=== PATIENT | female | born 1935 | race Caucasian/White ===

== ENCOUNTER → 2017-08-16 13:18 | Outpatient (CLI) | payer OTHER, SELFPAY ==
--- NOTE | 2017-08-16 | DI.MRI.S_ITS ---
PROCEDURE: MR HIP LT WO CON INDICATIONS: OSTEOARTHRITIS OF LEFT HIP TECHNIQUE: Noncontrast coronal T1 spin echo and STIR through the bony pelvis. Coronal and axial T2 fast spin echo with fat saturation, sagittal T1 spin echo, and oblique axial T2 fast spin echo with fat saturation through the hip. COMPARISON: None. FINDINGS: Image quality: Excellent. Bones and joints: Bone marrow of the pelvic ring and proximal femurs show asymmetric signal with degenerative osteoarthritic reactive marrow edema present at the proximal left femoral head and neck and also the overlying acetabulum. No intraosseous lesions or fractures. No avascular necrosis of the femoral heads. The visualized lower lumbar spine appears normally aligned. Tendons and ligaments: The gluteus medius and minimus tendons appear intact, without associated muscle atrophy. The nearby proximal iliotibial band also appears intact. The iliopsoas tendon appears intact, without adjacent bursal fluid collections or evidence for impingement syndrome. The origin of the hamstring tendon is intact at the ischial tuberosity, as well as the associated sacrotuberous ligament. The straight and reflected heads of the rectus femoris muscle origin appear intact, as well as the conjoint tendon. The ligamentum teres appears intact where visualized. Labrum and cartilage: The acetabular labrum appears intact in the absence of intra-articular contrast. Cartilage surface of the femoral head on the left appears of prominently reduced thickness indicating moderately severe degenerative osteoarthritis at this level, with several subchondral cysts having formed as a result.. The alpha angle of the femur is within normal limits at less than 55 degrees. Soft tissues: Visualized muscles demonstrate normal bulk and internal signal. Quadratus femoris muscle demonstrates no internal edema to suggest ischiofemoral impingement. The proximal sciatic neurovascular bundle appears normal adjacent to the hamstring tendons. No free pelvic fluid. Bladder wall thickness is normal. Genitourinary structures and bowel loops appear normal where visualized. IMPRESSION: Mild to moderate degenerative hip joint osteoarthritis on the right, but there is moderately severe degenerative osteoarthritis of the left with near [id number] articulation seen at the left hip, with reactive marrow space edema involving the femoral head and neck and to a slightly lesser degree the overlying left acetabulum. No significant joint effusion or intra-articular loose body. Orthopedic surgical consultation has been obtained. Dictated by: Jonah Hurd M.D. on 08/16/2017 at 16:44 Approved by: Jonah Hurd M.D. on 08/16/2017 at 16:47
== END ==
PROVIDERS: PCP Family Medicine; Visit Provider Orthopaedic Surgery
DX: M16.0 Bilateral primary osteoarthritis of hip (principal)
CPT/HCPCS: 73721

== ENCOUNTER → 2017-08-27 07:08 | Outpatient (CLI) | payer OTHER, SELFPAY ==
[2017-08-27 08:53] LABS: Add Manual Diff / Slide Review NO; Basophils Percent Auto 0.7 % (0-2); Eosinophils Percent Auto 6.8 % (2-4); Hematocrit 39.1 % (36-46); Hemoglobin 13.1 g/dL (12.0-16.0); Lymphocytes Percent Auto 27.5 % (25-40); Mean Corpuscular HGB Conc 33.5 % (30-36); Mean Corpuscular Hemoglobin 31.2 PG (26-34); Mean Corpuscular Volume 92.9 fL (80-100); Monocytes Percent Auto 7.6 % (3-14); Neutrophils Absolute Auto 3100 /uL (3000-5900); Neutrophils Percent Auto 57.4 % (50-75); Platelet Count 272 X10^3/uL (150-400); Red Blood Cell Count 4.21 X10^6/uL (4.0-5.2); Red Cell Distribution Width 14.3 % (11.6-14.8); White Blood Cell Count 5.5 X10^3/uL (4.5-11.0)
[2017-08-27 09:16] LABS: Alanine Aminotransferase 25 IU/L (9-52); Albumin 4.2 g/dL (3.5-5.0); Albumin Globulin Ratio 1.4 (1.0-2.8); Alkaline Phosphatase 63 U/L (38-126); Aspartate Aminotransferase 19 IU/L (14-36); BUN Creatinine Ratio 22.5 (6-22); Bilirubin Total 0.3 mg/dL (0.2-1.3); Blood Urea Nitrogen 18 mg/dL (7-17); Calcium 9.2 mg/dL (8.4-10.2); Carbon Dioxide 29 mmol/L (22-32); Chloride 105 mmol/L (98-107); Cholesterol 195 mg/dL (140-199); Estimated Glomerular Filt Rate > 60.0 mL/min (>60); Globulin 2.9 g/dL (1.7-4.1); Glucose 97 mg/dL (80-110); HDL Cholesterol 38 mg/dL (40-60); HEMOLYSIS 19 (0-50); LDL Cholesterol Calculated 129 mg/dL (<100); Sodium 143 mmol/L (137-145); Total Protein 7.1 g/dL (6.3-8.2); Triglycerides 140 mg/dL (35-150)
[2017-08-27 09:34] LABS: Thyroid Stimulating Hormone 0.65 uIU/mL (0.47-4.68)
== END ==
PROVIDERS: PCP Family Medicine; Visit Provider Family Medicine
DX: E78.5 Hyperlipidemia, unspecified (principal); I10 Essential (primary) hypertension
CPT/HCPCS: 36415; 80053; 80061; 84443; 85025

== ENCOUNTER → 2017-09-10 09:07 | Outpatient (CLI) | payer OTHER, SELFPAY ==
[2017-09-10 10:48] LABS: Add Manual Diff / Slide Review NO; Basophils Percent Auto 0.8 % (0-2); Eosinophils Percent Auto 9.5 % (2-4); Hematocrit 38.5 % (36-46); Hemoglobin 12.9 g/dL (12.0-16.0); Lymphocytes Percent Auto 23.9 % (25-40); Mean Corpuscular HGB Conc 33.6 % (30-36); Mean Corpuscular Volume 92.2 fL (80-100); Monocytes Percent Auto 8.6 % (3-14); Neutrophils Absolute Auto 2800 /uL (3000-5900); Neutrophils Percent Auto 57.2 % (50-75); Platelet Count 265 X10^3/uL (150-400); Red Blood Cell Count 4.17 X10^6/uL (4.0-5.2); Red Cell Distribution Width 13.5 % (11.6-14.8); White Blood Cell Count 4.9 X10^3/uL (4.5-11.0)
[2017-09-10 11:03] LABS: Carbon Dioxide 29 mmol/L (22-32); Chloride 104 mmol/L (98-107); HEMOLYSIS < 15 (0-50); Potassium 4.1 mmol/L (3.4-5.1); Sodium 142 mmol/L (137-145)
== END ==
PROVIDERS: PCP Family Medicine; Visit Provider Orthopaedic Surgery
DX: M16.12 Unilateral primary osteoarthritis, left hip (principal); Z01.818 Encounter for other preprocedural examination; Z01.812 Encounter for preprocedural laboratory examination
CPT/HCPCS: 36415; 80051; 85025; 93005; 93010

== ENCOUNTER 2017-10-01 07:20 | Inpatient (IN) | payer OTHER, SELFPAY ==
[2017-09-17 08:35] VITALS: BMI 27.8
[2017-10-01] VITALS (14 sets, daily range): BP systolic 134–165; BP diastolic 64–98; PULSE 64–87; RESP 10–18; TEMP 35.9–36.9; O2SAT 90–97; BMI 28.0
--- NOTE | 2017-10-01 06:00 | DI.RAD.S_ITS ---
PROCEDURE: XR PELVIS 1-2V INDICATIONS: LEFT TOTAL HIP TECHNIQUE: 1 view of the lower pelvis acquired. COMPARISON: None. FINDINGS: Bones: Patient is status post left hip arthroplasty, with hardware components in expected positions. The hip joint appears congruent. The visualized bony structures appear intact. Soft tissues: Overlying postoperative changes are noted. No suspicious soft tissue densities. IMPRESSION: Post left total hip arthroplasty with anatomic alignment. Dictated by: Clif Ambrose M.D. on 10/01/2017 at 12:57 Approved by: Clif Ambrose M.D. on 10/01/2017 at 13:10
[2017-10-01] MEDS: CELECOXIB 200 MG CAPSULE PO (09:10)
[2017-10-01] MEDS: PREGABALIN 75 MG CAPSULE PO (09:10)
[2017-10-01] MEDS: LACTATED RINGERS 1,000 ML 42 ML IV (09:10)
[2017-10-01] MEDS: ACETAMINOPHEN 325 MG TABLET 975 MG PO (09:10)
--- NOTE | 2017-10-01 10:03 | PM.PREOP ---
Pre-operative Note Interval Note Pre-op Check: Yes History & Physical Reviewed by Physician Changes: No
[2017-10-01] MEDS: CEFAZOLIN 1 GM VIAL IV (10:26)
[2017-10-01] MEDS: TRANEXAMIC ACID 1,000 MG VIAL 1000 MG INJ (10:50)
--- NOTE | 2017-10-01 11:38 | SUR.OPER ---
Lateral on padded OR bed. Gel axillary roll. Arms secured on padded armboard with pillow supporting top arm. Padded hip positioner braces x4 - anterior and posterior chest and pelvis. Additional gel pad used anterior pelvis. Gel pad under bottom leg from knee to foot and secured with tape over sheet.
--- NOTE | 2017-10-01 11:38 | SUR.OPER ---
Patient incontinent of large amount of clear urine after positioning but before prep. Slime area cleaned and absorbent layer added under patient buttock. Dr Gaona aware of reason for delay in prepping.
[2017-10-01] MEDS: BUPIVACAINE 0.25% W/ EPI VIAL 50 ML INJ (11:52)
--- NOTE | 2017-10-01 12:22 | PM.OP.1 ---
Operative Date/Time/Diagnoses Date of procedure: 10/01/17 Time of procedure: 12:22 Pre-op diagnosis: Left hip degenerative joint disease Post-op diagnosis: same Procedure & Clinicians Procedure: Left total hip arthroplasty (CPT code 21971 with mechanic assistant) Same procedure as scheduled: Yes Indications: Patient is an 81-year-old female with severe left hip DJD. The patient has pain with activities and at rest, limited ambulation and activity tolerance, difficulties with ADLs, and failure of conservative treatment. We have discussed the nature of condition, treatment options, risks and benefits, and patient elects to proceed with total hip arthroplasty and gives informed consent. Surgeon: Ori Gaona Video Intern: Elsa Smith Anesthesia Type: General and Spinal Operative Notes Closure Type: primary Specimen(s): none sent Implants & Drains: Acetabulum: Puentes [employer] Nephew R3 acetabular component size 50 mm Femoral component: Puentes [employer] Nephew Synergy stem size 12 with high offset Femoral head: 36 mm + 0 cobalt chrome Estimated Blood Loss (mL): 100 Procedure in detail: After satisfaction induction of anesthetic, and administration of IV antibiotics, the patient was positioned in the lateral decubitus position with all bony prominences well padded and pelvic position secured using a hip supervisor receiving and processing positioning device. Left hip and lower extremity prepped and draped in the usual sterile fashion, 1st dose of intravenous tranexamic acid was administered, then a longitudinal incision was created centered over the greater trochanter and carried sharply through the skin and subcutaneous tissues down to the fascia zoila which was divided longitudinally and retracted with a Charnley retractor. External rotators visualize, cut, tagged, and retracted posteriorly, then the capsule was cut in a T-type fashion with the corners tagged and retracted. Hip was dislocated and femoral neck cut made according to preoperative templating. Acetabular retractors then placed, and the acetabular labrum and osteophytes were excised. The acetabulum was then sequentially reamed to 49 mm with an excellent circumferential ream and fit with the trial. The trial component was removed and a permanent size 50 mm Puentes and Nephew R3 acetabular component was selected, positioned, and impacted with satisfactory position and fixation achieved. Permanent liner was then inserted with the elevated lip directed posteriorly. Soft tissue then removed off the lateral femoral neck in the lateral neck was entered using a box osteotome. T-handled reamers placed down the canal followed by sequential broaching to 12 with the final broach left in place for trial reduction which demonstrated good leg length, range of motion, and stability characteristics with a 32 mm +0 trial ball, because the acetabulum had been medialized more than originally templated another trial reduction was performed with a high offset neck which yielded excellent leg length range of motion and stability characteristics. The trial and broach were removed, and a permanent size 12 high offset Puentes [employer] Nephew Synergy stem was selected and inserted with excellent position and fixation achieved. Another trial reduction yielded the above characteristics so the trial ball was exchanged for a permanent 32 mm +0 cobalt chrome ball. The hip was irrigated and reduced and excellent leg length range of motion and stability characteristics were achieved and maintained. Periarticular tissues were infiltrated with Marcaine. The hip was copiously irrigated, and the capsule repaired with #2 Ethibond, and the piriformis was repaired back to the greater trochanter with the same. Fascia zoila closed with interrupted #1 Ethibond sutures, and the subcutaneous tissues were closed in 2 layers of 0 Vicryl and 2 0 Vicryl. Skin was closed with radha and sterile dressings applied. Second dose of tranexamic acid was administered intravenously, and the anesthetic was terminated. Complications: none Condition: stable Disposition: PACU Plan for aftercare: Patient will be admitted to the acute care [facility], and anticipate discharge on postop day 1 or 2 with follow-up in office in 10-14 days. Outpatient physical therapy will be arranged and patient will continue to observe posterior hip precautions. Patient will continue use of postoperative Lovenox for 10 days postop.
--- NOTE | 2017-10-01 12:26 | P.OP_ITS ---
Operative Date/Time/Diagnoses Date of procedure: 10/01/17 Time of procedure: 12:22 Pre-op diagnosis: Left hip degenerative joint disease Post-op diagnosis: same Procedure & Clinicians Procedure: Left total hip arthroplasty (CPT code 30390 with optical assistant) Same procedure as scheduled: Yes Indications: Patient is an 81-year-old female with severe left hip DJD. The patient has pain with activities and at rest, limited ambulation and activity tolerance, difficulties with ADLs, and failure of conservative treatment. We have discussed the nature of condition, treatment options, risks and benefits, and patient elects to proceed with total hip arthroplasty and gives informed consent. Surgeon: Ori Gaona Truck And Transport Mechanic: Elsa Smith Anesthesia Type: General and Spinal Operative Notes Closure Type: primary Specimen(s): none sent Implants & Drains: Acetabulum: Puentes and Nephew R3 acetabular component size 50 mm Femoral component: Puentes [employer] Nephew Synergy stem size 12 with high offset Femoral head: 36 mm + 0 cobalt chrome Estimated Blood Loss (mL): 100 Procedure in detail: After satisfaction induction of anesthetic, and administration of IV antibiotics, the patient was positioned in the lateral decubitus position with all bony prominences well padded and pelvic position secured using a hip jailer/training officer positioning device. Left hip and lower extremity prepped and draped in the usual sterile fashion, 1st dose of intravenous tranexamic acid was administered, then a longitudinal incision was created centered over the greater trochanter and carried sharply through the skin and subcutaneous tissues down to the fascia zoila which was divided longitudinally and retracted with a Charnley retractor. External rotators visualize, cut, tagged, and retracted posteriorly, then the capsule was cut in a T-type fashion with the corners tagged and retracted. Hip was dislocated and femoral neck cut made according to preoperative templating. Acetabular retractors then placed, and the acetabular labrum and osteophytes were excised. The acetabulum was then sequentially reamed to 49 mm with an excellent circumferential ream and fit with the trial. The trial component was removed and a permanent size 50 mm Puentes and Nephew R3 acetabular component was selected, positioned, and impacted with satisfactory position and fixation achieved. Permanent liner was then inserted with the elevated lip directed posteriorly. Soft tissue then removed off the lateral femoral neck in the lateral neck was entered using a box osteotome. T-handled reamers placed down the canal followed by sequential broaching to 12 with the final broach left in place for trial reduction which demonstrated good leg length, range of motion, and stability characteristics with a 32 mm +0 trial ball, because the acetabulum had been medialized more than originally templated another trial reduction was performed with a high offset neck which yielded excellent leg length range of motion and stability characteristics. The trial and broach were removed, and a permanent size 12 high offset Puentes and Nephew Synergy stem was selected and inserted with excellent position and fixation achieved. Another trial reduction yielded the above characteristics so the trial ball was exchanged for a permanent 32 mm +0 cobalt chrome ball. The hip was irrigated and reduced and excellent leg length range of motion and stability characteristics were achieved and maintained. Periarticular tissues were infiltrated with Marcaine. The hip was copiously irrigated, and the capsule repaired with #2 Ethibond, and the piriformis was repaired back to the greater trochanter with the same. Fascia zoila closed with interrupted #1 Ethibond sutures, and the subcutaneous tissues were closed in 2 layers of 0 Vicryl and 2 0 Vicryl. Skin was closed with radha and sterile dressings applied. Second dose of tranexamic acid was administered intravenously , and the anesthetic was terminated. Complications: none Condition: stable Disposition: PACU Plan for aftercare: Patient will be admitted to the acute care [facility], and anticipate discharge on postop day 1 or 2 with follow-up in office in 10-14 days. Outpatient physical therapy will be arranged and patient will continue to observe posterior hip precautions. Patient will continue use of postoperative Lovenox for 10 days postop.
[2017-10-01] MEDS: LACTATED RINGERS 1,000 ML 125 ML IV ×2 (13:36→21:59)
--- NOTE | 2017-10-01 15:36 | PT.IPTN ---
Current Diagnoses Unilateral primary osteoarthritis, left hip (10/01/17) Surgery Performed Operation Date: 10/01/17 10:15 Actual Procedures p Total Hip Arthroplasty(Left) - Ori Gaona MD Physical Therapy Treatment Note M3 PT-IP Subjective Start: 10/01/17 15:34 Freq: NEEDED Status: Active Protocol: Document 10/01/17 15:34 DLM (Rec: 10/01/17 15:36 DLM [id number]) Subjective Physical Therapy Visit Type Notes PT order received. Pt's block is still in affect and she can not feel her surgery LE. Pt moving ankle but can not tell. Provided posterior hip precaution information to pt and posted it in her room. Post-op packet given to pt. Will follow up for evaluation after block has worn off. Number of BOAT OPERATOR Visits 0
[2017-10-01] MEDS: CEFAZOLIN 2 GM/100 ML FROZ.PIGGY IV (18:28)
[2017-10-01] MEDS: CARVEDILOL 3.125 MG TABLET PO (21:29)
[2017-10-01] MEDS: CODEINE/ACETAMINOPHEN 30/300 TABLET 2 TAB PO (21:29)
[2017-10-01] MEDS: ASPIRIN EC 81 MG TABLET PO (21:29)
--- NOTE | 2017-10-01 22:45 | PC.NURSE ---
MARIELENA SHIFT: Patient doing well this shift. Denies pain, using bedpan for void. CMS intact. Patient needs frequent reminding of hip precautions as she would like to cross her legs in bed. Pillow between legs used to help with hip precautions, patient able to log roll with pillow between knees. Patient desats on room air to 89%, patient remains on 1Lnc oxygen. Encourage IS use. No acute distress, Call light in reach, bed alarm on. Will continue to monitor.
[2017-10-02] VITALS (10 sets, daily range): BP systolic 126–158; BP diastolic 61–84; PULSE 63–96; RESP 16–20; TEMP 36.5–37.1; O2SAT 88–95
[2017-10-02] MEDS: CEFAZOLIN 2 GM/100 ML FROZ.PIGGY IV (02:08)
--- NOTE | 2017-10-02 04:24 | PC.NURSE ---
Solar Photovoltaic Installer- Pt A&OX4, able to make needs known using call light. High fall risk precautions in place, bed alarm on. Has not been OOB yet, repositioning in bed supported with pillows and abductor pillow in place between BLE. Encouraged and explained hip precautions, pt agreeable. Left hip abd pad bulky dressing CDI, ice pack on/off with repositioning. CMS+, PPP, no edema to lower extremities, does have mild edema to left hip area. On continuous O2 monitoring throughout shift. O2 sat 91-95% on 1LNC. Pt given incentive spirometer and instructed on use, able to return demonstrate after several prompts. Pt unable to take deep breath, volume reached 500-750 and poor holding ability while in reclined position, pt determined to try, enc daytime/awake use. IVF infusing well to left FA PIV. Pt states mild discomfort to left hip area. 02/21, discussed prn meds, pt states has taken Percocet in past, does not recall taking [place] in past. Comfortable to left hip with repositioning onto side in bed. Pt assists with turn. No other voiced concerns, call light within reach.
[2017-10-02] MEDS: PANTOPRAZOLE 20 MG TABLET PO (06:15)
[2017-10-02 06:59] LABS: Hematocrit 36.3 % (36-46); Hemoglobin 12.1 g/dL (12.0-16.0)
--- NOTE | 2017-10-02 09:44 | PT.IIE ---
Current Diagnoses Unilateral primary osteoarthritis, left hip (10/01/17) Surgery Performed Operation Date: 10/01/17 10:15 Actual Procedures p Total Hip Arthroplasty(Left) - Ori Gaona MD Surgical History (Last Updated 09/17/17 @ 09:16 by Delores Franco, RN) History of carpal tunnel surgery of left wrist (Acute) Hx of appendectomy (Acute) Status post cataract extraction of both eyes with insertion of intraocular lens (Acute) Anesthesia (Resolved) History of ear surgery (Resolved 1981) History of ear surgery (Resolved 1974) History of knee replacement (Resolved 2008) History of knee replacement (Resolved 2012) Status post breast lumpectomy (Resolved 1982) Status post hysterectomy (Resolved 1979) Medical History (Last Updated 09/17/17 @ 09:16 by Delores Franco RN) Anxiety (Acute) Colon polyps (Acute) GERD (gastroesophageal reflux disease) (Acute) PTSD (post-traumatic stress disorder) (Acute) Sleep apnea (Acute) TIA (transient ischemic attack) (Acute) CTS (carpal tunnel syndrome) (Chronic) Cataract (Chronic) Chronic headaches (Chronic) Depression (Chronic) Hearing loss (Chronic) Chicken pox (Resolved) Measles (Resolved) Mumps (Resolved) Physical Therapy Inpatient Evaluation/Re-Eval M1 PT/OT-IP Prior Functional Status Start: 10/01/17 15:34 Freq: NEEDED Status: Active Protocol: Document 10/02/17 09:44 DLM (Rec: 10/02/17 10:42 DL [id number]) Medical Review Prior Functional Status Medical History Reviewed Yes Diet/Fluid Consistency Regular Communication deaf right ear Mobility and Gait Independent without device, community distances Activities of Daily Living and IADL's Independent and active Social History Household Members spouse Living Arrangements House Number of Floors (Floors) Two Floors Number of Stairs To Enter/Railing? 3 LILY with rail, 13 steps to second floor Home Environment High Toilet Tub/Shower Home Equipment Front Wheel Walker Employment Status Retired Additional Social History Comment She has a walk-in shower on second floor, will stay on main level M2 PT-IP Current Condition Start: 10/01/17 15:34 Freq: NEEDED Status: Active Protocol: Document 10/02/17 09:44 DLM (Rec: 10/02/17 10:42 DL [id number]) Physical Therapy Current Condition Current Condition Evaluation Date 10/02/17 Treatment Diagnosis left CHICHI, posterior approach, impaired gait Onset Date 10/01/17 Precautions Posterior Hip Precautions No Hip Flexion > 90 degrees No Hip Internal Rotation No Hip Adduction Weight Bearing Status Weight Bearing Status Weight Bear as Tolerated M3 PT-IP Subjective Start: 10/01/17 15:34 Freq: NEEDED Status: Active Protocol: Document 10/02/17 09:44 DLM (Rec: 10/02/17 10:42 DL [id number]) Subjective Physical Therapy Visit Type Type Initial Evaluation Visit Start Time 09:00 Visit Stop Time 09:44 Total Visit Minutes 44 Number of [employer] LEADER Visits 0 Physical Therapy Visit Comments Patient Comments She does not think she is ready to go home today and wants to stay until tomorrow. Short Term Goals discharge home Therapy Pain Assessment Pain When Pain Assessed After Treatment Pain Present Pain Present Pain Reported Location Lt leg Intensity 2 Scale Used Numeric (1 - 10) Description Aching Pain Behaviors Guarding Pain Management Techniques Re-positioning M4 PT-IP Mobility and Gait Start: 10/01/17 15:34 Freq: NEEDED Status: Active Protocol: Document 10/02/17 09:44 DLM (Rec: 10/02/17 10:42 [facility] [id number]) PT-Bed Mobility Assessment Supine to Sit Supine to Sit Standby Assistance Scooting Scooting to Edge of Bed Contact Guard Assistance PT-Transfer Assessment Sit to and From Stand Sit to and from Stand Contact Guard Assistance Use of Upper Extremities Equipment Transfer Assistive Device Gait Belt Front Wheeled Walker Transfers Transfer Destination Chair Transfer Technique Stand Step Pivot Transfer Ability Level of Assist Contact Guard Assistance Minimal Assistance Comments Mobility Comments left up in recliner with feet elevated and Spouse visiting, call light close Gait Assessment Gait Gait Assistance Required: Contact Guard Assist Minimum Assistance Distance (Feet) (feet) 25 Able to Maintain Weight Bearing Status Yes During Gait Assistive Devices Assistive Device Front Wheeled Walker Gait Deviations General Gait Pattern Antalgic Factors Limiting Gait Function Factors Limiting Gait Function Decreased Activity Tolerance Decreased Strength Pain Comments Gait Comments she needs a lot of cuing during mobility for her hip precautions and safe sequencing, demonstrated precautions for education PT-Balance Assessment Sitting Balance and Reactions Static Sitting Balance Ability Normal Dynamic Sitting Balance Ability Good Standing Balance and Reactions Static Standing Balance Ability Good Dynamic Standing Balance Ability Fair Device Used with fWW M5 PT-IP Objective Assessments Start: 10/01/17 15:34 Freq: NEEDED Status: Active Protocol: Document 10/02/17 09:44 DLM (Rec: 10/02/17 10:42 [facility] [id number]) Orientation Orientation/Cognition Level of Alertness Alert Orientation Name Age Birthday Month Date Year Day of Week Place Situation Language Function Ability Hard of Hearing Memory Description Short Term Impaired Comments has difficulty using hip precautions functionally Gross Range of Motion Upper Extremity ROM Assessment Within Functional Limits Lower Extremity ROM Assessment Left Impaired Impairments hip precautions on left Strength Upper Extremity Strength Assessment Within Functional Limits Lower Extremity Strength Assessment Left Impaired Hip hip flexion 2+/5 Knee knee 4/5 Ankle DF 5/5 Comments Strength Comments pain left hip affects strength Coordination Assessment Gross Coordination Gross Coordination WNL Sensation Assessment Sensation Gross Sensation WNL Muscle Tone Muscle Tone WNL Yes M6 PT-IP Treatment Start: 10/01/17 15:34 Freq: NEEDED Status: Active Protocol: Document 10/02/17 09:44 DLM (Rec: 10/02/17 10:42 [facility] [id number]) Physical Therapy Treatment Exercises Exercises Ankle Pumps Education Education Provided Precautions Weight Bearing Status Post-Op Packet Safety Other Treatments Other Treatment Performed answered questions from pt and her Spouse about home safety and hip precautions M7 PT-IP Assessment and Plan Start: 10/01/17 15:34 Freq: NEEDED Status: Active Protocol: Document 10/02/17 09:44 DLM (Rec: 10/02/17 10:42 [facility] [id number]) PT Summary Assessment and Plan Potential Rehabilitation Potential Good Status of Condition at Evaluation Evolving Summary Impairments Pain ROM Strength Balance Bed Mobility Transfers Gait Activity Tolerance Goals Bed Mobility Goal Independent Transfer Goal Independent Front Wheeled Walker Gait Goal Standby Assistance Front Wheel Walker Gait Distance 100 feet Other Goals Up and down 3 steps with rail, cane and min assist Days to Meet Goals 2 Frequency of Treatment Frequency Of Treatment Twice a Day Treatment Plan Physical Therapy Treatment Plan Bed Mobility Training Transfer Training Gait Training Therapeutic Exercise Balance Retraining Post Op Education Discharge Planning Hot or Cold Pack Recommendations To Nursing Amount of Assist Needed 1 Person Assist Discharge Recommendations PT Discharge Recommendations Home with Assistance Outpatient PT
[2017-10-02] MEDS: ASPIRIN EC 81 MG TABLET PO ×2 (09:45→20:53)
[2017-10-02] MEDS: AMLODIPINE 5 MG TABLET PO (09:45)
[2017-10-02] MEDS: CODEINE/ACETAMINOPHEN 30/300 TABLET 2 TAB PO ×2 (09:45→20:52)
[2017-10-02] MEDS: ENOXAPARIN 30 MG/0.3 ML SYRINGE SUBCUT (09:46)
[2017-10-02] MEDS: CARVEDILOL 3.125 MG TABLET PO ×2 (09:46→20:53)
[2017-10-02] MEDS: PARoxetine 20 MG TABLET 60 MG PO (09:46)
--- NOTE | 2017-10-02 13:01 | PM.PNPO.1 ---
Subjective Date Patient Seen: 10/02/17 Time Patient Seen: 07:01 Interval history: POD #1 status post left total hip arthroplasty with Dr. Gaona. Patient's pain is well controlled with Tylenol. She has not been up with physical therapy yet. She has ASA and Lovenox for DVT prophylaxis. She lives at home with her . She has outpatient physical therapy scheduled. Exam Vital Signs (past 8 hours): - 10/02/17 07:57 10/02/17 09:26 10/02/17 09:27 Temperature 97.8 F Pulse Rate 65 Respiratory Rate 18 Blood Pressure 155/80 H Pulse Oximetry 94 88 L 93 10/02/17 09:46 10/02/17 11:39 Temperature 98.8 F Pulse Rate 96 H 63 Respiratory Rate 18 Blood Pressure 145/61 H 136/62 H Pulse Oximetry 95 Oxygen Delivery Method Nasal Cannula Oxygen Flow Rate 0 Narrative Exam Narrative: Patient lying in bed in no acute distress. She is alert and oriented x3. Dressing on left hip is CDI. Calves are soft, compressible, nontender bilaterally. Sensation intact light touch throughout bilateral lower extremities. Pulses are symmetrical. She is able to actively dorsiflex and plantar flex. Objective Labs Result Diagrams: 10/02/17 05:10 Labs: Laboratory Results - last 24 hr 10/02/17 05:10 Hgb 12.1 Hct 36.3 Assessment & Plan Post-op (1) S/P total hip arthroplasty: Current Visit: Yes Status: Acute Postoperative Procedures Operation Date: 10/01/17 10:15 Actual Procedures Side Surgeon p Total Hip Arthroplasty Left Ori Gaona MD POD #1 status post left total hip arthroplasty with Dr. Gaona. Continue current pain management. She will ambulate with physical therapy today, posterior hip precautions were reviewed with her. Continue ASA and Lovenox for DVT prophylaxis. If the patient is mobilizing safely, and pain adequately controlled, possible discharge home today or tomorrow. Quality VTE Deep Vein Thrombosis/Pulmonary Embolism Present on Admission: No
[2017-10-02] MEDS: HYDROCODONE/ACET 5/325 TABLET 1 TAB PO ×2 (15:53→20:26)
--- NOTE | 2017-10-02 16:41 | PT.IPTN ---
Current Diagnoses Unilateral primary osteoarthritis, left hip (10/01/17) Presence of unspecified artificial hip joint (10/01/17) Surgery Performed Operation Date: 10/01/17 10:15 Actual Procedures p Total Hip Arthroplasty(Left) - Ori Gaona MD Physical Therapy Treatment Note M2 PT-IP Current Condition Start: 10/01/17 15:34 Freq: NEEDED Status: Active Protocol: Document 10/02/17 09:44 DLM (Rec: 10/02/17 10:42 DLM [id number]) Physical Therapy Current Condition Current Condition Evaluation Date 10/02/17 Treatment Diagnosis left CHICHI, posterior approach, impaired gait Onset Date 10/01/17 Precautions Posterior Hip Precautions No Hip Flexion > 90 degrees No Hip Internal Rotation No Hip Adduction Weight Bearing Status Weight Bearing Status Weight Bear as Tolerated M3 PT-IP Subjective Start: 10/01/17 15:34 Freq: NEEDED Status: Active Protocol: Document 10/02/17 15:00 CLB (Rec: 10/02/17 16:33 CLB [id number]) Subjective Physical Therapy Visit Type Type Treatment Note Visit Start Time 15:00 Visit Stop Time 15:25 Total Visit Minutes 25 Number of HOSE WRAPPER Visits 1 Physical Therapy Visit Comments Patient Comments Pt needs to use the BR. Short Term Goals discharge home Therapy Pain Assessment Pain When Pain Assessed During Mobility Pain Present Pain Present Pain Reported Location Lt leg Intensity 8 Scale Used Numeric (1 - 10) Description Sharp Pain Behaviors Guarding Pain Management Techniques Apply Cold Re-positioning M4 PT-IP Mobility and Gait Start: 10/01/17 15:34 Freq: NEEDED Status: Active Protocol: Document 10/02/17 15:00 CLB (Rec: 10/02/17 16:33 CLB [id number]) PT-Bed Mobility Assessment Supine to Sit Supine to Sit Minimal Assistance Bedrails Scooting Scooting to Edge of Bed Minimal Assistance PT-Transfer Assessment Sit to and From Stand Sit to and from Stand Contact Guard Assistance Use of Upper Extremities Equipment Transfer Assistive Device Gait Belt Front Wheeled Walker Transfers Transfer Destination Bed Toilet Transfer Ability Level of Assist Contact Guard Assistance Minimal Assistance Comments Mobility Comments Pt needing increased assist this session due to pain. Pt doing well with kicking leg out before standing. Gait Assessment Gait Gait Assistance Required: Contact Guard Assist Minimum Assistance Distance (Feet) (feet) 25 Able to Maintain Weight Bearing Status Yes During Gait Assistive Devices Assistive Device Front Wheeled Walker Gait Deviations General Gait Pattern Antalgic Factors Limiting Gait Function Factors Limiting Gait Function Decreased Activity Tolerance Decreased Strength Pain Comments Gait Comments Pt needs cues for hip precautions when turning to prevent internal hip rotation. Pt also needed cues for sequencing with FWW. M5 PT-IP Objective Assessments Start: 10/01/17 15:34 Freq: NEEDED Status: Active Protocol: Document 10/02/17 09:44 DLM (Rec: 10/02/17 10:42 DLM [id number]) Orientation Orientation/Cognition Level of Alertness Alert Orientation Name Age Birthday Month Date Year Day of Week Place Situation Language Function Ability Hard of Hearing Memory Description Short Term Impaired Comments has difficulty using hip precautions functionally Gross Range of Motion Upper Extremity ROM Assessment Within Functional Limits Lower Extremity ROM Assessment Left Impaired Impairments hip precautions on left Strength Upper Extremity Strength Assessment Within Functional Limits Lower Extremity Strength Assessment Left Impaired Hip hip flexion 2+/5 Knee knee 4/5 Ankle DF 5/5 Comments Strength Comments pain left hip affects strength Coordination Assessment Gross Coordination Gross Coordination WNL Sensation Assessment Sensation Gross Sensation WNL Muscle Tone Muscle Tone WNL Yes M6 PT-IP Treatment Start: 10/01/17 15:34 Freq: NEEDED Status: Active Protocol: Document 10/02/17 15:00 CLB (Rec: 10/02/17 16:33 CLB [id number]) Physical Therapy Treatment Exercises Exercises Ankle Pumps Heel Slides Supine Hip Abduction Education Education Provided Precautions Weight Bearing Status Post-Op Packet Safety M7 PT-IP Assessment and Plan Start: 10/01/17 15:34 Freq: NEEDED Status: Active Protocol: Document 10/02/17 15:00 CLB (Rec: 10/02/17 16:41 CLB [id number]) PT Summary Assessment and Plan Potential Rehabilitation Potential Good Status of Condition at Evaluation Evolving Summary Impairments Pain ROM Strength Balance Bed Mobility Transfers Gait Activity Tolerance Progress Towards Goals Progressing Toward Goals Assessment Summary Pt needed increased assist OOB due to pain. Pt needs cues for post. CHICHI precautions and recalled 1/3 precautions. Goals Bed Mobility Goal Independent Transfer Goal Independent Front Wheeled Walker Gait Goal Standby Assistance Front Wheel Walker Gait Distance 100 feet Other Goals Up and down 3 steps with rail, cane and min assist Days to Meet Goals 2 Frequency of Treatment Frequency Of Treatment Twice a Day Treatment Plan Physical Therapy Treatment Plan Bed Mobility Training Transfer Training Gait Training Therapeutic Exercise Balance Retraining Post Op Education Discharge Planning Hot or Cold Pack Recommendations To Nursing Amount of Assist Needed 1 Person Assist Discharge Recommendations PT Discharge Recommendations Home with Assistance Outpatient PT
--- NOTE | 2017-10-02 22:10 | PC.NURSE ---
Swathi reporting increased pain tonight, started crying when this nurse on break, HOME SERVICE ADVISOR called float RN in room to give patient pain medication per pt's request. Pt told me that she thought she was going to get pain medication on schedule, I told her that we would try to stay on schedule tonight but that if she has increased pain or breakthrough pain she needs to use call button to notify staff. She expressed understanding, able to calm down. Assisted her to reposition to left side, pillow between knees & supporting back. Drsg to left hip is CDI, ice pack in place. CMS intact, denies numbness, does say that feels leg is heavy and I can't really move it well. VS are stable, RA oxygen 95-98% tonight. She is now dozing with eyes closed, call button in reach, bed alarm active for safety.
[2017-10-03] VITALS (16 sets, daily range): BP systolic 117–148; BP diastolic 59–71; PULSE 69–75; RESP 15–18; TEMP 36.2–38.2; O2SAT 83–96
[2017-10-03] MEDS: OXYCODONE/ACETAMINOPHEN 5/325 TABLET 1 TAB PO ×4 (00:29→14:45)
--- NOTE | 2017-10-03 03:43 | DI.CT.S_ITS ---
PROCEDURE: CT ANGIO CHEST PE PROTOCOL INDICATIONS: 81-year-old woman with shortness of breath and hypoxia. Post surgery. TECHNIQUE: After the administration of intravenous contrast, 2 mm thick sections acquired from the pulmonary apices to the posterior costophrenic angles. 3-dimensional maximum intensity projection (MIP) coronal and sagittal reformats were then acquired through the thorax. For radiation dose reduction, the following was used: automated exposure control, adjustment of mA and/or kV according to patient size. COMPARISON: [facility], , CHEST 1 VIEW, 05/22/2015, 13:49. FINDINGS: Image quality: Excellent. Pulmonary arteries: Pulmonary arteries are normal in size, and demonstrate no intraluminal filling defects to suggest central pulmonary embolism. Lungs and pleura: Bilateral interstitial thickening and small pleural effusions. There are bibasilar consolidations or atelectasis. A 8 mm nodule is present in the right upper lobe. No pleural effusions or pneumothorax. Central and peripheral airways are patent. Mediastinum: Heart size is moderately increased, without pericardial effusion. Moderate coronary atherosclerosis. There is a large heterogeneously enhancing mass in the right paratracheal region measuring 4.1 x 2.8 cm with foci of calcification, which appears related to the inferior pole of the right thyroid lobe, likely substernal goiter. Mildly enlarged pretracheal lymph node measures 1.3 cm in diameter. No hilar adenopathy. Thoracic aorta is normal in caliber and enhancement. Esophagus is normal in caliber, without hiatal hernia. Bones and chest wall: No suspicious bony lesions. Ribs and thoracic spine appear intact throughout. . No axillary or supraclavicular adenopathy. Abdomen: A 1.6 cm low density nodule in the liver is likely a cyst. Visualized upper abdominal solid organs otherwise appear normal in the early arterial phase of enhancement. IMPRESSION: 1. No evidence for central pulmonary embolism. 2. Suspect congestive heart failure with cardiomegaly, bilateral interstitial thickening and small pleural effusions. 3. Bibasilar consolidations or atelectasis. 4. A 8 mm nodule in the right upper lobe. Please see enclosed followup recommendation. 5. 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 Given irregular appearance and heterogeneous enhancement, primary thyroid neoplasm or metastasis cannot be excluded. Thyroid ultrasound and scintigraphy may be helpful for further evaluation. 6. A mildly enlarged pretracheal lymph node is noted. This finding is nonspecific and may be secondary to infectious, inflammatory or neoplastic etiology. Recommend clinical correlation and follow up. Fleischner Society criteria for SOLID lung nodule followup. Nodule size (mm)Low-risk patientHigh-risk patient?4No follow-up neededFollow-up at 12 mo; if no change, no further follow-up>9-1Kvwujf-yn CT at 12 mo; if no change, no further follow-up needed.Initial follow-up CT at 6-12 mo, then 18-24 mo if no change. >6-8Initial follow-up CT at 6-12 mo, then 18-24 mo if no change. Initial follow-up CT at 3-6 mo, then 9-12 mo and 24 mo if no change. >8Follow-up CT at 3, 9, 24 mo. Or PET and/or biopsy.Same as for low-risk pts. Dictated by: Arun Barger M.D. on 10/03/2017 at 7:59 Transcribed by: JOSÉ on 10/03/2017 at 8:12 Approved by: Arun Barger M.D. on 10/03/2017 at 17:25
[2017-10-03] MEDS: PANTOPRAZOLE 20 MG TABLET PO (05:43)
[2017-10-03 06:51] LABS: Add Manual Diff / Slide Review NO; Basophils Percent Auto 0.3 % (0-2); Eosinophils Percent Auto 0.5 % (2-4); Hematocrit 35.3 % (36-46); Hemoglobin 12.2 g/dL (12.0-16.0); Lymphocytes Percent Auto 10.6 % (25-40); Mean Corpuscular HGB Conc 34.7 % (30-36); Mean Corpuscular Hemoglobin 31.7 PG (26-34); Mean Corpuscular Volume 91.5 fL (80-100); Monocytes Percent Auto 8.4 % (3-14); Neutrophils Absolute Auto 8500 /uL (3000-5900); Neutrophils Percent Auto 80.2 % (50-75); Platelet Count 236 X10^3/uL (150-400); Red Blood Cell Count 3.86 X10^6/uL (4.0-5.2); Red Cell Distribution Width 13.9 % (11.6-14.8); White Blood Cell Count 10.6 X10^3/uL (4.5-11.0)
[2017-10-03 06:58] LABS: Alanine Aminotransferase 28 IU/L (9-52); Albumin 3.4 g/dL (3.5-5.0); Albumin Globulin Ratio 1.3 (1.0-2.8); Alkaline Phosphatase 56 U/L (38-126); Aspartate Aminotransferase 27 IU/L (14-36); BUN Creatinine Ratio 21.7 (6-22); Bilirubin Total 0.4 mg/dL (0.2-1.3); Blood Urea Nitrogen 13 mg/dL (7-17); Calcium 8.7 mg/dL (8.4-10.2); Carbon Dioxide 33 mmol/L (22-32); Chloride 98 mmol/L (98-107); Estimated Glomerular Filt Rate > 60.0 mL/min (>60); Globulin 2.7 g/dL (1.7-4.1); Glucose 116 mg/dL (80-110); HEMOLYSIS < 15 (0-50); Potassium 3.9 mmol/L (3.4-5.1); Sodium 136 mmol/L (137-145); Total Protein 6.1 g/dL (6.3-8.2)
[2017-10-03 07:05] LABS: INR 1.1 (0.9-1.3); Prothrombin Time 11.9 SECONDS (10.1-12.7)
[2017-10-03 07:40] LABS: TSH w/ Reflex to FT4 1.12 uIU/mL (0.47-4.68)
--- NOTE | 2017-10-03 08:04 | PC.NURSE ---
Structures Mechanic- At beginning of shift, pt O2 sat 83% on RA, pt denied any respiratory issues. Placed on continuous O2 monitoring, Pt demonstrated deep breathing exercises and use of incentive spirometer. O2 sat increased to 88% on RA, therefore O2 NC placed at 2L. O2 sat increased to 92%. At 0300, pt desat to 89% on 2LNC, placed to 3L, new reading was 93%. Pt denied any shortness of breath, pain with deep breathing, or any other respiratory issue. AE clear to upper lobes and quite diminished to lower lobes bilaterally anterior and posterior. RT called at 0310 to assess pt further. Spoke with Dr. Vazquez at 0335, new order rec'd for Chest CT with contrast/PE study. Pt updated of this and RN coordinator. Update given to Dr. Vazquez at 0557 re current pt status, asked to call Dr. Hassan to give update as well. Called Dr. Hassan at 0615 and given update re chest CT read out. Spoke with Dr. Hassan again at 0700 on unit, Plans to see pt at bedside.
--- NOTE | 2017-10-03 08:17 | P.CONS_ITS ---
History of Present Illness Date Patient Seen: 10/03/17 Time Patient Seen: 06:45 Chief complaint: [id number] Reason for consult: Hypoxia Requesting provider: Jaden Vazquez Narrative: PCP: Dr. Lebron. 81-year-old female with a history of hypertension and arthritis postop day two after left hip replacement with new hypoxia overnight requiring 4 L of oxygen. Patient has been receiving Lovenox for DVT prophylaxis. I was asked to consult by Dr. Vazquez for a new pulmonary embolism seen on CTA however there was a mistake with the radiology report. CTA did not show a pulmonary embolism however did show cardiomegaly and small bilateral pleural effusions suggestive of congestive heart failure. This morning patient reports significant pain from her hip but denies difficulty breathing, shortness of breath or cough. She states she is a bit confused from being up all night. Denies a history of heart disease or lung disease. She is most concerned about controlling her hip pain. Patient had an echocardiogram done September of 2015. Ejection fraction was 60-65 % with dilation of the left atrium and mild to moderate mitral valve calcification. Could not rule out bicuspid aortic valve. [facility] Medical History Anxiety (Acute) Colon polyps (Acute) GERD (gastroesophageal reflux disease) (Acute) PTSD (post-traumatic stress disorder) (Acute) Sleep apnea (Acute) TIA (transient ischemic attack) (Acute) CTS (carpal tunnel syndrome) (Chronic) Cataract (Chronic) Chronic headaches (Chronic) Depression (Chronic) Hearing loss (Chronic) Chicken pox (Resolved) Measles (Resolved) Mumps (Resolved) Surgical History History of carpal tunnel surgery of left wrist (Acute) Hx of appendectomy (Acute) Status post cataract extraction of both eyes with insertion of intraocular lens (Acute) Anesthesia (Resolved) History of ear surgery (Resolved 1981) History of ear surgery (Resolved 1974) History of knee replacement (Resolved 2008) History of knee replacement (Resolved 2012) Status post breast lumpectomy (Resolved 1982) Status post hysterectomy (Resolved 1979) Family History Child Age: 56 Mental health problem Father Heart disease Stroke Grandmother Cancer Grandfather Pneumonia Grandmother No problems noted. Mother Brainstem hemorrhage Social History household members: spouse Smoking Status: Never smoker alcohol intake: current Meds Home Medications Medication Instructions Recorded Confirmed Type amlodipine [Norvasc] 5 mg PO QDAY #90 tab 06/21/17 10/01/17 Rx carvedilol 3.125 mg tablet 3.125 mg PO BID #180 tab 09/06/17 10/01/17 Rx paroxetine 20 mg tablet 60 mg PO QDAY #270 tab 09/06/17 10/01/17 Rx aspirin 81 mg PO DAILY 09/17/17 10/01/17 History omeprazole 20 mg PO QAM 09/17/17 10/01/17 History acetaminophen-codeine 2 tab PO BID 10/01/17 10/01/17 History [Tylenol-Codeine #3] Allergies Allergy/AdvReac Type Severity Reaction Status Date / Time No Known Drug Allergies Allergy Verified 10/01/17 09:00 Review of Systems Constitutional Constitutional: Denies fever(s) Cardiovascular Cardiovascular: Denies chest pain, Denies chest pain at rest, Denies foot swelling, Denies leg swelling, Denies shortness of breath and Denies shortness of breath with activity Respiratory Respiratory: Denies cough, Denies dyspnea, Denies dyspnea on exertion and Denies wheezing Allergic/Immunologic Allergic/Immunologic: Denies wheezing Exam Vital Signs (past 8 hours): - 10/03/17 00:32 10/03/17 00:34 10/03/17 00:35 Temperature 100.7 F H Pulse Rate 72 Respiratory Rate 18 Blood Pressure 135/66 H Pulse Oximetry 83 L 88 L 90 L 10/03/17 00:40 10/03/17 03:10 10/03/17 03:12 Temperature Pulse Rate Respiratory Rate Blood Pressure Pulse Oximetry 92 89 L 93 10/03/17 04:02 10/03/17 04:15 Temperature 98.8 F Pulse Rate 69 Respiratory Rate 17 Blood Pressure 134/62 H Pulse Oximetry 92 92 Oxygen Delivery Method Nasal Cannula Oxygen Flow Rate 4 Narrative Exam Narrative: General: Older woman resting comfortably in bed, NAD, speaks in full sentences HEENT: NCAT, EOMI, moist oral mucosa CV: Regular rate and rhythm, no murmurs, rubs or gallops Lungs: Clear to auscultation bilaterally with the exception of faint crackles at the bases, no rhonchi or wheezes. No respiratory distress. Abdomen: Soft, nontender; bowel tones active; no hepatosplenomegaly Extremities: Warm, no edema, 2+ pedal pulses bilaterally Neuro: Oriented to self and place. Did not ask year. Objective Labs Result Diagrams: 10/03/17 06:39 10/03/17 06:39 Labs: Laboratory Results - last 24 hr 10/03/17 10/03/17 10/03/17 06:39 06:39 06:39 WBC 10.6 RBC 3.86 L Hgb 12.2 Hct 35.3 L MCV 91.5 MCH 31.7 MCHC 34.7 RDW 13.9 Plt Count 236 Neut % (Auto) 80.2 H Lymph % (Auto) 10.6 L [place] % (Auto) 8.4 Eos % (Auto) 0.5 L Baso % (Auto) 0.3 Neut # (Auto) 8500 H PT INR Sodium 136 L Potassium 3.9 Chloride 98 Carbon Dioxide 33 H BUN 13 Creatinine 0.60 Estimated GFR > 60.0 BUN/Creatinine Ratio 21.7 Glucose 116 H Calcium 8.7 Total Bilirubin 0.4 AST 27 ALT 28 Alkaline Phosphatase 56 B-Natriuretic Peptide 231.0 H Total Protein 6.1 L Albumin 3.4 L Globulin 2.7 Albumin/Globulin Ratio 1.3 TSH 10/03/17 10/03/17 06:39 07:01 WBC RBC Hgb Hct MCV MCH MCHC RDW Plt Count Neut % (Auto) Lymph % (Auto) [place] % (Auto) Eos % (Auto) Baso % (Auto) Neut # (Auto) PT 11.9 INR 1.1 Sodium Potassium Chloride Carbon Dioxide BUN Creatinine Estimated GFR BUN/Creatinine Ratio Glucose Calcium Total Bilirubin AST ALT Alkaline Phosphatase B-Natriuretic Peptide Total Protein Albumin Globulin Albumin/Globulin Ratio TSH 1.12 Assessment & Plan (1) S/P total hip arthroplasty: Current visit: Yes Status: Acute (2) Essential hypertension: Current visit: Yes Status: Acute (3) Hypoxia: Current visit: Yes Status: Acute Plan: Assessment/Plan Narrative: 81 year old female with HTN and osteoarthritis now post-op day two after left hip replacement with new hypoxia overnight. CTA negative for PE however there was evidence of new heart failure with cardiomegaly and small bilateral pleural effusions. Clinically patient does not appear volume overloaded with the exception of faint bibasilar crackles. Will check an EKG, echocardiogram, CMP, CBC, BNP and give a dose of lasix.
[2017-10-03] MEDS: ASPIRIN EC 81 MG TABLET PO ×2 (09:04→21:17)
[2017-10-03] MEDS: FUROSEMIDE 20 MG/2 ML VIAL IV (09:04)
[2017-10-03] MEDS: CARVEDILOL 3.125 MG TABLET PO ×2 (09:04→21:17)
[2017-10-03] MEDS: AMLODIPINE 5 MG TABLET PO (09:04)
[2017-10-03] MEDS: ENOXAPARIN 30 MG/0.3 ML SYRINGE SUBCUT (09:05)
[2017-10-03] MEDS: PARoxetine 20 MG TABLET 60 MG PO (09:05)
[2017-10-03] MEDS: SODIUM CHLORIDE 0.9% FLUSH 10 ML IV ×2 (09:06→21:17)
--- NOTE | 2017-10-03 10:10 | PT.IPTN ---
Current Diagnoses Essential (primary) hypertension (10/01/17) Unilateral primary osteoarthritis, left hip (10/01/17) Hypoxemia (10/01/17) Presence of unspecified artificial hip joint (10/01/17) Surgery Performed Operation Date: 10/01/17 10:15 Actual Procedures p Total Hip Arthroplasty(Left) - Ori Gaona MD Physical Therapy Treatment Note M2 PT-IP Current Condition Start: 10/01/17 15:34 Freq: NEEDED Status: Active Protocol: Document 10/02/17 09:44 DLM (Rec: 10/02/17 10:42 DLM [id number]) Physical Therapy Current Condition Current Condition Evaluation Date 10/02/17 Treatment Diagnosis left CHICHI, posterior approach, impaired gait Onset Date 10/01/17 Precautions Posterior Hip Precautions No Hip Flexion > 90 degrees No Hip Internal Rotation No Hip Adduction Weight Bearing Status Weight Bearing Status Weight Bear as Tolerated M3 PT-IP Subjective Start: 10/01/17 15:34 Freq: NEEDED Status: Active Protocol: Document 10/03/17 10:10 GGD (Rec: 10/03/17 11:35 GGD [id number]) Subjective Physical Therapy Visit Type Type Treatment Note Visit Start Time 09:45 Visit Stop Time 10:10 Total Visit Minutes 25 Number of GEOLOGY FACULTY MEMBER Visits 2 Physical Therapy Visit Comments Patient Comments Pt states she needs to use the bathroom. She hopes to D/C home and dosen't want to go to SNF Rehab. Therapy Pain Assessment Pain When Pain Assessed At Rest Pain Present Pain Present Pain Reported M4 PT-IP Mobility and Gait Start: 10/01/17 15:34 Freq: NEEDED Status: Active Protocol: Document 10/03/17 10:10 GGD (Rec: 10/03/17 11:35 GGD [id number]) PT-Bed Mobility Assessment Supine to Sit Supine to Sit Minimal Assistance Bedrails Scooting Scooting to Edge of Bed Minimal Assistance PT-Transfer Assessment Sit to and From Stand Sit to and from Stand Contact Guard Assistance Use of Upper Extremities Equipment Transfer Assistive Device Gait Belt Front Wheeled Walker Transfers Transfer Destination Chair Bedside Commode Transfer Ability Level of Assist Minimal Assistance Use of Upper Extremities Gait Assessment Gait Gait Assistance Required: Contact Guard Assist Minimum Assistance Distance (Feet) (feet) 5 Assistive Devices Assistive Device Gait Belt Front Wheeled Walker Gait Deviations General Gait Pattern Antalgic Factors Limiting Gait Function Factors Limiting Gait Function Decreased Activity Tolerance Decreased Strength Limited Range of Motion Pain Poor Balance Poor Safety Awareness Comments Gait Comments Pt need cues for hip precaution. M5 PT-IP Objective Assessments Start: 10/01/17 15:34 Freq: NEEDED Status: Active Protocol: Document 10/02/17 09:44 DLM (Rec: 10/02/17 10:42 DLM [id number]) Orientation Orientation/Cognition Level of Alertness Alert Orientation Name Age Birthday Month Date Year Day of Week Place Situation Language Function Ability Hard of Hearing Memory Description Short Term Impaired Comments has difficulty using hip precautions functionally Gross Range of Motion Upper Extremity ROM Assessment Within Functional Limits Lower Extremity ROM Assessment Left Impaired Impairments hip precautions on left Strength Upper Extremity Strength Assessment Within Functional Limits Lower Extremity Strength Assessment Left Impaired Hip hip flexion 2+/5 Knee knee 4/5 Ankle DF 5/5 Comments Strength Comments pain left hip affects strength Coordination Assessment Gross Coordination Gross Coordination WNL Sensation Assessment Sensation Gross Sensation WNL Muscle Tone Muscle Tone WNL Yes M6 PT-IP Treatment Start: 10/01/17 15:34 Freq: NEEDED Status: Active Protocol: Document 10/03/17 10:10 GGD (Rec: 10/03/17 11:35 GGD [id number]) Physical Therapy Treatment Exercises Exercises Ankle Pumps Heel Slides Seated Knee Flexion/Extension Education Education Provided Precautions M7 PT-IP Assessment and Plan Start: 10/01/17 15:34 Freq: NEEDED Status: Active Protocol: Document 10/03/17 10:10 GGD (Rec: 10/03/17 11:35 GGD [id number]) PT Summary Assessment and Plan Summary Assessment Summary Pt need assist for bed mobilty . She needed cues for hip precaution and unable to follow. She had increase in pain and difficulty with mobility. Frequency of Treatment Frequency Of Treatment Twice a Day Treatment Plan Physical Therapy Treatment Plan Bed Mobility Training Transfer Training Gait Training Therapeutic Exercise Balance Retraining Post Op Education Discharge Planning Hot or Cold Pack Recommendations To Nursing Amount of Assist Needed 1 Person Assist Discharge Recommendations PT Discharge Recommendations Home with Assistance SNF Rehab Outpatient PT Other Discharge Recommendations Home VS SNF rehab
--- NOTE | 2017-10-03 10:44 | CM.DANOTE ---
Discharge Planning/Care Management DCP: assessment: Late Entry: for 10/02: 0830 Case received and met with pt at 0830. Introduced self and role. Pt is 81 year old female who admitted 10/01 for a planned L CHICHI/Posterior Precautions Surgeon: Dr. Gaona Payer: Rich Ivey PCP: Dr. Tavo Lebron/[facility] Pt noted that she had not been up yet with PT but that her plan for post hospital care is home with Bill's support. She says she and the orthopedic team planned for OutPt Therapy. Agreed to check in as POC unfolded to assist with any d/c needs that may arise. Pt noted her Bill would be in later to take part in the therapy process and that he was very supportive. CM Discharge Assessment Start: 10/03/17 10:41 Freq: Status: Active Protocol: Document 10/03/17 10:41 ITV (Rec: 10/03/17 10:43 ITV [id number]) Discharge Planning Assessment Advance Directives? No: Declines further information Advance Directives on File No History Provided By Patient Medical Record Prior Living Arrangements House Household Members spouse Independent with ADL's Yes Is patient alert and oriented? Yes Barriers to Discharge No Comment none determined at time of initial assessment Whiteboard Updated in Patient Room with Yes name and ext. # of Lieutenant General Review Status In Process Next Review Type Continued Stay Review
--- NOTE | 2017-10-03 10:49 | CM.DPC ---
Addendum entered by Daisy Palafox LPN 10/03/17 11:40: Stopped in to see pt. She says she is very hopeful that she can go home tomorrow. Asks for her walker so she can get to the BR. GRADER OPERATOR confirms that pt is fine to be up with nursing staff assist and RN Kelin is with her now. Pt does confirm that she has a FWW at home that she plans to use. Original Note: DCP: continued: EMR reviewed and case discussed in 929 morning rounds. Pt did have a hypoxic event last night and was seen by A physician: Dr. Rima Hassan this morning at 0645. Pt with ? new CHF with cardiomegaly per her consult note. Pt is on and workup is in process. NAVID Harrison notes that pt not doing as well with PT as she did yesterday but at this point would expect pt to likely improve in this area as she becomes medically stable. OT order is obtained. PT notes that are currently available are for yesterday and support pt's plan for home. She does have 13 steps inside the home to second but plans to stay on the main level. Pt's PLF was independence without AD. Will have to see if she will need any dme at d/c. CM/DCP team to follow as POC unfolds. P: likely home with spouse and outpt but follow as per above.
--- NOTE | 2017-10-03 13:58 | OT.IP.EVAL ---
Current Diagnoses Essential (primary) hypertension (10/01/17) Unilateral primary osteoarthritis, left hip (10/01/17) Hypoxemia (10/01/17) Presence of unspecified artificial hip joint (10/01/17) Surgery Performed Operation Date: 10/01/17 10:15 Actual Procedures p Total Hip Arthroplasty(Left) - Ori Gaona MD Past Medical History (Last Reviewed 10/03/17 @ 09:44 by Keely Hassan DO) Anxiety (Acute) Colon polyps (Acute) GERD (gastroesophageal reflux disease) (Acute) PTSD (post-traumatic stress disorder) (Acute) Sleep apnea (Acute) TIA (transient ischemic attack) (Acute) CTS (carpal tunnel syndrome) (Chronic) Cataract (Chronic) Chronic headaches (Chronic) Depression (Chronic) Hearing loss (Chronic) Chicken pox (Resolved) Measles (Resolved) Mumps (Resolved) Surgical History (Last Reviewed 10/03/17 @ 09:44 by Keely Hassan DO) History of carpal tunnel surgery of left wrist (Acute) Hx of appendectomy (Acute) Status post cataract extraction of both eyes with insertion of intraocular lens (Acute) Anesthesia (Resolved) History of ear surgery (Resolved 1981) History of ear surgery (Resolved 1974) History of knee replacement (Resolved 2008) History of knee replacement (Resolved 2012) Status post breast lumpectomy (Resolved 1982) Status post hysterectomy (Resolved 1979) Occupational Therapy Inpatient Evaluation/Re-Eval M1 PT/OT-IP Prior Functional Status Start: 10/01/17 15:34 Freq: NEEDED Status: Active Protocol: Document 10/03/17 16:28 SANTOSH (Rec: 10/03/17 16:45 SANTOSH [id number]) Medical Review Prior Functional Status Medical History Reviewed Yes Diet/Fluid Consistency Regular Communication deaf right ear Mobility and Gait Independent without device, community distances Activities of Daily Living and IADL's Independent and active; pt did all IADLS at home, managed meds via pillbox and finances, drives Social History Household Members spouse Living Arrangements House Number of Floors (Floors) Two Floors Number of Stairs To Enter/Railing? 3 stairs to enter main level, then 13 to upper level where shower stall is located, tub shower on main level Home Environment High Toilet Walk in Shower Tub/Shower Home Equipment Four Wheel Walker Long Handled Shoe Horn Employment Status Retired M2 OT-IP Current Condition Start: 10/03/17 16:28 Freq: Status: Active Protocol: Document 10/03/17 16:28 PJM (Rec: 10/03/17 16:45 PJM [id number]) Occupational Therapy Current Condition Current Condition Evaluation Date 10/03/17 Treatment Diagnosis decreased self care, functional mobility s/p L CHICHI with post op new dx CHF Diagnosis Onset Date 10/01/17 Post Operative Precautions Posterior Hip Precautions No Hip Flexion > 90 degrees No Hip Internal Rotation No Hip Adduction Weight Bearing Status Weight Bearing Status Weight Bear as Tolerated M3 OT- IP Subjective and Pain Start: 10/03/17 16:28 Freq: Status: Active Protocol: Document 10/03/17 16:28 PJM (Rec: 10/03/17 16:45 PJM [id number]) OT- Subjective Occupational Therapy Visit Type Type Initial Evaluation Visit Start Time 13:35 Visit Stop Time 13:58 Total Visit Minutes 23 Notes Pt seen in recliner this session. Occupational Therapy Visit Comments Patient/Caregiver Goals to go home OT Pain Assessment Pain When Pain Assessed At Rest Pain Present Pain Present Pain Reported Location Lt leg Intensity 1 Scale Used Numeric (1 - 10) Description Aching Management Techniques Timing of Activity with Medications M4 OT- IP ADL's Start: 10/03/17 16:28 Freq: Status: Active Protocol: Document 10/03/17 16:28 PJM (Rec: 10/03/17 16:45 PJM [id number]) OT TZB-Obqs-Hobuptx General Evaluation Self-Feeding Ability Independent OT ADL-Grooming General Evaluation Grooming Ability Standby Assistance Areas Needing Assistance Retrieving/Set-up of Grooming Items Comments OT Grooming Comments seated in chair OT ADL-Oral Care General Eval Oral Care Ability Standby Assistance Areas of Assistance Retrieving/Set-Up of Items Comments Oral Care Comments seated in chair OT ADL-Dressing General Eval Upper Body Dressing Ability Standby Assistance Lower Body Dressing Ability Maximum Assistance Assistive Devices Dressing Assistive Devices Long Handled Shoe Horn Comments OT Dressing Comments pt reluctant to try adaptive equipment, states will assist with socks; not here to confirm OT ADL-Toileting Comments OT Toileting Comments pt declined need this session, to be assessed OT ADL-Bathing Comments OT Bathing Comments to be assessed as activity tolerance improves M5 OT- IP IADL's Start: 10/03/17 16:28 Freq: Status: Active Protocol: Document 10/03/17 16:28 PJM (Rec: 10/03/17 16:45 PJ [id number]) OT-Instrumental Activities of Daily Living Deficits IADL Deficits Identified Deficits Home Safety Awareness Awareness of Need for Assistance at Home Decreased Awareness Home Safety Comments decreased insight Meal Preparation Meal Preparation Caregiver Provides Assist Meal Preparation Comments pt states can assist PRN Environmental Solutions Engineer Environmental Solutions Engineer Caregiver Provides Assist Environmental Solutions Engineer Comments pt states can assist PRN, but concerned about getting too tired Driving Driving Caregiver Provides Assist Driving Comments to assist until pt able M6 OT- IP Functional Cognition Start: 10/03/17 16:28 Freq: Status: Active Protocol: Document 10/03/17 16:28 PJM (Rec: 10/03/17 16:45 PJ [id number]) Cognitive Factors Limiting Selfcare Function Cognitive Ability Level of Alertness Drowsy Patient Orientation Name Month Year Place Situation Ability to Follow Commands Able to Follow One Step Commands Safety Awareness Decreased Recall of Precautions Problem Solving Ability Needs Assist to Identify Solutions Cognitive Comments Cognitive Assessment Comments Pt recalls 2/3 posterior hip precautions, decreased insight into how current medical status may impact her ability to function at home. OT- Vision and Hearing OT- Hearing Assessment OT- Hearing Assessment Right Ear Impaired OT- Vision Assessment Visual Acuity WFL Glasses For Reading Vision Assessment Comments Pt deaf in R ear per chart notes M7 OT- IP Mobility and Balance Start: 10/03/17 16:28 Freq: Status: Active Protocol: Document 10/03/17 16:28 PJM (Rec: 10/03/17 16:45 PJ [id number]) OT-Transfer Assessment Comments Mobility Comments see P.T. notes OT- Gait Assessment Comments Gait Ability Comments see P.T. notes OT- Balance Assessment Comments Other Balance Tests/Deviations/Treatment see P.T. notes : M8 OT- IP Objective Assessments Start: 10/03/17 16:28 Freq: Status: Active Protocol: Document 10/03/17 16:28 PJM (Rec: 10/03/17 16:45 PJ [id number]) OT Gross Range of Motion Upper Extremity Range of Motion Assessment Within Functional Limits OT Strength Upper Extremity Strength Assessment Within Functional Limits OT- Coordination Assessment Comments Coordination Comments BUE WFL OT-Muscle Tone Assessment Muscle Tone WNL Yes OT Sensation Assessment Comments Summary Comments BUE WNL Edema Edema Absent Edema Comments in BUE's M9 OT- IP Assessment and Plan Start: 10/03/17 16:28 Freq: Status: Active Protocol: Document 10/03/17 16:28 PJM (Rec: 10/03/17 16:45 PJM [id number]) OT Summary Assessment and Plan Potential Analytic Complexity at Evaluation Moderate Summary OT Impairments Pain Strength Balance Functional Mobility Grooming Dressing Toileting Bathing Toilet Transfers Shower Transfers Assessment Summary Pt seen for moderate complexity OT assessment due to new onset CHF requiring 3L O2 this session. Pt fatigued from lack of sleep last night due to O2 desaturation with medical workup. Per CT scan pt found to have thyroid mass and lung nodule. Pt currently has performance deficits in activity tolerance, all functional mobility/tranfers, standing grooming, dressing, bathing and toileting. Pt has difficulty recalling and applying posterior hip precautions and underestimates her need for assistance. Pt prefers to d/c home with her with further d/c recommendations to follow pending progress here. Goals Grooming Goal Standby Assistance Dressing Goal Minimal Assistance Toileting Goal Standby Assistance Bathing Goal Minimal Assistance Toilet Transfer Goal Standby Assistance Patient/Caregiver Education Goal Demonstrate Post-Op Precautions Demonstrate Energy Conservation and Pacing Caregiver Independent Assisting Patient OT-Other Goals Pt plans to sponge bathe at home Days to Meet Goals 3 Frequency of Treatment Frequency Of Treatment Once a Day Treatment Plan OT Treatment Plan ADL Training Functional Mobility Patient/Family Education Discharge Planning Discharge Recommendations OT Discharge Recommendations Home with / Assist Other Discharge Recommendations further recommendations to follow pending progress here and 's ability to safely assist pt at home Home Equipment Needs recommend shower seat, corn detasseler machine operator long bath sponge; pt reluctant to use equipt
--- NOTE | 2017-10-03 15:09 | PT.IPTN ---
Current Diagnoses Essential (primary) hypertension (10/01/17) Unilateral primary osteoarthritis, left hip (10/01/17) Hypoxemia (10/01/17) Presence of unspecified artificial hip joint (10/01/17) Surgery Performed Operation Date: 10/01/17 10:15 Actual Procedures p Total Hip Arthroplasty(Left) - Ori Gaona MD Physical Therapy Treatment Note M2 PT-IP Current Condition Start: 10/01/17 15:34 Freq: NEEDED Status: Active Protocol: Document 10/02/17 09:44 DLM (Rec: 10/02/17 10:42 DLM [id number]) Physical Therapy Current Condition Current Condition Evaluation Date 10/02/17 Treatment Diagnosis left CHICHI, posterior approach, impaired gait Onset Date 10/01/17 Precautions Posterior Hip Precautions No Hip Flexion > 90 degrees No Hip Internal Rotation No Hip Adduction Weight Bearing Status Weight Bearing Status Weight Bear as Tolerated M3 PT-IP Subjective Start: 10/01/17 15:34 Freq: NEEDED Status: Active Protocol: Document 10/03/17 15:09 MDD (Rec: 10/03/17 17:26 MDD [id number]) Subjective Physical Therapy Visit Type Type Treatment Note Visit Start Time 14:47 Visit Stop Time 15:09 Total Visit Minutes 22 Notes Pt on 3L/min supplemental O2 throughout session. O2 sats remained above 90% with activity. Number of POWDERED METAL SUPERVISOR Visits 0 Therapy Pain Assessment Pain When Pain Assessed During Mobility Pain Present Pain Present Pain Reported Location Lt leg Intensity 6 Scale Used Numeric (1 - 10) Description Aching M4 PT-IP Mobility and Gait Start: 10/01/17 15:34 Freq: NEEDED Status: Active Protocol: Document 10/03/17 10:10 GGD (Rec: 10/03/17 11:35 GGD [id number]) PT-Bed Mobility Assessment Supine to Sit Supine to Sit Minimal Assistance Bedrails Scooting Scooting to Edge of Bed Minimal Assistance PT-Transfer Assessment Sit to and From Stand Sit to and from Stand Contact Guard Assistance Use of Upper Extremities Equipment Transfer Assistive Device Gait Belt Front Wheeled Walker Transfers Transfer Destination Chair Bedside Commode Transfer Ability Level of Assist Minimal Assistance Use of Upper Extremities Gait Assessment Gait Gait Assistance Required: Contact Guard Assist Minimum Assistance Distance (Feet) (feet) 5 Assistive Devices Assistive Device Gait Belt Front Wheeled Walker Gait Deviations General Gait Pattern Antalgic Factors Limiting Gait Function Factors Limiting Gait Function Decreased Activity Tolerance Decreased Strength Limited Range of Motion Pain Poor Balance Poor Safety Awareness Comments Gait Comments Pt need cues for hip precaution. M5 PT-IP Objective Assessments Start: 10/01/17 15:34 Freq: NEEDED Status: Active Protocol: Document 10/02/17 09:44 DLM (Rec: 10/02/17 10:42 DLM [id number]) Orientation Orientation/Cognition Level of Alertness Alert Orientation Name Age Birthday Month Date Year Day of Week Place Situation Language Function Ability Hard of Hearing Memory Description Short Term Impaired Comments has difficulty using hip precautions functionally Gross Range of Motion Upper Extremity ROM Assessment Within Functional Limits Lower Extremity ROM Assessment Left Impaired Impairments hip precautions on left Strength Upper Extremity Strength Assessment Within Functional Limits Lower Extremity Strength Assessment Left Impaired Hip hip flexion 2+/5 Knee knee 4/5 Ankle DF 5/5 Comments Strength Comments pain left hip affects strength Coordination Assessment Gross Coordination Gross Coordination WNL Sensation Assessment Sensation Gross Sensation WNL Muscle Tone Muscle Tone WNL Yes M6 PT-IP Treatment Start: 10/01/17 15:34 Freq: NEEDED Status: Active Protocol: Document 10/03/17 15:09 MDD (Rec: 10/03/17 17:26 MDD [id number]) Physical Therapy Treatment Education Education Provided Precautions Safety Other Treatments Other Treatment Performed CGA for sit to stand from low recliner - cues to kick left leg out in front. CGA for gait x 10 feet into BR and CGA for transfer to<>from toilet. Additional gait training in room x 10 feet, practice with static balance during handwashing without UE support on walker x 1 minute. Practice with turning to L, cues to lead with L LE to avoid hip IR. Sit to supine with min A at L LE to maintain hip precautions. M7 PT-IP Assessment and Plan Start: 10/01/17 15:34 Freq: NEEDED Status: Active Protocol: Document 10/03/17 15:09 MDD (Rec: 10/03/17 17:26 MDD [id number]) PT Summary Assessment and Plan Potential Rehabilitation Potential Good Status of Condition at Evaluation Evolving Summary Impairments Pain ROM Strength Balance Bed Mobility Transfers Gait Activity Tolerance Progress Towards Goals Progressing Toward Goals Assessment Summary Pt continues to have difficulty recalling precautions without using her handouts (1/3). Goals Bed Mobility Goal Independent Transfer Goal Independent Front Wheeled Walker Gait Goal Standby Assistance Front Wheel Walker Gait Distance 100 feet Other Goals Up and down 3 steps with rail, cane and min assist Days to Meet Goals 2 Frequency of Treatment Frequency Of Treatment Twice a Day Treatment Plan Physical Therapy Treatment Plan Bed Mobility Training Transfer Training Gait Training Therapeutic Exercise Balance Retraining Post Op Education Discharge Planning Hot or Cold Pack Recommendations To Nursing Amount of Assist Needed 1 Person Assist Discharge Recommendations PT Discharge Recommendations Home with Assistance SNF Rehab Outpatient PT Other Discharge Recommendations Home VS SNF rehab
--- NOTE | 2017-10-03 19:49 | PC.NURSE ---
Maria Fernanda shift note: Patient awake and alert, up out of bed to bathroom with steady gait. Continue on O2 at 4L via HFNC, O2 sat 95%. RT at bedside setting up for MARIOLA monitoring with end tidal volume saturation tracking. Mild SOB noted with exertion, speaking in full sentences. Call light within reach.
--- NOTE | 2017-10-03 20:24 | DI.ECHO.S_ITS ---
Echocardiogram Report + + :Name: JESSICA BULL Study Date: 10/03/2017 Height: 61 in : :Hospital Weight: 148 lb : : Gender: Female BSA: 1.7 m2 : :: 1935 Age: 81 yrs BP: 117/63 mmHg: :Reason For Study: Congestive Heart Failure : :Ordering Physician: [place] : :Hospitalist Performed By: Odalis Retana : :Referring: WHIT DYKES : + + Interpretation Summary The study quality was technically adequate. Comparison is made with the echocardiogram of 05/24/2015. -Left ventricular wall thickness is mildly increased. The ejection fraction is estimated to be 60-65%. -Doppler suggests a small supracristal VSD. -There are no obvious focal wall motion abnormalities noted but poor endocardial definition reduces the sensitivity for the detection of such. -Assessment of diastolic parameters suggests a pseudonormalization pattern, consistent with elevated filling pressures. -The right ventricle is normal in size and function. -Pulmonary artery pressures cannot be estimated because of the lack of a measurable TR jet velocity. -The left atrium is severely dilated. -Overall the echo shows a severely dilated left atrium with elevated filling pressures. The doppler suggests a supracristal VSD. Clinical correlation is recommended. -Compared to the prior echo, the LV filling pressure is slightly higher. Procedure: A two-dimensional transthoracic echocardiogram with color flow and Doppler was performed. The study quality was technically adequate. Comparison is made with the echocardiogram of 05/24/2015. The patient was in normal sinus rhythm during the exam. Left Ventricle: The left ventricle is normal in size. Left ventricular wall thickness is mildly increased. Doppler suggests a small supracristal VSD. The ejection fraction is estimated to be 60-65%. There are no obvious focal wall motion abnormalities noted but poor endocardial definition reduces the sensitivity for the detection of such. Assessment of diastolic parameters suggests a pseudonormalization pattern, consistent with elevated filling pressures. Right Ventricle: The right ventricle is normal in size and function. Atria: The left atrium is severely dilated. Right atrial size is normal. There is no Doppler evidence for an interatrial shunt. Mitral Valve: There is mild to moderate mitral annular calcification. The mitral valve leaflets appear mildly thickened, but open well. There is trace mitral regurgitation. Aortic Valve: The aortic valve is normal in structure and function. There is no aortic valve stenosis. No aortic regurgitation is present. Tricuspid Valve: The tricuspid valve leaflets are thin and pliable. There is a trace or physiologic amount of tricuspid regurgitation. Pulmonary artery pressures cannot be estimated because of the lack of a measurable TR jet velocity. Pulmonic Valve: The pulmonic valve is not well visualized. There is a trace or physiologic amount of pulmonic regurgitation. Great Vessels: The aortic root is normal size. The ascending aorta is normal in size. The aortic arch could not be visualized. The IVC is of normal diameter and collapses greater than 50% with a sniff. This suggests a low right atrial pressure of 3 mm Hg. Pericardium/ Pleura There is no pericardial effusion. MMode/2D Measurements & Calculations LVIDd: 4.6 cm LVOT diam: 1.8 cm LVIDs: 3.1 cm Ao root diam: 2.7 cm FS: 32.3 % Aortic Jxn: 2.2 cm IVSd: 1.3 cm asc Aorta Diam: 2.9 cm LVPWd: 1.1 cm LV chang. diameter/BSA (cm/m^2): 2.7 LV sys. diameter/BSA (cm/m^2): 1.9 LA A2 area: 24.1 cm2 RA long axis: 4.3 cm LA A4 area: 27.5 cm2 RA area: 12.2 cm2 LA length (vol): 5.9 cm RA vol: 29.1 ml LA vol: 94.9 ml RA : 17.5 ml/m2 LA vol index: 57.1 ml/m2 IVC diam: 1.6 cm RVD1 (basal): 2.4 cm Doppler Measurements & Calculations Ao V2 max: 135.6 cm/sec LVOT Max Amsood: 128.4 cm/sec Ao V2 mean: 93.0 cm/sec LV V1 max P.6 mmHg Ao max P.4 mmHg LV V1 VTI: 25.0 cm Ao mean P.9 mmHg LARISA(I,D): 2.2 cm2 Ao V2 VTI: 27.9 cm LARISA(V,D): 2.3 cm2 sev ratio: 0.90 LARISA indexed to BSA (cm^2/m^2): 1.3 MV E max masood: 95.8 cm/sec PA V2 max: 79.3 cm/sec MV A max masood: 49.3 cm/sec PA V2 mean: 58.1 cm/sec MV E/A: 1.9 PA mean P.5 mmHg Med Peak E' Masood: 5.3 cm/sec PA Accel Time: 0.12 sec E/E' med: 18.2 Lat Peak E' Masood: 6.1 cm/sec E/E' lat: 15.7 E/e' average: 16.9 MV dec time: 0.21 sec MV P1/2t: 62.4 msec MV /2t max masood: 95.8 cm/sec MVA(2t): 3.5 cm2 _ Electronically signed by: Robert Rodriguez M.D. on Reading Physician:10/03/2017 08:24 PM
[2017-10-03] MEDS: CODEINE/ACETAMINOPHEN 30/300 TABLET 2 TAB PO (21:17)
[2017-10-04] VITALS (10 sets, daily range): BP systolic 118–146; BP diastolic 59–98; PULSE 68–90; RESP 14–18; TEMP 36.6–37.2; O2SAT 89–95
[2017-10-04] MEDS: OXYCODONE/ACETAMINOPHEN 5/325 TABLET 1 TAB PO ×3 (03:25→17:26)
[2017-10-04] MEDS: PANTOPRAZOLE 20 MG TABLET PO (06:45)
[2017-10-04] MEDS: PARoxetine 20 MG TABLET 60 MG PO (08:22)
[2017-10-04] MEDS: ASPIRIN EC 81 MG TABLET PO ×2 (08:22→21:12)
[2017-10-04] MEDS: AMLODIPINE 5 MG TABLET PO (08:22)
[2017-10-04] MEDS: CARVEDILOL 3.125 MG TABLET PO ×2 (08:22→21:13)
[2017-10-04] MEDS: ENOXAPARIN 30 MG/0.3 ML SYRINGE SUBCUT (08:23)
[2017-10-04] MEDS: CODEINE/ACETAMINOPHEN 30/300 TABLET 2 TAB PO ×2 (08:23→21:13)
[2017-10-04] MEDS: SODIUM CHLORIDE 0.9% FLUSH 10 ML IV ×2 (08:23→21:13)
[2017-10-04 08:37] LABS: BUN Creatinine Ratio 21.4 (6-22); Blood Urea Nitrogen 15 mg/dL (7-17); Calcium 8.9 mg/dL (8.4-10.2); Carbon Dioxide 37 mmol/L (22-32); Chloride 97 mmol/L (98-107); Estimated Glomerular Filt Rate > 60.0 mL/min (>60); Glucose 96 mg/dL (80-110); HEMOLYSIS < 15 (0-50); Potassium 3.7 mmol/L (3.4-5.1); Sodium 138 mmol/L (137-145)
--- NOTE | 2017-10-04 09:40 | PT.IPTN ---
Current Diagnoses Essential (primary) hypertension (10/01/17) Unilateral primary osteoarthritis, left hip (10/01/17) Hypoxemia (10/01/17) Presence of unspecified artificial hip joint (10/01/17) Surgery Performed Operation Date: 10/01/17 10:15 Actual Procedures p Total Hip Arthroplasty(Left) - Ori Gaona MD Physical Therapy Treatment Note M2 PT-IP Current Condition Start: 10/01/17 15:34 Freq: NEEDED Status: Active Protocol: Document 10/02/17 09:44 DLM (Rec: 10/02/17 10:42 DLM [id number]) Physical Therapy Current Condition Current Condition Evaluation Date 10/02/17 Treatment Diagnosis left CHICHI, posterior approach, impaired gait Onset Date 10/01/17 Precautions Posterior Hip Precautions No Hip Flexion > 90 degrees No Hip Internal Rotation No Hip Adduction Weight Bearing Status Weight Bearing Status Weight Bear as Tolerated M3 PT-IP Subjective Start: 10/01/17 15:34 Freq: NEEDED Status: Active Protocol: Document 10/04/17 09:40 GGD (Rec: 10/04/17 10:32 GGD [id number]) Subjective Physical Therapy Visit Type Type Treatment Note Visit Start Time 08:55 Visit Stop Time 09:35 Total Visit Minutes 40 Number of MERCURY CELL CLEANER Visits 1 Physical Therapy Visit Comments Patient Comments Pt states that she needs to use the bathroom and hopes to go home. Therapy Pain Assessment Pain When Pain Assessed At Rest Pain Present Pain Present Denied Pain M4 PT-IP Mobility and Gait Start: 10/01/17 15:34 Freq: NEEDED Status: Active Protocol: Document 10/04/17 09:40 GGD (Rec: 10/04/17 10:32 GGD [id number]) PT-Bed Mobility Assessment Supine to Sit Supine to Sit Standby Assistance Contact Guard Assistance Scooting Scooting to Edge of Bed Standby Assistance PT-Transfer Assessment Sit to and From Stand Sit to and from Stand Contact Guard Assistance Use of Upper Extremities Equipment Transfer Assistive Device Gait Belt Front Wheeled Walker Transfers Transfer Destination Chair Toilet Transfer Technique Ambulate Transfer Ability Level of Assist Contact Guard Assistance Use of Upper Extremities Comments Mobility Comments Pt need cues for hip precautions. Gait Assessment Gait Gait Assistance Required: Contact Guard Assist Distance (Feet) (feet) 50 Able to Maintain Weight Bearing Status Yes During Gait Assistive Devices Assistive Device Gait Belt Front Wheeled Walker Orthotic/Prosthetic Devices or Brace: No Gait Deviations General Gait Pattern Antalgic Decreased Stride Length Decreased Feet Clearance Step-to Gait Factors Limiting Gait Function Factors Limiting Gait Function Decreased Activity Tolerance Decreased Strength Difficulty Following Directions Limited Range of Motion Pain Poor Balance Poor Safety Awareness Comments Gait Comments Pt need cues for hip precaution with turns. Her was able to cue her. M6 PT-IP Treatment Start: 10/01/17 15:34 Freq: NEEDED Status: Active Protocol: Document 10/04/17 09:40 GGD (Rec: 10/04/17 10:32 GGD [id number]) Physical Therapy Treatment Exercises Exercises Ankle Pumps Gluteal Sets Quad Sets Supine Hip Abduction Seated Knee Flexion/Extension Education Education Provided Precautions Safety M7 PT-IP Assessment and Plan Start: 10/01/17 15:34 Freq: NEEDED Status: Active Protocol: Document 10/04/17 09:40 GGD (Rec: 10/04/17 10:32 GGD [id number]) PT Summary Assessment and Plan Summary Assessment Summary Pt improving with bed mobility to the left. She need cues for hip precautions,but no assist. She was able to progress her gait without unsteadiness or LOB. She needed cues for IR hip preacution. Goals Bed Mobility Goal Independent Transfer Goal Independent Front Wheeled Walker Gait Goal Standby Assistance Front Wheel Walker Gait Distance 100 feet Other Goals Up and down 3 steps with rail, cane and min assist Days to Meet Goals 2 Frequency of Treatment Frequency Of Treatment Twice a Day Treatment Plan Physical Therapy Treatment Plan Bed Mobility Training Transfer Training Gait Training Therapeutic Exercise Balance Retraining Post Op Education Discharge Planning Hot or Cold Pack Other Recommendations and Next Treatment 3 step stair training. Focus Recommendations To Nursing Amount of Assist Needed 1 Person Assist Discharge Recommendations PT Discharge Recommendations Home with Assistance Home Health SNF Rehab Outpatient PT Other Discharge Recommendations Home VS SNF rehab
--- NOTE | 2017-10-04 10:55 | PM.PNPO.1 ---
Subjective Date Patient Seen: 10/04/17 Time Patient Seen: 10:56 Interval history: POD #3 status post left total hip arthroplasty with Dr. Gaona. On postop day 2. Night she had some hypoxia and her Primary Care was consulted. Patient started on Lasix. CTA found new heart failure and cardiomegaly, and small bilateral pleural effusions. Patient's 02 sats today have been in the low 90s on room air. Patient is waiting on echo. She has been working with physical therapy and OT. Her pain is well controlled. Exam Vital Signs (past 8 hours): - 10/04/17 04:36 10/04/17 08:22 10/04/17 08:31 Temperature 98.1 F 97.8 F Pulse Rate 68 71 71 Respiratory Rate 16 18 Blood Pressure 118/66 128/65 H 128/65 H Pulse Oximetry 95 92 Oxygen Delivery Method Room Air Oxygen Flow Rate 3 Narrative Exam Narrative: Patient is sitting at bedside chair no acute distress. She is alert and oriented x3. Sensation intact light touch throughout bilateral lower extremities. Calves are soft, compressible, and nontender bilaterally. She is able to actively dorsiflex and plantar flex. Dressing is CDI. Objective Labs Result Diagrams: 10/03/17 06:39 10/04/17 08:10 Labs: Laboratory Results - last 24 hr 10/04/17 08:10 Sodium 138 Potassium 3.7 Chloride 97 L Carbon Dioxide 37 H BUN 15 Creatinine 0.70 Estimated GFR > 60.0 BUN/Creatinine Ratio 21.4 Glucose 96 Calcium 8.9 Assessment & Plan Post-op (1) Hypoxia: Problem details: Waiting on echo Current Visit: Yes Status: Acute (2) S/P total hip arthroplasty: Current Visit: Yes Status: Acute Postoperative Procedures Operation Date: 10/01/17 10:15 Actual Procedures Side Surgeon p Total Hip Arthroplasty Left Ori Gaona MD POD #3 status post left total hip arthroplasty with Dr. Gaona. Patient will continue to mobilize with physical therapy, recommending she be on pulse ox in the [place] to monitor her sats. Posterior hip precautions were reviewed. Continue current pain medication. Patient will likely discharge home tomorrow versus home health services. Quality VTE Deep Vein Thrombosis/Pulmonary Embolism Present on Admission: No
--- NOTE | 2017-10-04 10:58 | OT.IP.TRT ---
Current Diagnoses Essential (primary) hypertension (10/01/17) Unilateral primary osteoarthritis, left hip (10/01/17) Hypoxemia (10/01/17) Presence of unspecified artificial hip joint (10/01/17) Surgery Performed Operation Date: 10/01/17 10:15 Actual Procedures p Total Hip Arthroplasty(Left) - Ori Gaona MD Occupational Therapy Treatment Note M2 OT-IP Current Condition Start: 10/03/17 16:28 Freq: Status: Active Protocol: Document 10/03/17 16:28 PJM (Rec: 10/03/17 16:45 PJM [id number]) Occupational Therapy Current Condition Current Condition Evaluation Date 10/03/17 Treatment Diagnosis decreased self care, functional mobility s/p L HCICHI with post op new dx CHF Diagnosis Onset Date 10/01/17 Post Operative Precautions Posterior Hip Precautions No Hip Flexion > 90 degrees No Hip Internal Rotation No Hip Adduction Weight Bearing Status Weight Bearing Status Weight Bear as Tolerated M3 OT- IP Subjective and Pain Start: 10/03/17 16:28 Freq: Status: Active Protocol: Document 10/04/17 10:58 PJM (Rec: 10/04/17 18:55 PJM [id number]) OT- Subjective Occupational Therapy Visit Type Type Treatment Note Visit Start Time 09:50 Visit Stop Time 10:58 Total Visit Minutes 68 Notes Pt's here for education this session. Occupational Therapy Visit Comments Patient/Caregiver Goals to go home, to snow ski one more time OT Pain Assessment Pain When Pain Assessed After Treatment Pain Present Pain Present Pain Reported Location Lt leg Intensity 3 Scale Used Numeric (1 - 10) Description Aching Acute Pain Behaviors Guarding Management Techniques Distraction Re-positioning Timing of Activity with Medications M4 OT- IP ADL's Start: 10/03/17 16:28 Freq: Status: Active Protocol: Document 10/04/17 10:58 PJM (Rec: 10/04/17 18:55 PJM [id number]) OT ADL-Dressing General Eval Upper Body Dressing Ability Independent Lower Body Dressing Ability Minimal Assistance Areas Needing Assistance Pants/Shorts Assistive Devices Dressing Assistive Devices Long Handled Shoe Horn Buying Agent Comments OT Dressing Comments Pt needs min assist to change brief with duplicating machine servicer. CGA for balance in standing with min cues for mobility techniques. Pt prefers to have assist her her with socks. Provided duplicating machine servicer and long shoe horn. willing to assist PRN at home. OT ADL-Toileting General Evaluation Toileting Ability Standby Assistance Comments OT Toileting Comments Provided education about body mechanics and techniques within posterior hip precautions OT ADL-Bathing Bathing Type Bathing Type Sponge Bath Comments OT Bathing Comments Pt plans to sponge bath at home; declines transfer tub seat at present.Main floor has tub shower combo, shower stall up full flight of stairs M5 OT- IP IADL's Start: 10/03/17 16:28 Freq: Status: Active Protocol: Document 10/03/17 16:28 PJM (Rec: 10/03/17 16:45 PJM [id number]) OT-Instrumental Activities of Daily Living Deficits IADL Deficits Identified Deficits Home Safety Awareness Awareness of Need for Assistance at Home Decreased Awareness Home Safety Comments decreased insight Meal Preparation Meal Preparation Caregiver Provides Assist Meal Preparation Comments pt states can assist PRN Rib Matcher And Fitter Rib Matcher And Fitter Caregiver Provides Assist Rib Matcher And Fitter Comments pt states can assist PRN, but concerned about getting too tired Driving Driving Caregiver Provides Assist Driving Comments to assist until pt able M7 OT- IP Mobility and Balance Start: 10/03/17 16:28 Freq: Status: Active Protocol: Document 10/04/17 10:58 PJM (Rec: 10/04/17 18:55 PJM [email or web address]) OT-Transfer Assessment Sit to and From Stand Sit to and from Stand Contact Guard Assistance Technique Transfer Destination Car Toilet Devices Transfer Assistive Devices Gait Belt Front Wheeled Walker Comments Mobility Comments Needs min cues to scoot forward. Pt verbalizing 3/3 hip precautions today. Provided education re: use of BSC over toilet or next to bed at night, minimum seat heights, posterior hip precautions and car transfer techniques. OT- Balance Assessment Sitting Balance and Reactions Static Sitting Balance Ability Good Dynamic Sitting Balance Ability Good Standing Balance and Reactions Static Standing Balance Ability Good Dynamic Standing Balance Ability Fair Comments Other Balance Tests/Deviations/Treatment With FWW : M M9 OT- IP Assessment and Plan Start: 10/03/17 16:28 Freq: Status: Active Protocol: Document 10/04/17 10:58 PJM (Rec: 10/04/17 18:55 PJM [id number]) OT Summary Assessment and Plan Potential Rehabilitation Potential Good Summary OT Impairments Pain Balance Functional Mobility Dressing Bathing Shower Transfers Progress Towards Goals Progressing Toward Goals Assessment Summary Pt making good progress today. O2 sats 92-96 on room air this session. She recalls 3/3 hip precautions; still needs min cues to apply them during ADLS. Capable, supportive here for education and able to cue pt appropriately and provide physical assist PRN. He can provide 24 hr assist at home. Plan one additional OT visit in AM for showering and further dressing practice with adaptive equipt prior to d/c home. Pt/ leaning towards HH followup( instead of out pt)after d/c due to concern about stairs and car transfers. Final decision to be made pending progress tomorrow. Frequency of Treatment Frequency Of Treatment Once a Day Treatment Plan OT Treatment Plan ADL Training Functional Mobility Patient/Family Education Discharge Planning Discharge Recommendations OT Discharge Recommendations Home with 24/7 Assist Home Health
--- NOTE | 2017-10-04 13:28 | PM.PN.1 ---
Subjective Date Patient Seen: 10/04/17 Time Patient Seen: 08:01 Interval history: 81-year-old female with a history of hypertension and arthritis postop day three after left hip replacement (10/01/17) with new hypoxia yesterday requiring 4 L of oxygen, now stable on room air. CTA showed cardiomegaly and small bilateral pleural effusions suggestive of congestive heart failure. The patient is seen sitting in her chair this morning. She completed one session with PT this morning and looks forward to working with OT later today. She states she has pain in her hip and it is adequately controlled. She denies shortness of breath or chest pain. The patient endorses feeling constipated and has not had a bowel movement since before her surgery. She denies abdominal pain, nausea, or vomiting. is concerned that patient has night terrors and sometimes thrashes her legs at night and that she might injure her newly repaired hip. Exam Vital Signs (past 8 hours): - 10/04/17 08:22 10/04/17 08:31 Temperature 97.8 F Pulse Rate 71 71 Respiratory Rate 18 Blood Pressure 128/65 H 128/65 H Pulse Oximetry 92 Oxygen Delivery Method Room Air Oxygen Flow Rate 3 Const General: cooperative Orientation: alert HENMT Head: normal to inspection and normocephalic Ears: hearing grossly normal bilaterally Nose: external nose normal and nares normal Face and sinus: normal facial exam and face symmetric Mouth: oral mucosae normal and lip normal Eyes General: appearance normal, both eyes and all related structures Chest Chest: normal inspection of the chest Resp Effort & Inspection: normal respiratory effort, able to speak in complete sentences, no audible wheezes and symmetric chest movement Auscultation: clear to auscultation bilaterally and crackles on the right at the base Cardio Rate: regular rate Rhythm: regular rhythm Heart Sounds: murmur GI Palpation: soft Auscultation: normal bowel sounds Skin General: no rashes or lesions noted, turgor normal (for age) and warm Other: Dressing in place on the left hip Neuro General: alert and awake Cranial Nerves: CN's II-XI intact bilaterally Cognition: normal cognition Speech: speech normal Extrem General: no calf tenderness Psych Appearance: grossly normal and well kempt Mental Status: mental status grossly normal Mood: congruent mood Affect: normal affect Attitude: cooperative Objective Labs Result Diagrams: 10/03/17 06:39 10/04/17 08:10 Labs: Laboratory Results - last 24 hr 10/04/17 08:10 Sodium 138 Potassium 3.7 Chloride 97 L Carbon Dioxide 37 H BUN 15 Creatinine 0.70 Estimated GFR > 60.0 BUN/Creatinine Ratio 21.4 Glucose 96 Calcium 8.9 Assessment & Plan (1) S/P total hip arthroplasty: Current visit: Yes Status: Acute (2) Essential hypertension: Current visit: Yes Status: Acute (3) Hypoxia: Problem details: Waiting on echo Current visit: Yes Status: Acute Plan: Assessment/Plan Narrative: 81 year old female with HTN and osteoarthritis now post-op day three after left hip replacement (10/01/17) with new hypoxia yesterday, now saturating well after 1 dose of furosemide yesterday. # Hypoxia Improved after furosemide yesterday and the patient is saturating adequately on room air. CTA negative for PE however there was evidence of new heart failure with cardiomegaly and small bilateral pleural effusions. Clinically patient does not appear volume overloaded with the exception of faint bibasilar crackles. --BNP 10/03/17 231 --EKG, echocardiogram pending >Echocardiogram September 2015 showed djection fraction was 60-65% with dilation of the left atrium and mild to moderate mitral valve calcification. Could not rule out bicuspid aortic valve. # Constipation # S/p total hip arthroplasty See ortho note. Stable 3 days s/p left hip replacement. Pain adequately controlled however the patient has not had a bowel movement in 3 days. Discussed with Ortho and they will order a bowel regimen for her. She will likely be ready for discharge tomorrow should she have no oxygen requirement overnight. Quality VTE Deep Vein Thrombosis/Pulmonary Embolism Present on Admission: No
--- NOTE | 2017-10-04 14:25 | PT.IPTN ---
Current Diagnoses Essential (primary) hypertension (10/01/17) Unilateral primary osteoarthritis, left hip (10/01/17) Hypoxemia (10/01/17) Presence of unspecified artificial hip joint (10/01/17) Surgery Performed Operation Date: 10/01/17 10:15 Actual Procedures p Total Hip Arthroplasty(Left) - Ori Gaona MD Physical Therapy Treatment Note M2 PT-IP Current Condition Start: 10/01/17 15:34 Freq: NEEDED Status: Active Protocol: Document 10/02/17 09:44 DLM (Rec: 10/02/17 10:42 DLM [id number]) Physical Therapy Current Condition Current Condition Evaluation Date 10/02/17 Treatment Diagnosis left CHICHI, posterior approach, impaired gait Onset Date 10/01/17 Precautions Posterior Hip Precautions No Hip Flexion > 90 degrees No Hip Internal Rotation No Hip Adduction Weight Bearing Status Weight Bearing Status Weight Bear as Tolerated M3 PT-IP Subjective Start: 10/01/17 15:34 Freq: NEEDED Status: Active Protocol: Document 10/04/17 14:25 GGD (Rec: 10/04/17 16:53 GGD [email or web address]) Subjective Physical Therapy Visit Type Type Treatment Note Visit Start Time 13:45 Visit Stop Time 14:25 Total Visit Minutes 40 Number of REGULATORY SCIENTIST Visits 2 Physical Therapy Visit Comments Patient Comments Pt ready to try stairs. Therapy Pain Assessment Pain When Pain Assessed At Rest Pain Present Pain Present Pain Reported Location Lt leg Intensity 5 Scale Used Numeric (1 - 10) M4 PT-IP Mobility and Gait Start: 10/01/17 15:34 Freq: NEEDED Status: Active Protocol: Document 10/04/17 14:25 GGD (Rec: 10/04/17 16:53 GGD [email or web address]) PT-Bed Mobility Assessment Sit to Supine Sit to Supine Contact Guard Assistance Scooting Scooting to Edge of Bed Contact Guard Assistance PT-Transfer Assessment Sit to and From Stand Sit to and from Stand Contact Guard Assistance Use of Upper Extremities Equipment Transfer Assistive Device Gait Belt Front Wheeled Walker Transfers Transfer Destination Bed Wheelchair Transfer Technique Ambulate Transfer Ability Level of Assist Contact Guard Assistance Use of Upper Extremities Comments Mobility Comments Pt needs cues for hand and foot placement. Gait Assessment Gait Gait Assistance Required: Contact Guard Assist Distance (Feet) (feet) 40 Assistive Devices Assistive Device Gait Belt Front Wheeled Walker Gait Deviations General Gait Pattern Antalgic Decreased Stride Length Decreased Feet Clearance Step-to Gait Factors Limiting Gait Function Factors Limiting Gait Function Decreased Activity Tolerance Decreased Strength Difficulty Following Directions Limited Range of Motion Pain Poor Balance Poor Safety Awareness Comments Gait Comments Pt improving with hip precautions. Stair Climbing Assessment Evaluation Level of Assist On Stairs Minimal Assistance Devices Stair Climbing Assistive Devices Left Railing Technique/Endurance Stair Climbing Direction Ascend and Descend Stair Climbing Technique Step to Step Number of Steps Climbed 3 Query Text: Stair Climbing Set # Repetitions (reps) 1 Comments Stair Climbing Comments Hand hold on right with use of left rail. M5 PT-IP Objective Assessments Start: 10/01/17 15:34 Freq: NEEDED Status: Active Protocol: Document 10/02/17 09:44 DLM (Rec: 10/02/17 10:42 DLM [id number]) Orientation Orientation/Cognition Level of Alertness Alert Orientation Name Age Birthday Month Date Year Day of Week Place Situation Language Function Ability Hard of Hearing Memory Description Short Term Impaired Comments has difficulty using hip precautions functionally Gross Range of Motion Upper Extremity ROM Assessment Within Functional Limits Lower Extremity ROM Assessment Left Impaired Impairments hip precautions on left Strength Upper Extremity Strength Assessment Within Functional Limits Lower Extremity Strength Assessment Left Impaired Hip hip flexion 2+/5 Knee knee 4/5 Ankle DF 5/5 Comments Strength Comments pain left hip affects strength Coordination Assessment Gross Coordination Gross Coordination WNL Sensation Assessment Sensation Gross Sensation WNL Muscle Tone Muscle Tone WNL Yes M6 PT-IP Treatment Start: 10/01/17 15:34 Freq: NEEDED Status: Active Protocol: Document 10/04/17 14:25 GGD (Rec: 10/04/17 16:53 GGD [email or web address]) Physical Therapy Treatment Exercises Exercises Ankle Pumps Supine Hip Abduction Seated Knee Flexion/Extension Education Education Provided Precautions Safety M7 PT-IP Assessment and Plan Start: 10/01/17 15:34 Freq: NEEDED Status: Active Protocol: Document 10/04/17 14:25 GGD (Rec: 10/04/17 16:53 GGD [email or web address]) PT Summary Assessment and Plan Summary Assessment Summary Pt improving with mobility and hip precaution awareness. She needed min A to ascend stair and mod cues. Frequency of Treatment Frequency Of Treatment Twice a Day Treatment Plan Other Recommendations and Next Treatment stair training with cane and Focus one rail. Recommendations To Nursing Amount of Assist Needed 1 Person Assist Discharge Recommendations PT Discharge Recommendations Home with Assistance Home Health
--- NOTE | 2017-10-04 14:42 | PC.NURSE ---
10/04 1442- Post op day #3, VSS with pulse oximeter averaging 93% on RA, occasional de-saturations that resolve with incentive spirometer or deep breaths. Pt denies any respiratory distress, expresses desire to return home. Walked in [place] with physical therapy, tolerated well, spot check of O2 showing 97% on RA. Possible discharge tomorrow. OT to shower in AM, Physical therapy to work on stairs one more time, and Lovenox teaching to occur with present.
--- NOTE | 2017-10-04 14:48 | CM.DPC ---
DCP Cont: Patient may be discharged tomorrow, post left hip arthroplasty. Lives here in [place] with spouse. Is recommended that she have home health therapy set up after discharge. Gave patient Medicare choice list, patient is leaning toward [facility], since they are local. Called [place] at [facility] with update. Stated that they can see patient Sunday. Let her know, when orders and face to face are complete, will fax over to them. Sarah Espinosa RN/Chemist Helper
[2017-10-04] MEDS: SENNOSIDES 8.6 MG TABLET 17.2 MG PO (17:30)
[2017-10-04] MEDS: MAGNESIUM HYDROXIDE 30 ML UDC PO (17:32)
--- NOTE | 2017-10-05 03:45 | PC.NURSE ---
shift note met with pt at start of shift. AOx3. RA 88. Put on 1L, 92%. Complained of pain of 5. Provided 1 tab PRN percocet. Bulky dressing CDI. Call light in reach.
[2017-10-05] MEDS: OXYCODONE/ACETAMINOPHEN 5/325 TABLET 1 TAB PO (04:27)
[2017-10-05 04:45] VITALS: BP 136/63; PULSE 66; RESP 16; TEMP 36.3; O2SAT 94
[2017-10-05] MEDS: PANTOPRAZOLE 20 MG TABLET PO (05:53)
[2017-10-05 08:00] VITALS: BP 118/64; PULSE 73
--- NOTE | 2017-10-05 08:44 | P.PN_ITS ---
Subjective Date Patient Seen: 10/05/17 Time Patient Seen: 08:41 Interval history: 81-year-old female with a history of hypertension and arthritis postop day four after left hip replacement (10/01/17) with new hypoxia requiring 4 L of oxygen, now stable on room air except overnight required 1 L. CTA showed cardiomegaly and small bilateral pleural effusions suggestive of congestive heart failure responded well to furosemide. The patient is seen lying in bed today, easily arousable. She denies shortness of breath or chest pain. Is currently on 1 L NC and has been overnight. She tells me that she has sleep apnea and won't use cpap. She denies abdominal pain , nausea, or vomiting. She would like to go home today. Exam Vital Signs (past 8 hours): - 10/05/17 04:45 Temperature 97.3 F L Pulse Rate 66 Respiratory Rate 16 Blood Pressure 136/63 H Pulse Oximetry 94 Oxygen Delivery Method Nasal Cannula Oxygen Flow Rate 1.5 Narrative Exam Narrative: General: Well-developed, well-nourished, female, no acute distress. Heart: Regular rate and rhythm, small murmur heard at LSB Lungs: Clear to auscultation bilaterally, no wheezes, rales or rhonchi Extremities: Warm and well perfused, no edema Objective Imaging echocardiogram: Radiologist's impression: Overall impression the echo shows a severely dilated left atrium with elevated filling pressures. The Doppler suggest a supracristal VSD. Clinical correlation is recommended. Compared to prior echo, the left ventricle filling pressure is slightly higher. Labs Result Diagrams: 10/03/17 06:39 10/04/17 08:10 Assessment & Plan (1) S/P total hip arthroplasty: Current visit: Yes Status: Acute (2) Essential hypertension: Current visit: Yes Status: Acute (3) Hypoxia: Problem details: Waiting on echo Current visit: Yes Status: Acute Plan: Assessment/Plan Narrative: 81 year old female with HTN and osteoarthritis now post-op day four after left hip replacement (10/01/17) with new hypoxia 2 days post surgery, now saturating well after 1 dose of furosemide. # Hypoxia Improved after furosemide yesterday and the patient is saturating adequately on room air during the day. CTA negative for PE however there was evidence of new heart failure with cardiomegaly and small bilateral pleural effusions. Some worsening of her heart since last echocardiogram but LVEF still estimated to be between 60 and 65%. Clinically patient does not appear volume overloaded. She did require oxygen overnight however I attribute this to her known sleep apnea. Will discharge her on oxygen at night. Follow up with Dr. Lebron in the next 2 weeks. Time Spent With Patient Time with patient: 25 - 35 minutes Quality VTE Deep Vein Thrombosis/Pulmonary Embolism Present on Admission: No
--- NOTE | 2017-10-05 09:00 | PM.DS.1 ---
History of Present Illness Date Patient Seen: 10/05/17 Time Patient Seen: 09:03 Chief complaint: [id number] Narrative: s/p total hip arthroplasty Discharge Providers Date of admission: 10/01/17 07:20 Primary care physician: Homer Lebron MD Consults: 10/01/17 13:07 Consult to Discharge Planning Routine Comment: Consult to Physical Therapy Evaluate & Treat Comment: Physician Instructions: post op CHICHI protocol Consult to Respiratory Therapy Evaluate & Treat Comment: Physician Instructions: Evaluate and treat 10/03/17 10:39 Consult to Occupational Therapy Evaluate & Treat Comment: Physician Instructions: Evaluate and treat Discharge provider: Stacey Leiva PA-C Summary Discharge Diagnosis: s/p total hip arthroplasty hypoxia Hospital Course: Patient admitted for total hip arthroplasty with Dr. Gaona, and she consented to procedure. On postop day 2. She experience hypoxia during the night. Her PCP was consulted and she was started on Lasix for a few days. CTA revealed new heart failure and cardiomegaly, and small bilateral pleural effusions. She will go home with oxygen. On postop day number 4 she was feeling well and wanted to go home. She had been up and ambulating with physical therapy. She is aware of her posterior hip precautions. She is taking Lovenox and ASA for DVT prophylaxis. Her pain has been well controlled with oxycodone. She has been eating and voiding without difficulty or assistance. Status at Discharge Functional status at discharge: uses cane/walker Exam Vital Signs (past 8 hours): - 10/05/17 04:45 Temperature 97.3 F L Pulse Rate 66 Respiratory Rate 16 Blood Pressure 136/63 H Pulse Oximetry 94 Oxygen Delivery Method Nasal Cannula Oxygen Flow Rate 1.5 Narrative Exam Narrative: Patient lying in bed in no acute distress. She is alert and oriented x3. Dressing is CDI. This will be changed prior to discharge. Calves are soft, compressible, nontender bilaterally. Sensation intact to light touch throughout bilateral lower extremities. Her pain has been well controlled with oxycodone. She denies any difficulty urinating. Denies chest pain, or shortness of breath. Objective Labs Result Diagrams: 10/03/17 06:39 10/04/17 08:10 Discharge Plan Discharge Plan Patient Disposition: Home Discharge comment: DC home today with , apply cover site or island dressing before discharge Discharge Med Rec/Prescriptions Prescriptions: New docusate sodium 100 mg Capsule 100 mg PO BID PRN (Reason: Constipation) Qty: 30 RF: 0 oxycodone 5 mg capsule 5 mg PO Q4-6H PRN (Reason: pain) Qty: 40 RF: 0 enoxaparin [Lovenox] 30 mg/0.3 mL syringe 30 mg SUBCUT DAILY 6 Days Qty: 6 RF: 0 Continue amlodipine [Norvasc] 5 mg tablet 5 mg PO QDAY Qty: 90 RF: 1 paroxetine HCl [Paxil] 20 mg tablet 60 mg PO QDAY Qty: 270 RF: 1 carvedilol [Coreg] 3.125 mg tablet 3.125 mg PO BID Qty: 180 RF: 1 omeprazole 20 MG capsule,delayed release(DR/EC) 20 mg PO QAM RF: 0 acetaminophen-codeine [Tylenol-Codeine #3] 300-30 mg Tablet 2 tab PO BID RF: 0 Changed aspirin 81 mg Tablet,Delayed Release (Dr/Ec) 81 mg PO BID Qty: 0 RF: 0 Follow up/Referrals: Homer Lebron MD [Primary Care Provider] - (Please follow-up for management of cardiomegaly) Ori Gaona MD [Physician] - (Please follow up in 5-7 days) Provider Discharge Instructions Diet: Regular Activity: Weightbearing as tolerated, posterior hip precautions Cold/Heat Therapy: As needed Skin/Wound/Dressing Care Report to your healthcare provider any signs of infection, such as:: chills, fever and increased pain Dressing: Leave dressing in place until appointment Visit Report/Discharge Packet Instructions: DI for Hip Replacement, Enoxaparin Injection Visit Report Forms: Stroke Signs & Symptoms Discharge Data Primary Care Provider: Homer Lebron Attending Provider: Ori Gaona Admit Date/Time: 10/01/17 07:20 Quality VTE Deep Vein Thrombosis/Pulmonary Embolism Present on Admission: No
--- NOTE | 2017-10-05 09:39 | OT.IP.TRT ---
Current Diagnoses Essential (primary) hypertension (10/01/17) Unilateral primary osteoarthritis, left hip (10/01/17) Hypoxemia (10/01/17) Presence of unspecified artificial hip joint (10/01/17) Surgery Performed Operation Date: 10/01/17 10:15 Actual Procedures p Total Hip Arthroplasty(Left) - Ori Gaona MD Occupational Therapy Treatment Note M2 OT-IP Current Condition Start: 10/03/17 16:28 Freq: Status: Active Protocol: Document 10/03/17 16:28 PJM (Rec: 10/03/17 16:45 PJM [id number]) Occupational Therapy Current Condition Current Condition Evaluation Date 10/03/17 Treatment Diagnosis decreased self care, functional mobility s/p L CHICHI with psot op new dx CHF Diagnosis Onset Date 10/01/17 Post Operative Precautions Posterior Hip Precautions No Hip Flexion > 90 degrees No Hip Internal Rotation No Hip Adduction Weight Bearing Status Weight Bearing Status Weight Bear as Tolerated M3 OT- IP Subjective and Pain Start: 10/03/17 16:28 Freq: Status: Active Protocol: Document 10/05/17 09:32 [facility] (Rec: 10/05/17 09:39 [facility] [email or web address]) OT- Subjective Occupational Therapy Visit Type Type Treatment Note Visit Start Time 08:35 Visit Stop Time 09:30 Total Visit Minutes 55 Notes Pt's came for end of the session. Occupational Therapy Visit Comments Patient/Caregiver Goals to go home OT Pain Assessment Pain When Pain Assessed At Rest Pain Present Pain Present Denied Pain M4 OT- IP ADL's Start: 10/03/17 16:28 Freq: Status: Active Protocol: Document 10/05/17 09:32 [facility] (Rec: 10/05/17 09:39 [facility] [id number]) OT ADL-Grooming General Evaluation Grooming Ability Standby Assistance Comments OT Grooming Comments While standing, vc to move slowly, especially for turning . OT ADL-Oral Care General Eval Oral Care Ability Standby Assistance Comments Oral Care Comments WHile standing with FWW. OT ADL-Dressing General Eval Upper Body Dressing Ability Independent Lower Body Dressing Ability Minimal Assistance Areas Needing Assistance Socks Assistive Devices Dressing Assistive Devices Clinical Appeals Specialist Comments OT Dressing Comments Assist with socks, will assist at home. OT ADL-Toileting General Evaluation Toileting Ability Standby Assistance Comments OT Toileting Comments Provided education about body mechanics and techniques within posterior hip precautions OT ADL-Bathing Bathing Type Bathing Type Shower General Evaluation Bathing Ability Minimal Assistance Devices Bathing Equipment Shower Chair with Arms Comments OT Bathing Comments Pt plans to sponge bath at home; declines transfer tub seat at present. M5 OT- IP IADL's Start: 10/03/17 16:28 Freq: Status: Active Protocol: Document 10/03/17 16:28 PJM (Rec: 10/03/17 16:45 PJM [id number]) OT-Instrumental Activities of Daily Living Deficits IADL Deficits Identified Deficits Home Safety Awareness Awareness of Need for Assistance at Home Decreased Awareness Home Safety Comments decreased insight Meal Preparation Meal Preparation Caregiver Provides Assist Meal Preparation Comments pt states can assist PRN Outside Sales Consultant Outside Sales Consultant Caregiver Provides Assist Outside Sales Consultant Comments pt states can assist PRN, but concerned about getting too tired Driving Driving Caregiver Provides Assist Driving Comments to assist until pt able M6 OT- IP Functional Cognition Start: 10/03/17 16:28 Freq: Status: Active Protocol: Document 10/05/17 09:32 [facility] (Rec: 10/05/17 09:39 [facility] [id number]) Cognitive Factors Limiting Selfcare Function Cognitive Ability Level of Alertness Alert Patient Orientation Name Month Year Place Situation Attention Span Ability Capable of Focused Attention Capable of Sustained Attention Ability to Follow Commands Able to Follow One Step Commands Safety Awareness Decreased Ability to Apply Precautions Problem Solving Ability Needs Assist to Identify Solutions Cognitive Comments Cognitive Assessment Comments Pt still needing reminders to incorporate hip precautions for ADl needs. M7 OT- IP Mobility and Balance Start: 10/03/17 16:28 Freq: Status: Active Protocol: Document 10/05/17 09:32 [facility] (Rec: 10/05/17 09:39 [facility] [email or web address]) OT-Transfer Assessment Sit to and From Stand Sit to and from Stand Standby Assistance Technique Transfer Destination Bedside Commode Chair Toilet Devices Transfer Assistive Devices Gait Belt Front Wheeled Walker Comments Mobility Comments VC not to turn so quickly. VC to push up from surface sitting on versus grab the FWW to stand. OT- Balance Assessment Sitting Balance and Reactions Static Sitting Balance Ability Good Dynamic Sitting Balance Ability Good Standing Balance and Reactions Static Standing Balance Ability Good Dynamic Standing Balance Ability Fair Comments Other Balance Tests/Deviations/Treatment With FWW : M8 OT- IP Objective Assessments Start: 10/03/17 16:28 Freq: Status: Active Protocol: Document 10/03/17 16:28 PJM (Rec: 10/03/17 16:45 PJM [id number]) OT Gross Range of Motion Upper Extremity Range of Motion Assessment Within Functional Limits OT Strength Upper Extremity Strength Assessment Within Functional Limits OT- Coordination Assessment Comments Coordination Comments BUE WFL OT-Muscle Tone Assessment Muscle Tone WNL Yes OT Sensation Assessment Comments Summary Comments BUE WNL Edema Edema Absent Edema Comments in BUE's M9 OT- IP Assessment and Plan Start: 10/03/17 16:28 Freq: Status: Active Protocol: Document 10/05/17 09:32 [facility] (Rec: 10/05/17 09:39 [facility] [email or web address]) OT Summary Assessment and Plan Summary Progress Towards Goals Progressing Toward Goals Assessment Summary Pt doing better today, however still needing reminders to incorporate hip precautions during needs. Pt's states has good understanding to assist pt for all needs. Frequency of Treatment Frequency Of Treatment Once a Day Treatment Plan OT Treatment Plan Patient/Family Education Discharge Planning Discharge Recommendations OT Discharge Recommendations Home with 04/09 Assist Home Health
[2017-10-05] MEDS: ASPIRIN EC 81 MG TABLET PO (09:43)
[2017-10-05] MEDS: ENOXAPARIN 30 MG/0.3 ML SYRINGE SUBCUT (09:43)
[2017-10-05] MEDS: DOCUSATE 100 MG CAPSULE PO (09:43)
[2017-10-05] MEDS: CODEINE/ACETAMINOPHEN 30/300 TABLET 2 TAB PO (09:44)
[2017-10-05] MEDS: PARoxetine 20 MG TABLET 60 MG PO (09:44)
[2017-10-05] MEDS: CARVEDILOL 3.125 MG TABLET PO (09:44)
[2017-10-05] MEDS: AMLODIPINE 5 MG TABLET PO (09:44)
--- NOTE | 2017-10-05 10:09 | CM.DPC ---
DCP Cont: Patient is to be discharged home. Had already spoken to [facility] at [facility], and had stated that physical therapy could see her Sunday. Went ahead and faxed orders to [facility]. Physical therapy to work with patient before discharge as well. P: Discharge home with [facility] for P.T/O.T Sarah Espinosa RN/Media Director
--- NOTE | 2017-10-05 11:39 | PC.NURSE ---
Pt is now discharge to home. Paperwork gone over and taken out to car with NAVID Kelly. IV taken out and cath tip intact. to bring pt home.
--- NOTE | 2017-10-05 11:45 | PT.IPTN ---
Current Diagnoses Essential (primary) hypertension (10/01/17) Unilateral primary osteoarthritis, left hip (10/01/17) Hypoxemia (10/01/17) Presence of unspecified artificial hip joint (10/01/17) Surgery Performed Operation Date: 10/01/17 10:15 Actual Procedures p Total Hip Arthroplasty(Left) - Ori Gaona MD Physical Therapy Treatment Note M2 PT-IP Current Condition Start: 10/01/17 15:34 Freq: NEEDED Status: Discharge Protocol: Document 10/02/17 09:44 DLM (Rec: 10/02/17 10:42 DLM [id number]) Physical Therapy Current Condition Current Condition Evaluation Date 10/02/17 Treatment Diagnosis left CHICHI, posterior approach, impaired gait Onset Date 10/01/17 Precautions Posterior Hip Precautions No Hip Flexion > 90 degrees No Hip Internal Rotation No Hip Adduction Weight Bearing Status Weight Bearing Status Weight Bear as Tolerated M3 PT-IP Subjective Start: 10/01/17 15:34 Freq: NEEDED Status: Discharge Protocol: Document 10/05/17 11:37 GGD (Rec: 10/05/17 11:45 GGD [email or web address]) Subjective Physical Therapy Visit Type Type Treatment Note Visit Start Time 11:00 Visit Stop Time 11:30 Total Visit Minutes 30 Number of SEALER SANDER Visits 3 Physical Therapy Visit Comments Patient Comments Pt states she ready to go home . Therapy Pain Assessment Pain When Pain Assessed At Rest Pain Present Pain Present Denied Pain Location Lt leg Intensity 6 Scale Used Numeric (1 - 10) M4 PT-IP Mobility and Gait Start: 10/01/17 15:34 Freq: NEEDED Status: Discharge Protocol: Document 10/05/17 11:37 GGD (Rec: 10/05/17 11:45 GGD [email or web address]) PT-Transfer Assessment Sit to and From Stand Sit to and from Stand Standby Assistance Equipment Transfer Assistive Device Gait Belt Front Wheeled Walker Orthotic/Prosthetic Devices or Brace: No Transfers Transfer Destination Wheelchair Car Transfer Technique Ambulate Transfer Ability Level of Assist Contact Guard Assistance Use of Upper Extremities Gait Assessment Gait Gait Assistance Required: Contact Guard Assist Distance (Feet) (feet) 30 Assistive Devices Assistive Device Gait Belt Front Wheeled Walker Orthotic/Prosthetic Devices or Brace: No Gait Deviations General Gait Pattern Antalgic Decreased Stride Length Decreased Feet Clearance Step-to Gait Factors Limiting Gait Function Factors Limiting Gait Function Decreased Activity Tolerance Decreased Strength Difficulty Following Directions Limited Range of Motion Pain Poor Balance Poor Safety Awareness Comments Gait Comments needing cues for foot placement with sit to stand. Stair Climbing Assessment Evaluation Level of Assist On Stairs Contact Guard Assistance Devices Stair Climbing Assistive Devices Straight Cane Left Railing Technique/Endurance Stair Climbing Direction Ascend and Descend Stair Climbing Technique Step to Step Number of Steps Climbed 3 Query Text: Stair Climbing Set # Repetitions (reps) 1 M5 PT-IP Objective Assessments Start: 10/01/17 15:34 Freq: NEEDED Status: Discharge Protocol: Document 10/02/17 09:44 DLM (Rec: 10/02/17 10:42 DLM [id number]) Orientation Orientation/Cognition Level of Alertness Alert Orientation Name Age Birthday Month Date Year Day of Week Place Situation Language Function Ability Hard of Hearing Memory Description Short Term Impaired Comments has difficulty using hip precautions functionally Gross Range of Motion Upper Extremity ROM Assessment Within Functional Limits Lower Extremity ROM Assessment Left Impaired Impairments hip precautions on left Strength Upper Extremity Strength Assessment Within Functional Limits Lower Extremity Strength Assessment Left Impaired Hip hip flexion 2+/5 Knee knee 4/5 Ankle DF 5/5 Comments Strength Comments pain left hip affects strength Coordination Assessment Gross Coordination Gross Coordination WNL Sensation Assessment Sensation Gross Sensation WNL Muscle Tone Muscle Tone WNL Yes M6 PT-IP Treatment Start: 10/01/17 15:34 Freq: NEEDED Status: Discharge Protocol: Document 10/05/17 11:37 GGD (Rec: 10/05/17 11:45 GGD [email or web address]) Physical Therapy Treatment Exercises Exercises Ankle Pumps Supine Hip Abduction Seated Knee Flexion/Extension Education Education Provided Precautions Safety M7 PT-IP Assessment and Plan Start: 10/01/17 15:34 Freq: NEEDED Status: Discharge Protocol: Document 10/05/17 11:37 GGD (Rec: 10/05/17 11:45 GGD [email or web address]) PT Summary Assessment and Plan Summary Assessment Summary Pt improving with hip precautions with mobilty. She has improved with mobility, transfers and stairs. Frequency of Treatment Frequency Of Treatment Twice a Day Recommendations To Nursing Amount of Assist Needed 1 Person Assist Discharge Recommendations PT Discharge Recommendations Home with Assistance Home Health
== END 2017-10-05 11:30 | disposition home health service (06) | DRG 469 ==
PROVIDERS: Family Medicine; Admitting Provider Orthopaedic Surgery; PCP Family Medicine; Visit Provider Orthopaedic Surgery
PROC: 0SRB0JZ Replacement of Left Hip Joint with Synthetic Substitute, Open Approach (ICD-10-PCS; CPT 27130; principal; 2017-10-01 10:15)
DX: M16.12 Unilateral primary osteoarthritis, left hip (principal); I50.31 Acute diastolic (congestive) heart failure; J90 Pleural effusion, not elsewhere classified; F32.9 Major depressive disorder, single episode, unspecified; G47.33 Obstructive sleep apnea (adult) (pediatric); K21.9 Gastro-esophageal reflux disease without esophagitis; K59.00 Constipation, unspecified; I51.7 Cardiomegaly; I11.0 Hypertensive heart disease with heart failure
CPT/HCPCS: 36415; 71275; 72170; 80048; 80053; 83880; 84443; 85014; 85018; 85025; 85610; 93005; 93010; 93306; 94762; 94770; 97116; 97162; 97166; 97530; 97535; 99232; 99233; C1776; J0690; J1100; J1650; J1940; J2250; J2274; J2405; J2704; J3010; Q9967

== ENCOUNTER → 2017-10-29 11:45 | Outpatient (CLI) | payer OTHER, SELFPAY ==
[2017-10-01 13:49] VITALS: BMI 28.0
[2017-10-29 12:23] LABS: Add Manual Diff / Slide Review NO; Basophils Percent Auto 0.7 % (0-2); Eosinophils Percent Auto 8.9 % (2-4); Hematocrit 31.8 % (36-46); Hemoglobin 10.8 g/dL (12.0-16.0); Lymphocytes Percent Auto 23.6 % (25-40); Mean Corpuscular HGB Conc 33.9 % (30-36); Mean Corpuscular Volume 91.2 fL (80-100); Monocytes Percent Auto 9.6 % (3-14); Neutrophils Absolute Auto 3800 /uL (3000-5900); Neutrophils Percent Auto 57.2 % (50-75); Platelet Count 305 X10^3/uL (150-400); Red Blood Cell Count 3.49 X10^6/uL (4.0-5.2); Red Cell Distribution Width 13.6 % (11.6-14.8); White Blood Cell Count 6.6 X10^3/uL (4.5-11.0)
[2017-10-29 12:32] LABS: INR 1.1 (0.9-1.3); Prothrombin Time 11.5 SECONDS (10.1-12.7)
[2017-10-29 13:33] LABS: Alanine Aminotransferase 30 IU/L (9-52); Albumin 3.9 g/dL (3.5-5.0); Albumin Globulin Ratio 1.3 (1.0-2.8); Alkaline Phosphatase 80 U/L (38-126); Aspartate Aminotransferase 21 IU/L (14-36); BUN Creatinine Ratio 22.5 (6-22); Bilirubin Total 0.3 mg/dL (0.2-1.3); Blood Urea Nitrogen 18 mg/dL (7-17); Calcium 9.4 mg/dL (8.4-10.2); Carbon Dioxide 28 mmol/L (22-32); Chloride 104 mmol/L (98-107); Estimated Glomerular Filt Rate > 60.0 mL/min (>60); Glucose 91 mg/dL (80-110); HEMOLYSIS < 15 (0-50); Potassium 4.7 mmol/L (3.4-5.1); Sodium 143 mmol/L (137-145); Total Protein 6.9 g/dL (6.3-8.2)
== END ==
PROVIDERS: PCP Family Medicine; Visit Provider Nurse Practitioner Family
DX: K62.5 Hemorrhage of anus and rectum (principal)
CPT/HCPCS: 36415; 80053; 85025; 85610

== ENCOUNTER → 2017-11-21 12:49 | Outpatient (CLI) | payer OTHER, SELFPAY ==
[2017-10-30 10:32] VITALS: BMI 28.0
[2017-11-21 13:11] LABS: Add Manual Diff / Slide Review NO; Basophils Percent Auto 1.2 % (0-2); Eosinophils Percent Auto 12.4 % (2-4); Hematocrit 34.8 % (36-46); Hemoglobin 11.1 g/dL (12.0-16.0); Mean Corpuscular HGB Conc 31.9 % (30-36); Mean Corpuscular Hemoglobin 29.3 PG (26-34); Mean Corpuscular Volume 91.8 fL (80-100); Monocytes Percent Auto 9.6 % (3-14); Neutrophils Absolute Auto 3000 /uL (3000-5900); Neutrophils Percent Auto 50.8 % (50-75); Platelet Count 392 X10^3/uL (150-400); Red Cell Distribution Width 14.4 % (11.6-14.8); White Blood Cell Count 5.8 X10^3/uL (4.5-11.0)
[2017-11-21 14:02] LABS: Thyroid Stimulating Hormone 0.55 uIU/mL (0.47-4.68)
[2017-11-21 14:03] LABS: Cortisol Random 6.65 ug/dL
[2017-11-22 19:20] LABS: Adrenocorticotropic Hormone 13 pg/mL (6-50)
== END ==
PROVIDERS: PCP Family Medicine; Visit Provider Family Medicine
DX: F32.9 Major depressive disorder, single episode, unspecified (principal)
CPT/HCPCS: 36415; 82024; 82533; 84443; 85025

== ENCOUNTER → 2017-12-25 06:04 | Outpatient (CLI) | payer OTHER, SELFPAY ==
[2017-10-30 10:32] VITALS: BMI 28.0
--- NOTE | 2017-12-25 06:05 | DI.MRI.S_ITS ---
PROCEDURE: MR LUMBAR SPINE WO CON INDICATIONS: BACK PAIN TECHNIQUE: Noncontrast sagittal T1 spin echo and T2 fast echo, sagittal STIR, axial T1 and T2 fast spin echo through the lumbar spine. In cases with scoliosis, additional coronal T2 fast spin echo may be performed. COMPARISON: [facility], XA, L/S-SPINE 2-3 VIEWS PAIN DEPT, 05/19/2013, 12:43. [facility], CR, L-SPINE 2-3 VIEWS, 08/29/2010, 13:25. [facility], MR, L-SPINE WITHOUT CONTRAST, 02/24/2011, 10:04. [facility], MR, L-SPINE WITHOUT CONTRAST, 05/13/2013, 8:30. [facility], MR, L-SPINE WITHOUT CONTRAST, 01/25/2017, 7:03. FINDINGS: Image quality: Excellent. Alignment and Curvature: There is normal bony alignment. Bone Marrow: There is a large Schmorl's node in the superior endplate of L3. Degenerative endplate signal changes are present. No acute vertebral body compression fractures. Spinal Cord: Conus medullaris terminates at the L2 level. Visualized cord demonstrates normal signal and size. Paraspinous Soft Tissues: No paravertebral masses. L1-L2: Preserved disc height. Mild disc desiccation. There is mild posterior disc bulge. The central canal is patent. No foraminal stenosis. No significant change from the last exam on 01/25/2017. L2-L3: Mild loss of disc height and disc desiccation. There is diffuse posterior disc bulge. Mild bilateral facet arthropathy and hypertrophy of ligamentum flavum. The central canal is mildly narrowed. Mild left foraminal stenosis. No right foraminal stenosis. No significant change from the last exam. L3-L4: Mild loss of disc height and disc desiccation. There is diffuse posterior disc bulge. Mild bilateral facet arthropathy and hypertrophy of ligamentum flavum. The central canal is mildly narrowed. No foraminal stenosis. No significant change from the last exam. L4-L5: Mild loss of disc height and moderate disc desiccation. There is diffuse posterior disc bulge. Mild bilateral facet arthropathy and moderate hypertrophy of ligamentum flavum. The central canal is mildly narrowed, unchanged. Mild to moderate right foraminal stenosis. No left foraminal stenosis. No significant change from the last exam. L5-S1: Mild loss of disc height and moderate disc desiccation. There is diffuse posterior disc bulge. Mild bilateral facet arthropathy. The central canal is patent. Mild bilateral foraminal stenosis, unchanged. There is a Tarlov cyst in sacrum level of S2. IMPRESSION: 1. Multilevel degenerative disc disease and facet arthropathy as described. 2. Mild central canal stenosis at L2-L3, L3-L4 and L4-L5. 3. [id number] foraminal stenosis at L4-L5 on the right, and mild foramina stenosis at L5 at S1 bilaterally. 4. 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 Dictated by: Arun Barger M.D. on 12/25/2017 at 9:26 Approved by: Arun Barger M.D. on 12/25/2017 at 9:48
== END ==
PROVIDERS: PCP Family Medicine; Visit Provider Family Medicine
DX: M51.36 Other intervertebral disc degeneration, lumbar region (principal); M51.37 Other intervertebral disc degeneration, lumbosacral region; M47.816 Spondylosis without myelopathy or radiculopathy, lumbar region; M47.817 Spondylosis without myelopathy or radiculopathy, lumbosacral region; M48.061 Spinal stenosis, lumbar region without neurogenic claudication; M48.07 Spinal stenosis, lumbosacral region; M51.46 Schmorl's nodes, lumbar region; M54.9 Dorsalgia, unspecified
CPT/HCPCS: 72148

== ENCOUNTER → 2018-05-08 17:09 | Outpatient (CLI) | payer OTHER, SELFPAY ==
[2017-10-30 10:32] VITALS: BMI 28.0
[2018-05-08 18:03] LABS: Add Manual Diff / Slide Review NO; Basophils Absolute Auto 0 /uL (0-100); Basophils Percent Auto 0.6 % (0-2); Eosinophils Absolute Auto 400 /uL (0-450); Eosinophils Percent Auto 5.6 % (2-4); Hematocrit 40.7 % (36-46); Hemoglobin 13.1 g/dL (12.0-16.0); Lymphocytes Absolute Auto 2100 /uL (1100-4500); Lymphocytes Percent Auto 30.4 % (25-40); Mean Corpuscular HGB Conc 32.1 % (30-36); Mean Corpuscular Hemoglobin 27.7 PG (26-34); Mean Corpuscular Volume 86.4 fL (80-100); Monocytes Absolute Auto 600 /uL (0-900); Monocytes Percent Auto 8.9 % (3-14); Neutrophils Absolute Auto 3800 /uL (1500-7000); Neutrophils Percent Auto 54.5 % (50-75); Platelet Count 293 X10^3/uL (150-400); Red Blood Cell Count 4.72 X10^6/uL (4.0-5.2); Red Cell Distribution Width 17.6 % (11.6-14.8); White Blood Cell Count 6.9 X10^3/uL (4.5-11.0)
[2018-05-08 18:21] LABS: Alanine Aminotransferase 33 IU/L (9-52); Albumin 4.3 g/dL (3.5-5.0); Albumin Globulin Ratio 1.4 (1.0-2.8); Alkaline Phosphatase 78 U/L (38-126); Aspartate Aminotransferase 21 IU/L (14-36); Bilirubin Total 0.2 mg/dL (0.2-1.3); Blood Urea Nitrogen 18 mg/dL (7-17); Calcium 9.6 mg/dL (8.4-10.2); Carbon Dioxide 26 mmol/L (22-32); Chloride 104 mmol/L (98-107); Estimated Glomerular Filt Rate > 60.0 mL/min (>60); Globulin 3.1 g/dL (1.7-4.1); Glucose 105 mg/dL (80-110); HEMOLYSIS < 15 (0-50); Sodium 140 mmol/L (137-145); Total Protein 7.4 g/dL (6.3-8.2)
[2018-05-08 18:39] LABS: Vitamin D 25 Hydroxy (D3) 27.6 ng/mL (30.0-100.0)
[2018-05-08 18:53] LABS: Thyroid Stimulating Hormone 0.43 uIU/mL (0.47-4.68)
[2018-05-08 19:11] LABS: Vitamin B12 516 pg/mL (239-931)
== END ==
PROVIDERS: PCP Family Medicine; Visit Provider Family Medicine
DX: I48.91 Unspecified atrial fibrillation (principal)
CPT/HCPCS: 36415; 80053; 82306; 82607; 83735; 84443; 85025

== ENCOUNTER → 2018-05-22 07:47 | Outpatient (CLI) | payer OTHER, SELFPAY ==
[2017-10-30 10:32] VITALS: BMI 28.0
--- NOTE | 2018-05-22 07:50 | DI.ECHO.S_ITS ---
[facility]---------+ [facility] +---------+ : : [address] : [place] : : : : [id number] : : : : Phone: [phone]+ Echocardiogram Report + + :Name: JESSICA BULL Study Date: 05/22/2018 Height: 61 in : :[facility] Exam Location: IS Weight: 150 lb : : Gender: Female BSA: 1.7 m2 : :: 1935 Age: 82 yrs BP: 140/80 mmHg: :Reason For Study: Atrial fibrillation : : Performed By: Kelin Page : :Referring: JULIANNA QUINTANILLA : + + Interpretation Summary Left ventricular ejection fraction is estimated to be 50 +/- 5%. Left ventricular wall thickness is mild-moderately increased. The left atrium is severely dilated. The mitral valve leaflets appear mildly thickened, but open well. There is trace mitral regurgitation. There is mild tricuspid regurgitation. The right ventricular systolic pressure is estimated to be at least 33 mmHg based on an estimated right atrial pressure of 8 mm Hg. Procedure: A two-dimensional transthoracic echocardiogram with color flow and Doppler was performed. Comparison is made with the echocardiogram of 10/03/2017. The study quality was technically adequate. The patient was in atrial fibrillation with heart rates between 91-161 bpm during the exam. Left Ventricle: The left ventricle is normal in size. Left ventricular wall thickness is mild-moderately increased. Left ventricular ejection fraction is estimated to be 50 +/- 5%. There are no obvious focal wall motion abnormalities noted but poor endocardial definition reduces the sensitivity for the detection of such. Diastolic function could not be accurately assessed due to atrial fibrillation. Right Ventricle: The right ventricle is normal size. Right ventricular systolic function is mildly reduced. Atria: The left atrium is severely dilated. The right atrium is mildly dilated. There is no Doppler evidence for an interatrial shunt. Mitral Valve: There is mild to moderate mitral annular calcification. The mitral valve leaflets appear mildly thickened, but open well. There is trace mitral regurgitation. Aortic Valve: The aortic valve is trileaflet. The aortic valve opens well. No aortic regurgitation is present. Tricuspid Valve: The tricuspid valve is normal in structure and function. There is mild tricuspid regurgitation. The right ventricular systolic pressure is estimated to be at least 33 mmHg based on an estimated right atrial pressure of 8 mm Hg. Pulmonic Valve: The pulmonic valve is not well visualized. There is trace pulmonic regurgitation. Great Vessels: The aortic root is normal size. The ascending aorta is normal in size. The pulmonary artery is not well visualized, but is probably normal size. The IVC is dilated (diameter is greater than 2.1 cm) yet it collapses greater than 50% with a sniff. This suggests a right atrial pressure of 8 mm Hg. Pericardium/ Pleura There is no pericardial effusion. There is no pleural effusion. MMode/2D Measurements & Calculations LVIDd: 4.3 cm LVOT diam: 1.8 cm LVIDs: 2.9 cm Ao root diam: 2.8 cm FS: 32.9 % asc Aorta Diam: 3.3 cm EPSS: 0.11 cm IVSd: 1.1 cm LVPWd: 1.5 cm LV chang. diameter/BSA (cm/m^2): 2.6 LV sys. diameter/BSA (cm/m^2): 1.7 LA A2 area: 30.7 cm2 RA long axis: 4.9 cm LA A4 area: 26.9 cm2 RA area: 19.1 cm2 LA length (vol): 5.9 cm RA vol: 63.0 ml LA vol: 118.8 ml RA : 37.7 ml/m2 LA vol index: 71.1 ml/m2 IVC diam: 2.8 cm RVD1 (basal): 3.4 cm TAPSE: 1.2 cm Doppler Measurements & Calculations Ao V2 max: 78.4 cm/sec LVOT Max Masood: 72.3 cm/sec Ao V2 mean: 53.4 cm/sec LV V1 max P.1 mmHg Ao max P.5 mmHg LV V1 VTI: 11.2 cm Ao mean P.3 mmHg LARISA(I,D): 2.5 cm2 Ao V2 VTI: 11.3 cm LARISA(V,D): 2.3 cm2 sev ratio: 0.99 LARISA indexed to BSA (cm^2/m^2): 1.5 MV E max masood: 76.9 cm/sec TR max masood: 247.7 cm/sec Med Peak E' Masood: 4.6 cm/sec TR max P.6 mmHg E/E' med: 16.6 PA V2 max: 88.4 cm/sec Lat Peak E' Masood: 7.9 cm/sec PA V2 mean: 54.4 cm/sec E/E' lat: 9.8 PA mean P.4 mmHg E/e' average: 13.2 PA Accel Time: 0.07 sec MV P1/2t: 18.9 msec MV P1/2t max masood: 77.5 cm/sec SV(LVOT): 28.2 ml MVA(2t): 11.6 cm2 Reading Physician:12:15 PM
== END ==
PROVIDERS: PCP Family Medicine; Visit Provider Family Medicine
DX: I48.91 Unspecified atrial fibrillation (principal); I07.1 Rheumatic tricuspid insufficiency
CPT/HCPCS: 93306

== ENCOUNTER → 2018-05-29 12:41 | Outpatient (CLI) | payer OTHER, SELFPAY ==
[2017-10-30 10:32] VITALS: BMI 28.0
[2018-05-29 13:50] LABS: Free T3, Triiodothyronine Free 4.13 pg/mL (2.77-5.27); Free T4, Direct Thyroxine 1.72 ng/dL (0.78-2.19)
[2018-05-29 14:04] LABS: Thyroid Stimulating Hormone 0.43 uIU/mL (0.47-4.68)
== END ==
PROVIDERS: PCP Family Medicine; Visit Provider Family Medicine
DX: R79.89 Other specified abnormal findings of blood chemistry (principal)
CPT/HCPCS: 36415; 84439; 84443; 84481

== ENCOUNTER → 2018-08-06 13:17 | Outpatient (CLI) | payer OTHER, SELFPAY ==
[2018-06-12 11:57] VITALS: BMI 28.0
[2018-08-06 15:23] LABS: BUN Creatinine Ratio 23.3 (6-22); Blood Urea Nitrogen 21 mg/dL (7-17); Calcium 9.4 mg/dL (8.4-10.2); Carbon Dioxide 27 mmol/L (22-32); Chloride 103 mmol/L (98-107); Estimated Glomerular Filt Rate > 60.0 mL/min (>60); Glucose 93 mg/dL (80-110); HEMOLYSIS < 15 (0-50); Potassium 3.8 mmol/L (3.4-5.1); Sodium 142 mmol/L (137-145)
== END ==
PROVIDERS: PCP Family Medicine; Visit Provider Physician Assistant
DX: I48.1 Persistent atrial fibrillation (principal)
CPT/HCPCS: 36415; 80048

== ENCOUNTER → 2018-10-17 07:30 | Outpatient (CLI) | payer OTHER, SELFPAY ==
[2018-06-12 11:57] VITALS: BMI 28.0
[2018-10-17 08:04] LABS: Add Manual Diff / Slide Review NO; Basophils Absolute Auto 0 /uL (0-100); Basophils Percent Auto 0.9 % (0-2); Eosinophils Absolute Auto 500 /uL (0-450); Eosinophils Percent Auto 9.2 % (2-4); Hemoglobin 12.9 g/dL (12.0-16.0); Lymphocytes Absolute Auto 1300 /uL (1100-4500); Lymphocytes Percent Auto 24.2 % (25-40); Mean Corpuscular HGB Conc 33.1 % (30-36); Mean Corpuscular Hemoglobin 29.1 PG (26-34); Mean Corpuscular Volume 87.9 fL (80-100); Monocytes Absolute Auto 500 /uL (0-900); Neutrophils Absolute Auto 3000 /uL (1500-7000); Neutrophils Percent Auto 56.7 % (50-75); Platelet Count 290 X10^3/uL (150-400); Red Blood Cell Count 4.43 X10^6/uL (4.0-5.2); Red Cell Distribution Width 17.5 % (11.6-14.8); White Blood Cell Count 5.3 X10^3/uL (4.5-11.0)
[2018-10-17 08:39] LABS: Alanine Aminotransferase 23 IU/L (9-52); Albumin 4.1 g/dL (3.5-5.0); Albumin Globulin Ratio 1.4 (1.0-2.8); Alkaline Phosphatase 82 U/L (38-126); Aspartate Aminotransferase 22 IU/L (14-36); BUN Creatinine Ratio 18.9 (6-22); Bilirubin Total 0.4 mg/dL (0.2-1.3); Blood Urea Nitrogen 17 mg/dL (7-17); Calcium 9.5 mg/dL (8.4-10.2); Carbon Dioxide 28 mmol/L (22-32); Chloride 102 mmol/L (98-107); Cholesterol 194 mg/dL (140-199); Estimated Glomerular Filt Rate > 60.0 mL/min (>60); Glucose 97 mg/dL (80-110); HDL Cholesterol 38 mg/dL (40-60); HEMOLYSIS < 15 (0-50); LDL Cholesterol Calculated 121 mg/dL (<100); Potassium 4.4 mmol/L (3.4-5.1); Sodium 141 mmol/L (137-145); Total Protein 7.1 g/dL (6.3-8.2); Triglycerides 174 mg/dL (35-150)
== END ==
PROVIDERS: PCP Family Medicine; Visit Provider Family Medicine
DX: Z00.00 Encounter for general adult medical examination without abnormal findings (principal); I10 Essential (primary) hypertension
CPT/HCPCS: 36415; 80053; 80061; 85025

== ENCOUNTER → 2019-01-08 10:18 | Outpatient (CLI) | payer OTHER, SELFPAY ==
[2018-06-12 11:57] VITALS: BMI 28.0
[2019-01-08 12:45] LABS: Free T3, Triiodothyronine Free 3.52 pg/mL (2.77-5.27); Free T4, Direct Thyroxine 1.29 ng/dL (0.78-2.19)
[2019-01-08 12:59] LABS: Thyroid Stimulating Hormone 0.43 uIU/mL (0.47-4.68)
== END ==
PROVIDERS: PCP Family Medicine; Visit Provider Family Medicine
DX: R79.89 Other specified abnormal findings of blood chemistry (principal)
CPT/HCPCS: 36415; 84439; 84443; 84481

== ENCOUNTER 2019-03-20 13:17 | Outpatient (CLI) | payer OTHER, SELFPAY ==
[2018-06-12 11:57] VITALS: BMI 28.0
[2019-03-20] VITALS (9 sets, daily range): BP systolic 144–175; BP diastolic 72–87; PULSE 56–66; RESP 14–16; TEMP 36.3–36.4; O2SAT 92–99
--- NOTE | 2019-03-20 13:18 | DI.RAD.S_ITS ---
PROCEDURE: PAIN L/S FACET INJ/BLK 1ST ANANDA COMPARISON: None. INDICATIONS: SPONDYLOSIS FINDINGS: Fluoroscopic spot filming was performed to verify placement of spinal needles at the L4-L5, L5-S1 level(s), as labeled on the films. Appropriate location(s) of the needle tip(s) was confirmed by injection of iodinated contrast. Dictated by: Aj Peres M.D. on 03/20/2019 at 15:59 Approved by: Aj Peres M.D. on 03/20/2019 at 16:00
[2019-03-20] MEDS: MIDAZOLAM 5 MG/5 ML VIAL IV (13:51)
[2019-03-20] MEDS: IOPAMIDOL 15 ML VIAL 3 ML INJ (13:57)
[2019-03-20] MEDS: LIDOCAINE 1% 20 ML 10 ML INJ (13:57)
[2019-03-20] MEDS: BETAMETHASONE 30 MG/5 ML MDV 12 MG INJ (13:58)
[2019-03-20] MEDS: BUPIVACAINE 0.5% (PF) VIAL 2 ML INJ (13:58)
--- NOTE | 2019-03-20 14:03 | PC.NURSE ---
ASSISTING PT OFF TABLE AND TRANSPORTING TO POST PROC AREA IN STABLE CONDITION. PASSING RN CARE OF PT TO HALEY Juan RN.
--- NOTE | 2019-03-20 14:06 | P.PCN_ITS ---
Procedures Date/Time Date of procedure: 03/20/19 Time of procedure: 14:06 General Procedure description: PREOP DIAGNOSIS 1. FACET ARTHROPATHY 2. AXIAL LBP 3. MULTILEVEL DDD POST OP DIAGNOSIS 1. FACET ARTHROPATHY 2. AXIAL LBP 3. MULTILEVEL DDD PROCEDURES 1. FLUORSCOPICALLY GUIDED CONTRAST CONTROLLED FACET JOINT INJECTIONS BILATERAL L4/5, L5/S1 PHYSICIAN: Sanjay Allan, DO INDICATIONS Swathi is referred by Dr. Lebron for treatment of Axial LBP FINDINGS Multilevel Facet Arthropathy with Clinically significant axial LBP DESCRIPTION OF PROCEDURE Fluoroscopically guided, contrast-controlled bilateral L4/5, L5/S1 facet joint injections. Following review of allergy and review of potential side effects and complications, including, but not necessarily limited to, infection, allergic reaction, local tissue breakdown, stroke, temporary or permanent nerve injury, paralysis, and possible , the patient indicated that the patient understood and agreed to proceed. An informed consent document was signed by the patient, witnessed by a nurse, and placed in the patient's chart. Additionally, other treatment options including medications, modalities, and physical therapy were reviewed with the patient. After review of previous anaesthesic history and IV conscious sedation the patient was deemed safe to proceed with todays procedure with IV conscious sedation as ASA class II designation. Safety time-out was performed to confirm patient ID, procedure to be performed and site of procedure. IV sedation was accomplished with 2mg of Versed was administered by the RN after DO order, titrated to patient comfort during the course of the procedure while the patient remained responsive to all verbal commands In the prone position, following sterile prep and drape of the lumbar region, the posterior aspect of the L4/5, L5/S1 facet joints were identified fluoroscopically. The skin was anesthetized via a 25-gauge 1.5-inch needle with 1% lidocaine solution into the corresponding facet joints. At this point, a 25- gauge 3.5-inch spinal needle was atraumatically introduced and advanced under fluoroscopic guidance into the corresponding facet joints. Following negative aspiration, injections of approximately 0.2cc of Isovue 200 confirmed interarticular placement without vascular uptake. The identical procedure was then performed at the L4/5, L5/S1 facet joints on the left. Radiological data, including multiple fluoroscopic views of the lumbosacral spine, reveal a spinal needle at the L4/5, L5/S1 facet joints bilaterally. Subsequent views show flow of contrast material both superiorly and inferiorly within the joint space without vascular or intrathecal uptake. At this point, a total of 0.5cc including a mixture of 0.25cc Marcaine and 0.25cc betamethasone was injected without complication into each of the corresponding facet joints. The patient tolerated the procedure well without signs or symptoms of complications prior to transfer to the recovery area continued monitoring without incident. The patient was then transferred to the recovery area where they were observed for an appropriate period of time after the injection. The patient reported a VAS score of 7 prior to the procedure and a post- procedure VAS of 0. Total Fluoroscopy Time: 9 seconds Total Conscious Sedation Time: 24min POST OP INSTRUCTIONS The patient was provided a Pain Log to continue to record their response to the target-specific procedure prior to follow-up visit with their referring physician. Additionally, specific post-injection care instructions and a contact number to our office were provided if concerns arise regarding possible complications associated with the procedure are suspected. Sanjay Allan, Complications: none
== END 2019-03-20 14:42 | disposition home or self-care (01) ==
LOC: RAD 13:18
PROVIDERS: PCP Family Medicine; Referring Provider Physical Medicine & Rehabilitation; Visit Provider Physical Medicine & Rehabilitation
DX: M47.816 Spondylosis without myelopathy or radiculopathy, lumbar region (principal); M47.817 Spondylosis without myelopathy or radiculopathy, lumbosacral region; M54.5 Low back pain; M51.36 Other intervertebral disc degeneration, lumbar region; M51.37 Other intervertebral disc degeneration, lumbosacral region
CPT/HCPCS: 64493; 64494; 99152; J0702; J2250; J3010

== ENCOUNTER → 2019-04-29 15:06 | Outpatient (CLI) | payer OTHER, SELFPAY ==
[2018-06-12 11:57] VITALS: BMI 28.0
== END ==
PROVIDERS: PCP Family Medicine; Referring Provider Family Medicine; Visit Provider Family Medicine
DX: I48.91 Unspecified atrial fibrillation (principal)
CPT/HCPCS: 36415; 84443

== ENCOUNTER → 2019-07-02 09:35 | Outpatient (CLI) | payer OTHER, SELFPAY ==
[2019-05-22 08:52] VITALS: BMI 28.0
[2019-07-02 11:45] LABS: BUN Creatinine Ratio 22.9 (6-22); Blood Urea Nitrogen 19 mg/dL (7-17); Calcium 9.6 mg/dL (8.4-10.2); Carbon Dioxide 29 mmol/L (22-32); Chloride 102 mmol/L (98-107); Estimated Glomerular Filt Rate > 60.0 mL/min (>60); Glucose 97 mg/dL (80-110); HEMOLYSIS < 15 (0-50); Potassium 4.5 mmol/L (3.4-5.1); Sodium 139 mmol/L (137-145)
== END ==
PROVIDERS: PCP Family Medicine; Referring Provider Physician Assistant; Visit Provider Physician Assistant
DX: I48.0 Paroxysmal atrial fibrillation (principal)
CPT/HCPCS: 36415; 80048

== ENCOUNTER → 2019-07-26 10:42 | Outpatient (CLI) | payer OTHER, SELFPAY ==
[2019-07-23 10:21] VITALS: BMI 28.0
[2019-07-27 01:43] LABS: COVID19 Sendout Not Detected (Not Detect)
== END ==
PROVIDERS: PCP Family Medicine; Visit Provider Physician Assistant
DX: Z01.818 Encounter for other preprocedural examination (principal)
CPT/HCPCS: 87635

== ENCOUNTER 2019-07-29 07:30 | Outpatient (CLI) | payer OTHER, SELFPAY ==
[2019-07-23 10:21] VITALS: BMI 28.0
[2019-07-29] VITALS (10 sets, daily range): BP systolic 96–167; BP diastolic 60–114; PULSE 82–116; RESP 16; TEMP 36.3; O2SAT 94–100
--- NOTE | 2019-07-29 07:32 | DI.RAD.S_ITS ---
PROCEDURE: PAIN L/S FACET INJ/BLK 1ST ANANDA COMPARISON: [facility], , PAIN L/S FACET INJ/BLK 1ST ANANDA, 03/20/2019, 13:53. INDICATIONS: SPONDYLOSIS FINDINGS: Fluoroscopic spot filming was performed to verify placement of spinal needles at the L4, L5, S1 level(s), as labeled on the films. Appropriate location(s) of the needle tip(s) was confirmed by injection of iodinated contrast. Dictated by: Aj Peres M.D. on 07/29/2019 at 9:48 Approved by: Aj Peres M.D. on 07/29/2019 at 9:50
[2019-07-29] MEDS: MIDAZOLAM 5 MG/5 ML VIAL IV (08:56)
--- NOTE | 2019-07-29 09:03 | PC.NURSE ---
CAPNOGRAPHY NOT CATCHING ON MONITOR. PT AWAKE AND ANSWERING QUESTIONS APPROPRIATELY. ALL OTHER VSS.
[2019-07-29] MEDS: IOPAMIDOL 15 ML VIAL 3 ML INJ (09:06)
[2019-07-29] MEDS: LIDOCAINE 1% 20 ML 10 ML INJ (09:06)
[2019-07-29] MEDS: BUPIVACAINE 0.5% (PF) VIAL 5 ML INJ (09:06)
--- NOTE | 2019-07-29 09:09 | PC.NURSE ---
ASSISTING PT OFF TABLE AND TRANSPORTING TO POST PROC AREA IN STABLE CONDITION. PASSING RN CARE OF PT OFF TO LESA NIEVES
--- NOTE | 2019-07-29 09:17 | P.PCN_ITS ---
Procedures Date/Time Date of procedure: 07/29/19 Time of procedure: 09:17 General Procedure description: Procedure description: 1. FACET ARTHROPATHY PROCEDURES: 1. BILATERAL- L4, L5 and S1 DIAGNOSTIC MB BLOCKS with LA Anesthetic PHYSICIAN: Sanjay Allan DO INDICATIONS Swathi is referred by for treatment of Bilateral Axial LBP. DESCRIPTION OF PROCEDURE Fluoroscopically guided, contrast-controlled bilateral L4, L5 and S1 medial branch blocks with 0.5cc of 0.5% Marcaine. Following review of allergy and review of potential side effects and complications, including, but not necessarily limited to, infection, allergic reaction, local tissue breakdown, nerve injury, paralysis, stroke and possible , the patient indicated that the patient understood and agreed to proceed. An informed consent document was signed by the patient, witnessed by a nurse, and placed in the patient's chart. After review of previous anaesthesic history and IV conscious sedation the patient was deemed safe to proceed with todays procedure with IV conscious sedation as ASA class II designation. Safety time-out was performed to confirm patient ID, procedure to be performed and site of procedure. IV sedation was accomplished with a combination of 2mg of Versed was administered by the RN after DO order, titrated to patient comfort during the course of the procedure while the patient remained responsive to all verbal commands In the prone position, following sterile prep and drape of the lumbar region, the right L4, L5 and S1 anatomical location of the medial branch of the dorsal ramus was identified fluoroscopically. Subsequently an anesthetic skin wheal using 1% lidocaine solution was initiated at each of the anatomical spots. Subsequently then a 22-gauge 3.5-inch spinal needle was atraumatically introduced and advanced under fluoroscopic guidance at each of the corresponding sites at the right L4, L5 and S1 MB. After negative aspiration, 0.2cc of Isovue 200 was injected, confirming placement without vascular or intrathecal uptake. Subsequently then 0.5cc of 0.5% Marcaine solution was injected at each of the corresponding sites at the right L4, L5 and S1 medial branch locations. The identical procedure was replicated on the left. The patient tolerated the procedure well without signs or symptoms of complications prior to transfer to the recovery area continued monitoring without incident. Post-procedure, the patient was monitored initiating provocative activities to measure the amount of relief from block of the facetogenic pain. The patient reported a VAS of 7 prior to the procedure and a post-procedure VAS of 1. It has been a pleasure to assist in the diagnostic and therapeutic care of your patient. Total Fluoroscopy Time: 7 seconds Total Conscious Sedation Time: 24min POST OP INSTRUCTIONS The patient was provided with a Pain Log to complete over the next several hours and subsequent days prior to the patient's follow up with the ordering physician. If the patient has drafting technician relief to the solution applied, then they may be a candidate for medial branch rhizotomy. The patient is aware, was provided, once again, with a Pain Log and will follow up with the referring physician for review and clinical correlation Sanjay Allan DO Complications: none
--- NOTE | 2019-07-29 09:44 | PC.NURSE ---
pt returned to pre proc room via wc, assisted from wc to chair by LESA Vu and LESA Feldman. Monitoring resumed by LESA Rodriguez
== END 2019-07-29 09:45 | disposition home or self-care (01) ==
LOC: RAD 07:31
PROVIDERS: PCP Family Medicine; Referring Provider Physical Medicine & Rehabilitation; Visit Provider Physical Medicine & Rehabilitation
DX: M47.816 Spondylosis without myelopathy or radiculopathy, lumbar region (principal); M47.817 Spondylosis without myelopathy or radiculopathy, lumbosacral region; M54.5 Low back pain
CPT/HCPCS: 64493; 64494; 99152; J2250; J3010

== ENCOUNTER → 2019-11-12 11:24 | Outpatient (CLI) | payer OTHER, SELFPAY ==
[2019-07-23 10:21] VITALS: BMI 28.0
[2019-11-12 11:55] LABS: Add Manual Diff / Slide Review NO; Basophils Absolute Auto 0 /uL (0-100); Basophils Percent Auto 0.9 % (0-2); Eosinophils Absolute Auto 300 /uL (0-450); Eosinophils Percent Auto 5.8 % (2-4); Hematocrit 38.1 % (36-46); Hemoglobin 12.3 g/dL (12.0-16.0); Lymphocytes Absolute Auto 1200 /uL (1100-4500); Mean Corpuscular HGB Conc 32.4 % (30-36); Mean Corpuscular Hemoglobin 28.9 PG (26-34); Mean Corpuscular Volume 89.4 fL (80-100); Monocytes Absolute Auto 600 /uL (0-900); Monocytes Percent Auto 11.4 % (3-14); Neutrophils Absolute Auto 3100 /uL (1500-7000); Neutrophils Percent Auto 58.9 % (50-75); Platelet Count 270 X10^3/uL (150-400); Red Blood Cell Count 4.26 X10^6/uL (4.0-5.2); White Blood Cell Count 5.2 X10^3/uL (4.5-11.0)
== END ==
PROVIDERS: PCP Family Medicine; Referring Provider Obstetrics & Gynecology; Visit Provider Obstetrics & Gynecology
DX: R53.83 Other fatigue (principal)
CPT/HCPCS: 36415; 85025

== ENCOUNTER 2019-11-15 14:57 | Emergency (ER) | payer OTHER, SELFPAY ==
[2019-07-23 10:21] VITALS: BMI 28.0
--- NOTE | 2019-11-15 15:07 | DI.CT.S_ITS ---
PROCEDURE: CT HEAD/BRAIN WO CON INDICATIONS: Fall on blood thinner, lac to back of head TECHNIQUE: Noncontrast 4.5 mm thick angled axial sections acquired from the foramen magnum to the vertex, with coronal and sagittal reformats. For radiation dose reduction, the following was used: automated exposure control, adjustment of mA and/or kV according to patient size. COMPARISON: [facility], CT, HEAD WITHOUT CONTRAST, 05/22/2015, 13:18. FINDINGS: Image quality: Excellent. CSF spaces: Basal cisterns are patent. No extra-axial fluid collections. The ventricles are symmetric in size and shape. Brain: No intracranial bleeds or masses. There is cerebral volume loss for age, with resultant ventricular and sulcal prominence. There are periventricular and deep white matter chronic small vessel ischemic changes. There is a remote appearing small lacunar infarct in the right semi centrum ovale, not seen on comparison study performed on 05/22/2015. There is intracranial internal carotid artery atherosclerosis. Skull and face: Calvarium and visualized facial bones appear intact, without suspicious lesions. Sinuses: Visualized sinuses and mastoids are clear. IMPRESSION: No acute intracranial hemorrhage. No skull fracture. Chronic small vessel ischemic changes and remote right semi centrum ovale lacunar infarct. Dictated by: Flavio Parra M.D. on 11/15/2019 at 14:55 Approved by: Flavio Parra M.D. on 11/15/2019 at 14:58
--- NOTE | 2019-11-15 15:10 | ED.FALL ---
HPI - Fall <GRETTA Jerome - Last Filed: 11/15/19 21:43> General Chief Complaint: Fall Stated Complaint: fall, hit head, on thinners, bleeding Time Seen by Provider: 11/15/19 14:57 History of Present Illness HPI Narrative: 84yo female with a history of AFib, currently on Pradaxa, presents to the ED for a fall. She states she was trimming a castro that was in a plantar and she lost her balance and fell backwards hitting her head. Patient states she often has difficulty with her balance, states that this is not new for her. She denies any feelings of dizziness, chest pain, or fatigue prior to fall. She states she fell back and hit the back of her head on the cement. Patient denies any syncope or vomiting, was able to get up by herself. She denies any other injuries, denies neck pain, chest pain, shortness of breath, dizziness, vision changes, nausea, vomiting, diarrhea, or any other concerns. Related Data Home Medications Medication Instructions Recorded Confirmed flecainide 100 mg tablet 100 mg PO BID tab 08/14/18 11/12/19 Previous Rx's Medication Instructions Recorded dabigatran etexilate 150 mg capsule 150 mg PO BID #180 cap 07/02/18 carvedilol 6.25 mg tablet 9.375 mg PO BID #270 tab 11/22/18 celecoxib 200 mg capsule 200 mg PO DAILY #90 cap 05/26/19 amlodipine 5 mg tablet See Rx Instructions .ROUTE 07/02/19 .COMPLEX #90 tablet omeprazole 20 mg capsule,delayed 20 mg PO QAM #90 cap 07/30/19 release acetaminophen 300 mg-codeine 30 mg 1 tab PO Q4-6H PRN #120 tab 09/17/19 tablet bupropion HCl 150 mg tablet,12 hr 150 mg PO QAM #30 each 09/22/19 sustained-release paroxetine HCl 20 mg tablet 60 mg PO DAILY #270 tab 10/23/19 Allergies Allergy/AdvReac Type Severity Reaction Status Date / Time No Known Drug Allergies Allergy Verified 11/12/19 10:41 Review of Systems <GRETTA Jerome - Last Filed: 11/15/19 21:43> Review of Systems Narrative: REVIEW OF SYSTEMS: GENERAL: Denies fever or chills. HENT: Reports head trauma, see HPI. EYES: No loss of vision, double vision, eye pain, or irritation. CARDIOVASCULAR: No chest pain or syncope. RESPIRATORY: No shortness of breath or cough. GASTROINTESTINAL: No nausea, vomiting, diarrhea, or constipation. GENITOURINARY: No flank pain. MUSCULOSKELETAL: No pain, weakness, or deformities. INTEGUMENTARY: No rash, lesions, or pruritus. NEURO: No numbness, tingling, memory loss, or confusion. PSYCH: No behavior or mood changes. Patient History <GRETTA Jerome - Last Filed: 11/15/19 21:43> Medical History Anxiety (Acute) Cataract (Chronic) Cerumen impaction (Acute) Chicken pox (Resolved) Chronic headaches (Chronic) Closed L2 vertebral fracture (Acute) Colon polyps (Acute) CTS (carpal tunnel syndrome) (Chronic) Depression (Chronic) Facet arthropathy, lumbar (Chronic) GERD (gastroesophageal reflux disease) (Acute) Hearing loss (Chronic) Hearing loss in right ear (Acute) Lumbosacral spondylosis with radiculopathy (Acute) Measles (Resolved) Mumps (Resolved) Pelvic relaxation (Acute) PTSD (post-traumatic stress disorder) (Acute) Scoliosis of cervical region due to degenerative disease of spine in adult (Acute) Sleep apnea (Acute) T12 compression fracture (Resolved) TIA (transient ischemic attack) (Acute) Surgical History Anesthesia (Resolved) History of carpal tunnel surgery of left wrist (Acute) History of colonoscopy (Acute) History of ear surgery (Resolved 1981) History of ear surgery (Resolved 1974) History of knee replacement (Resolved 2008) History of knee replacement (Resolved 2012) Hx of appendectomy (Acute) Status post breast lumpectomy (Resolved 1982) Status post cataract extraction of both eyes with insertion of intraocular lens (Acute) Status post hysterectomy (Resolved 1979) Family History Child Age: 58 Mental health problem Father Heart disease Stroke Grandmother Cancer Grandfather Pneumonia Grandmother No problems noted. Mother Brainstem hemorrhage Social History household members: spouse Smoking Status: Never smoker alcohol intake: current Smoking Status: Never smoker alcohol intake frequency: a few times a month Substance Use Type: does not use Exam <GRETTA Jerome - Last Filed: 11/15/19 21:43> Initial Vital Signs Initial Vital Signs: Vital Signs Pulse Rate 72 11/15/19 16:48 Respiratory Rate 18 11/15/19 16:48 Blood Pressure 134/77 11/15/19 16:48 Pulse Oximetry 99 11/15/19 16:48 PHYSICAL EXAMINATION: GENERAL: Well groomed, alert, and cooperative. Answers questions promptly and appropriately. Vital signs noted. HENT: Normocephalic, 3 cm laceration noted to right parietal/occipital region, very small hematoma noted surrounding laceration, bleeding controlled, closed with radha. Ear canals patent. Oral mucosa is pink and moist. EYES: PERRLA, EOMIs, Conjunctiva pink, sclera white, no periorbital swelling. CHEST: Normal to inspection and without deformities. CARDIOVASCULAR: S1 and S2 sounds normal. Regular rate and rhythm, no murmurs, clicks, or bruits. No pedal edema. RESPIRATORY: Normal respiratory rate, trachea midline, airway patent. No stridor, nasal flaring or accessory muscle use. Lungs are clear in all tatum without wheeze, rhonchi, or crackles. MUSCULOSKELETAL: No pain to palpation of lower extremities or upper extremities, patient able to ambulate without any difficulty. Normal gait and coordination. Equal tone and mass bilaterally. EXTREMITIES: CMS intact. Moves all extremities. SKIN: Warm, dry, soft, appropriate color for ethnicity. No lesions, rashes, or wounds. NEURO: Alert and Oriented X 3. Good coordination. No ataxia, or sensory deficits, or cognitive issues. Cranial Nerves: II: Visual tatum grossly intact. III & IV & : EOMIs V: Able to open and close jaw. VII: Facial movements symetrical. Able to close eyelids tightly. VIII: Hearing grossly intact, adequate balance. X: Uvula pronation intact. XI: Patient is able to shrug shoulders. XII: Patient is able to stick out tongue and move it side to side. PSYCH: Appropriate affect and mood. <Brenda Sheikh DO - Last Filed: 11/16/19 08:32> Initial Vital Signs Initial Vital Signs: Vital Signs Pulse Rate 72 11/15/19 16:48 Respiratory Rate 18 11/15/19 16:48 Blood Pressure 134/77 11/15/19 16:48 Pulse Oximetry 99 11/15/19 16:48 Procedures <Libertad KingGRETTA gilbert - Last Filed: 11/15/19 21:43> Laceration Repair Laceration 1: Site: scalp Size (cm): 3 Description: linear Depth: simple, single layer Local Anesthetic: lidocaine 1% and with epi Amount of anesthesia used (mL): 3 Pre-repair: wound explored and irrigated extensively Skin layer closed with: radha Number of sutures: 2 Scores <GRETTA Jerome - Last Filed: 11/15/19 21:43> GCS [place] coma scale eye opening: Spontaneous [place] coma scale verbal response: Orientated [place] coma scale motor response: Obey commands [place] coma scale total score: 15 Nexus Score for C-Spine Focal Neurologic deficit present: No Midline spinal tenderness present: No Altered level of conciousness present: No Intoxication present: No Distracting Injury Present: No Nexus Criteria for C-spine: 0 Course <GRETTA Jerome - Last Filed: 11/15/19 21:43> Orders Ordered: Discontinued Medications Diphtheria/Tetanus/Acell Pertussis (Adacel) 0.5 ml IM .ONCE ONE Stop: 11/15/19 15:08 Last Admin: 11/15/19 15:53 Dose: 0.5 ml Documented by: ZZOUTIS Lidocaine/Epinephrine (Xylocaine 1% W/Epi) 4 ml INJ INTRA-OP ONE Stop: 11/15/19 15:48 Last Admin: 11/15/19 15:52 Dose: 4 ml Documented by: STEVEN Vital Signs Vital signs: Vital Signs - 8 hr 11/15/19 16:48 Pulse Rate 72 Respiratory Rate 18 Blood Pressure 134/77 Pulse Oximetry 99 <Brenda Sheikh DO - Last Filed: 11/16/19 08:32> Orders Ordered: Discontinued Medications Diphtheria/Tetanus/Acell Pertussis (Adacel) 0.5 ml IM .ONCE ONE Stop: 11/15/19 15:08 Last Admin: 11/15/19 15:53 Dose: 0.5 ml Documented by: ZZOUTIS Lidocaine/Epinephrine (Xylocaine 1% W/Epi) 4 ml INJ INTRA-OP ONE Stop: 11/15/19 15:48 Last Admin: 11/15/19 15:52 Dose: 4 ml Documented by: STEVEN Vital Signs Vital signs: Vital Signs - 8 hr 11/15/19 16:48 Pulse Rate 72 Respiratory Rate 18 Blood Pressure 134/77 Pulse Oximetry 99 MDM - Fall <GRETTA Jerome - Last Filed: 11/15/19 21:43> Medical Records Attestation: I reviewed the patient's medical records. Lab Data Attestation: I reviewed the patient's lab results. Imaging Data CT scan - head: Radiologist's Impression: [address] [address] [address] Scan Report Signed Patient: Swathi Quevedo MMR#: [id number] : 8Acct:[id number] Age/Sex: 84 / FDate of Service: 11/15/19 Loc: ED Accession Number: [id number] Procedure: CT head/brain wo con Ordering Provider: Libertad Dobbins PROCEDURE: CT HEAD/BRAIN WO CON INDICATIONS: Fall on blood thinner, lac to back of head TECHNIQUE: Noncontrast 4.5 mm thick angled axial sections acquired from the foramen magnum to the vertex, with coronal and sagittal reformats. For radiation dose reduction, the following was used: automated exposure control, adjustment of mA and/or kV according to patient size. COMPARISON: [facility], CT, HEAD WITHOUT CONTRAST, 05/22/2015, 13:18. FINDINGS: Image quality: Excellent. CSF spaces: Basal cisterns are patent. No extra-axial fluid collections. The ventricles are symmetric in size and shape. Brain: No intracranial bleeds or masses. There is cerebral volume loss for age, with resultant ventricular and sulcal prominence. There are periventricular and deep white matter chronic small vessel ischemic changes. There is a remote appearing small lacunar infarct in the right semi centrum ovale, not seen on comparison study performed on 05/22/2015. There is intracranial internal carotid artery atherosclerosis. Skull and face: Calvarium and visualized facial bones appear intact, without suspicious lesions. Sinuses: Visualized sinuses and mastoids are clear. IMPRESSION: No acute intracranial hemorrhage. No skull fracture. Chronic small vessel ischemic changes and remote right semi centrum ovale lacunar infarct. Dictated by: Flavio Parra M.D. on 11/15/2019 at 14:55 Approved by: Flavio Parra M.D. on 11/15/2019 at 14:58 MDM Narrative Medical decision making narrative: History and examination reveals an 84-year-old female with a mechanical fall. CT negative for any acute changes, laceration with 6 with radha. Less concern for other causes of fall due to patient's past history of balance issues, lack of symptoms prior and post fall. Less concern for concussion due to lack of vomiting, headache, or neurological changes. Patient was encouraged to follow up with PCP in the next week for further evaluation. She was given instruction on removal of radha and to watch for signs of infection. Patient agreed to plan of care verbalized understanding. Less concern for other injury due to negative exam to lower and upper extremities. Discharge Plan Departure Patient Disposition: Home Clinical Impression: Head injury Qualifiers: Encounter type: initial encounter Qualified Code(s): S09.90XA - Unspecified injury of head, initial encounter Laceration of head Qualifiers: Encounter type: initial encounter Location of open wound of head: scalp Foreign body presence: without foreign body Qualified Code(s): S01.01XA - Laceration without foreign body of scalp, initial encounter Discharge Date/Time: 11/15/19 16:49 Instructions: DI for Laceration Repair, How to Prevent Falls Activity Restrictions/Additional Instructions: Thank you for entrusting me with your care today. As discussed, your head CT does not show any bleeding, however it shows a possible old stroke. I suggest following up with your primary care provider about this. I placed 2 radha in your scalp, please have these removed in 10-14 days. Return to the emergency department for new or worsening symptoms such as dizziness, chest pain, syncope, or any other concerns. Prescriptions: No Action carvedilol 6.25 mg tablet 9.375 mg PO BID Qty: 270 RF: 3 amlodipine 5 mg tablet See Rx Instructions .ROUTE .COMPLEX Qty: 90 RF: 3 omeprazole 20 mg capsule,delayed release(DR/EC) 20 mg PO QAM Qty: 90 RF: 3 acetaminophen-codeine 300-30 mg tablet 1 tab PO Q4-6H PRN (Reason: pain) Qty: 120 RF: 5 paroxetine HCl 20 mg tablet 60 mg PO DAILY Qty: 270 RF: 1 flecainide 100 mg tablet 100 mg PO BID RF: 0 bupropion HCl [Wellbutrin SR] 150 mg tablet sustained-release 12 hr 150 mg PO QAM Qty: 30 RF: 5 Pradaxa 150 mg capsule 150 mg PO BID Qty: 180 RF: 3 celecoxib [Celebrex] 200 mg capsule 200 mg PO DAILY Qty: 90 RF: 2 Referrals: Homer Lebron MD [Primary Care Provider] - <Brenda Sheikh DO - Last Filed: 11/16/19 08:32> Cosign ED Attending Cosignature Attestation: I was immediately available in the department for consultation. Documentation has been reviewed. I agree with assessment and plan.
--- NOTE | 2019-11-15 15:25 | PC.NURSE ---
wound/hair cleaned for wound inspection
[2019-11-15] MEDS: LIDOCAINE 1% W/EPI 4 ML INJ (15:52)
[2019-11-15] MEDS: TET,DIPH,PERTUSS(ACELL),VAC/PF 0.5 ML SYRINGE IM (15:53)
[2019-11-15 16:48] VITALS: BP 134/77; PULSE 72; RESP 18; O2SAT 99
== END 2019-11-15 16:49 | disposition home or self-care (01) ==
PROVIDERS: Emergency Provider Nurse Practitioner; PCP Family Medicine
DX: S01.01XA Laceration without foreign body of scalp, initial encounter (principal); Z79.01 Long term (current) use of anticoagulants; W18.30XA Fall on same level, unspecified, initial encounter
CPT/HCPCS: 12002; 70450; 90471; 99284; 90715

== ENCOUNTER → 2020-02-02 12:23 | Outpatient (CLI) | payer OTHER, SELFPAY ==
[2019-07-23 10:21] VITALS: BMI 28.0
[2020-02-02 13:27] LABS: COVID19 -Nasal RAPID Negative (Negative)
== END ==
PROVIDERS: PCP Family Medicine; Visit Provider Nurse Practitioner
DX: R05 Cough (principal); R53.1 Weakness
CPT/HCPCS: 87635

== ENCOUNTER → 2020-04-22 11:37 | Outpatient (CLI) | payer MEDICARE, SELFPAY ==
[2019-07-23 10:21] VITALS: BMI 28.0
[2020-04-22] MEDS: COVID-19 VACC, Ad26(JANSSEN)/PF 0.5 ML IM (11:43)
== END ==
PROVIDERS: PCP Family Medicine; Visit Provider Internal Medicine
DX: Z23 Encounter for immunization (principal)
CPT/HCPCS: 0031A; 91303

== ENCOUNTER → 2020-08-27 10:46 | Outpatient (CLI) | payer OTHER, SELFPAY ==
[2020-08-27 10:42] VITALS: BMI 28.0
[2020-08-27 12:20] LABS: Add Manual Diff / Slide Review NO; Basophils Absolute Auto 0 /uL (0-100); Basophils Percent Auto 0.5 % (0-2); Eosinophils Absolute Auto 200 /uL (0-450); Eosinophils Percent Auto 2.1 % (2-4); Hematocrit 37.5 % (36-46); Hemoglobin 12.4 g/dL (12.0-16.0); Lymphocytes Absolute Auto 1300 /uL (1100-4500); Lymphocytes Percent Auto 16.9 % (25-40); Mean Corpuscular Hemoglobin 28.8 PG (26-34); Mean Corpuscular Volume 87.1 fL (80-100); Monocytes Absolute Auto 800 /uL (0-900); Monocytes Percent Auto 10.4 % (3-14); Neutrophils Absolute Auto 5400 /uL (1500-7000); Neutrophils Percent Auto 70.1 % (50-75); Platelet Count 257 X10^3/uL (150-400); Red Cell Distribution Width 15.3 % (11.6-14.8); White Blood Cell Count 7.8 X10^3/uL (4.5-11.0)
[2020-08-27 12:31] LABS: Alanine Aminotransferase 15 IU/L (<35); Albumin 4.1 g/dL (3.5-5.0); Albumin Globulin Ratio 1.2 (1.0-2.8); Alkaline Phosphatase 69 U/L (38-126); Aspartate Aminotransferase 21 IU/L (14-36); BUN Creatinine Ratio 17.5 (6-22); Bilirubin Total 0.8 mg/dL (0.2-1.3); Blood Urea Nitrogen 14 mg/dL (7-17); Calcium 9.5 mg/dL (8.4-10.2); Carbon Dioxide 27 mmol/L (22-32); Chloride 101 mmol/L (98-107); Estimated Glomerular Filt Rate > 60.0 mL/min (>60); Globulin 3.3 g/dL (1.7-4.1); Glucose 104 mg/dL (80-110); HEMOLYSIS < 15 (0-50); Potassium 3.9 mmol/L (3.4-5.1); Sodium 136 mmol/L (137-145); Total Protein 7.4 g/dL (6.3-8.2)
[2020-08-27 12:39] LABS: HEMOLYSIS < 15 (0-50); Iron 39 ug/dL (37-170)
[2020-08-27 12:50] LABS: Percent Iron Saturation 10 % (15-50); Total Iron Binding Capacity 387 ug/dL (265-497); Transferrin 285 mg/dL (206-381)
[2020-08-27 12:58] LABS: Free T3, Triiodothyronine Free 3.23 pg/mL (2.77-5.27); Free T4, Direct Thyroxine 1.28 ng/dL (0.78-2.19)
[2020-08-27 13:11] LABS: Thyroid Stimulating Hormone 0.378 uIU/mL (0.47-4.68)
[2020-08-27 13:25] LABS: Vitamin B12 340 pg/mL (239-931)
== END ==
PROVIDERS: PCP Family Medicine; Referring Provider Family Medicine; Visit Provider Family Medicine
DX: I10 Essential (primary) hypertension (principal); R53.83 Other fatigue
CPT/HCPCS: 36415; 80053; 82607; 83540; 83550; 84439; 84443; 84481; 85025

== ENCOUNTER → 2021-07-27 16:44 | Outpatient (CLI) | payer OTHER, SELFPAY ==
[2021-07-25 09:51] VITALS: BMI 28.0
--- NOTE | 2021-07-27 16:47 | DI.MRI.S_ITS ---
PROCEDURE: MR THORACIC SPINE WO CON INDICATIONS: WEDGE COMPRESSION FX OF T11, T12 VERTEBREA TECHNIQUE: Noncontrast sagittal T1 spine echo and T2 fast spin echo, sagittal STIR, axial T1 and T2 fast spin echo through the thoracic spine. COMPARISON: [facility], CR, XR THORACIC SPINE 3 VIEWS, 07/15/2020, 9:17. [facility], CR, XR LUMBAR SPINE 2 OR 3 VIEWS, 12/16/2020, 11:46. FINDINGS: Image quality: Excellent. Alignment and Curvature: There is normal bony alignment. Bone Marrow: Marrow is of normal overall signal. No acute vertebral body compression fractures. Chronic contiguous compressions of T5, T6, and T7 results in increased thoracic kyphosis. Spinal Cord: Visualized spinal cord is normal in size and signal. Paraspinous Soft Tissues: No paravertebral masses. Miscellaneous: There is a mild left paracentral disc protrusion at T5-T6 which abuts the cord without canal stenosis. On axial images, central canal and foramina appear widely patent at all scanned levels. IMPRESSION: 1. Chronic compressions of T5, T6, and T7 result in increased thoracic kyphosis. 2. No acute thoracic compression. 3. A mild left paracentral disc protrusion at T5-T6 abuts the cord without canal stenosis. Dictated by: Adebayo Evans M.D. on 07/28/2021 at 9:38 Approved by: Adebayo Evans M.D. on 07/28/2021 at 9:46
== END ==
PROVIDERS: PCP Family Medicine; Referring Provider Family Medicine; Visit Provider Family Medicine
DX: G89.29 Other chronic pain (principal); S22.080D Wedge compression fracture of T11-T12 vertebra, subsequent encounter for fracture with routine healing; M40.294 Other kyphosis, thoracic region; M51.24 Other intervertebral disc displacement, thoracic region
CPT/HCPCS: 72146

== ENCOUNTER 2021-08-17 17:25 | Emergency (ER) | payer OTHER, SELFPAY ==
[2021-07-25 09:51] VITALS: BMI 28.0
[2021-08-17] VITALS (8 sets, daily range): BP systolic 150–185; BP diastolic 88–108; PULSE 90–128; RESP 16–27; TEMP 36.4; O2SAT 91–96; BMI 28.1
--- NOTE | 2021-08-17 17:52 | DI.RAD.S_ITS ---
PROCEDURE: XR CHEST 1V INDICATIONS: chest pain TECHNIQUE: One view of the chest was acquired. COMPARISON: [facility], , CHEST 1 VIEW, 05/22/2015, 13:49. FINDINGS: Surgical changes and devices: Left upper chest generator. Lungs and pleura: Lungs are clear. No pleural effusions or pneumothorax. Mediastinum: Mediastinal contours appear normal. Cardiomegaly question hiatal hernia. Bones and chest wall: No suspicious bony lesions. Overlying soft tissues appear unremarkable. IMPRESSION: Cardiomegaly. Question hiatal hernia. No evidence acute pulmonary process. Dictated by: Adebayo Evans M.D. on 08/17/2021 at 18:47 Approved by: Adebayo Evans M.D. on 08/17/2021 at 18:48
[2021-08-17 18:13] LABS: Add Manual Diff / Slide Review NO; Basophils Absolute Auto 0 /uL (0-100); Basophils Percent Auto 0.8 % (0-2); Eosinophils Absolute Auto 300 /uL (0-450); Eosinophils Percent Auto 5.1 % (2-4); Hematocrit 33.3 % (36-46); Lymphocytes Absolute Auto 1100 /uL (1100-4500); Lymphocytes Percent Auto 18.7 % (25-40); Mean Corpuscular HGB Conc 32.9 % (30-36); Mean Corpuscular Hemoglobin 27.5 PG (26-34); Mean Corpuscular Volume 83.7 fL (80-100); Monocytes Absolute Auto 500 /uL (0-900); Monocytes Percent Auto 9.1 % (3-14); Neutrophils Absolute Auto 3900 /uL (1500-7000); Neutrophils Percent Auto 66.3 % (50-75); Platelet Count 315 X10^3/uL (150-400); Red Blood Cell Count 3.98 X10^6/uL (4.0-5.2); Red Cell Distribution Width 16.1 % (11.6-14.8); White Blood Cell Count 5.9 X10^3/uL (4.5-11.0)
[2021-08-17 18:22] LABS: Alanine Aminotransferase 32 IU/L (<35); Albumin 4.2 g/dL (3.5-5.0); Albumin Globulin Ratio 1.2 (1.0-2.8); Alkaline Phosphatase 79 U/L (38-126); Aspartate Aminotransferase 30 IU/L (14-36); Bilirubin Total 0.7 mg/dL (0.2-1.3); Blood Urea Nitrogen 21 mg/dL (7-17); Calcium 9.1 mg/dL (8.4-10.2); Carbon Dioxide 26 mmol/L (22-32); Chloride 106 mmol/L (98-107); Creatine Kinase 71 U/L (30-135); Estimated Glomerular Filt Rate 53 mL/min (>60); Globulin 3.5 g/dL (1.7-4.1); Glucose 106 mg/dL (80-110); HEMOLYSIS < 15 (0-50); Lipase 114 U/L (23-300); Magnesium 2.1 mg/dL (1.6-2.3); Potassium 3.7 mmol/L (3.4-5.1); Sodium 140 mmol/L (137-145); Total Protein 7.7 g/dL (6.3-8.2)
[2021-08-17 18:33] LABS: Troponin I < 0.012 ng/mL (0.01-0.034)
--- NOTE | 2021-08-17 18:48 | ED_ITS ---
HPI - Arrhythmia/Palpitations General Chief Complaint: Arrhythmia/Palpitations Stated Complaint: states heart beating too fast, weakness Time Seen by Provider: 08/17/21 18:21 Source: patient Mode of arrival: Wheelchair History of Present Illness HPI narrative: 85-year-old woman with history of paroxysmal atrial fibrillation anticoagulated on dabigatran, on flecainide with 2 prior cardioversions, hypertension, hyperlipidemia, prior TIA and cognitive issues presents complaining of weakness states that she has been ?on the bed all day and simply can not function ?. She talked to Dr. Hess's office and her Coreg had been increased from 6.25 b.i.d. to a total of 12.5 mg b.i.d. as of the evening of August 16. She was started on a 14 day Zio patch to assess the burden and overall rate control and she still has this in place. She states that she has not had fevers, there is no cough, wheeze, orthopnea, dyspnea nor exertional dyspnea, lower extremity edema changes. She does very little insight or understanding into her overall disease processes and simply recognizes that she does not feel well and was instructed to come in for further evaluation. Related Data Home Medications Medication Instructions Recorded Confirmed flecainide 100 mg tablet 100 mg PO BID 08/14/18 03/24/21 Previous Rx's Medication Instructions Recorded dabigatran etexilate 150 mg 150 mg PO BID #180 caps 07/02/18 capsule (Pradaxa) amlodipine 5 mg tablet See Rx Instructions .Route 08/26/20 .COMPLEX #90 tabs omeprazole 20 mg capsule,delayed See Rx Instructions .Route 08/26/20 release .COMPLEX #90 caps diclofenac sodium 3 % topical gel 1 applic topical BID #100 grams 01/05/21 lidocaine 5 % topical patch 3 patch topical DAILY #30 ea 01/05/21 carvedilol 6.25 mg tablet 9.375 mg PO BID #90 tabs 02/23/21 paroxetine HCl 20 mg tablet 60 mg PO DAILY #90 tabs 04/12/21 hydrocodone 10 mg-acetaminophen See Rx Instructions .Route 07/04/21 325 mg tablet .COMPLEX #120 tabs carvedilol 25 mg tablet (Coreg) 25 mg PO BID #60 tabs 08/17/21 Allergies Allergy/AdvReac Type Severity Reaction Status Date / Time No Known Drug Allergies Allergy Verified 03/24/21 08:58 Review of Systems Review of Systems Narrative: Remainder of complete review of systems is otherwise unremarkable except for that included in the HPI. Patient History Medical History (Updated 08/17/21 @ 21:48 by Isi Demarco MD) Age-related cognitive decline Anxiety Cataract Cervical somatic dysfunction Chicken pox Chronic bilateral back pain Chronic headaches Chronic, continuous use of opioids Closed L2 vertebral fracture Colon polyps Cranial somatic dysfunction CTS (carpal tunnel syndrome) Depression Facet arthropathy, lumbar Fatigue GERD (gastroesophageal reflux disease) Hearing loss Lumbar region somatic dysfunction Lumbosacral spondylosis with radiculopathy Measles Mumps Pelvic relaxation Pelvic somatic dysfunction PTSD (post-traumatic stress disorder) Sacral region somatic dysfunction Scoliosis of cervical region due to degenerative disease of spine in adult Segmental and somatic dysfunction of abdomen and other regions Segmental and somatic dysfunction of rib cage Sleep apnea T12 compression fracture Thoracic region somatic dysfunction TIA (transient ischemic attack) Upper extremity somatic dysfunction Surgical History Anesthesia History of carpal tunnel surgery of left wrist History of colonoscopy History of ear surgery (1981) History of ear surgery (1974) History of knee replacement (2008) History of knee replacement (2012) Hx of appendectomy Status post breast lumpectomy (1982) Status post cataract extraction of both eyes with insertion of intraocular lens Status post hysterectomy (1979) Family History Child Age: 60 Mental health problem Father Heart disease Stroke Grandmother Cancer Grandfather Pneumonia Grandmother No problems noted. Mother Brainstem hemorrhage Social History household members: spouse Smoking Status: Never smoker alcohol intake: current Smoking Status: Never smoker alcohol intake frequency: a few times a month Substance Use Type: does not use Exam Initial Vital Signs Initial Vital Signs: Vital Signs Temperature 97.5 F L 08/17/21 17:30 Pulse Rate 128 H 08/17/21 17:30 Respiratory Rate 16 08/17/21 17:30 Blood Pressure 179/108 H 08/17/21 17:30 Pulse Oximetry 95 08/17/21 17:30 Oxygen Delivery Method 08/17/21 17:30 General: Chronically ill-appearing, in no acute distress. States that she feels increasingly weak but unable to add much to history beyond that HEENT: Moist mucous membranes, normal sclera with reactive pupils, Neck: No JVD, supple Respiratory: Lungs with bibasilar crackles left greater than right, no wheeze and no rhonchi. Full and symmetrical air movement Cardiac: Irregular with a rate in the 90-110 range, no murmurs no bruits Abdomen: Soft, nontender, good bowel tones, no flank pain Skin: Warm and dry, no rashes Neurologic: Grossly neurologically intact with no obvious asymmetries or abnormalities Extremities: No trauma, well perfused, minimal lower extremity edema and no chronic venous stasis changes Psych: Cooperative, mild cognitive deficits Course Orders Ordered: ED Orders 08/17/21 17:52 XR chest 1V Stat EKG-12 Lead Stat 08/17/21 18:00 BNP [NT-proBNP (BNP-Adult 18+)] Stat Complete Blood Count AUTO DIFF Stat Comprehensive Metabolic Panel Stat Lipase Stat Magnesium Stat Troponin & CK Cardiac Panel Stat 08/17/21 19:37 COVID19 -Nasal RAPID/Pre-Proc Stat Discontinued Medications Furosemide (Furosemide 40 Mg/4 Ml Vial) 40 mg IV NOW ONE Stop: 08/17/21 19:30 Last Admin: 08/17/21 19:35 Dose: 40 mg Documented By: MALOU Metoprolol Tartrate (Metoprolol Ir 25 Mg Tablet) 50 mg PO NOW ONE Stop: 08/17/21 19:31 Last Admin: 08/17/21 19:35 Dose: 50 mg Documented By: MALOU Vital Signs Vital signs: Vital Signs - 8 hr 08/17/21 17:30 08/17/21 17:46 08/17/21 17:47 Temperature 97.5 F L Pulse Rate 128 H 116 H Respiratory Rate 16 Blood Pressure 179/108 H 185/98 H Pulse Oximetry 95 95 Oxygen Delivery Method Room Air 08/17/21 17:47 08/17/21 18:00 08/17/21 18:30 Temperature Pulse Rate 115 H 116 H 106 H Respiratory Rate 27 H 25 H Blood Pressure Pulse Oximetry 93 91 94 Oxygen Delivery Method 08/17/21 19:00 08/17/21 19:30 08/17/21 21:33 Temperature Pulse Rate 102 H 114 H 90 Respiratory Rate 26 H 21 18 Blood Pressure 150/88 H Pulse Oximetry 93 91 96 Oxygen Delivery Method Room Air MDM - Arrhythmia/Palpitations Lab Data Result diagrams: 08/17/21 18:00 08/17/21 18:00 Labs: Lab Results 08/17/21 08/17/21 08/17/21 Range/Units 18:00 18:00 18:00 WBC 5.9 (4.5-11.0) X10^3/uL RBC 3.98 L (4.0-5.2) X10^6/uL Hgb 11.0 L (12.0-16.0) g/dL Hct 33.3 L (36-46) % MCV 83.7 (80-100) fL MCH 27.5 (26-34) PG MCHC 32.9 (30-36) % RDW 16.1 H (11.6-14.8) % Plt Count 315 (150-400) X10^3/uL Neut % (Auto) 66.3 (50-75) % Lymph % (Auto) 18.7 L (25-40) % [place] % (Auto) 9.1 (3-14) % Eos % (Auto) 5.1 H (2-4) % Baso % (Auto) 0.8 (0-2) % Neut # (Auto) 3900 (5132-6622) /uL Lymph # (Auto) 1100 (4623-7571) /uL [place] # (Auto) 500 (0-900) /uL Eos # (Auto) 300 (0-450) /uL Baso # (Auto) 0 (0-100) /uL Sodium 140 (137-145) mmol/L Potassium 3.7 (3.4-5.1) mmol/L Chloride 106 (98-107) mmol/L Carbon Dioxide 26 (22-32) mmol/L BUN 21 H (7-17) mg/dL Creatinine 1.05 H (0.52-1.04) mg/dL Estimated GFR 53 L (>60) mL/min BUN/Creatinine Ratio 20.0 (6-22) Glucose 106 (80-110) mg/dL Calcium 9.1 (8.4-10.2) mg/dL Magnesium 2.1 (1.6-2.3) mg/dL Total Bilirubin 0.7 (0.2-1.3) mg/dL AST 30 (14-36) IU/L ALT 32 (<35) IU/L Alkaline Phosphatase 79 (38-126) U/L Total Creatine Kinase 71 (30-135) U/L CK-MB (CK-2) TNP CK-MB (CK-2) Rel Index TNP Troponin I < 0.012 (0.01-0.034) ng/mL NT-Pro-B Natriuret Pep 3320 H (<450) pg/mL Total Protein 7.7 (6.3-8.2) g/dL Albumin 4.2 (3.5-5.0) g/dL Globulin 3.5 (1.7-4.1) g/dL Albumin/Globulin Ratio 1.2 (1.0-2.8) Lipase 114 (23-300) U/L SARS-CoV-2 (PCR) (Negative) 08/17/21 Range/Units 19:37 WBC (4.5-11.0) X10^3/uL RBC (4.0-5.2) X10^6/uL Hgb (12.0-16.0) g/dL Hct (36-46) % MCV (80-100) fL MCH (26-34) PG MCHC (30-36) % RDW (11.6-14.8) % Plt Count (150-400) X10^3/uL Neut % (Auto) (50-75) % Lymph % (Auto) (25-40) % [place] % (Auto) (3-14) % Eos % (Auto) (2-4) % Baso % (Auto) (0-2) % Neut # (Auto) (6662-1067) /uL Lymph # (Auto) (6240-8300) /uL [place] # (Auto) (0-900) /uL Eos # (Auto) (0-450) /uL Baso # (Auto) (0-100) /uL Sodium (137-145) mmol/L Potassium (3.4-5.1) mmol/L Chloride (98-107) mmol/L Carbon Dioxide (22-32) mmol/L BUN (7-17) mg/dL Creatinine (0.52-1.04) mg/dL Estimated GFR (>60) mL/min BUN/Creatinine Ratio (6-22) Glucose (80-110) mg/dL Calcium (8.4-10.2) mg/dL Magnesium (1.6-2.3) mg/dL Total Bilirubin (0.2-1.3) mg/dL AST (14-36) IU/L ALT (<35) IU/L Alkaline Phosphatase (38-126) U/L Total Creatine Kinase (30-135) U/L CK-MB (CK-2) CK-MB (CK-2) Rel Index Troponin I (0.01-0.034) ng/mL NT-Pro-B Natriuret Pep (<450) pg/mL Total Protein (6.3-8.2) g/dL Albumin (3.5-5.0) g/dL Globulin (1.7-4.1) g/dL Albumin/Globulin Ratio (1.0-2.8) Lipase (23-300) U/L SARS-CoV-2 (PCR) Negative (Negative) Imaging Data Chest x-ray: Radiologist's Impresson: FINDINGS:? ? Surgical changes and devices:? Left upper chest generator.? ? Lungs and pleura:? Lungs are clear.? No pleural effusions or pneumothorax.? ? Mediastinum:? Mediastinal contours appear normal.? Cardiomegaly question hiatal hernia. ? Bones and chest wall:? No suspicious bony lesions.? Overlying soft tissues appear unremarkable.? ? IMPRESSION:? Cardiomegaly.? Question hiatal hernia. No evidence acute pulmonary process. ? ? ? Dictated by: Adebayo Evans M.D. on 08/17/2021 at 18:47 ? ? ECG Data Interpretation: Atrial flutter with variable AV block, Rate of 107 LVH Similar to EKG July 25, 2021 [facility] Narrative Medical decision making narrative: 85-year-old with increasing weakness and recurrent atrial fibrillation currently anticoagulated that is relatively fast. She does have mild congestive heart failure with a BNP at 3320, minor bibasilar crackles. I suspect that this is rate related failure and because of her overall fatigue. There is no evidence of infection, acute anemia, COVID, acute coronary syndrome or other explanation for her symptoms. Her carvedilol has been increased from 6.25 twice a day to 9.375 b.i.d. to most recently 12.5 b.i.d.. She is given 50 mg of oral metoprolol tartrate in the emergency department, I am going to increase this to 25 b.i.d. and add furosemide at 20 mg daily along with 10 mEq potassium in ask her to follow-up with her route carrier within the next number of days. Will need lab work follow-up as well as follow-up on weakness and overall rate. Discharge Plan Departure Patient Disposition: Home Clinical Impression: Chronic a-fib, Atrial fibrillation with rapid ventricular response Acute CHF Qualifiers: Heart failure type: unspecified Qualified Code(s): I50.9 - Heart failure, unspecified Instructions: DI for Heart Failure, DI for Atrial Fibrillation Activity Restrictions/Additional Instructions: Thank you for coming in today Your heart rate is going too fast in your atrial fibrillation. This is causing fluid to backup in your lungs which is part of the reason you are so weak. There is no sign of anemia, infection, COVID or heart attack. We need to make some changes to your medications. Your carvedilol needs to increase again to a total of 25 mg morning and night. I have given you a new prescription for this so you do not need to take so many pills. The new prescription was electronically transmitted to [facility]. I have added Lasix/furosemide 20 mg daily, this will make you go to the bathroom, please take it in the morning I have added 10 mEq of potassium, this is because of the Lasix/furosemide. Please take this every day that you take the Lasix. Dr. Pickett and all of his assistance are aware of your ER visit, the findings and the medication changes. They will be calling to follow-up. If you find that you are getting worse or develop any new symptoms, please feel free to return to the emergency department for further evaluation. Prescriptions: New carvedilol [Coreg] 25 mg tablet 25 mg PO BID Qty: 60 0RF Rx Instructions: must administer with a meal/food No Action omeprazole 20 mg capsule,delayed release(/EC) See Rx Instructions .ROUTE .COMPLEX Qty: 90 3RF Dose Instruction: Take 1 capsule (20 mg) by mouth every morning Rx Instructions: Take 1 capsule (20 mg) by mouth every morning amlodipine 5 mg tablet See Rx Instructions .ROUTE .COMPLEX Qty: 90 3RF Dose Instruction: Take 1 tablet (5 mg) by mouth every morning Rx Instructions: Take 1 tablet (5 mg) by mouth every morning carvedilol 6.25 mg tablet 9.375 mg PO BID Qty: 90 5RF Rx Instructions: Take one and a half tablets by mouth twice a day. paroxetine HCl 20 mg tablet 60 mg PO DAILY Qty: 90 3RF hydrocodone-acetaminophen 10-325 mg tablet See Rx Instructions .ROUTE .COMPLEX Qty: 120 0RF Rx Instructions: Take 1 tablet by mouth every 6 hours as needed for pain flecainide 100 mg tablet 100 mg PO BID diclofenac sodium 3 % gel 1 applic topical BID Qty: 100 5RF lidocaine 5 % adhesive patch,medicated 3 patch topical DAILY Qty: 30 5RF Rx Instructions: leave on most painful area for up to 12 hrs Pradaxa 150 mg capsule 150 mg PO BID Qty: 180 3RF Referrals: Vlad Hernandez DO [Primary Care Provider] -
[2021-08-17] MEDS: METOPROLOL IR 25 MG TABLET 50 MG PO (19:35)
[2021-08-17] MEDS: FUROSEMIDE 40 MG/4 ML VIAL IV (19:35)
[2021-08-17 19:55] LABS: NT-proBNP (BNP-Adult 18+) 3320 pg/mL (<450)
[2021-08-17 19:58] LABS: COVID19 -Nasal RAPID Negative (Negative)
== END 2021-08-17 22:00 | disposition home or self-care (01) ==
PROVIDERS: Emergency Medicine; Emergency Provider Emergency Medicine; PCP Family Medicine
DX: I48.20 Chronic atrial fibrillation, unspecified (principal); Z79.01 Long term (current) use of anticoagulants; I50.9 Heart failure, unspecified; Z20.822 Contact with and (suspected) exposure to COVID-19
CPT/HCPCS: 36415; 71045; 80053; 82550; 83690; 83735; 83880; 84484; 85025; 87635; 93005; 93010; 96374; 99284; C9803; J1940

== ENCOUNTER 2021-09-01 16:25 | Inpatient (IN) | payer OTHER, SELFPAY ==
[2021-09-01] VITALS (17 sets, daily range): BP systolic 159–201; BP diastolic 70–97; PULSE 59–71; RESP 17–29; TEMP 36.6–36.7; O2SAT 88–99; BMI 28.0; BMI 27.4
--- NOTE | 2021-09-01 16:35 | DI.RAD.S_ITS ---
PROCEDURE: XR CHEST 1V INDICATIONS: weakness TECHNIQUE: One view of the chest was acquired. COMPARISON: [facility], CT, CT ANGIO CHEST PE PROTOCOL, 10/03/2017, 3:45. [facility], CR, XR CHEST 1V, 08/17/2021, 18:00. FINDINGS: Surgical changes and devices: None. Lungs and pleura: Mild generalized interstitial prominence can be seen. No pleural effusions or pneumothorax. Mediastinum: Mediastinal contours appear normal. Heart size is moderately enlarged. Atherosclerotic calcification of the aortic arch is noted. Bones and chest wall: Age-appropriate bony degenerative changes are seen. No suspicious bony lesions. Overlying soft tissues appear unremarkable. IMPRESSION: Cardiomegaly and interstitial prominence. CHF is suspected. Dictated by: Dennys Kingsley M.D. on 09/01/2021 at 16:08 Approved by: Dennys Kingsley M.D. on 09/01/2021 at 16:10
--- NOTE | 2021-09-01 16:56 | PC.NURSE ---
Pt ambulated to bathroom, pulse ox utilized and spo2 88% with heart rate of 77 noted, pt breathing labored. Pt back to stretcher and noted to desat as low as spo2 85%. 2L NC applied.
--- NOTE | 2021-09-01 16:58 | ED_ITS ---
HPI - Weakness General Chief complaint: Weakness Stated complaint: weakness Time Seen by Provider: 09/01/21 16:33 Source: patient Mode of arrival: Ambulatory History of Present Illness HPI Narrative: This is a 85-year-old female history of atrial fibrillation, CHF anticoagulated on Pradaxa, gerd, untreated obstructive sleep apnea who comes emergency department with complaint of increasing weakness and shortness of breath. Patient states that she had a cardioversion on August 30. She has had worsening exertional dyspnea since then with fatigue and has been sleeping all day. She denies chest pain or pressure, she denies syncope. She does describe shortness of breath. She is hypoxic upon arrival and with ambulation and improves with O2. Patient does not normally use home O2. She denies any diaphoresis. No nausea or vomiting. No dysuria urgency or frequency. She has not appreciate any new swelling in her extremities. She states she has had issues with swelling in the past she was given Lasix before her cardioversion or a similar diuretic. She also took oral Lasix which she had left over from an old prescription before she came today she thought she might be fluid overloaded. Patient states she does not have any prior cardiac stents, no pacemakers or other cardiac interventions. She is had cardioversion x3 most recently with Dr. Pickett at [facility]. Patient states she is had prior knee surgery x 2, hip surgery x1, prior ear surgery and hysterectomy. No known drug allergies. Her primary care is Dr. Hernandez. Related Data Home Medications Medication Instructions Recorded Confirmed flecainide 100 mg tablet 100 mg PO BID 08/14/18 09/01/21 Previous Rx's Medication Instructions Recorded dabigatran etexilate 150 mg 150 mg PO BID #180 caps 07/02/18 capsule (Pradaxa) amlodipine 5 mg tablet See Rx Instructions .Route 08/26/20 .COMPLEX #90 tabs omeprazole 20 mg capsule,delayed See Rx Instructions .Route 08/26/20 release .COMPLEX #90 caps carvedilol 25 mg tablet (Coreg) 25 mg PO BID #60 tabs 08/17/21 paroxetine HCl 20 mg tablet See Rx Instructions .Route 08/18/21 .COMPLEX #90 tabs hydrocodone 10 mg-acetaminophen See Rx Instructions .Route 08/22/21 325 mg tablet .COMPLEX #120 tabs Allergies Allergy/AdvReac Type Severity Reaction Status Date / Time No Known Drug Allergies Allergy Verified 03/24/21 08:58 Review of Systems Review of Systems ROS Unobtainable: All systems reviewed & are unremarkable except as noted in HPI and below Patient History Medical History Age-related cognitive decline Anticoagulated Anxiety Cataract Cervical somatic dysfunction Chicken pox Chronic bilateral back pain Chronic headaches Chronic, continuous use of opioids Closed L2 vertebral fracture Colon polyps Cranial somatic dysfunction CTS (carpal tunnel syndrome) Depression Facet arthropathy, lumbar Fatigue GERD (gastroesophageal reflux disease) Hearing loss Lumbar region somatic dysfunction Lumbosacral spondylosis with radiculopathy Measles Mumps Pelvic relaxation Pelvic somatic dysfunction PTSD (post-traumatic stress disorder) Sacral region somatic dysfunction Scoliosis of cervical region due to degenerative disease of spine in adult Segmental and somatic dysfunction of abdomen and other regions Segmental and somatic dysfunction of rib cage Sleep apnea T12 compression fracture Thoracic region somatic dysfunction TIA (transient ischemic attack) Upper extremity somatic dysfunction Surgical History Anesthesia History of carpal tunnel surgery of left wrist History of colonoscopy History of ear surgery (1981) History of ear surgery (1974) History of knee replacement (2008) History of knee replacement (2012) Hx of appendectomy Status post breast lumpectomy (1982) Status post cataract extraction of both eyes with insertion of intraocular lens Status post hysterectomy (1979) Family History Child Age: 60 Mental health problem Father Heart disease Stroke Myocardial infarction Grandmother Cancer Grandfather Pneumonia Grandmother No problems noted. Mother Brainstem hemorrhage Brain bleed Social History household members: spouse Smoking Status: Never smoker alcohol intake: current Smoking Status: Never smoker alcohol intake frequency: a few times a month Substance Use Type: does not use Exam Narrative Exam Narrative: GENERAL: Alert and oriented x three, elderly female in mild distress HEENT: Head normocephalic, atraumatic, EOMI, pupils reactive, face symmetric, no conjunctival pallor, moist mucous membranes NECK: Supple, full range of motion CARDIOVASCULAR: Regular rate and rhythm without murmurs, rubs or gallops. RESPIRATORY: Breath sounds equal bilaterally, no wheezes rales or rhonchi. No tachypnea at rest but patient walked to the bathroom and back and has exertional dyspnea. She is able to speak in full sentences but does take several minutes for her breathing and tachypnea to improve. Patient drops to 83% when she ambulates. ABDOMEN: Soft, nontender. Normoactive bowel sounds all 4 quadrants. No guarding or rebound, rigidity, no mass, stool occult is negative. Brown stool sample. No mass. : No CVA tenderness EXTREMITIES: Normal range of motion, no clubbing or edema. Neurovascularly intact NEUROLOGICAL: Cranial nerves II through XII grossly intact. Moving all extremities. Normal gait SKIN: Warm, dry, no petechiae, no rashes or lesions. Initial Vital Signs Initial Vital Signs: Vital Signs Temperature 97.8 F 09/01/21 16:36 Pulse Rate 71 09/01/21 16:36 Respiratory Rate 18 09/01/21 16:36 Blood Pressure 192/86 H 09/01/21 16:36 Pulse Oximetry 88 L 09/01/21 16:36 Oxygen Delivery Method 09/01/21 16:36 Course Orders Ordered: Acetaminophen (Acetaminophen 325 Mg Tablet) 650 mg PO Q6HR PRN PRN Reason: Fever/Mild Pain (1-3) Last Admin: 09/02/21 08:34 Dose: 650 mg Documented By: LOUISE Hydrocodone Bitart/Acetaminophen (Hydrocodone/Acet 10/325 Tablet) 1 tab PO BEDTIME PRN PRN Reason: Pain, Moderate (4-6) Hydrocodone Bitart/Acetaminophen (Hydrocodone/Acet 10/325 Tablet) 1 tab PO Q6HR PRN PRN Reason: Pain, Moderate (4-6) Amlodipine Besylate (Amlodipine 5 Mg Tablet) 10 mg PO DAILY [facility] Carvedilol (Carvedilol 12.5 Mg Tablet) 25 mg PO BID [facility] Last Admin: 09/02/21 10:43 Dose: 25 mg Documented By: LOUISE Dabigatran (Dabigatran 75 Mg Capsule) 150 mg PO BID [facility] Last Admin: 09/02/21 10:43 Dose: 150 mg Documented By: LOUISE Flecainide Acetate (Flecainide 100 Mg Tablet) 100 mg PO BID [facility] Last Admin: 09/02/21 10:45 Dose: 100 mg Documented By: LOUISE Furosemide (Furosemide 40 Mg Tablet) 40 mg PO DAILY [facility] Last Admin: 09/02/21 16:53 Dose: 40 mg Documented By: LOUISE Ceftriaxone Sodium 1,000 mg/ (Sodium Chloride) 100 mls @ 200 mls/hr IV Q24H [facility] Stop: 09/05/21 21:59 Ondansetron HCl (Ondansetron 4 Mg/2 Ml Inj) 4 mg IV Q8HR PRN PRN Reason: Nausea And Vomiting Pantoprazole Sodium (Pantoprazole Dr 40 Mg Tablet) 40 mg PO 0700 [facility] Last Admin: 09/02/21 10:54 Dose: 40 mg Documented By: LOUISE Paroxetine HCl (Paroxetine 20 Mg Tablet) 20 mg PO DAILY [facility] Last Admin: 09/02/21 10:53 Dose: 20 mg Documented By: Admin: 09/02/21 10:52 Dose: 20 mg Documented By: LOUISE Discontinued Medications Amlodipine Besylate (Amlodipine 5 Mg Tablet) 5 mg PO DAILY [facility] Last Admin: 09/02/21 10:44 Dose: 5 mg Documented By: LOUISE Amlodipine Besylate (Amlodipine 5 Mg Tablet) 5 mg PO NOW ONE Stop: 09/02/21 17:54 Al Hydrox/Mg Hydrox/Simethicone 20 ml/ Lidocaine HCl 15 ml 0 ml PO NOW ONE Stop: 09/02/21 09:20 Last Admin: 09/02/21 10:30 Dose: 15 ml Documented By: LOUISE Furosemide (Furosemide 40 Mg/4 Ml Vial) 40 mg IV NOW ONE Stop: 09/01/21 17:50 Last Admin: 09/01/21 18:11 Dose: 40 mg Documented By: AT Furosemide (Furosemide 20 Mg/2 Ml Vial) 40 mg IV DAILY [facility] Last Admin: 09/02/21 08:34 Dose: 40 mg Documented By: LOUISE Furosemide (Furosemide 20 Mg/2 Ml Vial) 40 mg IV BIDAC [facility] Last Admin: 09/02/21 16:26 Dose: Not Given Documented By: Admin: 09/02/21 09:21 Dose: Not Given Documented By: LOUISE Ceftriaxone Sodium 2,000 mg/ (Sodium Chloride) 100 mls @ 200 mls/hr IV NOW ONE Stop: 09/01/21 23:39 Last Infusion: 09/02/21 02:28 Dose: 0 mls/hr Documented By: Admin: 09/02/21 00:29 Dose: 200 mls/hr Documented By: GABRIEL Magnesium Sulfate (Magnesium Sulfate) 2 gm in 50 mls @ 25 mls/hr IV NOW ONE Stop: 09/02/21 10:45 Last Admin: 09/02/21 09:12 Dose: 25 mls/hr Documented By: LOUISE Co-signed By: ALESSIA Potassium Chloride (Potassium Chloride 20 Meq Tab) 40 meq PO NOW ONE Stop: 09/02/21 08:36 Last Admin: 09/02/21 09:06 Dose: 40 meq Documented By: LOUISE Reevaluation(s) Reevaluation #1: Reviewed findings so far. Plan for admission for hypoxia, CHF after recent cardioversion. Time: 18:56 Consultations Consultation #1: Dr. Gavin with Cardiology recommends treat for CHF exacerbation. Consultation #2: Dr. Bush accepts for inpatient admission.? CTA 2nd troponin are pending.?? Time: 18:56 Vital Signs Vital signs: Vital Signs - 8 hr 09/01/21 16:36 09/01/21 17:00 09/01/21 17:14 Pulse Rate 71 63 62 Respiratory Rate 18 25 H 26 H Blood Pressure 192/86 H 164/79 H Pulse Oximetry 88 L 97 98 Oxygen Delivery Method Room Air Nasal Cannula Oxygen Flow Rate 2 09/01/21 17:30 09/01/21 17:31 09/01/21 17:31 Pulse Rate 67 Respiratory Rate 27 H Blood Pressure 200/95 H Pulse Oximetry 97 96 Oxygen Delivery Method Oxygen Flow Rate 09/01/21 17:43 09/01/21 17:43 09/01/21 18:00 Pulse Rate 63 59 L Respiratory Rate 25 H Blood Pressure 184/97 H Pulse Oximetry 98 97 Oxygen Delivery Method Nasal Cannula Oxygen Flow Rate 2 09/01/21 18:40 09/01/21 18:51 09/01/21 18:51 Pulse Rate 66 62 Respiratory Rate 22 22 Blood Pressure 189/90 H Pulse Oximetry 97 99 Oxygen Delivery Method Oxygen Flow Rate MDM - Weakness Lab Data Result diagrams: 09/02/21 04:45 09/02/21 04:45 Labs: Lab Results 09/01/21 09/01/21 09/01/21 Range/Units 16:46 16:46 16:46 WBC 6.3 (4.5-11.0) X10^3/uL RBC 3.55 L (4.0-5.2) X10^6/uL Hgb 9.6 L (12.0-16.0) g/dL Hct 29.7 L (36-46) % MCV 83.8 (80-100) fL MCH 27.1 (26-34) PG MCHC 32.4 (30-36) % RDW 16.1 H (11.6-14.8) % Plt Count 285 (150-400) X10^3/uL Neut % (Auto) 64.2 (50-75) % Lymph % (Auto) 19.2 L (25-40) % [place] % (Auto) 8.9 (3-14) % Eos % (Auto) 6.8 H (2-4) % Baso % (Auto) 0.9 (0-2) % Neut # (Auto) 4000 (1352-9748) /uL Lymph # (Auto) 1200 (7884-8754) /uL [place] # (Auto) 600 (0-900) /uL Eos # (Auto) 400 (0-450) /uL Baso # (Auto) 100 (0-100) /uL PT 18.2 H (10.1-12.7) SECONDS INR 1.6 H (0.9-1.3) Sodium 138 (137-145) mmol/L Potassium 3.4 (3.4-5.1) mmol/L Chloride 102 (98-107) mmol/L Carbon Dioxide 30 (22-32) mmol/L BUN 17 (7-17) mg/dL Creatinine 0.97 (0.52-1.04) mg/dL Estimated GFR 58 L (>60) mL/min BUN/Creatinine Ratio 17.5 (6-22) Glucose 149 H (80-110) mg/dL Calcium 8.9 (8.4-10.2) mg/dL Magnesium 2.0 (1.6-2.3) mg/dL Total Bilirubin 0.5 (0.2-1.3) mg/dL AST 28 (14-36) IU/L ALT 39 H (<35) IU/L Alkaline Phosphatase 67 (38-126) U/L Total Creatine Kinase 63 (30-135) U/L CK-MB (CK-2) TNP CK-MB (CK-2) Rel Index TNP Troponin I 0.012 (0.01-0.034) ng/mL NT-Pro-B Natriuret Pep 2990 H (<450) pg/mL Total Protein 6.9 (6.3-8.2) g/dL Albumin 3.8 (3.5-5.0) g/dL Globulin 3.1 (1.7-4.1) g/dL Albumin/Globulin Ratio 1.2 (1.0-2.8) Urine RBC (0-5/HPF) Urine WBC (0-5/HPF) Ur Squamous Epith Cells (0-5/HPF) Urine Bacteria (None) Ur Culture Indicated? SARS-CoV-2 (PCR) (Negative) Blood Type Antibody Screen 09/01/21 09/01/21 09/01/21 Range/Units 17:07 17:24 18:16 WBC (4.5-11.0) X10^3/uL RBC (4.0-5.2) X10^6/uL Hgb (12.0-16.0) g/dL Hct (36-46) % MCV (80-100) fL MCH (26-34) PG MCHC (30-36) % RDW (11.6-14.8) % Plt Count (150-400) X10^3/uL Neut % (Auto) (50-75) % Lymph % (Auto) (25-40) % [place] % (Auto) (3-14) % Eos % (Auto) (2-4) % Baso % (Auto) (0-2) % Neut # (Auto) (6985-5464) /uL Lymph # (Auto) (2722-7819) /uL [place] # (Auto) (0-900) /uL Eos # (Auto) (0-450) /uL Baso # (Auto) (0-100) /uL PT (10.1-12.7) SECONDS INR (0.9-1.3) Sodium (137-145) mmol/L Potassium (3.4-5.1) mmol/L Chloride (98-107) mmol/L Carbon Dioxide (22-32) mmol/L BUN (7-17) mg/dL Creatinine (0.52-1.04) mg/dL Estimated GFR (>60) mL/min BUN/Creatinine Ratio (6-22) Glucose (80-110) mg/dL Calcium (8.4-10.2) mg/dL Magnesium (1.6-2.3) mg/dL Total Bilirubin (0.2-1.3) mg/dL AST (14-36) IU/L ALT (<35) IU/L Alkaline Phosphatase (38-126) U/L Total Creatine Kinase (30-135) U/L CK-MB (CK-2) CK-MB (CK-2) Rel Index Troponin I (0.01-0.034) ng/mL NT-Pro-B Natriuret Pep (<450) pg/mL Total Protein (6.3-8.2) g/dL Albumin (3.5-5.0) g/dL Globulin (1.7-4.1) g/dL Albumin/Globulin Ratio (1.0-2.8) Urine RBC 0-1/hpf (0-5/HPF) Urine WBC 5-10/hpf H (0-5/HPF) Ur Squamous Epith Cells 0-1 /hpf (0-5/HPF) Urine Bacteria Many (>30) H (None) Ur Culture Indicated? Specimen cultured SARS-CoV-2 (PCR) Negative (Negative) Blood Type A Positive Antibody Screen Negative Point of Care Testing Stool Occult Blood Negative Urine Dip Bedside Urine Glucose Negative Bedside Urine Bilirubin - Negative Bedside Urine Ketone - Negative Urine Specific [place] 1.015 Bedside Urine Occult Blood ++ Bedside Urine pH 7.0 Bedside Urine Protein - Negative Bedside Urine Urobilinogen - Negative Bedside Urine Nitrite + Positive Bedside Urine Leukocytes +/- 15 Esterase Imaging Data Chest x-ray: Radiologist Impression: [address] [address] XRay Report Signed Patient: Swathi Quevedo MR#: [id number] : 1935 Acct:[id number] Age/Sex: 85 / F Date of Service: 09/01/21 Loc: ED Accession Number: [id number] ?? Procedure: XR chest 1V Ordering Provider: Kathy Sanchez PROCEDURE:? XR CHEST 1V ? INDICATIONS:? weakness ? TECHNIQUE:? One view of the chest was acquired.? ? COMPARISON:? [facility], CT, CT ANGIO CHEST PE PROTOCOL, 10/03/2017, 3:45.? [facility], CR, XR CHEST 1V, 08/17/2021, 18:00. ? FINDINGS:? ? Surgical changes and devices:? None.? ? Lungs and pleura:? Mild generalized interstitial prominence can be seen.? No pleural effusions or pneumothorax.? ? Mediastinum:? Mediastinal contours appear normal.? Heart size is moderately enlarged.? Atherosclerotic calcification of the aortic arch is noted.? ? Bones and chest wall:? Age-appropriate bony degenerative changes are seen.? No suspicious bony lesions.? Overlying soft tissues appear unremarkable.? ? ? IMPRESSION:? Cardiomegaly and interstitial prominence.? CHF is suspected. ? ? Dictated by: Dennys Kingsley M.D. on 09/01/2021 at 16:08 ? ? Approved by: Dennys Kingsley M.D. on 09/01/2021 at 16:10?? CT scan - chest: Radiologist Impression: Close Chest CTA (Signed) Clif Ambrose - 09/01/21 Chest X-Ray (Signed) Dennys Kingsley - 09/01/21 Launch?[place] [address] CT Scan Report Signed Patient: Swathi Quevedo MR#: [id number] : 1935 Acct:[id number] Age/Sex: 85 / F Date of Service: 09/01/21 Loc: 90A-1 Accession Number: [id number] ?? Procedure: CT angio chest PE protocol Ordering Provider: Maria Alvarado D.O. PROCEDURE:? CT ANGIO CHEST PE PROTOCOL ? INDICATIONS:? post-cardioversion, new anemia, chf ? TECHNIQUE:? After the administration of intravenous contrast, 2 mm thick sections acquired from the pulmonary apices to the posterior costophrenic angles.? 3-dimensional maximum intensity projection (MIP) coronal and sagittal reformats were then acquired through the thorax.? For radiation dose reduction, the following was used:? automated exposure control, adjustment of mA and/or kV according to patient size.? ? COMPARISON:? [facility], CT, CT ANGIO CHEST PE PROTOCOL, 10/03/2017, 3:45. ? FINDINGS:? Image quality:? Excellent.? ? Pulmonary arteries:? Pulmonary arteries are prominent in size and measures up to 3.8 cm in diameter in main pulmonary trunk series 4, image 54. There are no intraluminal filling defects to suggest central pulmonary embolism.? ? Lungs and pleura:? Moderate right pleural effusion and small left pleural effusion are seen with adjacent compressive atelectasis in posterior aspect of bilateral lung tatum.? Hazy ground-glass opacities are seen throughout bilateral lung tatum suggestive of pulmonary edema versus pneumonitis.? Scattered atelectasis in periphery of bilateral lung tatum are seen.? No pneumothorax..? Central and peripheral airways are patent.? ? Mediastinum:? Heart size is markedly enlarged, without pericardial effusion.? Prominent mediastinal lymph nodes are seen measures up to 1.4 cm in subcarinal space, 1.7 x 1.9 cm in right paratracheal space.? Thoracic aorta is normal in caliber and enhancement.? Esophagus is normal in caliber, without hiatal hernia.? ? Bones and chest wall:? No suspicious bony lesions.? Degenerative disc disease throughout thoracic spine is seen.? No acute vertebral body compression fracture.? There is interval further in large mint of patient's known heterogeneously enhancing mass in right paratracheal region collecting to inferior pole of right thyroid lobe now measures 3.1 x 5.6 cm in size series 4, image 23.? This was previously measured at 4.1 x 2.8 cm in size. ?Left thyroid lobe is within normal limits.? No axillary or supraclavicular adenopathy.? ? Abdomen:? Trace amount of ascites fluid is seen in upper abdomen adjacent to right lobe of liver.? Well-circumscribed 1.4 cm hypodensity is seen in anterolateral periphery of right hepatic lobe unchanged from 2018 study and likely represent hepatic cyst.? No gross abnormality is seen in visualized portion of spleen, pancreas and bilateral adrenal glands. ? IMPRESSION:? 1. No evidence of pulmonary emboli.? Prominence size of main pulmonary artery? which seen associated with pulmonary vascular hypertension suggest clinical correlation.? No thoracic aortic aneurysm. 2.? Right greater than left bilateral pleural effusion and extensive pulmonary edema versus pneumonitis.? No pneumothorax.? Scattered atelectasis in bilateral lung tatum.? No definite focal infiltrate. 3.? Airway is patent. 4.? Nonspecific enlarged mediastinal lymph nodes.? Enlarged right thyroid lobe extending to superior anterior right mediastinum suggestive of substernal goiter increased in size compared to 2018 study.? Malignant process cannot be excluded.? Clinical correlation is recommended. 5. Trace amount of ascites fluid in right upper quadrant abdomen.? Stable hypodensity in right hepatic lobe likely represent benign process such as hepatic cyst. ? ? Dictated by: Clif Ambrose M.D. on 09/01/2021 at 18:55 ? ? Approved by: Clif Ambrose M.D. on 09/01/2021 at 19:03?? ECG Data Attestation: I personally reviewed and interpreted this ECG as follows: Interpretation: Sinus rhythm with first-degree AV block. Patient has ST depression 1 2 and aVL as well as lateral leads V4 through 6. No elevation appreciated patient has prior EKG from 08/17/[address] changes. Patient appears to be in a sinus rhythm. EKG 2. Shows sinus rhythm first-degree AV block, rate of 60 1p are 224, QRS of 96 and QTC of 463. Patient has ST depression similar to prior with no acute elevation. EKG depression appears similar to prior from 08/17/2021. MDM Narrative Medical decision making narrative: This is a 85-year-old female with known CHF, AFib chronically anticoagulated on Pradaxa who had a cardioversion 2 days prior. Patient did not have cardiac catheterization at that time. She appears to be in sinus rhythm but has had increasing dyspnea on exertion and even with rest with fatigue as well. Patient appears to be in fluid overload with changes on chest x-ray, hypoxia and elevated BNP. Troponin is negative. Patient also appears to have a drop in her hemoglobin. Her hemoglobin was 12 a year ago, it was 11 on August 17, 2021 and has 9.6 today. Patient has not appreciate any GI changes. Stool occult is negative. Patient received Lasix, she is on O2, COVID swab is negative and type and screen was obtained. Patient has had for CT PE with recent cardioversion, new hypoxia and elevated BNP with a sinus rhythm. Spoke with cardiology who recommends keeping patient here for diuresis and treat as CHF. Plan for admission to the hospitalist, spoke with Dr. Bush who accepts for inpatient admission. Troponin and CTA pending. Discharge Plan Departure Patient Disposition: Admitted As Inpatient Clinical Impression: Acute exacerbation of CHF (congestive heart failure), Symptomatic anemia Admit Date/Time: 09/01/21 18:55 Admit Provider: Joby Bush
[2021-09-01 16:59] LABS: Add Manual Diff / Slide Review NO; Basophils Absolute Auto 100 /uL (0-100); Basophils Percent Auto 0.9 % (0-2); Eosinophils Absolute Auto 400 /uL (0-450); Eosinophils Percent Auto 6.8 % (2-4); Hematocrit 29.7 % (36-46); Hemoglobin 9.6 g/dL (12.0-16.0); Lymphocytes Absolute Auto 1200 /uL (1100-4500); Lymphocytes Percent Auto 19.2 % (25-40); Mean Corpuscular HGB Conc 32.4 % (30-36); Mean Corpuscular Hemoglobin 27.1 PG (26-34); Mean Corpuscular Volume 83.8 fL (80-100); Monocytes Absolute Auto 600 /uL (0-900); Monocytes Percent Auto 8.9 % (3-14); Neutrophils Absolute Auto 4000 /uL (1500-7000); Neutrophils Percent Auto 64.2 % (50-75); Platelet Count 285 X10^3/uL (150-400); Red Blood Cell Count 3.55 X10^6/uL (4.0-5.2); Red Cell Distribution Width 16.1 % (11.6-14.8); White Blood Cell Count 6.3 X10^3/uL (4.5-11.0)
[2021-09-01 17:06] LABS: INR 1.6 (0.9-1.3); Prothrombin Time 18.2 SECONDS (10.1-12.7)
[2021-09-01 17:14] LABS: Alanine Aminotransferase 39 IU/L (<35); Albumin 3.8 g/dL (3.5-5.0); Albumin Globulin Ratio 1.2 (1.0-2.8); Alkaline Phosphatase 67 U/L (38-126); Aspartate Aminotransferase 28 IU/L (14-36); BUN Creatinine Ratio 17.5 (6-22); Bilirubin Total 0.5 mg/dL (0.2-1.3); Blood Urea Nitrogen 17 mg/dL (7-17); Calcium 8.9 mg/dL (8.4-10.2); Carbon Dioxide 30 mmol/L (22-32); Chloride 102 mmol/L (98-107); Creatine Kinase 63 U/L (30-135); Estimated Glomerular Filt Rate 58 mL/min (>60); Globulin 3.1 g/dL (1.7-4.1); Glucose 149 mg/dL (80-110); HEMOLYSIS < 15 (0-50); Potassium 3.4 mmol/L (3.4-5.1); Sodium 138 mmol/L (137-145); Total Protein 6.9 g/dL (6.3-8.2)
--- NOTE | 2021-09-01 17:15 | PC.NURSE ---
Pt reports intermittent abdominal pain for past week, generalized weakness, lack of energy and feeling like I'm going to . Pt is SOB upon exertion with initial saturation at 88%. Placed on NC at 1 L and is 97%. Pt reports tenderness to RLQ upon palpation. Pt reports recent cardioversion on Sunday due to Afib. Pt reports she is paranoid about dying for the past year and a hx of depression. Encouraged to call for any new or worsening symptoms. Call light within reach.
[2021-09-01 17:26] LABS: NT-proBNP (BNP-Adult 18+) 2990 pg/mL (<450); Troponin I 0.012 ng/mL (0.01-0.034)
[2021-09-01 17:30] LABS: RBC Urine 0-1/HPF (0-5/HPF)
[2021-09-01 17:31] LABS: Bacteria Urine Many (>30); Culture Indicated Urine Specimen Cultured; Squamous Epithelial Cell Urine 0-1 /HPF (0-5/HPF); WBC Urine 5-10/HPF (0-5/HPF)
--- NOTE | 2021-09-01 17:48 | DI.CT.S_ITS ---
PROCEDURE: CT ANGIO CHEST PE PROTOCOL INDICATIONS: post-cardioversion, new anemia, chf TECHNIQUE: After the administration of intravenous contrast, 2 mm thick sections acquired from the pulmonary apices to the posterior costophrenic angles. 3-dimensional maximum intensity projection (MIP) coronal and sagittal reformats were then acquired through the thorax. For radiation dose reduction, the following was used: automated exposure control, adjustment of mA and/or kV according to patient size. COMPARISON: [facility], CT, CT ANGIO CHEST PE PROTOCOL, 10/03/2017, 3:45. FINDINGS: Image quality: Excellent. Pulmonary arteries: Pulmonary arteries are prominent in size and measures up to 3.8 cm in diameter in main pulmonary trunk series 4, image 54. There are no intraluminal filling defects to suggest central pulmonary embolism. Lungs and pleura: Moderate right pleural effusion and small left pleural effusion are seen with adjacent compressive atelectasis in posterior aspect of bilateral lung tatum. Hazy ground-glass opacities are seen throughout bilateral lung tatum suggestive of pulmonary edema versus pneumonitis. Scattered atelectasis in periphery of bilateral lung tatum are seen. No pneumothorax.. Central and peripheral airways are patent. Mediastinum: Heart size is markedly enlarged, without pericardial effusion. Prominent mediastinal lymph nodes are seen measures up to 1.4 cm in subcarinal space, 1.7 x 1.9 cm in right paratracheal space. Thoracic aorta is normal in caliber and enhancement. Esophagus is normal in caliber, without hiatal hernia. Bones and chest wall: No suspicious bony lesions. Degenerative disc disease throughout thoracic spine is seen. No acute vertebral body compression fracture. There is interval further in large mint of patient's known heterogeneously enhancing mass in right paratracheal region collecting to inferior pole of right thyroid lobe now measures 3.1 x 5.6 cm in size series 4, image 23. This was previously measured at 4.1 x 2.8 cm in size. Left thyroid lobe is within normal limits. No axillary or supraclavicular adenopathy. Abdomen: Trace amount of ascites fluid is seen in upper abdomen adjacent to right lobe of liver. Well-circumscribed 1.4 cm hypodensity is seen in anterolateral periphery of right hepatic lobe unchanged from 2018 study and likely represent hepatic cyst. No gross abnormality is seen in visualized portion of spleen, pancreas and bilateral adrenal glands. IMPRESSION: 1. No evidence of pulmonary emboli. Prominence size of main pulmonary artery which seen associated with pulmonary vascular hypertension suggest clinical correlation. No thoracic aortic aneurysm. 2. Right greater than left bilateral pleural effusion and extensive pulmonary edema versus pneumonitis. No pneumothorax. Scattered atelectasis in bilateral lung tatum. No definite focal infiltrate. 3. Airway is patent. 4. Nonspecific enlarged mediastinal lymph nodes. Enlarged right thyroid lobe extending to superior anterior right mediastinum suggestive of substernal goiter increased in size compared to 2018 study. Malignant process cannot be excluded. Clinical correlation is recommended. 5. Trace amount of ascites fluid in right upper quadrant abdomen. Stable hypodensity in right hepatic lobe likely represent benign process such as hepatic cyst. Dictated by: Clif Ambrose M.D. on 09/01/2021 at 18:55 Approved by: Clif Ambrose M.D. on 09/01/2021 at 19:03
[2021-09-01 17:52] LABS: COVID19 -Nasal RAPID Negative (Negative)
[2021-09-01] MEDS: FUROSEMIDE 40 MG/4 ML VIAL IV (18:11)
--- NOTE | 2021-09-01 18:58 | PC.NURSE ---
Per DI Tech pt reported chest pain immediately after CT scan, pt assessed upon arrival to room and denies pain, unable to recall where the pain was.
[2021-09-01 19:34] LABS: Troponin I 0.014 ng/mL (0.01-0.034)
--- NOTE | 2021-09-01 21:19 | PC.NURSE ---
Pt provided meal in the ED.
[2021-09-01 21:41] LABS: Thyroid Stimulating Hormone 1.37 uIU/mL (0.47-4.68)
--- NOTE | 2021-09-01 22:46 | PM.HP.1 ---
History of Present Illness History of Present Illness Date Patient Seen: 09/01/21 Time Patient Seen: 21:20 Chief complaint: weakness Narrative: Swathi Quevedo is an 85 y.o. female with a history of atrial fibrillation anticoagulated on Pradaxa, CHF, gerd, untreated obstructive sleep apnea who presented emergency department with complaint of increased weakness and shortness of breath.? Patient states that she had a cardioversion on August 30.? She has had worsening exertional dyspnea since then with fatigue and has been sleeping all day, stated she can only negotiate 50 steps before getting winded.? She denies chest pain or pressure, or syncope.? She was hypoxic upon arrival and with ambulation and improved with O2.? Patient does not normally use home O2.? She denies any diaphoresis.? No nausea or vomiting, has chronic generalized abdominal pain, no dysuria urgency or frequency, diarrhea or constipation.? She has not appreciate any new swelling in her extremities.? She states she has had issues with swelling in the past she was given Lasix before her cardioversion or a similar diuretic. CTA of the chest reported Moderate right pleural effusion and small left pleural effusion are seen with adjacent compressive atelectasis in posterior aspect of bilateral lung tatum.?Hazy ground-glass opacities are seen throughout bilateral lung tatum suggestive of pulmonary edema versus pneumonitis.? Scattered atelectasis in periphery of bilateral lung tatum are seen. Heart is enlarged and with enlarged mediastinal lymph nodes, she has had a history of a substernal goiter in 2018 which is enlarged compared to then with trace amount of ascites in the right upper quadrant of the abdomen. She is afebrile, blood pressure is elevated at 180 9/82, heart rate 68, respiratory rate 17, oxygen saturation of 97% on 2 L she weighs 65.9 kg with a BMI of 27.4. She is mildly anemic with a hemoglobin and hematocrit of 9.6 and 29.7 she has a normal white count, platelet count is 285, glucose is 149, ALT 39, proBNP is 3000, she has wbc's in her urine and many bacteria but negative for nitrates, COVID-19 PCR is negative. Patient last seen by Dr. Pickett and was cardioverted on 2 days ago. Her last echo in this chart is from 2019 where she had an LEVF of 50% with a severely dilated left atrium. Patient History Medical History Age-related cognitive decline Anticoagulated Anxiety Cataract Cervical somatic dysfunction Chicken pox Chronic bilateral back pain Chronic headaches Chronic, continuous use of opioids Closed L2 vertebral fracture Colon polyps Cranial somatic dysfunction CTS (carpal tunnel syndrome) Depression Facet arthropathy, lumbar Fatigue GERD (gastroesophageal reflux disease) Hearing loss Lumbar region somatic dysfunction Lumbosacral spondylosis with radiculopathy Measles Mumps Pelvic relaxation Pelvic somatic dysfunction PTSD (post-traumatic stress disorder) Sacral region somatic dysfunction Scoliosis of cervical region due to degenerative disease of spine in adult Segmental and somatic dysfunction of abdomen and other regions Segmental and somatic dysfunction of rib cage Sleep apnea T12 compression fracture Thoracic region somatic dysfunction TIA (transient ischemic attack) Upper extremity somatic dysfunction Surgical History Anesthesia History of carpal tunnel surgery of left wrist History of colonoscopy History of ear surgery (1981) History of ear surgery (1974) History of knee replacement (2008) History of knee replacement (2012) Hx of appendectomy Status post breast lumpectomy (1982) Status post cataract extraction of both eyes with insertion of intraocular lens Status post hysterectomy (1979) Family & Social History Family History Child Age: 60 Mental health problem Father Heart disease Stroke Myocardial infarction Grandmother Cancer Grandfather Pneumonia Grandmother No problems noted. Mother Brainstem hemorrhage Brain bleed Social History: household members spouse Safety & Behavioral: Feels Safe in Current Yes Environment Been Physically Hurt or No Threatened By a Person Tobacco & Substance use: Tobacco type Smoking Status Never smoker alcohol intake current alcohol intake frequency a few times a month Substance Use Type does not use Meds Home Medications and Allergies Home Medications Medication Instructions Recorded Confirmed Type dabigatran etexilate 150 mg 150 mg PO BID #180 caps 07/02/18 09/01/21 Rx capsule (Pradaxa) flecainide 100 mg tablet 100 mg PO BID 08/14/18 09/01/21 History amlodipine 5 mg tablet See Rx Instructions .Route 08/26/20 09/01/21 Rx .COMPLEX #90 tabs omeprazole 20 mg capsule,delayed See Rx Instructions .Route 08/26/20 09/01/21 Rx release .COMPLEX #90 caps carvedilol 25 mg tablet (Coreg) 25 mg PO BID #60 tabs 08/17/21 09/01/21 Rx paroxetine HCl 20 mg tablet See Rx Instructions .Route 08/18/21 09/01/21 Rx .COMPLEX #90 tabs hydrocodone 10 mg-acetaminophen See Rx Instructions .Route 08/22/21 09/01/21 Rx 325 mg tablet .COMPLEX #120 tabs Allergies Allergy/AdvReac Type Severity Reaction Status Date / Time No Known Drug Allergies Allergy Verified 03/24/21 08:58 Review of Systems Review of Systems ROS: Yes All systems reviewed with the patient and are negative except as otherwise documented Exam Vital Signs (past 8 hours): - 09/01/21 16:36 09/01/21 17:00 09/01/21 17:14 Temperature 97.8 F Pulse Rate 71 63 62 Respiratory Rate 18 25 H 26 H Blood Pressure 192/86 H 164/79 H Pulse Oximetry 88 L 97 98 Oxygen Delivery Method Room Air Nasal Cannula Oxygen Flow Rate 2 09/01/21 17:30 09/01/21 17:31 09/01/21 17:31 Temperature Pulse Rate 67 Respiratory Rate 27 H Blood Pressure 200/95 H Pulse Oximetry 97 96 Oxygen Delivery Method Oxygen Flow Rate 09/01/21 17:43 09/01/21 17:43 09/01/21 18:00 Temperature Pulse Rate 63 59 L Respiratory Rate 25 H Blood Pressure 184/97 H Pulse Oximetry 98 97 Oxygen Delivery Method Nasal Cannula Oxygen Flow Rate 2 09/01/21 18:40 09/01/21 18:51 09/01/21 18:51 Temperature Pulse Rate 66 62 Respiratory Rate 22 22 Blood Pressure 189/90 H Pulse Oximetry 97 99 Oxygen Delivery Method Oxygen Flow Rate 09/01/21 19:00 09/01/21 19:30 09/01/21 20:00 Temperature Pulse Rate 70 60 68 Respiratory Rate 28 H 27 H 23 Blood Pressure Pulse Oximetry 97 97 Oxygen Delivery Method Oxygen Flow Rate 09/01/21 20:19 09/01/21 20:19 09/01/21 20:30 Temperature Pulse Rate 67 Respiratory Rate 25 H Blood Pressure 201/93 H 188/81 H Pulse Oximetry 91 Oxygen Delivery Method Nasal Cannula Oxygen Flow Rate 2 09/01/21 20:30 09/01/21 21:00 09/01/21 20:13 Temperature Pulse Rate 69 68 Respiratory Rate 25 H 29 H Blood Pressure Pulse Oximetry 92 91 Oxygen Delivery Method Nasal Cannula Room Air Oxygen Flow Rate 2 09/01/21 22:24 Temperature 97.9 F Pulse Rate 68 Respiratory Rate 17 Blood Pressure 189/82 H Pulse Oximetry 97 Oxygen Delivery Method Oxygen Flow Rate 2 Oxygen Delivery Method Nasal Cannula Oxygen Flow Rate 2 Narrative Exam Narrative: Gen: Alert, oriented, well-developed 85 y.o. female, NAD HEENT: normocephalic, atraumatic, conjunctiva clear, sclera non-icteric, oral mucosa pink and moist Neck: supple, full ROM, no JVD, trachea is midline Resp: trace crackles bilaterally, non-labored breathing CV: irregularly irregular, no murmur or rubs Abd: soft, non-tender, normoactive BTs Skin: no lesions or rashes, dry and intact Neuro: Alert and oriented X 4 w/no focal deficits. Speech clear and coherent. Extremities: moves all 4 extremities, is ambulatory, negative Edel?s sign Psyche: normal mood and affect. Objective Labs Result Diagrams: 09/01/21 16:46 09/01/21 16:46 Labs: Laboratory Results - last 24 hr 09/01/21 09/01/21 09/01/21 16:46 16:46 16:46 WBC 6.3 RBC 3.55 L Hgb 9.6 L Hct 29.7 L MCV 83.8 MCH 27.1 MCHC 32.4 RDW 16.1 H Plt Count 285 Neut % (Auto) 64.2 Lymph % (Auto) 19.2 L [place] % (Auto) 8.9 Eos % (Auto) 6.8 H Baso % (Auto) 0.9 Neut # (Auto) 4000 Lymph # (Auto) 1200 [place] # (Auto) 600 Eos # (Auto) 400 Baso # (Auto) 100 PT 18.2 H INR 1.6 H Sodium 138 Potassium 3.4 Chloride 102 Carbon Dioxide 30 BUN 17 Creatinine 0.97 Estimated GFR 58 L BUN/Creatinine Ratio 17.5 Glucose 149 H Calcium 8.9 Magnesium 2.0 Total Bilirubin 0.5 AST 28 ALT 39 H Alkaline Phosphatase 67 Total Creatine Kinase 63 CK-MB (CK-2) TNP CK-MB (CK-2) Rel Index TNP Troponin I 0.012 NT-Pro-B Natriuret Pep 2990 H Total Protein 6.9 Albumin 3.8 Globulin 3.1 Albumin/Globulin Ratio 1.2 TSH Urine RBC Urine WBC Ur Squamous Epith Cells Urine Bacteria Ur Culture Indicated? SARS-CoV-2 (PCR) Blood Type Antibody Screen 09/01/21 09/01/21 09/01/21 17:07 17:24 18:16 WBC RBC Hgb Hct MCV MCH MCHC RDW Plt Count Neut % (Auto) Lymph % (Auto) [place] % (Auto) Eos % (Auto) Baso % (Auto) Neut # (Auto) Lymph # (Auto) [place] # (Auto) Eos # (Auto) Baso # (Auto) PT INR Sodium Potassium Chloride Carbon Dioxide BUN Creatinine Estimated GFR BUN/Creatinine Ratio Glucose Calcium Magnesium Total Bilirubin AST ALT Alkaline Phosphatase Total Creatine Kinase CK-MB (CK-2) CK-MB (CK-2) Rel Index Troponin I NT-Pro-B Natriuret Pep Total Protein Albumin Globulin Albumin/Globulin Ratio TSH Urine RBC 0-1/hpf Urine WBC 5-10/hpf H Ur Squamous Epith Cells 0-1 /hpf Urine Bacteria Many (>30) H Ur Culture Indicated? Specimen cultured SARS-CoV-2 (PCR) Negative Blood Type A Positive Antibody Screen Negative 09/01/21 09/01/21 19:05 19:05 WBC RBC Hgb Hct MCV MCH MCHC RDW Plt Count Neut % (Auto) Lymph % (Auto) [place] % (Auto) Eos % (Auto) Baso % (Auto) Neut # (Auto) Lymph # (Auto) [place] # (Auto) Eos # (Auto) Baso # (Auto) PT INR Sodium Potassium Chloride Carbon Dioxide BUN Creatinine Estimated GFR BUN/Creatinine Ratio Glucose Calcium Magnesium Total Bilirubin AST ALT Alkaline Phosphatase Total Creatine Kinase CK-MB (CK-2) CK-MB (CK-2) Rel Index Troponin I 0.014 NT-Pro-B Natriuret Pep Total Protein Albumin Globulin Albumin/Globulin Ratio TSH 1.37 Urine RBC Urine WBC Ur Squamous Epith Cells Urine Bacteria Ur Culture Indicated? SARS-CoV-2 (PCR) Blood Type Antibody Screen Assessment & Plan Assessment & Plan narrative: Swathi Quevedo is admitted for an acute on chronic CHF exacerbation. Acute on chronic CHF exacerbation, present on admission Chads vasc 2 score is 6 Unknown EF Have requested records from Dr. Pickett's office, it appears she was cardioverted in 2020 as well as last month. Continue Carvedilol 25 mg po bid which was increased and prescribed in the ED on 08/17/21 Have ordered a complete echo for the am. Paroxsysmal Atrial fibrillation, chronic She is anticoagulated on pradaxa which will be continued Essential hypertension, suboptimally controlled BP is 159/70 BP meds will be continued Acute anemia, unknown cause H and H is 9.6 and 29.7, in early August it was 11.0 and 33.3 respectively, prior years she was normal Monitor CBC daily Asymptomatic UTI She had presence of urine bacteria and urine WBC Due to fatigue, will start IV ceftriaxone VTE Prophylaxis: Wells risk score 1.5 pharmacological anticoagulation contraindicated as patient is anticoagulated on Pradaxa X Bilateral SCDs Patient is admitted to the inpatient service due to the severity of disease, risks of further disease progression and this stay is expected to exceed 2 midnights. FEN: IV fluids: saline lock, diet: heart healthy w/a 1200 cc fluid restriction, labs: CBC, C/BMP, liver enzymes, Mag, PT/INR Consultants None Dispo: probable d/c to home Code status: Full code as discussed with the patient who identifies her Bill as her surrogate and POA. [X] I have utilized all available immediate resources to obtain, update, or review of the patient's current medications COVID-19 COVID-19 status: Negative Result date/Date tested (Pos, Neg/Pending): 09/01/21 Time Spent With Patient Critical Care time: I spent a total of [] minutes of critical care time on this patient's care today; this time is exclusive of procedural time. Scores CHADS-VASc Congestive heart failure: yes Hypertension: yes Age 75 years or older: yes Diabetes mellitus: no Stroke, TIA, or TE: no Vascular disease: yes Age 65 to 74 years: no Sex category (female): Female CHADS-VASc Score: 6 Wells' Criteria for PE Clinical signs and symptoms of DVT: No PE is #1 Dx or equally likely: No Heart rate > 100: No Immobilization at least 3 days or surg in previous 4 weeks: Yes History of PE or DVT: No Hemoptysis: No Malignancy w/Treatment within 6 months or palliative: No Wells' PE Score total: 1.5 Quality VTE Deep Vein Thrombosis/Pulmonary Embolism Present on Admission: No MIPS - Admit I confirm the patient?s Advance Care Plan is present, Code status is documented, Surrogate decision maker is in patient?s record [If Yes, STOP here]: Yes MIPS - DC The patient has current or prior documentation of left ventricular ejection fraction (LVEF) less than 40%, or moderate or severely depressed left ventricular systolic function.: No
[2021-09-02] VITALS (7 sets, daily range): BP systolic 144–189; BP diastolic 60–89; PULSE 56–74; RESP 16–20; TEMP 36.2–36.8; O2SAT 93–96
--- NOTE | 2021-09-02 | DI.ECHO.S_ITS ---
[facility] +---------+ : : [address] [place] [address] : : : : [id number] : : : : Phone: [phone] Echocardiogram Report + + :Name: JESSICA BULL Study Date: 09/02/2021 Height: 61 in : :[facility] ReadingLocation: Weight: 145 lb : : Gender: Female BSA: 1.6 m2 : :: 1935 Age: 85 yrs BP: 189/86 mmHg: :Reason For Study: Congestive Heart Failure : :Ordering Physician: OFELIA, : :AROLDO Performed By: Jani Robles : :Referring: AROLDO GILBERT : + + Interpretation Summary Normal sinus rhythm. Normal LV size and wall thickness. Normal wall motion and LV systolic function. Ejection fraction is 55-60%. Stage II diastolic dysfunction with pseudo normalized E/A wave, pulmonary vein diastolic flow predominance and E/e' prime ratio of 20. Severe left atrial enlargement. Otherwise normal chamber sizes. Mild mitral annular calcification with mild associated MR. Mild TR. Estimated pulmonary artery systolic pressure is 71 mm Hg assuming RA pressure of 8 mm Hg. Compared to prior study performed May 24, 2015, in [facility], diastolic dysfunction is newly described as being stage 2. This may be due to the fact that diastology evaluation was incomplete on prior echo. PA systolic pressure is up from 40mmHg to 71 mmHg which could be due to progressive diastolic dysfunction or pulmonary arterial hypertension. Procedure: A two-dimensional transthoracic echocardiogram with color flow and Doppler was performed. The study quality was technically adequate. Comparison is made with the echocardiogram of 05/24/2015. The patient was in normal sinus rhythm during the exam. Left Ventricle: The left ventricle is normal in size and wall thickness. Left ventricular systolic function is normal. The ejection fraction is estimated to be 60-65%. There are no focal wall motion abnormalities. Diastolic parameters suggest a restrictive filling pattern consistent with probable significantly elevated filling pressures. Right Ventricle: The right ventricle is normal in size and function. Atria: The left atrium is severely dilated. Right atrial size is normal. The interatrial septum grossly appears intact with no obvious evidence for an atrial septal defect. Mitral Valve: There is moderate mitral annular calcification. There is mild mitral regurgitation. Aortic Valve: The aortic valve is normal in structure and function. No aortic regurgitation is present. Tricuspid Valve: The tricuspid valve is normal in structure and function. There is mild tricuspid regurgitation. The right ventricular systolic pressure is estimated to be at least 71 mmHg based on an estimated right atrial pressure of 8 mm Hg. Pulmonic Valve: The pulmonic valve is normal in structure and function. There is trace pulmonic regurgitation. Great Vessels: The aortic root is normal size. The dimensions of the ascending aorta are normal. The IVC is dilated (diameter is greater than 2.1 cm) yet it collapses greater than 50% with a sniff. This suggests a right atrial pressure of 8 mm Hg. Pericardium/ Pleura There is no pericardial effusion. There is no pleural effusion. MMode/2D Measurements & Calculations LVIDd: 4.5 cm LVOT diam: 1.8 cm LVIDs: 2.9 cm Ao root diam: 2.8 cm FS: 36.4 % asc Aorta Diam: 3.1 cm IVSd: 1.0 cm LVPWd: 1.0 cm LV chang. diameter/BSA (cm/m^2): 2.8 LV sys. diameter/BSA (cm/m^2): 1.8 LA A2 area: 23.5 cm2 RA long axis: 5.0 cm LA A4 area: 32.8 cm2 RA area: 16.9 cm2 LA length (vol): 6.9 cm RA vol: 48.8 ml LA vol: 94.4 ml RA : 29.6 ml/m2 LA vol index: 57.3 ml/m2 IVC diam: 2.6 cm TAPSE: 2.0 cm Doppler Measurements & Calculations Ao V2 max: 118.9 cm/sec LVOT Max Masood: 92.8 cm/sec Ao V2 mean: 83.4 cm/sec LV V1 max P.4 mmHg Ao max P.7 mmHg LV V1 VTI: 19.8 cm Ao mean P.0 mmHg LARISA(I,D): 2.2 cm2 Ao V2 VTI: 23.6 cm LARISA(V,D): 2.0 cm2 sev ratio: 0.84 LARISA indexed to BSA (cm^2/m^2): 1.3 MV E max masood: 90.9 cm/sec TR max masood: 396.6 cm/sec MV A max masood: 27.8 cm/sec TR max P.9 mmHg MV E/A: 3.3 Med Peak E' Masood: 4.6 cm/sec E/E' med: 20.0 Lat Peak E' Masood: 7.2 cm/sec E/E' lat: 12.6 E/e' average: 16.3 MV dec time: 0.13 sec SV(OT): 51.5 ml Electronically signed by: Madelaine Brooks M.D. on [place] Physician:09/02/2021 05:23 PM
[2021-09-02] MEDS: cefTRIAXone 2,000 MG in SODIUM CHLORIDE 0.9% 100 ML 200 MG IV (00:29)
[2021-09-02 05:13] LABS: Add Manual Diff / Slide Review NO; Basophils Absolute Auto 100 /uL (0-100); Basophils Percent Auto 0.7 % (0-2); Eosinophils Absolute Auto 300 /uL (0-450); Eosinophils Percent Auto 4.5 % (2-4); Hematocrit 30.4 % (36-46); Hemoglobin 9.8 g/dL (12.0-16.0); Lymphocytes Absolute Auto 800 /uL (1100-4500); Lymphocytes Percent Auto 10.4 % (25-40); Mean Corpuscular HGB Conc 32.4 % (30-36); Mean Corpuscular Hemoglobin 26.7 PG (26-34); Mean Corpuscular Volume 82.5 fL (80-100); Monocytes Absolute Auto 600 /uL (0-900); Monocytes Percent Auto 8.2 % (3-14); Neutrophils Absolute Auto 5900 /uL (1500-7000); Neutrophils Percent Auto 76.2 % (50-75); Platelet Count 280 X10^3/uL (150-400); Red Blood Cell Count 3.68 X10^6/uL (4.0-5.2); Red Cell Distribution Width 15.8 % (11.6-14.8); White Blood Cell Count 7.8 X10^3/uL (4.5-11.0)
[2021-09-02 05:15] LABS: Alanine Aminotransferase 38 IU/L (<35); Albumin Globulin Ratio 1.3 (1.0-2.8); Alkaline Phosphatase 72 U/L (38-126); Aspartate Aminotransferase 26 IU/L (14-36); Bilirubin Total 0.4 mg/dL (0.2-1.3); Bilirubin Unconjugated 0.4 mg/dL (0.0-1.1); Blood Urea Nitrogen 13 mg/dL (7-17); Calcium 8.9 mg/dL (8.4-10.2); Carbon Dioxide 30 mmol/L (22-32); Chloride 102 mmol/L (98-107); Cholesterol 130 mg/dL (140-199); Estimated Glomerular Filt Rate > 60 mL/min (>60); Globulin 3.1 g/dL (1.7-4.1); Glucose 97 mg/dL (80-110); HDL Cholesterol 26 mg/dL (40-60); HEMOLYSIS < 15 (0-50); LDL Cholesterol Calculated 87 mg/dL (<100); Magnesium 1.8 mg/dL (1.6-2.3); Potassium 3.2 mmol/L (3.4-5.1); Sodium 139 mmol/L (137-145); Total Protein 7.1 g/dL (6.3-8.2); Triglycerides 87 mg/dL (35-150)
--- NOTE | 2021-09-02 08:28 | P.PN_ITS ---
Subjective Subjective Date Patient Seen: 09/02/21 Time Patient Seen: 16:00 Interval history: Patient states she is feeling much better in terms of her breathing but is wondering when she can go home. is at bedside. I called Dr. Pickett her anesthesiology teacher while in the room and he recommended keeping her overnight to transition to oral Lasix and monitor her electrolytes. Exam Vital Signs (past 8 hours): - 09/02/21 06:00 Temperature 97.1 F L Pulse Rate 74 Respiratory Rate 17 Blood Pressure 189/86 H Pulse Oximetry 96 Oxygen Flow Rate 2 Oxygen Delivery Method Nasal Cannula Oxygen Flow Rate 2 Narrative Exam Narrative: Gen: Alert, oriented, well-developed 85 y.o. female, NAD HEENT: normocephalic, atraumatic, conjunctiva clear, sclera non-icteric, oral mucosa pink and moist Neck: supple, full ROM, no JVD, trachea is midline Resp: crackles now gone, CTA bilaterally, non-labored breathing CV: irregularly irregular, no murmur or rubs Abd: soft, non-tender, normoactive BTs Skin: no lesions or rashes, dry and intact Neuro: Alert and oriented X 4 w/no focal deficits. Speech clear and coherent. Extremities: moves all 4 extremities, is ambulatory, negative Edel?s sign Psyche: normal mood and affect. Objective Labs Result Diagrams: 09/02/21 04:45 09/02/21 04:45 Labs: Laboratory Results - last 24 hr 09/01/21 09/01/21 09/01/21 16:46 16:46 16:46 WBC 6.3 RBC 3.55 L Hgb 9.6 L Hct 29.7 L MCV 83.8 MCH 27.1 MCHC 32.4 RDW 16.1 H Plt Count 285 Neut % (Auto) 64.2 Lymph % (Auto) 19.2 L [place] % (Auto) 8.9 Eos % (Auto) 6.8 H Baso % (Auto) 0.9 Neut # (Auto) 4000 Lymph # (Auto) 1200 [place] # (Auto) 600 Eos # (Auto) 400 Baso # (Auto) 100 PT 18.2 H INR 1.6 H Sodium 138 Potassium 3.4 Chloride 102 Carbon Dioxide 30 BUN 17 Creatinine 0.97 Estimated GFR 58 L BUN/Creatinine Ratio 17.5 Glucose 149 H Calcium 8.9 Magnesium 2.0 Total Bilirubin 0.5 Conjugated Bilirubin Unconjugated Bilirubin AST 28 ALT 39 H Alkaline Phosphatase 67 Total Creatine Kinase 63 CK-MB (CK-2) TNP CK-MB (CK-2) Rel Index TNP Troponin I 0.012 NT-Pro-B Natriuret Pep 2990 H Total Protein 6.9 Albumin 3.8 Globulin 3.1 Albumin/Globulin Ratio 1.2 Triglycerides Cholesterol LDL Cholesterol, Calc HDL Cholesterol TSH Urine RBC Urine WBC Ur Squamous Epith Cells Urine Bacteria Ur Culture Indicated? SARS-CoV-2 (PCR) Blood Type Antibody Screen 09/01/21 09/01/21 09/01/21 17:07 17:24 18:16 WBC RBC Hgb Hct MCV MCH MCHC RDW Plt Count Neut % (Auto) Lymph % (Auto) [place] % (Auto) Eos % (Auto) Baso % (Auto) Neut # (Auto) Lymph # (Auto) [place] # (Auto) Eos # (Auto) Baso # (Auto) PT INR Sodium Potassium Chloride Carbon Dioxide BUN Creatinine Estimated GFR BUN/Creatinine Ratio Glucose Calcium Magnesium Total Bilirubin Conjugated Bilirubin Unconjugated Bilirubin AST ALT Alkaline Phosphatase Total Creatine Kinase CK-MB (CK-2) CK-MB (CK-2) Rel Index Troponin I NT-Pro-B Natriuret Pep Total Protein Albumin Globulin Albumin/Globulin Ratio Triglycerides Cholesterol LDL Cholesterol, Calc HDL Cholesterol TSH Urine RBC 0-1/hpf Urine WBC 5-10/hpf H Ur Squamous Epith Cells 0-1 /hpf Urine Bacteria Many (>30) H Ur Culture Indicated? Specimen cultured SARS-CoV-2 (PCR) Negative Blood Type A Positive Antibody Screen Negative 09/01/21 09/01/21 09/02/21 19:05 19:05 04:45 WBC 7.8 RBC 3.68 L Hgb 9.8 L Hct 30.4 L MCV 82.5 MCH 26.7 MCHC 32.4 RDW 15.8 H Plt Count 280 Neut % (Auto) 76.2 H Lymph % (Auto) 10.4 L [place] % (Auto) 8.2 Eos % (Auto) 4.5 H Baso % (Auto) 0.7 Neut # (Auto) 5900 Lymph # (Auto) 800 L [place] # (Auto) 600 Eos # (Auto) 300 Baso # (Auto) 100 PT INR Sodium Potassium Chloride Carbon Dioxide BUN Creatinine Estimated GFR BUN/Creatinine Ratio Glucose Calcium Magnesium Total Bilirubin Conjugated Bilirubin Unconjugated Bilirubin AST ALT Alkaline Phosphatase Total Creatine Kinase CK-MB (CK-2) CK-MB (CK-2) Rel Index Troponin I 0.014 NT-Pro-B Natriuret Pep Total Protein Albumin Globulin Albumin/Globulin Ratio Triglycerides Cholesterol LDL Cholesterol, Calc HDL Cholesterol TSH 1.37 Urine RBC Urine WBC Ur Squamous Epith Cells Urine Bacteria Ur Culture Indicated? SARS-CoV-2 (PCR) Blood Type Antibody Screen 09/02/21 04:45 WBC RBC Hgb Hct MCV MCH MCHC RDW Plt Count Neut % (Auto) Lymph % (Auto) [place] % (Auto) Eos % (Auto) Baso % (Auto) Neut # (Auto) Lymph # (Auto) [place] # (Auto) Eos # (Auto) Baso # (Auto) PT INR Sodium 139 Potassium 3.2 L Chloride 102 Carbon Dioxide 30 BUN 13 Creatinine 0.81 Estimated GFR > 60 BUN/Creatinine Ratio 16.0 Glucose 97 Calcium 8.9 Magnesium 1.8 Total Bilirubin 0.4 Conjugated Bilirubin 0.0 Unconjugated Bilirubin 0.4 AST 26 ALT 38 H Alkaline Phosphatase 72 Total Creatine Kinase CK-MB (CK-2) CK-MB (CK-2) Rel Index Troponin I NT-Pro-B Natriuret Pep Total Protein 7.1 Albumin 4.0 Globulin 3.1 Albumin/Globulin Ratio 1.3 Triglycerides 87 Cholesterol 130 L LDL Cholesterol, Calc 87 HDL Cholesterol 26 L TSH Urine RBC Urine WBC Ur Squamous Epith Cells Urine Bacteria Ur Culture Indicated? SARS-CoV-2 (PCR) Blood Type Antibody Screen [facility] Medical History Age-related cognitive decline Anticoagulated Anxiety Cataract Cervical somatic dysfunction Chicken pox Chronic bilateral back pain Chronic headaches Chronic, continuous use of opioids Closed L2 vertebral fracture Colon polyps Cranial somatic dysfunction CTS (carpal tunnel syndrome) Depression Facet arthropathy, lumbar Fatigue GERD (gastroesophageal reflux disease) Hearing loss Lumbar region somatic dysfunction Lumbosacral spondylosis with radiculopathy Measles Mumps Pelvic relaxation Pelvic somatic dysfunction PTSD (post-traumatic stress disorder) Sacral region somatic dysfunction Scoliosis of cervical region due to degenerative disease of spine in adult Segmental and somatic dysfunction of abdomen and other regions Segmental and somatic dysfunction of rib cage Sleep apnea T12 compression fracture Thoracic region somatic dysfunction TIA (transient ischemic attack) Upper extremity somatic dysfunction Surgical History Anesthesia History of carpal tunnel surgery of left wrist History of colonoscopy History of ear surgery (1981) History of ear surgery (1974) History of knee replacement (2008) History of knee replacement (2012) Hx of appendectomy Status post breast lumpectomy (1982) Status post cataract extraction of both eyes with insertion of intraocular lens Status post hysterectomy (1979) Family History Child Age: 60 Mental health problem Father Heart disease Stroke Myocardial infarction Grandmother Cancer Grandfather Pneumonia Grandmother No problems noted. Mother Brainstem hemorrhage Brain bleed Social History household members: spouse Smoking Status: Never smoker alcohol intake: current Assessment & Plan Assessment & Plan narrative: Swathi Quevedo is admitted for an acute on chronic CHF exacerbation. Acute on chronic HFpEF exacerbation with pulmonary hypertension, present on admission -Prev echo in 2018 with EF 50-55%, new echo today 09/02 shows EF 55-60% with grade 2 diastolic dysfunction and RVSP 71 -Pulm HTN likely secondary to untreated MARIOLA, patient diagnosed 8 years ago but h asn't used CPAP -Continue Carvedilol 25 mg po bid -Diuresed well with IV Lasix 40mg BID, transition to 40mg po lasix daily -Monitor electrolytes -Strict I/O's and daily weights -Called Dr. Pickett pt's anesthesiology teacher who recommended po lasix and he will expedite outpatient sleep study Acute hypoxic respiratory failure, resolved -Initially ahd sats of 85% on room air, required 2L O2 -O2 now weaned off with diuresis -Monitor sats -CPAP at night due to underlying untreated MARIOLA MARIOLA, chronic -Patient not using CPAP despite diagnosis 8 years ago -Will have outpatient sleep study in Oct -Dr. Pickett working to move this appt up Paroxsysmal Atrial fibrillation, chronic -Chads vasc 2 score is 6 -Underwent cardioversion in 2020 and July [address] Pickett at [facility] -She is anticoagulated on pradaxa which will be continued Essential hypertension, suboptimally controlled -continue home amlodipine -increase dose to 10mg qd as hypertensive throughout admission Hypokalemia, acute -K 3.2 -Replete and monitor Acute anemia, unknown cause -H and H is 9.6 and 29.7, in early August it was 11.0 and 33.3 respectively, prior years she was normal -Monitor CBC daily -Monitor for bleeding while on pradaxa Asymptomatic UTI -She had presence of pyuria on UA -Due to fatigue, will start IV ceftriaxone x3 days VTE Prophylaxis: Wells risk score 1.5 pharmacological anticoagulation contraindicated as patient is anticoagulated on Pradaxa X Bilateral SCDs Dispo: Home 09/03. Code status: Full code as discussed with the patient who identifies her Bill as her surrogate and POA. [X] I have utilized all available immediate resources to obtain, update, or review of the patient's current medications COVID-19 COVID-19 status: Negative Result date/Date tested (Pos, Neg/Pending): 09/01/21 Time Spent With Patient Critical Care time: I spent a total of [] minutes of critical care time on this patient's care today; this time is exclusive of procedural time. Quality VTE Deep Vein Thrombosis/Pulmonary Embolism Present on Admission: No
[2021-09-02] MEDS: FUROSEMIDE 20 MG/2 ML VIAL 40 MG IV (08:34)
[2021-09-02] MEDS: ACETAMINOPHEN 325 MG TABLET 650 MG PO ×2 (08:34→21:20)
[2021-09-02] MEDS: POTASSIUM CHLORIDE 20 MEQ TAB 40 MEQ PO (09:06)
[2021-09-02] MEDS: MAGNESIUM SULFATE 2 GM/50 ML PIGGYBACK IV (09:12)
[2021-09-02] MEDS: MAG HYDROX/ALUMINUM/SIMETH SUS 20 ML, LIDOCAINE VISCOUS 2% 15 ML PO (10:30)
[2021-09-02] MEDS: DABIGATRAN 75 MG CAPSULE 150 MG PO ×2 (10:43→21:21)
[2021-09-02] MEDS: carvediloL 12.5 MG TABLET 25 MG PO ×2 (10:43→21:20)
[2021-09-02] MEDS: AMLODIPINE 5 MG TABLET PO ×2 (10:44→23:09)
[2021-09-02] MEDS: FLECAINIDE 100 MG TABLET PO ×2 (10:45→21:20)
[2021-09-02] MEDS: PARoxetine 20 MG TABLET PO ×2 (10:52→10:53)
[2021-09-02] MEDS: PANTOPRAZOLE DR 40 MG TABLET PO (10:54)
--- NOTE | 2021-09-02 12:40 | CM.DANOTE ---
DCP Assessment: Payor: Lovely PCP: Vlad Hernandez MD Pt is a 85 y.o. F who presented to the ER with complaint of increasing weakness and SOB. Pt has a history of a-fib, CHF, GERD, and sleep apnea. Pt states that she has a cardioversion x3 with Dr. Pickett @ [facility] recently. Pt was admitted as an inpatient for management of acute exacerbation of CHF. DCP went to meet with pt this morning. Pt unable to communicate with DCP. OTOLARYNGOLOGY TEACHER verbalized to DCP that she is hard of hearing. Pt was not opening her eyes for DCP. DCP to contact pt spouse for further information. DCP attempted to contact Mateo, pt spouse, to inquire about pt home activity level and independence. Unable to get ahold of him. DCP left messages on both phone numbers listed. DCP to continue to follow up/follow case. Vangie Mccormack RN/BEN Discharge Planning/Care Management CM Discharge Assessment Start: 09/02/21 12:40 Freq: Status: Active Protocol: Document 09/02/21 12:40 MIREYA (Rec: 09/02/21 12:40 [id number]) Discharge Planning Assessment Assigned Flue Cleaner Vangie Mccormack RN/BEN Advance Directives? No: Declines further information Advance Directives on File No History Provided By Medical Record Household Members spouse Comment Unable to obtain info. Comment none determined at time of initial assessment Whiteboard Updated in Patient Room with Yes name and ext. # of Flue Cleaner Review Status In Process Please Provide Date Initial DC 09/02/21 Assessment Was Performed Next Review Type Continued Stay Review
[2021-09-02] MEDS: FUROSEMIDE 40 MG TABLET PO (16:53)
--- NOTE | 2021-09-02 17:17 | PC.NURSE ---
Pt is A&Ox3. Slightly SOB with exertion, VSS, afebrile. Initially she is on 2 LNC with activity but is weaned to RA and tolerating well. She ambulates with steady gait in her room. She had complaints of epigastric pain resolved with maalox and lidocaine and slept quite a bit throughout the day. Per night RN and patient she did not sleep well during the night due to diuresing. She continues to have very large amount of output, clear yellow urine. No edema noted. LS diminished in bases, clear. supportive at bedside.
[2021-09-02] MEDS: cefTRIAXone 1,000 MG in SODIUM CHLORIDE 0.9% 100 ML 200 MG IV (21:21)
[2021-09-02] MEDS: SODIUM CHLORIDE 0.9% FLUSH 10 ML IV (22:22)
--- NOTE | 2021-09-02 22:38 | RT ---
Patient set up on Auto CPAP 5 to 15. Patient placed on than refused to wear it.
[2021-09-03] VITALS: BP 148/78; PULSE 60; RESP 14; TEMP 36.8; O2SAT 98
--- NOTE | 2021-09-03 03:07 | PC.NURSE ---
Addendum entered by Taniya Dixon R.N. 09/03/21 03:11: Patient intermittently yelling out in her sleep through the night. Original Note: RT up to apply CPAP, patient wore for < 5 minutes then refused. GRETTA Peres and respiratory therapy notified. Patient desatted to mid 80's, administered 2L oxygen via nasal cannula, O2 sat 96%.
[2021-09-03 05:36] LABS: Add Manual Diff / Slide Review NO; Basophils Absolute Auto 0 /uL (0-100); Basophils Percent Auto 0.7 % (0-2); Eosinophils Absolute Auto 300 /uL (0-450); Eosinophils Percent Auto 4.4 % (2-4); Hematocrit 33.6 % (36-46); Hemoglobin 10.9 g/dL (12.0-16.0); Lymphocytes Absolute Auto 900 /uL (1100-4500); Lymphocytes Percent Auto 13.8 % (25-40); Mean Corpuscular HGB Conc 32.6 % (30-36); Mean Corpuscular Hemoglobin 26.9 PG (26-34); Mean Corpuscular Volume 82.6 fL (80-100); Monocytes Absolute Auto 600 /uL (0-900); Monocytes Percent Auto 9.1 % (3-14); Neutrophils Absolute Auto 5000 /uL (1500-7000); Platelet Count 325 X10^3/uL (150-400); Red Blood Cell Count 4.07 X10^6/uL (4.0-5.2); Red Cell Distribution Width 15.8 % (11.6-14.8); White Blood Cell Count 6.9 X10^3/uL (4.5-11.0)
[2021-09-03] MEDS: ACETAMINOPHEN 325 MG TABLET 650 MG PO (05:43)
[2021-09-03 06:00] VITALS: BP 142/64; PULSE 64; RESP 16; TEMP 36.7; O2SAT 94
[2021-09-03] MEDS: PANTOPRAZOLE DR 40 MG TABLET PO (06:03)
[2021-09-03 06:07] LABS: BUN Creatinine Ratio 18.8 (6-22); Blood Urea Nitrogen 16 mg/dL (7-17); Calcium 9.2 mg/dL (8.4-10.2); Carbon Dioxide 32 mmol/L (22-32); Chloride 103 mmol/L (98-107); Estimated Glomerular Filt Rate > 60 mL/min (>60); Glucose 104 mg/dL (80-110); HEMOLYSIS < 15 (0-50); Magnesium 2.4 mg/dL (1.6-2.3); Potassium 3.6 mmol/L (3.4-5.1); Sodium 142 mmol/L (137-145)
[2021-09-03] MEDS: carvediloL 12.5 MG TABLET 25 MG PO (08:52)
[2021-09-03] MEDS: POTASSIUM CHLORIDE 20 MEQ TAB PO (08:52)
[2021-09-03] MEDS: AMLODIPINE 5 MG TABLET 10 MG PO (08:53)
[2021-09-03] MEDS: FUROSEMIDE 40 MG TABLET PO (08:53)
[2021-09-03] MEDS: DABIGATRAN 75 MG CAPSULE 150 MG PO (08:53)
[2021-09-03] MEDS: FLECAINIDE 100 MG TABLET PO (08:53)
[2021-09-03] MEDS: SODIUM CHLORIDE 0.9% FLUSH 10 ML IV (09:00)
--- NOTE | 2021-09-03 10:44 | PC.NURSE ---
Day shift: Pt left unit at approx 1035 via WC. Spouse is driving her home. Paperwork signed and all questions answered. RA 96%. No SOB and Pt steady on feet this AM. Denies any pain or nausea. Denies chest pain also. Encouraged to f/u with PCP and figure something out soon for MARIOLA and CPAP use. scripts sent electronic. Pt encouraged to take her meds as directed.
--- NOTE | 2021-09-03 10:50 | PM.DS.1 ---
History of Present Illness History of Present Illness Date Patient Seen: 09/03/21 Time Patient Seen: 14:00 Chief complaint: weakness Narrative: Swathi Quevdeo is an 85 y.o. female with a history of atrial fibrillation anticoagulated on Pradaxa, CHF, gerd, untreated obstructive sleep apnea who presented emergency department with complaint of increased weakness and shortness of breath.? Patient states that she had a cardioversion on August 30.? She has had worsening exertional dyspnea since then with fatigue and has been sleeping all day, stated she can only negotiate 50 steps before getting winded.? She denies chest pain or pressure, or syncope.? She was hypoxic upon arrival and with ambulation and improved with O2.? Patient does not normally use home O2.? She denies any diaphoresis.? No nausea or vomiting, has chronic generalized abdominal pain, no dysuria urgency or frequency, diarrhea or constipation.? She has not appreciate any new swelling in her extremities.? She states she has had issues with swelling in the past she was given Lasix before her cardioversion or a similar diuretic. CTA of the chest reported Moderate right pleural effusion and small left pleural effusion are seen with adjacent compressive atelectasis in posterior aspect of bilateral lung tatum.?Hazy ground-glass opacities are seen throughout bilateral lung tatum suggestive of pulmonary edema versus pneumonitis.? Scattered atelectasis in periphery of bilateral lung tatum are seen. Heart is enlarged and with enlarged mediastinal lymph nodes, she has had a history of a substernal goiter in 2018 which is enlarged compared to then with trace amount of ascites in the right upper quadrant of the abdomen.? She is afebrile, blood pressure is elevated at 180 9/82, heart rate 68, respiratory rate 17, oxygen saturation of 97% on 2 L she weighs 65.9 kg with a BMI of 27.4.? She is mildly anemic with a hemoglobin and hematocrit of 9.6 and 29.7 she has a normal white count, platelet count is 285, glucose is 149, ALT 39, proBNP is 3000, she has wbc's in her urine and many bacteria but negative for nitrates, COVID-19 PCR is negative. Patient last seen by Dr. Pickett and was cardioverted on 2 days ago. Her last echo in this chart is from 2019 where she had an LEVF of 50% with a severely dilated left atrium. Discharge Providers Provider Date of admission: 09/01/21 18:55 Discharge Date: 09/03/21 Primary care physician: Vlad Hernandez DO Discharge provider: Joby Bush DO Summary Hospital Course Discharge Diagnosis: Acute on chronic HFpEF exacerbation with pulmonary hypertension, present on admission -Prev echo in 2018 with EF 50-55%, new echo today 09/02 shows EF 55-60% with grade 2 diastolic dysfunction and RVSP 71 -Pulm HTN likely secondary to untreated MARIOLA, patient diagnosed 8 years ago but hasn't used CPAP -Continue Carvedilol 25 mg po bid -Diuresed well with IV Lasix 40mg BID, transition to 40mg po lasix daily -Monitor electrolytes -Strict I/O's and daily weights -Called Dr. Pickett pt's second crusher who recommended po lasix and he will expedite outpatient sleep study Acute hypoxic respiratory failure, resolved -Initially ahd sats of 85% on room air, required 2L O2 -O2 now weaned off with diuresis -Monitor sats -CPAP at night due to underlying untreated MARIOLA MARIOLA, chronic -Patient not using CPAP despite diagnosis 8 years ago -Will have outpatient sleep study in Oct -Dr. Pickett working to move this appt up Paroxsysmal Atrial fibrillation, chronic -Chads vasc 2 score is 6 -Underwent cardioversion in 2020 and July [address] Pickett at [facility] -She is anticoagulated on pradaxa which will be continued Essential hypertension, suboptimally controlled -continue home amlodipine -increase dose to 10mg qd as hypertensive throughout admission Hypokalemia, acute -K 3.2 -Replete and monitor Acute anemia, unknown cause -H and H is 9.6 and 29.7, in early August it was 11.0 and 33.3 respectively, prior years she was normal -Monitor CBC daily -Monitor for bleeding while on pradaxa Asymptomatic UTI -She had presence of pyuria on UA -Due to fatigue, will start IV ceftriaxone x3 days Hospital Course: Patient was admitted for dyspnea and hypoxia. She recieved IV lasix with improvement in her breathing and able to wean off O2. Blood pressure was elevated so her amlodipine was increased to 10mg. Echo showed pulm HTN with RVSP 71 which was felt to be from undelying untreated MARIOLA. This was the likely source of her her dyspnea as her high blood pressure caused immediate fluid retention. Her second crusher Dr. Pickett was contacted who recommended she discharge on oral lasix and he would attempt to get her seen at the outpatient sleep center [facility] for management of her MARIOLA. Patient could not tolerate CPAP overnight as she felt the mask was too uncomfortable. She will likely need a nasal mask instead in the future. Exam Vital Signs (past 8 hours): Oxygen Delivery Method Room Air Oxygen Flow Rate 2 Narrative Exam Narrative: Gen: Alert, oriented, well-developed 85 y.o. female, NAD HEENT: normocephalic, atraumatic, conjunctiva clear, sclera non-icteric, oral mucosa pink and moist Neck: supple, full ROM, no JVD, trachea is midline Resp: crackles now gone, CTA bilaterally, non-labored breathing CV: irregularly irregular, no murmur or rubs Abd: soft, non-tender, normoactive BTs Skin: no lesions or rashes, dry and intact Neuro: Alert and oriented X 4 w/no focal deficits. Speech clear and coherent. Extremities: moves all 4 extremities, is ambulatory, negative Edel?s sign Psyche: normal mood and affect. Objective Labs Result Diagrams: 09/03/21 05:30 09/03/21 05:30 [facility] Medical History Age-related cognitive decline Anticoagulated Anxiety Cataract Cervical somatic dysfunction Chicken pox Chronic bilateral back pain Chronic headaches Chronic, continuous use of opioids Closed L2 vertebral fracture Colon polyps Cranial somatic dysfunction CTS (carpal tunnel syndrome) Depression Facet arthropathy, lumbar Fatigue GERD (gastroesophageal reflux disease) Hearing loss Lumbar region somatic dysfunction Lumbosacral spondylosis with radiculopathy Measles Mumps Pelvic relaxation Pelvic somatic dysfunction PTSD (post-traumatic stress disorder) Sacral region somatic dysfunction Scoliosis of cervical region due to degenerative disease of spine in adult Segmental and somatic dysfunction of abdomen and other regions Segmental and somatic dysfunction of rib cage Sleep apnea T12 compression fracture Thoracic region somatic dysfunction TIA (transient ischemic attack) Upper extremity somatic dysfunction Surgical History Anesthesia History of carpal tunnel surgery of left wrist History of colonoscopy History of ear surgery (1981) History of ear surgery (1974) History of knee replacement (2008) History of knee replacement (2012) Hx of appendectomy Status post breast lumpectomy (1982) Status post cataract extraction of both eyes with insertion of intraocular lens Status post hysterectomy (1979) Family History Child Age: 60 Mental health problem Father Heart disease Stroke Myocardial infarction Grandmother Cancer Grandfather Pneumonia Grandmother No problems noted. Mother Brainstem hemorrhage Brain bleed Social History household members: spouse Smoking Status: Never smoker alcohol intake: current Discharge Plan Discharge Plan Patient Disposition: Home Provider Discharge Comment: You were admitted for shortness of breath and found to have low oxygen levels. We believe this is due to water retention in your lungs so we gave you medications to be off all the extra fluid which improved her breathing and you were able to come off supplemental oxygen. Your blood pressure was also contributing to this as it was quite high so I have increased your amlodipine to 10 mg daily from 5 mg. Urine now on in oral water pill called Lasix which you should take daily as well as a potassium supplement because you had low potassium in the hospital. Your heart ultrasound showed good function but high pulmonary pressures which is likely from your untreated sleep apnea. He will likely need a CPAP machine to wear at night so Dr. Pickett is working on getting you a sooner appointment with the Sleep Center. Follow-up with Dr. Pickett in clinic soon. Discharge orders & Medications Prescriptions: New amlodipine [Norvasc] 10 mg tablet 10 mg PO DAILY 90 Days Qty: 90 0RF furosemide 40 mg Tablet 40 mg PO DAILY 90 Days Qty: 90 0RF potassium chloride [Klor-Con M20] 20 mEq Tablet,Er Particles/Crystals 20 meq PO DAILYCC 90 Days Qty: 90 0RF Continued omeprazole 20 mg capsule,delayed release(/EC) See Rx Instructions .ROUTE .COMPLEX Qty: 90 3RF Dose Instruction: Take 1 capsule (20 mg) by mouth every morning Rx Instructions: Take 1 capsule (20 mg) by mouth every morning paroxetine HCl 20 mg tablet See Rx Instructions .ROUTE .COMPLEX Qty: 90 3RF Dose Instruction: take 3 tablets by mouth daily Rx Instructions: take 3 tablets by mouth daily hydrocodone-acetaminophen 10-325 mg tablet See Rx Instructions .ROUTE .COMPLEX Qty: 120 0RF Rx Instructions: Take 1 tablet by mouth every 6 hours as needed for pain flecainide 100 mg tablet 100 mg PO BID Pradaxa 150 mg capsule 150 mg PO BID Qty: 180 3RF carvedilol [Coreg] 25 mg tablet 25 mg PO BID Qty: 60 0RF Rx Instructions: must administer with a meal/food Discontinued amlodipine 5 mg tablet See Rx Instructions .ROUTE .COMPLEX Qty: 90 3RF Dose Instruction: Take 1 tablet (5 mg) by mouth every morning Rx Instructions: Take 1 tablet (5 mg) by mouth every morning Follow up/Referrals: Jeff Pickett MD [Physician] - (Please follow-up with patient in clinic in 2-3 weeks.) Vlad Hernandez DO [Primary Care Provider] - Visit Report/Discharge Packet Instructions: Sleep Apnea, DI for Heart Failure, DI for Pulmonary Arterial Hypertension-Adult Discharge Data Primary Care Provider: Vlad Hernandez Quality VTE Deep Vein Thrombosis/Pulmonary Embolism Present on Admission: No
== END 2021-09-03 11:11 | disposition home or self-care (01) | DRG 291 ==
LOC: ED 18:43 → AC 18:56
PROVIDERS: Nurse Practitioner Critical Care Medicine; Nurse Practitioner Family; Admitting Provider Student in an Organized Health Care Education/Training Program; Emergency Provider Emergency Medicine; PCP Family Medicine; Referring Provider Emergency Medicine; Visit Provider Student in an Organized Health Care Education/Training Program
DX: I11.0 Hypertensive heart disease with heart failure (principal); I50.33 Acute on chronic diastolic (congestive) heart failure; J96.01 Acute respiratory failure with hypoxia; R82.81 Pyuria; D64.9 Anemia, unspecified; I48.0 Paroxysmal atrial fibrillation; Z79.01 Long term (current) use of anticoagulants; K21.9 Gastro-esophageal reflux disease without esophagitis; G47.33 Obstructive sleep apnea (adult) (pediatric); I27.20 Pulmonary hypertension, unspecified; E87.6 Hypokalemia; Z20.822 Contact with and (suspected) exposure to COVID-19
CPT/HCPCS: 36415; 71045; 71275; 80048; 80053; 80061; 80076; 81003; 81015; 82272; 82550; 83735; 83880; 84443; 84484; 85025; 85610; 86850; 86900; 86901; 87077; 87086; 87186; 87635; 93005; 93010; 93306; 94762; 96374; 99285; C9803; J0696; J1940; J3475

== ENCOUNTER → 2021-09-14 07:52 | Outpatient (CLI) | payer OTHER, SELFPAY ==
[2021-07-25 09:51] VITALS: BMI 28.0
[2021-09-01 20:57] VITALS: BMI 27.4
== END ==
PROVIDERS: PCP Family Medicine; Referring Provider Physician Assistant; Visit Provider Physician Assistant
DX: I48.0 Paroxysmal atrial fibrillation (principal)

== ENCOUNTER → 2021-09-26 09:50 | Outpatient (CLI) | payer OTHER, SELFPAY ==
[2021-07-25 09:51] VITALS: BMI 28.0
[2021-09-01 20:57] VITALS: BMI 27.4
[2021-09-26 12:15] LABS: COVID19 -Nasal RAPID Negative (Negative)
--- NOTE | 2021-09-26 19:27 | DI.NM.S_ITS ---
DATE OF SERVICE: 09/26/2021 PROCEDURE PERFORMED: Pharmacological perfusion study. INDICATION: The patient is on flecainide for paroxysmal AFib with underlying hypertension and hyperlipidemia. Perfusion study is being done for CAD risk stratification. RADIOPHARMACEUTICAL: 26.5 millicurie technetium-99m Myoview IV was injected at stress and 12.0 millicurie technetium-99m Myoview IV was injected at rest. CARDIAC STRESS: The patient underwent IV Lexiscan perfusion study under the supervision of an attending staff using standard protocol. The patient remained hemodynamically stable. Baseline rhythm was sinus with mild sinus bradycardia. Heart rate about 55 with left ventricular hypertrophy and T-wave inversion in leads V4 to V6, as well as inferior leads, with some nonspecific ST depression. Likely strain pattern. During stress, there was no new inducible ischemia or significant arrhythmias. The patient has some dull achiness and dyspnea during Lexiscan, which got resolved in recovery without any reversal agents. RAW DATA: Significant breast shadow was seen. GATED STUDY: Resting LV ejection fraction 76 percent and stress LV ejection fraction 83 percent without any obvious wall motion abnormalities. Resting end- diastolic volume 82 mL. TID ratio 1.10, which is within normal limits. Lung/heart ratio 0.37, which is within normal limits. MYOCARDIAL PERFUSION SCAN: Please note, this patient does not have any prone images. Stress supine and resting supine images were compared to each other. Stress supine images revealed small size, mildly decreased perfusion of distal anterior wall. However, resting studies show small size, moderately decreased perfusion of distal anterior wall and distal anteroseptum. There is no reversible ischemia. Summed stress score 0 and summed resting score of 1. CONCLUSION: I will call this study a normal myocardial perfusion study with evidence of breast tissue attenuation artifact without any inducible ischemia. The patient does not have any prone images. However, anterior wall is moving well. The stress images appear better than resting images. Overall, summed stress score is 0 and summed rest score is 1. Hence, I will call this study likely a normal myocardial perfusion study. The stress LV ejection fraction is 83 percent. No transient ischemic dilatation. Overall, this is a low-risk myocardial perfusion scan. Swathi Quevedo - MARAYM/[facility] doc#: [id number]/job#: [id number] dd: 09/26/2021 16:52:00 dt: 09/26/2021 19:12:00 DICTATING MD/COPIES TO: Damian Gavin MD COPIES MNE: ALISON;
== END ==
PROVIDERS: PCP Family Medicine; Referring Provider Physician Assistant; Visit Provider Physician Assistant
DX: I48.0 Paroxysmal atrial fibrillation (principal); R94.31 Abnormal electrocardiogram [ECG] [EKG]; I10 Essential (primary) hypertension; E78.5 Hyperlipidemia, unspecified; Z20.822 Contact with and (suspected) exposure to COVID-19
CPT/HCPCS: 78452; 87635; 93017; A9502; J2785

== ENCOUNTER 2022-01-07 09:59 | Emergency (ER) | payer OTHER, SELFPAY ==
[2021-10-28 17:39] VITALS: BMI 27.4
[2022-01-07 10:13] VITALS: BP 151/72; PULSE 56; RESP 15; TEMP 36.3; O2SAT 97; BMI 26.8
--- NOTE | 2022-01-07 10:58 | ED.DENTAL ---
HPI - Dental/Oral General Chief complaint: Dental/Oral Stated complaint: mouth pain x3 days Time Seen by Provider: 01/07/22 10:28 Source: patient Mode of arrival: Ambulatory History of Present Illness HPI Narrative: Patient here with . Complains of posterior mouth/pharyngeal discomfort for the past 3 days. No trouble breathing or trouble swallowing. here for glossitis treatment by his ENT provider, Dr. James Dean/Dr. Alex whittaker locally. He is on dexamethasone swish and swallow steroid medication. Patient does any chest pain or dyspnea. Patient speaking with ease, in no distress. Denies any drooling or trouble swallowing or eating Related Data Home Medications Medication Instructions Recorded Confirmed flecainide 100 mg tablet 100 mg PO BID 08/14/18 11/15/21 Previous Rx's Medication Instructions Recorded dabigatran etexilate 150 mg 150 mg PO BID #180 caps 07/02/18 capsule (Pradaxa) paroxetine HCl 20 mg tablet See Rx Instructions .Route 08/18/21 .COMPLEX #90 tabs hydrocodone 10 mg-acetaminophen See Rx Instructions .Route 11/09/21 325 mg tablet .COMPLEX #120 tabs sennosides 8.6 mg tablet (Senna 8.6 mg PO DAILY PRN constipation 11/14/21 Lax) #90 tabs carvedilol 25 mg tablet (Coreg) 25 mg PO BID #180 tabs 11/29/21 omeprazole 20 mg capsule,delayed See Rx Instructions .Route 11/30/21 release .COMPLEX #90 caps Allergies Allergy/AdvReac Type Severity Reaction Status Date / Time No Known Drug Allergies Allergy Verified 01/07/22 10:13 Review of Systems Review of Systems Narrative: GENERAL: negative chills, fatigue, malaise, fever, sweats. HEENT: negative sinus pain, ear pain, positive sore throat RESPIRATORY: negative dyspnea, cough CARDIOVASCULAR: negative chest pain, palpitations GASTROINTESTINAL: negative nausea, vomiting, abdominal pain : negative dysuria, frequency, hematuria MUSCULOSKELETAL: negative muscle or bony pain SKIN: negative rash, skin lesions NEUROLOGIC: negative weakness, numbness ROS Unobtainable: All systems reviewed & are unremarkable except as noted in HPI and below Patient History Medical History Age-related cognitive decline Anticoagulated Anxiety Cataract Cervical somatic dysfunction CHF (congestive heart failure) Chicken pox Chronic bilateral back pain Chronic headaches Chronic, continuous use of opioids Closed L2 vertebral fracture Colon polyps Cranial somatic dysfunction CTS (carpal tunnel syndrome) Depression Facet arthropathy, lumbar Fatigue GERD (gastroesophageal reflux disease) Hearing loss Lumbar region somatic dysfunction Lumbosacral spondylosis with radiculopathy Measles Mumps Obstructive sleep apnea Pelvic relaxation Pelvic somatic dysfunction PTSD (post-traumatic stress disorder) Sacral region somatic dysfunction Scoliosis of cervical region due to degenerative disease of spine in adult Segmental and somatic dysfunction of abdomen and other regions Segmental and somatic dysfunction of rib cage Sleep apnea T12 compression fracture Therapeutic opioid induced constipation Thoracic region somatic dysfunction TIA (transient ischemic attack) Upper extremity somatic dysfunction Surgical History Anesthesia History of carpal tunnel surgery of left wrist History of colonoscopy History of ear surgery (1981) History of ear surgery (1974) History of knee replacement (2008) History of knee replacement (2012) Hx of appendectomy Status post breast lumpectomy (1982) Status post cataract extraction of both eyes with insertion of intraocular lens Status post hysterectomy (1979) Family History Child Age: 60 Mental health problem Father Heart disease Stroke Myocardial infarction Grandmother Cancer Grandfather Pneumonia Grandmother No problems noted. Mother Brainstem hemorrhage Brain bleed Social History household members: spouse Smoking Status: Never smoker alcohol intake: current Smoking Status: Never smoker alcohol intake frequency: a few times a month Substance Use Type: does not use Exam Narrative Exam Narrative: GENERAL: in no distress, not toxic not dyspneic HEAD: Normocephalic. EYES: Pupils equal round No scleral icterus. ENT: Mucous membranes moist. There is mild uvula edema. No pharyngeal edema erythema or exudates. No tongue elevation or drooling. No malocclusion or trismus. NECK: Trachea midline. No midline shift. No submandibular tenderness or fullness. No erythema. CARDIOVASCULAR: Regular rate and rhythm without murmurs RESPIRATORY: Clear to auscultation. Breath sounds equal bilaterally. No wheezes, rales, or rhonchi. NEURO: AOx4. SKIN: Warm and dry PSYCH: Not anxious, is cooperative Initial Vital Signs Initial Vital Signs: Vital Signs Temperature 97.3 F L 01/07/22 10:13 Pulse Rate 56 L 01/07/22 10:13 Respiratory Rate 15 01/07/22 10:13 Blood Pressure 151/72 H 01/07/22 10:13 Pulse Oximetry 97 01/07/22 10:13 Oxygen Delivery Method 01/07/22 10:13 Course Vital Signs Vital signs: Vital Signs - 8 hr 01/07/22 10:13 Temperature 97.3 F L Pulse Rate 56 L Respiratory Rate 15 Blood Pressure 151/72 H Pulse Oximetry 97 Oxygen Delivery Method Room Air MDM - Dental/Oral Differential Diagnosis Differential diagnosis: Likely other (Pharyngitis/tonsillitis/epiglottitis/pharyngeal abscess) Lab Data Labs: Point of Care Testing Rapid Strep A Negative MDM Narrative Medical decision making narrative: Appropriate for discharge home. Exam and laboratory studies are reassuring. No imaging or blood work indicated. Patient airway intact and protected. Return precautions reviewed with patient and . No antibiotics indicated at this time. The inflammation of the uvula is nonspecific. No antibiotics indicated. Referral to Otolaryngology provided. They desire discharge home Discharge Plan Departure Patient Disposition: Home Clinical Impression: Pharyngitis Instructions: Sore Throat Activity Restrictions/Additional Instructions: Call provided otolaryngology, Dr. Dean on Sunday for re-evaluation of your throat. Keep well hydrated. Return if worse if any questions or concerns if any trouble breathing or swallowing. Prescriptions: No Action paroxetine HCl 20 mg tablet See Rx Instructions .ROUTE .COMPLEX Qty: 90 3RF Dose Instruction: take 3 tablets by mouth daily Rx Instructions: take 3 tablets by mouth daily hydrocodone-acetaminophen 10-325 mg tablet See Rx Instructions .ROUTE .COMPLEX Qty: 120 0RF Rx Instructions: Take 1 tablet by mouth every 6-8 hours as needed for severe pain carvedilol [Coreg] 25 mg tablet 25 mg PO BID Qty: 180 3RF Rx Instructions: must administer with a meal/food omeprazole 20 mg capsule,delayed release(DR/EC) See Rx Instructions .ROUTE .COMPLEX Qty: 90 3RF Dose Instruction: Take 1 capsule (20 mg) by mouth every morning Rx Instructions: Take 1 capsule (20 mg) by mouth every morning flecainide 100 mg tablet 100 mg PO BID sennosides [Senna Lax] 8.6 mg tablet 8.6 mg PO DAILY PRN (Reason: constipation) Qty: 90 3RF Pradaxa 150 mg capsule 150 mg PO BID Qty: 180 3RF Referrals: James Dean MD [Physician] - Cooper Hernandez DO [Primary Care Provider] - Visit Report Forms: Patient Portal/API
--- NOTE | 2022-01-07 11:13 | PC.NURSE ---
Tongue appears dry, white lacy appearance noted to tongue. Mild redness noted to back of throat, no obvious white patches
--- NOTE | 2022-01-07 11:15 | PC.NURSE ---
Patient tongue appears dry. No obvious white patches or sores noted. Mild redness to back of throat. Tolerating saliva
[2022-01-07 13:51] VITALS: BP 156/58; PULSE 58; RESP 16; O2SAT 98
== END 2022-01-07 13:51 | disposition home or self-care (01) ==
PROVIDERS: Emergency Provider Emergency Medicine; PCP Family Medicine
DX: J02.9 Acute pharyngitis, unspecified (principal)
CPT/HCPCS: 87880; 99281; 99282

== ENCOUNTER → 2022-02-21 13:52 | Outpatient (CLI) | payer OTHER, SELFPAY ==
[2021-10-28 17:39] VITALS: BMI 27.4
[2022-02-21 14:32] LABS: Add Manual Diff / Slide Review NO; Basophils Absolute Auto 0 /uL (0-100); Basophils Percent Auto 0.9 % (0-2); Eosinophils Absolute Auto 400 /uL (0-450); Eosinophils Percent Auto 8.5 % (2-4); Hematocrit 33.2 % (36-46); Hemoglobin 10.7 g/dL (12.0-16.0); Lymphocytes Absolute Auto 1200 /uL (1100-4500); Lymphocytes Percent Auto 22.3 % (25-40); Mean Corpuscular HGB Conc 32.4 % (30-36); Mean Corpuscular Hemoglobin 27.2 PG (26-34); Mean Corpuscular Volume 84.1 fL (80-100); Monocytes Absolute Auto 500 /uL (0-900); Monocytes Percent Auto 9.7 % (3-14); Neutrophils Absolute Auto 3000 /uL (1500-7000); Neutrophils Percent Auto 58.6 % (50-75); Platelet Count 371 X10^3/uL (150-400); Red Blood Cell Count 3.94 X10^6/uL (4.0-5.2); Red Cell Distribution Width 15.2 % (11.6-14.8); White Blood Cell Count 5.2 X10^3/uL (4.5-11.0)
[2022-02-21 14:45] LABS: Alanine Aminotransferase 17 IU/L (<35); Albumin 4.1 g/dL (3.5-5.0); Albumin Globulin Ratio 1.2 (1.0-2.8); Alkaline Phosphatase 73 U/L (38-126); Aspartate Aminotransferase 20 IU/L (14-36); BUN Creatinine Ratio 18.3 (6-22); Bilirubin Total 0.3 mg/dL (0.2-1.3); Blood Urea Nitrogen 15 mg/dL (7-17); Carbon Dioxide 26 mmol/L (22-32); Chloride 100 mmol/L (98-107); Estimated Glomerular Filt Rate > 60 mL/min (>60); Globulin 3.5 g/dL (1.7-4.1); Glucose 119 mg/dL (80-110); HEMOLYSIS < 15 (0-50); Magnesium 1.9 mg/dL (1.6-2.3); Potassium 4.1 mmol/L (3.4-5.1); Sodium 137 mmol/L (137-145); Total Protein 7.6 g/dL (6.3-8.2)
[2022-02-21 16:14] LABS: Vitamin D 25 Hydroxy (D3) 30.1 ng/mL (30.0-100.0)
== END ==
PROVIDERS: PCP Family Medicine; Referring Provider Family Medicine; Visit Provider Family Medicine
DX: D64.9 Anemia, unspecified (principal); I10 Essential (primary) hypertension; I50.9 Heart failure, unspecified
CPT/HCPCS: 36415; 80053; 82306; 83735; 85025

== ENCOUNTER → 2022-04-25 16:27 | Outpatient (CLI) | payer OTHER, SELFPAY ==
[2022-04-24 11:07] VITALS: BMI 27.4
--- NOTE | 2022-04-25 16:28 | DI.RAD.S_ITS ---
PROCEDURE: XR LUMBAR SPINE 2-3V INDICATIONS: pain TECHNIQUE: 3 views of the lumbar spine were acquired. COMPARISON: [facility], , L-SPINE 2-3 VIEWS, 08/29/2010, 13:25. FINDINGS: Bones: 5 [id number] vertebrae are present. There is [id number] rightward curvature of lumbar spine with apex at L3 level. Grade 1 3 millimeter anterolisthesis of L4 on L5 is seen. Degenerative endplate changes are noted throughout lumbar spine. No vertebral body compression fractures. No suspicious bony lesions. Soft tissues: Overlying bowel gas pattern is normal. No suspicious soft tissue calcifications. IMPRESSION: Degenerative disc disease throughout lumbar spine. Right were curvature of lumbar spine centered at L3 level. Grade 1 anterolisthesis of L4 on L5. No acute compression fracture. Dictated by: Clif Ambrose M.D. on 04/25/2022 at 17:40 Approved by: Clfi Ambrose M.D. on 04/25/2022 at 17:41
== END ==
PROVIDERS: PCP Family Medicine; Referring Provider Family Medicine; Visit Provider Family Medicine
DX: M51.36 Other intervertebral disc degeneration, lumbar region (principal); M43.16 Spondylolisthesis, lumbar region; M54.50 Low back pain, unspecified; G89.29 Other chronic pain
CPT/HCPCS: 72100

== ENCOUNTER → 2022-05-20 15:23 | Outpatient (CLI) | payer OTHER, SELFPAY ==
[2022-04-24 11:07] VITALS: BMI 27.4
--- NOTE | 2022-05-20 15:26 | DI.RAD.S_ITS ---
PROCEDURE: XR ELBOW RT MIN 3V INDICATIONS: Right elbow pain S/P fall TECHNIQUE: 3 views of the elbow were acquired. COMPARISON: None. FINDINGS: Bones: Punctate calcification noted of the oblique view along the lateral aspect of the proximal olecranon may represent a small chip fracture versus intra-articular loose body. No suspicious bony lesions. Soft tissues: No elbow joint effusion. Lateral greater than medial epicondyle enthesophyte. IMPRESSION: Punctate calcification along the proximal ulna may represent age indeterminate chip fracture versus sequela of degenerative changes. No displaced fracture. Lateral greater than medial enthesophyte formation. Recommend correlation for epicondylitis. Dictated by: Houston Daley D.O. on 05/20/2022 at 15:11 Approved by: Houston Daley D.O. on 05/20/2022 at 15:14
== END ==
PROVIDERS: PCP Family Medicine; Referring Provider Registered Nurse; Visit Provider Registered Nurse
DX: M25.521 Pain in right elbow (principal)
CPT/HCPCS: 73080

== ENCOUNTER → 2022-06-01 12:01 | Outpatient (CLI) | payer OTHER, SELFPAY ==
[2022-04-24 11:07] VITALS: BMI 27.4
--- NOTE | 2022-06-01 12:02 | DI.RAD.S_ITS ---
PROCEDURE: XR SHOULDER RT MIN 2V INDICATIONS: upper extremity pain right TECHNIQUE: 3 views of the shoulder were acquired. COMPARISON: [facility], CT, CT ANGIO CHEST PE PROTOCOL, 09/01/2021, 17:54. [facility], CR, SHOULDER MINIMUM 2VIEW RIGHT, 06/01/2016, 15:06. FINDINGS: Bones: Focal radiolucency noted involving the superior aspect of the glenoid scapula as well as the acromial process of the scapula. Generalized decrease in osseous mineralization noted. Soft tissues: No suspicious soft tissue calcifications. IMPRESSION: Possible lytic lesions in the scapula associated with the glenoid fossa and acromial process can be further evaluated with CT. Differential would be projectional artifact Approved by: Trevon Perez M.D. on 06/01/2022 at 15:00
--- NOTE | 2022-06-01 12:02 | DI.RAD.S_ITS ---
PROCEDURE: XR HUMERUS RT 2V INDICATIONS: upper extremity pain right TECHNIQUE: 2 views of the humerus were acquired. COMPARISON: None. FINDINGS: Bones: No fractures or dislocations. No suspicious bony lesions. Generalized decrease in osseous mineralization noted. Soft tissues: No suspicious soft tissue calcifications. IMPRESSION: Osteopenia without fracture or foreign body Approved by: Trevon Perez M.D. on 06/01/2022 at 14:50
--- NOTE | 2022-06-01 12:02 | DI.RAD.S_ITS ---
PROCEDURE: XR ELBOW RT MIN 3V INDICATIONS: upper extremity pain right TECHNIQUE: 3 views of the elbow were acquired. COMPARISON: [facility], , XR ELBOW RT MIN 3V, 05/20/2022, 15:24. FINDINGS: Bones: No fractures or dislocations. No suspicious bony lesions. Soft tissues: No elbow joint effusion. No suspicious soft tissue calcifications. IMPRESSION: Normal right elbow radiographs. If clinical concern persists, consider MR evaluation Approved by: Trevon Perez M.D. on 06/01/2022 at 14:47
== END ==
PROVIDERS: PCP Family Medicine; Referring Provider Nurse Practitioner Family; Visit Provider Nurse Practitioner Family
DX: M85.821 Other specified disorders of bone density and structure, right upper arm (principal); M79.601 Pain in right arm
CPT/HCPCS: 73030; 73060; 73080

== ENCOUNTER 2022-07-24 18:09 | Inpatient (IN) | payer OTHER, SELFPAY ==
[2022-04-24 11:07] VITALS: BMI 27.4
[2022-07-24] VITALS (11 sets, daily range): BP systolic 126–168; BP diastolic 61–72; PULSE 65–69; RESP 16–31; TEMP 36.7–38.7; O2SAT 82–95; BMI 28.3
--- NOTE | 2022-07-24 18:14 | DI.RAD.S_ITS ---
PROCEDURE: XR CHEST 1V INDICATIONS: Shortness of breath TECHNIQUE: One view of the chest was acquired. COMPARISON: [facility], CR, XR CHEST 1 VIEW, 05/02/2022, 14:21. [facility], CR, CHEST 1 VIEW, 05/22/2015, 13:49. FINDINGS: Surgical changes and devices: None. Lungs and pleura: Mild increased pulmonary vascularity. No pleural effusions or pneumothorax. Mediastinum: Mediastinal contours appear normal. Heart size is enlarged. Bones and chest wall: No suspicious bony lesions. Overlying soft tissues appear unremarkable. IMPRESSION: Mild increased vascularity suggestive of edema. Dictated by: Dayana Santos M.D. on 07/24/2022 at 19:13 Approved by: Dayana Santos M.D. on 07/24/2022 at 19:14
[2022-07-24 18:40] LABS: Add Manual Diff / Slide Review NO; Basophils Absolute Auto 0 /uL (0-100); Basophils Percent Auto 0.5 % (0-2); Eosinophils Absolute Auto 0 /uL (0-450); Hematocrit 33.3 % (36-46); Hemoglobin 10.8 g/dL (12.0-16.0); INR 1.2 (0.9-1.3); Lymphocytes Absolute Auto 600 /uL (1100-4500); Lymphocytes Percent Auto 12.9 % (25-40); Mean Corpuscular HGB Conc 32.5 % (30-36); Mean Corpuscular Hemoglobin 26.3 PG (26-34); Mean Corpuscular Volume 80.8 fL (80-100); Monocytes Absolute Auto 600 /uL (0-900); Neutrophils Absolute Auto 3800 /uL (1500-7000); Neutrophils Percent Auto 74.6 % (50-75); Platelet Count 241 X10^3/uL (150-400); Prothrombin Time 13.8 SECONDS (10.1-12.7); Red Blood Cell Count 4.12 X10^6/uL (4.0-5.2); Red Cell Distribution Width 18.1 % (11.6-14.8)
--- NOTE | 2022-07-24 18:45 | ED.GENADULT ---
HPI - General Adult General Chief complaint: Shortness of Breath/Dyspnea Stated complaint: weakness Time Seen by Provider: 07/24/22 18:19 Source: patient, family and EMS Mode of arrival: EMS Limitations: no limitations History of Present Illness HPI narrative: Patient is an 86-year-old female. Does have history of atrial fibrillation. Is on Pradaxa. Is here with her . Brought in by EMS for evaluation of weakness. EMS reports they found the patient hypoxic with the oxygen saturations in the low 80s. Patient is not on home oxygen at baseline. She denies any chest pain or shortness of breath. Patient's at bedside provided some of the HPI. He stated that for the past several days the patient has been weak at home. He was unable to even sit up in bed earlier today which is why he called EMS. Patient denies headache, shortness of breath, sore throat, cough, abdominal pain, nausea vomiting or constipation or diarrhea. No urinary symptoms. She states she just feels very weak and tired. Related Data Home Medications Medication Instructions Recorded Confirmed flecainide 100 mg tablet 100 mg PO BID 08/14/18 06/20/22 carvedilol 25 mg tablet (Coreg) 12.5 mg PO BID 05/10/22 06/20/22 Previous Rx's Medication Instructions Recorded dabigatran etexilate 150 mg 150 mg PO BID #180 caps 07/02/18 capsule (Pradaxa) omeprazole 20 mg capsule,delayed See Rx Instructions .Route 11/30/21 release .COMPLEX #90 caps paroxetine HCl 20 mg tablet 60 mg PO DAILY #270 tabs 01/10/22 amlodipine 10 mg tablet (Norvasc) 10 mg PO DAILY 90 days #90 tabs 02/01/22 furosemide 20 mg tablet (Lasix) 20 mg PO QDAY #90 tabs 02/01/22 prednisone 10 mg tablet 10 mg PO DIRECTED #30 tabs 04/26/22 hydrocodone 10 mg-acetaminophen See Rx Instructions .Route 07/19/22 325 mg tablet .COMPLEX #120 tabs Allergies Allergy/AdvReac Type Severity Reaction Status Date / Time No Known Drug Allergies Allergy Verified 06/20/22 10:30 Review of Systems Review of Systems ROS Unobtainable: All systems reviewed & are unremarkable except as noted in HPI and below Patient History Medical History Acute exacerbation of chronic low back pain Age-related cognitive decline Anticoagulated Anxiety Cataract Cervical somatic dysfunction CHF (congestive heart failure) Chicken pox Chronic bilateral back pain Chronic headaches Chronic, continuous use of opioids Closed L2 vertebral fracture Colon polyps Cranial somatic dysfunction CTS (carpal tunnel syndrome) Depression Facet arthropathy, lumbar Fatigue GERD (gastroesophageal reflux disease) Hearing loss Lumbar region somatic dysfunction Lumbosacral spondylosis with radiculopathy Measles Mumps Normocytic anemia, not due to blood loss Obstructive sleep apnea Pelvic relaxation Pelvic somatic dysfunction PTSD (post-traumatic stress disorder) Sacral region somatic dysfunction Scoliosis of cervical region due to degenerative disease of spine in adult Segmental and somatic dysfunction of abdomen and other regions Segmental and somatic dysfunction of rib cage Sleep apnea T12 compression fracture Therapeutic opioid induced constipation Thoracic region somatic dysfunction TIA (transient ischemic attack) Upper extremity somatic dysfunction Surgical History Anesthesia History of carpal tunnel surgery of left wrist History of colonoscopy History of ear surgery (1981) History of ear surgery (1974) History of knee replacement (2008) History of knee replacement (2012) Hx of appendectomy Status post breast lumpectomy (1982) Status post cataract extraction of both eyes with insertion of intraocular lens Status post hysterectomy (1979) Family History Child Age: 60 Mental health problem Father Heart disease Stroke Myocardial infarction Grandmother Cancer Grandfather Pneumonia Grandmother No problems noted. Mother Brainstem hemorrhage Brain bleed Social History household members: spouse Smoking Status: Never smoker alcohol intake: current Smoking Status: Never smoker alcohol intake frequency: a few times a month Substance Use Type: does not use Exam Initial Vital Signs Initial Vital Signs: Vital Signs Temperature 101.6 F H 07/24/22 18:14 Pulse Rate 69 07/24/22 18:14 Blood Pressure 158/71 H 07/24/22 18:14 Pulse Oximetry 91 07/24/22 18:14 Oxygen Delivery Method Nasal Cannula 07/24/22 18:14 Oxygen Flow Rate 3 07/24/22 18:14 Const General: cooperative, comfortable and No ill appearing HENNM Head: normal to inspection and normocephalic Resp Effort & Inspection: tachypneic Auscultation: clear to auscultation bilaterally Cardio Rate: regular rate Rhythm: regular rhythm Skin General: no rashes or lesions noted Neuro General: patient alert, patient awake, patient oriented x3 and moves all extremities Speech: speech normal Extrem General: normal to inspection and capillary refill normal Psych Appearance: grossly normal Course Orders Ordered: ED Orders 07/24/22 18:14 XR chest 1V Stat EKG-12 Lead Stat 07/24/22 18:15 Complete Blood Count AUTO DIFF Stat Comprehensive Metabolic Panel Stat Lactate (Lactic Acid) Stat NT-proBNP (BNP-Adult 18+) Stat PTT Partial Thromboplastin Terrance Stat Prothrombin Time INR Stat Respiratory Panel (Film Array) Stat Troponin I Stat 07/24/22 18:29 Blood Culture Stat Acetaminophen (Acetaminophen 325 Mg Tablet) 650 mg PO Q4H PRN PRN Reason: Fever/Mild Pain (1-3) Hydrocodone Bitart/Acetaminophen (Hydrocodone/Acet 10/325 Tablet) 1 tab PO Q6HR PRN PRN Reason: Pain, Severe (7-10) Al Hydrox/Mg Hydrox/Simethicone (Mag Hydrox/Alum/Simeth 30 Ml Udc) 30 ml PO Q6HR PRN PRN Reason: Dyspepsia Albuterol/Ipratropium (Albuterol/Ipratropium 3 Ml Ampul) 3 ml INH [id number] [facility] Calcium Carbonate (Calcium Carbonate 500 Mg Tab) 1,000 mg PO Q4HR PRN PRN Reason: Dyspepsia Dabigatran (Dabigatran 75 Mg Capsule) 150 mg PO BID [facility] Docusate Sodium (Docusate 100 Mg Capsule) 100 mg PO BID [facility] Flecainide Acetate (Flecainide 100 Mg Tablet) 100 mg PO BID [facility] Sodium Chloride (Normal Saline 0.9%) 1,000 mls @ 100 mls/hr IV CONT TAINA Last Infusion: 07/25/22 00:07 Dose: 100 mls/hr Documented By: Admin: 07/24/22 23:15 Dose: 200 mls/hr Documented By: Metoprolol Succinate (Metoprolol Er 25 Mg Tablet) 25 mg PO BID [facility] Metoprolol Tartrate (Metoprolol Tartrate 5 Mg/5 Ml Inj) 5 mg IV Q6H PRN PRN Reason: Tachyarrhythmias Naloxone HCl (Naloxone 0.4 Mg/Ml Vial) 0.2 mg IV Q2MIN PRN PRN Reason: Opiate Reversal Ondansetron HCl (Ondansetron 4 Mg/2 Ml Inj) 4 mg IV Q8HR PRN PRN Reason: Nausea And Vomiting Oseltamivir Phosphate (Oseltamivir 75 Mg Capsule) 75 mg PO BID TAINA Stop: 07/30/22 08:59 Sennosides (Sennosides 8.6 Mg Tablet) 17.2 mg PO BEDTIME [facility] Discontinued Medications Acetaminophen (Acetaminophen 325 Mg Tablet) 650 mg PO NOW ONE Stop: 07/24/22 18:46 Last Admin: 07/24/22 19:01 Dose: 650 mg Documented By: REYNOLD Sodium Chloride (Normal Saline 0.9%) 1,000 mls @ 125 mls/hr IV CONT TAINA Last Admin: 07/24/22 18:58 Dose: 125 mls/hr Documented By: REYNOLD Ceftriaxone Sodium 1,000 mg/ (Sodium Chloride) 100 mls @ 200 mls/hr IV NOW ONE Stop: 07/24/22 18:48 Last Infusion: 07/24/22 19:39 Dose: 0 mls/hr Documented By: Admin: 07/24/22 18:55 Dose: 200 mls/hr Documented By: REYNOLD Sodium Chloride (Normal Saline 0.9%) 1,000 mls @ 80 mls/hr IV CONT TAINA Last Admin: 07/24/22 22:36 Dose: 80 mls/hr Documented By: Oseltamivir Phosphate (Oseltamivir 75 Mg Capsule) 75 mg PO NOW ONE Stop: 07/24/22 19:48 Last Admin: 07/24/22 20:23 Dose: 75 mg Documented By: Vital Signs Vital signs: Vital Signs - 8 hr 07/24/22 18:14 07/24/22 19:01 07/24/22 19:08 Temperature 101.6 F H 101.6 F H Pulse Rate 69 69 Respiratory Rate 30 H Blood Pressure 158/71 H 168/72 H Pulse Oximetry 91 88 L Oxygen Delivery Method Nasal Cannula Nasal Cannula Oxygen Flow Rate 3 5 07/24/22 19:35 07/24/22 19:09 07/24/22 19:30 Temperature Pulse Rate 69 Respiratory Rate 31 H Blood Pressure 155/68 H Pulse Oximetry 93 92 Oxygen Delivery Method High Flow Nasal Cannula Oxygen Flow Rate 13 07/24/22 19:30 Temperature Pulse Rate 69 Respiratory Rate 31 H Blood Pressure Pulse Oximetry 82 L Oxygen Delivery Method Nasal Cannula Oxygen Flow Rate 5 Medical Decision Making Lab Data Lab results reviewed: Yes I reviewed the patient's lab results. 07/24/22 18:15 07/24/22 18:15 Labs: Lab Results 07/24/22 07/24/22 07/24/22 Range/Units 18:15 18:15 18:15 WBC 5.0 (4.5-11.0) X10^3/uL RBC 4.12 (4.0-5.2) X10^6/uL Hgb 10.8 L (12.0-16.0) g/dL Hct 33.3 L (36-46) % MCV 80.8 (80-100) fL MCH 26.3 (26-34) PG MCHC 32.5 (30-36) % RDW 18.1 H (11.6-14.8) % Plt Count 241 (150-400) X10^3/uL Neut % (Auto) 74.6 (50-75) % Lymph % (Auto) 12.9 L (25-40) % [place] % (Auto) 12.0 (3-14) % Eos % (Auto) 0.0 L (2-4) % Baso % (Auto) 0.5 (0-2) % Neut # (Auto) 3800 (1111-8703) /uL Lymph # (Auto) 600 L (2540-8829) /uL [place] # (Auto) 600 (0-900) /uL Eos # (Auto) 0 (0-450) /uL Baso # (Auto) 0 (0-100) /uL PT 13.8 H (10.1-12.7) SECONDS INR 1.2 (0.9-1.3) APTT (26-36) SECONDS Sodium 137 (137-145) mmol/L Potassium 3.6 (3.4-5.1) mmol/L Chloride 99 (98-107) mmol/L Carbon Dioxide 30 (22-32) mmol/L BUN 13 (7-17) mg/dL Creatinine 0.73 (0.52-1.04) mg/dL Estimated GFR > 60 (>60) mL/min BUN/Creatinine Ratio 17.8 (6-22) Glucose 102 (80-110) mg/dL Lactate (0.7-2.1) mmol/L Calcium 8.7 (8.4-10.2) mg/dL Magnesium (1.6-2.3) mg/dL Total Bilirubin 0.4 (0.2-1.3) mg/dL AST 32 (14-36) IU/L ALT 29 (<35) IU/L Alkaline Phosphatase 77 (38-126) U/L Troponin I 0.032 (0.01-0.034) ng/mL NT-Pro-B Natriuret Pep 2530 H (<450) pg/mL Total Protein 7.2 (6.3-8.2) g/dL Albumin 3.9 (3.5-5.0) g/dL Globulin 3.3 (1.7-4.1) g/dL Albumin/Globulin Ratio 1.2 (1.0-2.8) Procalcitonin (<0.5) ng/mL Chlamy pneumoniae PCR (Not Detect) Adenovirus (PCR) (Not Detect) B. pertussis DNA (PCR) (Not Detecte) B.parapertussis DNA PCR (Not Detecte) Coronavirus OC43 (PCR) (Not Detect) Coronavirus HKU1 (PCR) (Not Detect) Coronavirus 229E (PCR) (Not Detect) SARS-CoV-2 (PCR) (Not Detecte) Coronavirus NL63 (PCR) (Not Detect) Human Metapneumovir PCR (Not Detect) Influenza Type A (PCR) (Not Detect) Influenza Type B (PCR) (Not Detect) M. pneumoniae (PCR) (Not Detect) Parainfluenza 1 (PCR) (Not Detect) Parainfluenza 2 (PCR) (Not Detect) Parainfluenza 3 (PCR) (Not Detect) Parainfluenza 4 (PCR) (Not Detect) RSV (PCR) (Not Detect) Entero/Rhino (PCR) (Not Detect) 07/24/22 07/24/22 07/24/22 Range/Units 18:15 18:15 18:15 WBC (4.5-11.0) X10^3/uL RBC (4.0-5.2) X10^6/uL Hgb (12.0-16.0) g/dL Hct (36-46) % MCV (80-100) fL MCH (26-34) PG MCHC (30-36) % RDW (11.6-14.8) % Plt Count (150-400) X10^3/uL Neut % (Auto) (50-75) % Lymph % (Auto) (25-40) % [place] % (Auto) (3-14) % Eos % (Auto) (2-4) % Baso % (Auto) (0-2) % Neut # (Auto) (8086-6315) /uL Lymph # (Auto) (2085-9846) /uL [place] # (Auto) (0-900) /uL Eos # (Auto) (0-450) /uL Baso # (Auto) (0-100) /uL PT (10.1-12.7) SECONDS INR (0.9-1.3) APTT 33 (26-36) SECONDS Sodium (137-145) mmol/L Potassium (3.4-5.1) mmol/L Chloride (98-107) mmol/L Carbon Dioxide (22-32) mmol/L BUN (7-17) mg/dL Creatinine (0.52-1.04) mg/dL Estimated GFR (>60) mL/min BUN/Creatinine Ratio (6-22) Glucose (80-110) mg/dL Lactate 1.5 (0.7-2.1) mmol/L Calcium (8.4-10.2) mg/dL Magnesium (1.6-2.3) mg/dL Total Bilirubin (0.2-1.3) mg/dL AST (14-36) IU/L ALT (<35) IU/L Alkaline Phosphatase (38-126) U/L Troponin I (0.01-0.034) ng/mL NT-Pro-B Natriuret Pep (<450) pg/mL Total Protein (6.3-8.2) g/dL Albumin (3.5-5.0) g/dL Globulin (1.7-4.1) g/dL Albumin/Globulin Ratio (1.0-2.8) Procalcitonin (<0.5) ng/mL Chlamy pneumoniae PCR Not detected (Not Detect) Adenovirus (PCR) Not detected (Not Detect) B. pertussis DNA (PCR) Not detected (Not Detecte) B.parapertussis DNA PCR Not detected (Not Detecte) Coronavirus OC43 (PCR) Not detected (Not Detect) Coronavirus HKU1 (PCR) Not detected (Not Detect) Coronavirus 229E (PCR) Not detected (Not Detect) SARS-CoV-2 (PCR) Not detected (Not Detecte) Coronavirus NL63 (PCR) Not detected (Not Detect) Human Metapneumovir PCR Not detected (Not Detect) Influenza Type A (PCR) Detected H (Not Detect) Influenza Type B (PCR) Not detected (Not Detect) M. pneumoniae (PCR) Not detected (Not Detect) Parainfluenza 1 (PCR) Not detected (Not Detect) Parainfluenza 2 (PCR) Not detected (Not Detect) Parainfluenza 3 (PCR) Not detected (Not Detect) Parainfluenza 4 (PCR) Not detected (Not Detect) RSV (PCR) Not detected (Not Detect) Entero/Rhino (PCR) Not detected (Not Detect) 07/24/22 07/24/22 Range/Units 18:15 18:25 WBC (4.5-11.0) X10^3/uL RBC (4.0-5.2) X10^6/uL Hgb (12.0-16.0) g/dL Hct (36-46) % MCV (80-100) fL MCH (26-34) PG MCHC (30-36) % RDW (11.6-14.8) % Plt Count (150-400) X10^3/uL Neut % (Auto) (50-75) % Lymph % (Auto) (25-40) % [place] % (Auto) (3-14) % Eos % (Auto) (2-4) % Baso % (Auto) (0-2) % Neut # (Auto) (6135-4489) /uL Lymph # (Auto) (3465-4142) /uL [place] # (Auto) (0-900) /uL Eos # (Auto) (0-450) /uL Baso # (Auto) (0-100) /uL PT (10.1-12.7) SECONDS INR (0.9-1.3) APTT (26-36) SECONDS Sodium (137-145) mmol/L Potassium (3.4-5.1) mmol/L Chloride (98-107) mmol/L Carbon Dioxide (22-32) mmol/L BUN (7-17) mg/dL Creatinine (0.52-1.04) mg/dL Estimated GFR (>60) mL/min BUN/Creatinine Ratio (6-22) Glucose (80-110) mg/dL Lactate (0.7-2.1) mmol/L Calcium (8.4-10.2) mg/dL Magnesium 2.0 (1.6-2.3) mg/dL Total Bilirubin (0.2-1.3) mg/dL AST (14-36) IU/L ALT (<35) IU/L Alkaline Phosphatase (38-126) U/L Troponin I (0.01-0.034) ng/mL NT-Pro-B Natriuret Pep (<450) pg/mL Total Protein (6.3-8.2) g/dL Albumin (3.5-5.0) g/dL Globulin (1.7-4.1) g/dL Albumin/Globulin Ratio (1.0-2.8) Procalcitonin 0.07 (<0.5) ng/mL Chlamy pneumoniae PCR (Not Detect) Adenovirus (PCR) (Not Detect) B. pertussis DNA (PCR) (Not Detecte) B.parapertussis DNA PCR (Not Detecte) Coronavirus OC43 (PCR) (Not Detect) Coronavirus HKU1 (PCR) (Not Detect) Coronavirus 229E (PCR) (Not Detect) SARS-CoV-2 (PCR) (Not Detecte) Coronavirus NL63 (PCR) (Not Detect) Human Metapneumovir PCR (Not Detect) Influenza Type A (PCR) (Not Detect) Influenza Type B (PCR) (Not Detect) M. pneumoniae (PCR) (Not Detect) Parainfluenza 1 (PCR) (Not Detect) Parainfluenza 2 (PCR) (Not Detect) Parainfluenza 3 (PCR) (Not Detect) Parainfluenza 4 (PCR) (Not Detect) RSV (PCR) (Not Detect) Entero/Rhino (PCR) (Not Detect) Imaging Data Chest x-ray: Radiologist's Impression: PROCEDURE:? XR CHEST 1V ? INDICATIONS:? Shortness of breath ? TECHNIQUE:? One view of the chest was acquired.? ? COMPARISON:? [facility], CR, XR CHEST 1 VIEW, 05/02/2022, 14:21.? [facility], CR, CHEST 1 VIEW, 05/22/2015, 13:49. ? FINDINGS:? ? Surgical changes and devices:? None.? ? Lungs and pleura:? Mild increased pulmonary vascularity.? No pleural effusions or pneumothorax.? ? Mediastinum:? Mediastinal contours appear normal.? Heart size is enlarged. ? Bones and chest wall:? No suspicious bony lesions.? Overlying soft tissues appear unremarkable.? ? IMPRESSION:? Mild increased vascularity suggestive of edema.? ECG Data Attestation: I personally reviewed and interpreted this ECG as follows: Interpretation: Sinus rhythm Ventricular rate is 70 Normal axis Normal QRS LVH Nonspecific ST T wave changes MDM Narrative Medical decision making narrative: Upon arrival patient was given antibiotics was given her presentation and her hypoxia with most likely respiratory source of symptoms. Patient's workup eventually resulted in being influenza A positive. Patient was hypoxic requiring oxygen by nasal cannula and occasionally by non-rebreather in order to keep her oxygen saturations greater than 90%. Patient was given Tamiflu. Patient was also febrile. She was given Tylenol. Given her hypoxia and her influenza A positive patient will be admitted to the hospital. Discussed the case with DAI Shine the night hospitalist who will admit for further evaluation and treatment. Discharge Plan Departure Patient Disposition: Admitted As Inpatient Clinical Impression: Influenza A, Hypoxia, Weakness Admit Date/Time: 07/24/22 19:52 Admit Provider: Martha Shine
[2022-07-24 18:48] LABS: Lactate (Lactic Acid) 1.5 mmol/L (0.7-2.1)
[2022-07-24 18:50] LABS: Alanine Aminotransferase 29 IU/L (<35); Albumin 3.9 g/dL (3.5-5.0); Albumin Globulin Ratio 1.2 (1.0-2.8); Alkaline Phosphatase 77 U/L (38-126); Aspartate Aminotransferase 32 IU/L (14-36); BUN Creatinine Ratio 17.8 (6-22); Bilirubin Total 0.4 mg/dL (0.2-1.3); Blood Urea Nitrogen 13 mg/dL (7-17); Calcium 8.7 mg/dL (8.4-10.2); Carbon Dioxide 30 mmol/L (22-32); Chloride 99 mmol/L (98-107); Estimated Glomerular Filt Rate > 60 mL/min (>60); Globulin 3.3 g/dL (1.7-4.1); Glucose 102 mg/dL (80-110); HEMOLYSIS < 15 (0-50); Potassium 3.6 mmol/L (3.4-5.1); Sodium 137 mmol/L (137-145); Total Protein 7.2 g/dL (6.3-8.2)
[2022-07-24] MEDS: cefTRIAXone 1,000 MG in SODIUM CHLORIDE 0.9% 100 ML 200 MG IV (18:55)
[2022-07-24 18:57] LABS: PTT Partial Thromboplastin Tim 33 SECONDS (26-36)
[2022-07-24] MEDS: SODIUM CHLORIDE 0.9% 1,000 ML 125 ML IV (18:58)
[2022-07-24 19:01] LABS: NT-proBNP (BNP-Adult 18+) 2530 pg/mL (<450); Troponin I 0.032 ng/mL (0.01-0.034)
[2022-07-24] MEDS: ACETAMINOPHEN 325 MG TABLET 650 MG PO (19:01)
[2022-07-24 19:19] LABS: Adenovirus Not Detected (Not Detect); B. parapertussis Not Detected (Not Detecte); Bordetella pertussis Not Detected (Not Detecte); Chlamydophila pneumoniae Not Detected (Not Detect); Coronavirus 229E Not Detected (Not Detect); Coronavirus HKU1 Not Detected (Not Detect); Coronavirus NL 63 Not Detected (Not Detect); Coronavirus OC43 Not Detected (Not Detect); Human Metapneumovirus Not Detected (Not Detect); Human Rhinovirus/Enterovirus Not Detected (Not Detect); Influenza A Detected (Not Detect); Influenza B Not Detected (Not Detect); Mycoplasma pneumoniae Not Detected (Not Detect); Parainfluenza Virus 1 Not Detected (Not Detect); Parainfluenza Virus 2 Not Detected (Not Detect); Parainfluenza Virus 3 Not Detected (Not Detect); Parainfluenza Virus 4 Not Detected (Not Detect); Respiratory Syncytial Virus Not Detected (Not Detect); SARS- CoV-2 Not Detected (Not Detecte)
[2022-07-24] MEDS: OSELTAMIVIR 75 MG CAPSULE PO (20:23)
[2022-07-24 21:30] LABS: Appearance Urine UA CLEAR; Bilirubin Urine UA NEGATIVE (NEGATIVE); Color Urine UA YELLOW; Glucose Urine UA NEGATIVE (Negative); Ketones Urine UA TRACE (NEGATIVE); Leukocyte Esterase Urine UA NEGATIVE (NEGATIVE); Nitrite Urine UA NEGATIVE (Negative); Occult Blood Urine UA NEGATIVE (Negative); Protein Urine UA 1+ (Negative); Specific Gravity Urine UA 1.025 (1.000-1.035)
--- NOTE | 2022-07-24 21:39 | P.HP_ITS ---
History of Present Illness History of Present Illness Date Patient Seen: 07/24/22 Time Patient Seen: 20:26 Chief complaint: Acute resp failure, CHF exac, FluA, mild sepsis Narrative: Swathi Quevedo is an 86 y.o. female with a history of paroxysmal atrial fibrillation anticoagulated on Pradaxa & atrial fluter, HLD, HTN, history of TIA 2021, CHFpEF 60-65%, gerd, untreated obstructive sleep apnea who presented emergency department with complaint of increased weakness and shortness of breath. EMS reports they found the patient hypoxic with the oxygen saturations in the low 80s.? Patient is not on home oxygen at baseline.? In ED She denied any chest pain or shortness of breath, patient's was at bedside & provided some of the HPI.? He stated that for the past several days the patient has been weak at home.? He was unable to even sit her up in bed which is why he called EMS to bring her in today.? Patient denied headache, shortness of breath, sore throat, cough, abdominal pain, nausea vomiting or constipation or diarrhea.? No urinary symptoms.? Stating she just felt very weak and tired. Patient met SIRS criteria in ED. Nurses reported that when patient came to the floor patient was able to stand for transfer and was able to answer some ques tions but quickly fell back asleep. At the time of admit initial vitals temp 101.6?, BP 155/68, 69, 31, O2 saturation 93% on high-flow 3 L non-rebreather mask. Arriving the unit admit exam patient would physically respond to stimulus but was only able to get her to open her eyes once very briefly and give a answer yes to 1 question, she quickly fell back asleep and continued to only physically responsive to vigorous stimuli but would not open her eyes or verbally respond continued to snore and sleep. Unable to obtain HPI, ROS, medication reconciliation due to encephalopathy. Patient's vital signs were stable, temp 98?, 126/61, 65, 16, 93% on 3 L nasal cannula. Patient's initial laboratory findings were for the most part unremarkable CBC, CMP, liver panel. BNP 2530 (previous 08/2021: 2990, 3320), initial troponin-0.032, EKG NSR, rate 70, nonspecific ST and T-wave changes. Resp panel:positive influenza a, chest x-ray shows mild edema, urinalysis: Positive protein, ketones, WBCs-culture pending, Sofa score: 2, Orlando Vasc score: 7- ordered Stat Head CT, ordered, ABGs: PH 7.358, pCO2 49, PO2 60, bicarb 27, TCO2 29, O2 sat 89%, BE 2. Patient admitted for acute hypoxic respiratory failure, mild sepsis with encephalopathy without septic shock due to influenza A. [facility] Medical History Acute exacerbation of chronic low back pain Age-related cognitive decline Anticoagulated Anxiety Cataract Cervical somatic dysfunction CHF (congestive heart failure) Chicken pox Chronic bilateral back pain Chronic headaches Chronic, continuous use of opioids Closed L2 vertebral fracture Colon polyps Cranial somatic dysfunction CTS (carpal tunnel syndrome) Depression Facet arthropathy, lumbar Fatigue GERD (gastroesophageal reflux disease) Hearing loss Lumbar region somatic dysfunction Lumbosacral spondylosis with radiculopathy Measles Mumps Normocytic anemia, not due to blood loss Obstructive sleep apnea Pelvic relaxation Pelvic somatic dysfunction PTSD (post-traumatic stress disorder) Sacral region somatic dysfunction Scoliosis of cervical region due to degenerative disease of spine in adult Segmental and somatic dysfunction of abdomen and other regions Segmental and somatic dysfunction of rib cage Sleep apnea T12 compression fracture Therapeutic opioid induced constipation Thoracic region somatic dysfunction TIA (transient ischemic attack) Upper extremity somatic dysfunction Surgical History Anesthesia History of carpal tunnel surgery of left wrist History of colonoscopy History of ear surgery (1981) History of ear surgery (1974) History of knee replacement (2008) History of knee replacement (2012) Hx of appendectomy Status post breast lumpectomy (1982) Status post cataract extraction of both eyes with insertion of intraocular lens Status post hysterectomy (1979) Family History Child Age: 61 Mental health problem Father Heart disease Stroke Myocardial infarction Grandmother Cancer Grandfather Pneumonia Grandmother No problems noted. Mother Brainstem hemorrhage Brain bleed Social History household members: spouse Smoking Status: Never smoker alcohol intake: current Meds Home Medications and Allergies Home Medications Medication Instructions Recorded Confirmed Type dabigatran etexilate 150 mg 150 mg PO BID #180 caps 07/02/18 06/20/22 Rx capsule (Pradaxa) flecainide 100 mg tablet 100 mg PO BID 08/14/18 06/20/22 History omeprazole 20 mg capsule,delayed See Rx Instructions .Route 11/30/21 06/20/22 Rx release .COMPLEX #90 caps paroxetine HCl 20 mg tablet 60 mg PO DAILY #270 tabs 01/10/22 06/20/22 Rx amlodipine 10 mg tablet (Norvasc) 10 mg PO DAILY 90 days #90 tabs 02/01/22 06/20/22 Rx furosemide 20 mg tablet (Lasix) 20 mg PO QDAY #90 tabs 02/01/22 06/20/22 Rx prednisone 10 mg tablet 10 mg PO DIRECTED #30 tabs 04/26/22 06/20/22 Rx carvedilol 25 mg tablet (Coreg) 12.5 mg PO BID 05/10/22 06/20/22 History hydrocodone 10 mg-acetaminophen See Rx Instructions .Route 07/19/22 Rx 325 mg tablet .COMPLEX #120 tabs Allergies Allergy/AdvReac Type Severity Reaction Status Date / Time No Known Drug Allergies Allergy Verified 06/20/22 10:30 Review of Systems Review of Systems Narrative: Unable to obtain ROS due to encephalopathy. Exam Vital Signs (past 8 hours): - 07/24/22 18:14 07/24/22 19:01 07/24/22 19:08 Temperature 101.6 F H 101.6 F H Pulse Rate 69 69 Respiratory Rate 30 H Blood Pressure 158/71 H 168/72 H Pulse Oximetry 91 88 L Oxygen Delivery Method Nasal Cannula Nasal Cannula Oxygen Flow Rate 3 5 07/24/22 19:35 07/24/22 19:09 07/24/22 19:30 Temperature Pulse Rate 69 Respiratory Rate 31 H Blood Pressure 155/68 H Pulse Oximetry 93 92 Oxygen Delivery Method High Flow Nasal Cannula Oxygen Flow Rate 13 07/24/22 19:30 07/24/22 20:00 07/24/22 20:00 Temperature Pulse Rate 69 69 Respiratory Rate 31 H 24 Blood Pressure 138/63 Pulse Oximetry 82 L 95 Oxygen Delivery Method Nasal Cannula Oxygen Flow Rate 5 07/24/22 21:01 07/24/22 21:00 Temperature 99.4 F 99.4 F Pulse Rate Respiratory Rate Blood Pressure Pulse Oximetry Oxygen Delivery Method Oxygen Flow Rate Oxygen Delivery Method High Flow Nasal Cannula Oxygen Flow Rate 13 Narrative Exam Narrative: General: Patient is an elderly female who appears quite comfortable and snoring. Whom through out exam predominantly only physically responsive to noxious stimuli. I was only able to ever so briefly arouse the patient to open one eye and answer yes. She then quickly returned to sleep, snoring through vigorous physical stimulus, she is in no distress at this time. Her lips are nolen in color, currently on 3L/NC. HEENT: Normocephalic, atraumatic, extraocular muscles intact, oral pharynx appears clear and mucous membranes are very dry. Neck is supple and symmetric, trachea is midline, nontender, no masses palpated. Negative for JVD Chest: Normal AP diameter and contour without kyphoscoliosis, Equal chest rise without nasal flaring, retractions, tachypneic or labored breathing. Lungs: Auscultation of all lung tatum are clear without adventitious sounds, wheezes, rhonchi, or rales. Cardio: regular rate and rhythm without murmur, rubs, or gallops, no carotid bruit, no cardiac pulsations present. Abdomen: Soft mildly distended, nontender, negative for organomegaly, or masses. Bowel sounds are present in all 4 quadrants without guarding or rebound, no CVA tenderness. Musculoskeletal: Muscle strength and tone are equal, no deformity, crepitus, effusions, clubbing or edema present. Full range of motion intact radial and pedal pulses are normal. Skin: Warm dry and intact without rashes, ulcerations or petechiae. Neuro: Significantly cognitively unresponsive to noxious stimuli, but does respond physically, moving all extremities to sensations of touch intact, no obvious gross deficits noted of cranial nerves. Psych: Patient has a well-kept appearance, predominantly unresponsive. Objective Labs 07/24/22 18:15 07/24/22 18:15 Labs: Laboratory Results - last 24 hr 07/24/22 07/24/22 07/24/22 18:15 18:15 18:15 WBC 5.0 RBC 4.12 Hgb 10.8 L Hct 33.3 L MCV 80.8 MCH 26.3 MCHC 32.5 RDW 18.1 H Plt Count 241 Neut % (Auto) 74.6 Lymph % (Auto) 12.9 L [place] % (Auto) 12.0 Eos % (Auto) 0.0 L Baso % (Auto) 0.5 Neut # (Auto) 3800 Lymph # (Auto) 600 L [place] # (Auto) 600 Eos # (Auto) 0 Baso # (Auto) 0 PT 13.8 H INR 1.2 APTT Sodium 137 Potassium 3.6 Chloride 99 Carbon Dioxide 30 BUN 13 Creatinine 0.73 Estimated GFR > 60 BUN/Creatinine Ratio 17.8 Glucose 102 Lactate Calcium 8.7 Magnesium Total Bilirubin 0.4 AST 32 ALT 29 Alkaline Phosphatase 77 Troponin I 0.032 NT-Pro-B Natriuret Pep 2530 H Total Protein 7.2 Albumin 3.9 Globulin 3.3 Albumin/Globulin Ratio 1.2 Chlamy pneumoniae PCR Adenovirus (PCR) B. pertussis DNA (PCR) B.parapertussis DNA PCR Coronavirus OC43 (PCR) Coronavirus HKU1 (PCR) Coronavirus 229E (PCR) SARS-CoV-2 (PCR) Coronavirus NL63 (PCR) Human Metapneumovir PCR Influenza Type A (PCR) Influenza Type B (PCR) M. pneumoniae (PCR) Parainfluenza 1 (PCR) Parainfluenza 2 (PCR) Parainfluenza 3 (PCR) Parainfluenza 4 (PCR) RSV (PCR) Entero/Rhino (PCR) 07/24/22 07/24/22 07/24/22 18:15 18:15 18:15 WBC RBC Hgb Hct MCV MCH MCHC RDW Plt Count Neut % (Auto) Lymph % (Auto) [place] % (Auto) Eos % (Auto) Baso % (Auto) Neut # (Auto) Lymph # (Auto) [place] # (Auto) Eos # (Auto) Baso # (Auto) PT INR APTT 33 Sodium Potassium Chloride Carbon Dioxide BUN Creatinine Estimated GFR BUN/Creatinine Ratio Glucose Lactate 1.5 Calcium Magnesium Total Bilirubin AST ALT Alkaline Phosphatase Troponin I NT-Pro-B Natriuret Pep Total Protein Albumin Globulin Albumin/Globulin Ratio Chlamy pneumoniae PCR Not detected Adenovirus (PCR) Not detected B. pertussis DNA (PCR) Not detected B.parapertussis DNA PCR Not detected Coronavirus OC43 (PCR) Not detected Coronavirus HKU1 (PCR) Not detected Coronavirus 229E (PCR) Not detected SARS-CoV-2 (PCR) Not detected Coronavirus NL63 (PCR) Not detected Human Metapneumovir PCR Not detected Influenza Type A (PCR) Detected H Influenza Type B (PCR) Not detected M. pneumoniae (PCR) Not detected Parainfluenza 1 (PCR) Not detected Parainfluenza 2 (PCR) Not detected Parainfluenza 3 (PCR) Not detected Parainfluenza 4 (PCR) Not detected RSV (PCR) Not detected Entero/Rhino (PCR) Not detected 07/24/22 18:25 WBC RBC Hgb Hct MCV MCH MCHC RDW Plt Count Neut % (Auto) Lymph % (Auto) [place] % (Auto) Eos % (Auto) Baso % (Auto) Neut # (Auto) Lymph # (Auto) [place] # (Auto) Eos # (Auto) Baso # (Auto) PT INR APTT Sodium Potassium Chloride Carbon Dioxide BUN Creatinine Estimated GFR BUN/Creatinine Ratio Glucose Lactate Calcium Magnesium 2.0 Total Bilirubin AST ALT Alkaline Phosphatase Troponin I NT-Pro-B Natriuret Pep Total Protein Albumin Globulin Albumin/Globulin Ratio Chlamy pneumoniae PCR Adenovirus (PCR) B. pertussis DNA (PCR) B.parapertussis DNA PCR Coronavirus OC43 (PCR) Coronavirus HKU1 (PCR) Coronavirus 229E (PCR) SARS-CoV-2 (PCR) Coronavirus NL63 (PCR) Human Metapneumovir PCR Influenza Type A (PCR) Influenza Type B (PCR) M. pneumoniae (PCR) Parainfluenza 1 (PCR) Parainfluenza 2 (PCR) Parainfluenza 3 (PCR) Parainfluenza 4 (PCR) RSV (PCR) Entero/Rhino (PCR) Assessment & Plan Assessment & Plan narrative: Swathi Quevedo is an 86 y.o. female with a history of paroxysmal atrial fibrillation anticoagulated on Pradaxa & atrial fluter, HLD, HTN, history of TIA 2021, CHFpEF 60-65%, gerd, untreated obstructive sleep apnea who presented emergency department with complaint of increased weakness and shortness of breath. Patient admitted for acute hypoxic respiratory failure, mild sepsis with encephalopathy without septic shock due to influenza A. Patient requires respiratory support and Tamiflu treatment for influenza a, further workup to rule out other infectious process, TIA/CVA, brain MRI, trend troponins, thyroid ultrasound, resolution of encephalopathy, PT/OT evaluation, & titration off O2 for Goals to D/C. Acute hypoxic respiratory failure, with mild sepsis, encephalopathy without septic shock secondary to influenza A, acute, present on admission * EMS/ED oxygen saturations in the low 80s on rm air. initial:101.6?, BP 155/68, 69, 31, O2 saturation 93% on high-flow 3 L non-rebreather mask. * repeat: 98?, 126/61, 65, 16, 93% on 3 L nasal cannula 0-initial lactate procalcitonin WNL * With small bilateral pleural effusions, pulmonary edema, and possible pneumonia * chest x-ray shows mild edema, ABGs: PH 7.358, pCO2 49, PO2 60, bicarb 27, TCO2 29, O2 sat 89%, BE 2. * urinalysis-culture pending, met SIRS criteria in ED, sofa score: 2, [place] Vasc score: 7-temp 101.6?, RR 31, O2 saturations in the low 80s on room air. * Initially requiring non-rebreather mask in ED-Rocephin/Tamiflu given * Continue Tamiflu * Chest CTA: Negative for PE, Small bilateral pleural effusions, pulmonary edema, and cardiomegaly. Mild compressive atelectasis as well as small areas of consolidation posteriorly in the lower lobes. Enlarged mediastinal lymph nodes are nonspecific. * Blood & urine culture pending, trend inflammatory markers Encephalopathy/Altered level of consciousness, acute, present on admission * In ED patient's was at bedside, provided some of the HPI, and noted that the patient had been developing confusion and bouts of unresponsiveness. Patient was answering some questions in ED. * Nurses reported that when patient came to the floor patient was able to stand for transfer and was able to answer some questions but quickly fell back asleep. * On unit for admit exam patient would physically respond to stimulus but was only able to get her to open her eyes once very briefly and give a answer yes to 1 question, she quickly fell back asleep and continued to only physically responsive to vigorous stimuli but would not open her eyes or verbally respond continued to snore and sleep. * Head CT: Negative for any acute intracranial process. * MRI ordered for tomorrow to rule out stroke or acute process. * Patient currently made NPO, neuro checks, aspiration precautions, PT/OT/speech -swallow eval tomorrow, blood sugar/vital signs stable. * Was advised by RN after the patient returned from STAT head CT-she was awake for a very short while and able to answer a few questions and then fell back asleep. Myocardial injury, likely demand ischemia secondary to acute respiratory failure, sepsis, influenza a, acute, present on admission * Initial troponin 0.032, repeat> 99th %, 0.041- continue to trend HFpEF, exacerbation, acute on chronic, present on admission * initial troponin-0.032- will trend, on Tele * BNP 2530 (previous 08/2021: 2990, 3320) * Found patient to be hypovolemic on exam, lung sounds clear, no peripheral edema-will continue to monitor * Chads vasc 2 score:7 * Last echo 04/2022 EF 60-65% * Low-sodium diet, fluid restriction, daily weights Thyroid Nodules, acute, present on admission * Found on imaging * Chest CTA: Enlarged lobulated right thyroid lobe with numerous hypoattenuating nodules redemonstrated.? There is suggestion of increase in size of a nodule along the isthmus. * Thyroid ultrasound ordered for tomorrow * TSH/T4/a.m. cortisol Paroxsysmal Atrial fibrillation, with Atypical atrial flutter, chronic, present on admission * I personally reviewed EKG: Sinus rhythm at a rate of [address]/T-wave changes. * Continue Pradaxa, flecainide 100 mg b.i.d., metoprolol XL 25 mg b.i.d.- cardiology records do not document the use of carvedilol * Chads vasc 2 score:7 * Reviewed cardiology notes 06/06/2022 * Hx of Atypical flutter: 2:1 block * flecainide/metoprolol Tx Goal 3:1 block with vent rate 68. History of atrial arrhythmia, chronic, present on admission * Refractory to medical therapy Essential hypertension, suboptimally controlled * BP 155/68, repeat 126/61 * Metoprolol and flecainide Acute anemia, unknown cause * H and H -baseline * Monitor CBC daily History of TIA, chronic, present on admission * 2021 MARIOLA, chronic, present on admission * Untreated does not use CPAP Code status: Full code Surrogate decision maker: Bill & POA. DVT/VTE prophylaxis: Pradaxa and SCDs Disposition: Patient initially admitted for observation, expected length of stay not to exceed 2 midnights. I have utilized all available immediate resources to obtain, update, or review the patient's current medications. I confirmed that the patient's advanced care plan is present, Code status is documented and/or surrogate decision maker is listed in the patient's medical record. I have personally reviewed patient's chart notes from PCP, specialists, diagnostic imaging, and laboratory results.
[2022-07-24 21:45] LABS: Bacteria Urine Occasional (0-1); Culture Indicated Urine Specimen Cultured; RBC Urine None Seen (0-5/HPF); Squamous Epithelial Cell Urine 1-5 /HPF (0-5/HPF); Transitional Epi Cells Urine 1-5/HPF (0-5/HPF); WBC Urine 5-10/HPF (0-5/HPF)
--- NOTE | 2022-07-24 21:48 | DI.CT.S_ITS ---
enPROCEDURE: CT ANGIO CHEST PE PROTOCOL INDICATIONS: SOB, CHF exac TECHNIQUE: After the administration of intravenous contrast, 2 mm thick sections acquired from the pulmonary apices to the posterior costophrenic angles. 3-dimensional maximum intensity projection (MIP) coronal and sagittal reformats were then acquired through the thorax. For radiation dose reduction, the following was used: automated exposure control, adjustment of mA and/or kV according to patient size. COMPARISON: [facility], CT, CT ANGIO CHEST PE PROTOCOL, 09/01/2021, 17:54. FINDINGS: Image quality: There is motion artifact limiting evaluation. Pulmonary arteries: Pulmonary arteries demonstrate no intraluminal filling defects to suggest central pulmonary embolism. Evaluation of subsegmental pulmonary arteries is limited due to motion artifact. There is enlargement of the pulmonary arteries, with the main pulmonary artery measuring up to 3.6 cm suggestive of pulmonary arterial hypertension. Lower Neck: No lymphadenopathy by size criteria. Thyroid: An enlarged right thyroid lobe with numerous hypoattenuating nodules is redemonstrated, with the largest nodule along the isthmus measuring up to approximately 2.1 cm. This appears increased in size from 1.9 cm previously. The enlarged right lobe extends into the mediastinum. Axillae: No lymphadenopathy by size criteria. Chest Wall: Unremarkable. Bones: Visualized osseous structures demonstrate no suspicious lesions. Lungs and Airways: Compressive atelectasis is demonstrated along the pleural effusions. In addition, there are small regions of peripheral consolidation inferiorly in the lower lobes. There is mild interlobular septal thickening with indistinct ground-glass opacities suggestive of mild pulmonary edema. The trachea and central airways are patent. Pleura: No pneumothorax. There are small bilateral pleural effusions. Heart: Heart size is enlarged. No pericardial effusion. Thoracic Vessels: The thoracic aorta is normal in size. Mediastinum and Lillie: Multiple mildly enlarged mediastinal lymph nodes are redemonstrated. These include a precarinal node measuring up to approximately 1.6 cm which appears similar to the prior study. Esophagus: No wall thickening. No hiatal hernia. Abdomen: There are a few mild anterior wedge deformities within the mid thoracic spine with mild kyphosis which appear similar to the prior study. Visualized upper abdominal solid organs appear normal in the early arterial phase of enhancement. IMPRESSION: 1. No evidence of central pulmonary embolism. Evaluation of distal subsegmental pulmonary arteries limited by motion artifact. 2. Small bilateral pleural effusions, pulmonary edema, and cardiomegaly suggestive of congestive heart failure. 3. Mild compressive atelectasis as well as small areas of consolidation posteriorly in the lower lobes. The findings may reflect atelectasis but the differential includes pneumonia or sequelae of aspiration. 4. Enlarged lobulated right thyroid lobe with numerous hypoattenuating nodules redemonstrated. There is suggestion of increase in size of a nodule along the isthmus. 5. Enlarged mediastinal lymph nodes are nonspecific and differential includes reactive changes or metastatic disease. A reactive process is favored given similar appearance compared to the prior CT. Dictated by: Shaan Cabral M.D. on 07/25/2022 at 0:25 Approved by: Shaan Cabral M.D. on 07/25/2022 at 0:37
[2022-07-24] MEDS: SODIUM CHLORIDE 0.9% 1,000 ML 80 ML IV (22:36)
--- NOTE | 2022-07-24 23:04 | DI.CT.S_ITS ---
PROCEDURE: CT HEAD/BRAIN WO CON INDICATIONS: altered loc TECHNIQUE: Noncontrast 4.5 mm thick angled axial sections acquired from the foramen magnum to the vertex, with coronal and sagittal reformats. For radiation dose reduction, the following was used: automated exposure control, adjustment of mA and/or kV according to patient size. COMPARISON: [facility], CT, HEAD WITHOUT CONTRAST, 05/22/2015, 13:18. FINDINGS: Image quality: There is mild motion artifact limiting evaluation. CSF spaces: Basal cisterns are patent. No extra-axial fluid collections. There is mild to moderate cerebral volume loss, with resultant ventricular and sulcal prominence. Brain: No definite intracranial hemorrhage, mass, or mass effect. There are subcortical, periventricular and deep white matter hypodensities consistent with mild to moderate chronic small vessel ischemic changes. The nolen-white matter junction appears preserved. There is intracranial internal carotid artery atherosclerosis. Skull and face: Calvarium and visualized facial bones appear intact, without suspicious lesions. Sinuses: Visualized sinuses and mastoids are clear. IMPRESSION: 1. No definite acute intracranial abnormality. 2. Mild to moderate cerebral volume loss and chronic white matter small vessel ischemic changes. Dictated by: Shaan Cabral M.D. on 07/25/2022 at 0:06 Approved by: Shaan Cabral M.D. on 07/25/2022 at 0:07
--- NOTE | 2022-07-24 23:12 | PC.NURSE ---
Addendum entered by Diana Puentes R.N. 07/25/22 04:31: Pt alert to self and place now, conversing with staff and following commands, able to drink water and tylenol with applesauce, pt desats easily to the upper 80's with any exertion, currently on a non-rebreather mask. Original Note: pt not foolowing commands, does open eyes with sternal rub, ABG'S done, blood sugar 102, pt on 6 L NC, dai Shine at the bed side, ivf increased to 200 ml. DAI Shine at the bedside. pt now has an order for head CT
[2022-07-24] MEDS: SODIUM CHLORIDE 0.9% 1,000 ML 200 ML IV (23:15)
[2022-07-25] VITALS (34 sets, daily range): BP systolic 125–174; BP diastolic 54–79; PULSE 55–84; RESP 16–40; TEMP 36.2–37.3; O2SAT 85–99
[2022-07-25 00:10] LABS: Procalcitonin 0.07 ng/mL (<0.5)
[2022-07-25 01:07] LABS: Troponin I 0.041 ng/mL (0.01-0.034)
[2022-07-25] MEDS: ACETAMINOPHEN 325 MG TABLET 650 MG PO ×2 (04:14→15:46)
[2022-07-25 05:22] LABS: Add Manual Diff / Slide Review NO; Basophils Absolute Auto 0 /uL (0-100); Basophils Percent Auto 0.5 % (0-2); Eosinophils Absolute Auto 0 /uL (0-450); Hematocrit 33.3 % (36-46); Lymphocytes Absolute Auto 500 /uL (1100-4500); Lymphocytes Percent Auto 9.1 % (25-40); Mean Corpuscular HGB Conc 32.9 % (30-36); Mean Corpuscular Hemoglobin 26.5 PG (26-34); Mean Corpuscular Volume 80.5 fL (80-100); Monocytes Absolute Auto 300 /uL (0-900); Monocytes Percent Auto 6.2 % (3-14); Neutrophils Absolute Auto 4600 /uL (1500-7000); Neutrophils Percent Auto 84.2 % (50-75); Platelet Count 218 X10^3/uL (150-400); Red Blood Cell Count 4.13 X10^6/uL (4.0-5.2); White Blood Cell Count 5.5 X10^3/uL (4.5-11.0)
[2022-07-25] MEDS: SODIUM CHLORIDE 0.9% 1,000 ML 100 ML IV (05:38)
[2022-07-25 05:45] LABS: Blood Urea Nitrogen 11 mg/dL (7-17); Carbon Dioxide 27 mmol/L (22-32); Chloride 102 mmol/L (98-107); Estimated Glomerular Filt Rate > 60 mL/min (>60); Glucose 119 mg/dL (80-110); HEMOLYSIS < 15 (0-50); Lactate (Lactic Acid) 1.3 mmol/L (0.7-2.1); Potassium 3.4 mmol/L (3.4-5.1); Sodium 135 mmol/L (137-145)
[2022-07-25 05:54] LABS: NT-proBNP (BNP-Adult 18+) 2390 pg/mL (<450)
[2022-07-25 05:55] LABS: Troponin I 0.042 ng/mL (0.01-0.034)
[2022-07-25 06:12] LABS: pH ABG 7.36 (7.35-7.45)
[2022-07-25 06:13] LABS: HCO3 ABG 28 mmol/L (23-27); Oxygen Saturation ABG 89 % (95-100); PO2 ABG 60 mmHg (80-100)
[2022-07-25 06:14] LABS: Cortisol AM (Before 10AM) 53.3 ug/dL (4.46-22.7)
[2022-07-25 06:47] LABS: Free T4, Direct Thyroxine 1.44 ng/dL (0.78-2.19)
--- NOTE | 2022-07-25 08:15 | P.PN_ITS ---
Subjective Subjective Interval history: Patient upgraded to ICU status due to requiring HFNC at 30L. She says her breathing feels better on the high flow. Exam Vital Signs (past 8 hours): - 07/25/22 01:23 07/25/22 01:40 07/25/22 04:14 Temperature 99.1 F Pulse Rate Respiratory Rate Blood Pressure Pulse Oximetry 92 95 Oxygen Flow Rate 15 15 07/25/22 04:00 07/25/22 08:00 Temperature 99.1 F 97.8 F Pulse Rate 78 76 Respiratory Rate 20 Blood Pressure 156/76 H 145/54 H Pulse Oximetry 94 90 L Oxygen Flow Rate 15 30 Oxygen Delivery Method High Flow Nasal Cannula Oxygen Flow Rate 30 Narrative Exam Narrative: General: Patient is an very pleasant elderly female on HFNC. Appears comfortable. HEENT: Normocephalic, atraumatic, extraocular muscles intact, oral pharynx appears clear and mucous membranes are very dry. Neck is supple and symmetric, trachea is midline, nontender, no masses palpated. Negative for JVD Chest: Normal AP diameter and contour without kyphoscoliosis, Equal chest rise without nasal flaring, retractions, tachypneic or labored breathing. Lungs: Diffuse coarse breath sounds. Cardio: regular rate and rhythm without murmur, rubs, or gallops, no carotid bruit, no cardiac pulsations present. Abdomen: Soft mildly distended, nontender, negative for organomegaly, or masses . Bowel sounds are present in all 4 quadrants without guarding or rebound, no CVA tenderness. Musculoskeletal: Muscle strength and tone are equal, no deformity, crepitus, effusions, clubbing or edema present. Full range of motion intact radial and pedal pulses are normal. Skin: Warm dry and intact without rashes, ulcerations or petechiae. Neuro: Significantly cognitively unresponsive to noxious stimuli, but does respond physically, moving all extremities to sensations of touch intact, no obvious gross deficits noted of cranial nerves. Psych: Patient has a well-kept appearance Objective Labs 07/25/22 04:40 07/25/22 04:40 Labs: Laboratory Results - last 24 hr 07/24/22 07/24/22 07/24/22 18:15 18:15 18:15 WBC 5.0 RBC 4.12 Hgb 10.8 L Hct 33.3 L MCV 80.8 MCH 26.3 MCHC 32.5 RDW 18.1 H Plt Count 241 Neut % (Auto) 74.6 Lymph % (Auto) 12.9 L [place] % (Auto) 12.0 Eos % (Auto) 0.0 L Baso % (Auto) 0.5 Neut # (Auto) 3800 Lymph # (Auto) 600 L [place] # (Auto) 600 Eos # (Auto) 0 Baso # (Auto) 0 PT 13.8 H INR 1.2 APTT ABG pH ABG pCO2 ABG pO2 ABG HCO3 ABG Total CO2 ABG O2 Saturation ABG Base Excess FiO2 Sodium 137 Potassium 3.6 Chloride 99 Carbon Dioxide 30 BUN 13 Creatinine 0.73 Estimated GFR > 60 BUN/Creatinine Ratio 17.8 Glucose 102 Hemoglobin A1c Lactate Calcium 8.7 Magnesium Total Bilirubin 0.4 AST 32 ALT 29 Alkaline Phosphatase 77 Troponin I 0.032 NT-Pro-B Natriuret Pep 2530 H Total Protein 7.2 Albumin 3.9 Globulin 3.3 Albumin/Globulin Ratio 1.2 Procalcitonin TSH Free T4 Cortisol AM Sample Urine Color Urine Appearance Urine pH Ur Specific [place] Urine Protein Urine Glucose (UA) Urine Ketones Urine Occult Blood Urine Nitrate Urine Bilirubin Urine Urobilinogen Ur Leukocyte Esterase Urine RBC Urine WBC Ur Squamous Epith Cells Ur Transition Epith Cell Urine Bacteria Ur Culture Indicated? Chlamy pneumoniae PCR Adenovirus (PCR) B. pertussis DNA (PCR) B.parapertussis DNA PCR Coronavirus OC43 (PCR) Coronavirus HKU1 (PCR) Coronavirus 229E (PCR) SARS-CoV-2 (PCR) Coronavirus NL63 (PCR) Human Metapneumovir PCR Influenza Type A (PCR) Influenza Type B (PCR) M. pneumoniae (PCR) Parainfluenza 1 (PCR) Parainfluenza 2 (PCR) Parainfluenza 3 (PCR) Parainfluenza 4 (PCR) RSV (PCR) Entero/Rhino (PCR) 07/24/22 07/24/22 07/24/22 18:15 18:15 18:15 WBC RBC Hgb Hct MCV MCH MCHC RDW Plt Count Neut % (Auto) Lymph % (Auto) [place] % (Auto) Eos % (Auto) Baso % (Auto) Neut # (Auto) Lymph # (Auto) [place] # (Auto) Eos # (Auto) Baso # (Auto) PT INR APTT 33 ABG pH ABG pCO2 ABG pO2 ABG HCO3 ABG Total CO2 ABG O2 Saturation ABG Base Excess FiO2 Sodium Potassium Chloride Carbon Dioxide BUN Creatinine Estimated GFR BUN/Creatinine Ratio Glucose Hemoglobin A1c Lactate 1.5 Calcium Magnesium Total Bilirubin AST ALT Alkaline Phosphatase Troponin I NT-Pro-B Natriuret Pep Total Protein Albumin Globulin Albumin/Globulin Ratio Procalcitonin TSH Free T4 Cortisol AM Sample Urine Color Urine Appearance Urine pH Ur Specific [place] Urine Protein Urine Glucose (UA) Urine Ketones Urine Occult Blood Urine Nitrate Urine Bilirubin Urine Urobilinogen Ur Leukocyte Esterase Urine RBC Urine WBC Ur Squamous Epith Cells Ur Transition Epith Cell Urine Bacteria Ur Culture Indicated? Chlamy pneumoniae PCR Not detected Adenovirus (PCR) Not detected B. pertussis DNA (PCR) Not detected B.parapertussis DNA PCR Not detected Coronavirus OC43 (PCR) Not detected Coronavirus HKU1 (PCR) Not detected Coronavirus 229E (PCR) Not detected SARS-CoV-2 (PCR) Not detected Coronavirus NL63 (PCR) Not detected Human Metapneumovir PCR Not detected Influenza Type A (PCR) Detected H Influenza Type B (PCR) Not detected M. pneumoniae (PCR) Not detected Parainfluenza 1 (PCR) Not detected Parainfluenza 2 (PCR) Not detected Parainfluenza 3 (PCR) Not detected Parainfluenza 4 (PCR) Not detected RSV (PCR) Not detected Entero/Rhino (PCR) Not detected 07/24/22 07/24/22 07/24/22 18:15 18:25 20:00 WBC RBC Hgb Hct MCV MCH MCHC RDW Plt Count Neut % (Auto) Lymph % (Auto) [place] % (Auto) Eos % (Auto) Baso % (Auto) Neut # (Auto) Lymph # (Auto) [place] # (Auto) Eos # (Auto) Baso # (Auto) PT INR APTT ABG pH ABG pCO2 ABG pO2 ABG HCO3 ABG Total CO2 ABG O2 Saturation ABG Base Excess FiO2 Sodium Potassium Chloride Carbon Dioxide BUN Creatinine Estimated GFR BUN/Creatinine Ratio Glucose Hemoglobin A1c Lactate Calcium Magnesium 2.0 Total Bilirubin AST ALT Alkaline Phosphatase Troponin I NT-Pro-B Natriuret Pep Total Protein Albumin Globulin Albumin/Globulin Ratio Procalcitonin 0.07 TSH Free T4 Cortisol AM Sample Urine Color Yellow Urine Appearance Clear Urine pH 6.0 Ur Specific [place] 1.025 Urine Protein 1+ H Urine Glucose (UA) Negative Urine Ketones Trace H Urine Occult Blood Negative Urine Nitrate Negative Urine Bilirubin Negative Urine Urobilinogen 1.0 Ur Leukocyte Esterase Negative Urine RBC None seen Urine WBC 5-10/hpf H Ur Squamous Epith Cells 1-5 /hpf Ur Transition Epith Cell 1-5/hpf Urine Bacteria Occasional (0-1) Ur Culture Indicated? Specimen cultured Chlamy pneumoniae PCR Adenovirus (PCR) B. pertussis DNA (PCR) B.parapertussis DNA PCR Coronavirus OC43 (PCR) Coronavirus HKU1 (PCR) Coronavirus 229E (PCR) SARS-CoV-2 (PCR) Coronavirus NL63 (PCR) Human Metapneumovir PCR Influenza Type A (PCR) Influenza Type B (PCR) M. pneumoniae (PCR) Parainfluenza 1 (PCR) Parainfluenza 2 (PCR) Parainfluenza 3 (PCR) Parainfluenza 4 (PCR) RSV (PCR) Entero/Rhino (PCR) 07/24/22 07/25/22 07/25/22 22:44 00:29 00:29 WBC RBC Hgb Hct MCV MCH MCHC RDW Plt Count Neut % (Auto) Lymph % (Auto) [place] % (Auto) Eos % (Auto) Baso % (Auto) Neut # (Auto) Lymph # (Auto) [place] # (Auto) Eos # (Auto) Baso # (Auto) PT INR APTT ABG pH 7.36 ABG pCO2 49.0 H ABG pO2 60 L ABG HCO3 28 H ABG Total CO2 49 H ABG O2 Saturation 89 L ABG Base Excess 2.0 FiO2 36 Sodium Potassium Chloride Carbon Dioxide BUN Creatinine Estimated GFR BUN/Creatinine Ratio Glucose Hemoglobin A1c Cancelled Lactate Calcium Magnesium Total Bilirubin AST ALT Alkaline Phosphatase Troponin I 0.041 H NT-Pro-B Natriuret Pep Total Protein Albumin Globulin Albumin/Globulin Ratio Procalcitonin TSH Free T4 Cortisol AM Sample Urine Color Urine Appearance Urine pH Ur Specific [place] Urine Protein Urine Glucose (UA) Urine Ketones Urine Occult Blood Urine Nitrate Urine Bilirubin Urine Urobilinogen Ur Leukocyte Esterase Urine RBC Urine WBC Ur Squamous Epith Cells Ur Transition Epith Cell Urine Bacteria Ur Culture Indicated? Chlamy pneumoniae PCR Adenovirus (PCR) B. pertussis DNA (PCR) B.parapertussis DNA PCR Coronavirus OC43 (PCR) Coronavirus HKU1 (PCR) Coronavirus 229E (PCR) SARS-CoV-2 (PCR) Coronavirus NL63 (PCR) Human Metapneumovir PCR Influenza Type A (PCR) Influenza Type B (PCR) M. pneumoniae (PCR) Parainfluenza 1 (PCR) Parainfluenza 2 (PCR) Parainfluenza 3 (PCR) Parainfluenza 4 (PCR) RSV (PCR) Entero/Rhino (PCR) 07/25/22 07/25/22 07/25/22 04:40 04:40 04:40 WBC 5.5 RBC 4.13 Hgb 11.0 L Hct 33.3 L MCV 80.5 MCH 26.5 MCHC 32.9 RDW 18.0 H Plt Count 218 Neut % (Auto) 84.2 H Lymph % (Auto) 9.1 L [place] % (Auto) 6.2 Eos % (Auto) 0.0 L Baso % (Auto) 0.5 Neut # (Auto) 4600 Lymph # (Auto) 500 L [place] # (Auto) 300 Eos # (Auto) 0 Baso # (Auto) 0 PT INR APTT ABG pH ABG pCO2 ABG pO2 ABG HCO3 ABG Total CO2 ABG O2 Saturation ABG Base Excess FiO2 Sodium 135 L Potassium 3.4 Chloride 102 Carbon Dioxide 27 BUN 11 Creatinine 0.58 Estimated GFR > 60 BUN/Creatinine Ratio 19.0 Glucose 119 H Hemoglobin A1c Lactate Calcium 8.0 L Magnesium Total Bilirubin AST ALT Alkaline Phosphatase Troponin I 0.042 H NT-Pro-B Natriuret Pep 2390 H Total Protein Albumin Globulin Albumin/Globulin Ratio Procalcitonin TSH Free T4 Cortisol AM Sample Urine Color Urine Appearance Urine pH Ur Specific [place] Urine Protein Urine Glucose (UA) Urine Ketones Urine Occult Blood Urine Nitrate Urine Bilirubin Urine Urobilinogen Ur Leukocyte Esterase Urine RBC Urine WBC Ur Squamous Epith Cells Ur Transition Epith Cell Urine Bacteria Ur Culture Indicated? Chlamy pneumoniae PCR Adenovirus (PCR) B. pertussis DNA (PCR) B.parapertussis DNA PCR Coronavirus OC43 (PCR) Coronavirus HKU1 (PCR) Coronavirus 229E (PCR) SARS-CoV-2 (PCR) Coronavirus NL63 (PCR) Human Metapneumovir PCR Influenza Type A (PCR) Influenza Type B (PCR) M. pneumoniae (PCR) Parainfluenza 1 (PCR) Parainfluenza 2 (PCR) Parainfluenza 3 (PCR) Parainfluenza 4 (PCR) RSV (PCR) Entero/Rhino (PCR) 07/25/22 07/25/22 07/25/22 04:40 04:40 04:40 WBC RBC Hgb Hct MCV MCH MCHC RDW Plt Count Neut % (Auto) Lymph % (Auto) [place] % (Auto) Eos % (Auto) Baso % (Auto) Neut # (Auto) Lymph # (Auto) [place] # (Auto) Eos # (Auto) Baso # (Auto) PT INR APTT ABG pH ABG pCO2 ABG pO2 ABG HCO3 ABG Total CO2 ABG O2 Saturation ABG Base Excess FiO2 Sodium Potassium Chloride Carbon Dioxide BUN Creatinine Estimated GFR BUN/Creatinine Ratio Glucose Hemoglobin A1c Lactate 1.3 Calcium Magnesium Total Bilirubin AST ALT Alkaline Phosphatase Troponin I NT-Pro-B Natriuret Pep Total Protein Albumin Globulin Albumin/Globulin Ratio Procalcitonin TSH 0.10 L Free T4 1.44 Cortisol AM Sample 53.3 H Urine Color Urine Appearance Urine pH Ur Specific [place] Urine Protein Urine Glucose (UA) Urine Ketones Urine Occult Blood Urine Nitrate Urine Bilirubin Urine Urobilinogen Ur Leukocyte Esterase Urine RBC Urine WBC Ur Squamous Epith Cells Ur Transition Epith Cell Urine Bacteria Ur Culture Indicated? Chlamy pneumoniae PCR Adenovirus (PCR) B. pertussis DNA (PCR) B.parapertussis DNA PCR Coronavirus OC43 (PCR) Coronavirus HKU1 (PCR) Coronavirus 229E (PCR) SARS-CoV-2 (PCR) Coronavirus NL63 (PCR) Human Metapneumovir PCR Influenza Type A (PCR) Influenza Type B (PCR) M. pneumoniae (PCR) Parainfluenza 1 (PCR) Parainfluenza 2 (PCR) Parainfluenza 3 (PCR) Parainfluenza 4 (PCR) RSV (PCR) Entero/Rhino (PCR) [facility] Medical History Acute exacerbation of chronic low back pain Age-related cognitive decline Anticoagulated Anxiety Cataract Cervical somatic dysfunction CHF (congestive heart failure) Chicken pox Chronic bilateral back pain Chronic headaches Chronic, continuous use of opioids Closed L2 vertebral fracture Colon polyps Cranial somatic dysfunction CTS (carpal tunnel syndrome) Depression Facet arthropathy, lumbar Fatigue GERD (gastroesophageal reflux disease) Hearing loss Lumbar region somatic dysfunction Lumbosacral spondylosis with radiculopathy Measles Mumps Normocytic anemia, not due to blood loss Obstructive sleep apnea Pelvic relaxation Pelvic somatic dysfunction PTSD (post-traumatic stress disorder) Sacral region somatic dysfunction Scoliosis of cervical region due to degenerative disease of spine in adult Segmental and somatic dysfunction of abdomen and other regions Segmental and somatic dysfunction of rib cage Sleep apnea T12 compression fracture Therapeutic opioid induced constipation Thoracic region somatic dysfunction TIA (transient ischemic attack) Upper extremity somatic dysfunction Surgical History Anesthesia History of carpal tunnel surgery of left wrist History of colonoscopy History of ear surgery (1981) History of ear surgery (1974) History of knee replacement (2008) History of knee replacement (2012) Hx of appendectomy Status post breast lumpectomy (1982) Status post cataract extraction of both eyes with insertion of intraocular lens Status post hysterectomy (1979) Family History Child Age: 61 Mental health problem Father Heart disease Stroke Myocardial infarction Grandmother Cancer Grandfather Pneumonia Grandmother No problems noted. Mother Brainstem hemorrhage Brain bleed Social History household members: spouse Smoking Status: Never smoker alcohol intake: current Assessment & Plan Assessment & Plan narrative: Acute hypoxic respiratory failure secondary to influenza A, acute, present on admission * EMS/ED oxygen saturations in the low 80s on rm air. initial:101.6?, BP 155/68, 69, 31, O2 saturation 93% on high-flow 3 L non-rebreather mask. * With small bilateral pleural effusions, pulmonary edema, and possible pneumonia * chest x-ray shows mild edema, ABGs: PH 7.358, pCO2 49, PO2 60, bicarb 27, TCO2 29, O2 sat 89% * Initially requiring non-rebreather mask in ED-Rocephin/Tamiflu given * Continue Tamiflu * Chest CTA: Negative for PE, Small bilateral pleural effusions, pulmonary edema, and cardiomegaly. Mild compressive atelectasis as well as small areas of consolidation posteriorly in the lower lobes. Enlarged mediastinal lymph nodes are nonspecific. * Blood & urine culture pending, trend inflammatory markers * continue HFNC and wean as able * continue lasix 40mg IV BID Encephalopathy/Altered level of consciousness, acute, present on admission, now resolved * In ED patient's was at bedside, provided some of the HPI, and noted that the patient had been developing confusion and bouts of unresponsiveness. Patient was answering some questions in ED. * Nurses reported that when patient came to the floor patient was able to stand for transfer and was able to answer some questions but quickly fell back asleep. * On unit for admit exam patient would physically respond to stimulus but was only able to get her to open her eyes once very briefly and give a answer yes to 1 question, she quickly fell back asleep and continued to only physically responsive to vigorous stimuli but would not open her eyes or verbally respond continued to snore and sleep. * Head CT: Negative for any acute intracranial process. * now awake, alert and oriented as of 07/25 Myocardial injury, likely demand ischemia secondary to acute respiratory failu re, sepsis, influenza a, acute, present on admission * Initial troponin 0.032, repeat> 99th %, 0.041- continue to trend HFpEF, exacerbation, acute on chronic, present on admission * initial troponin-0.032- will trend, on Tele * BNP 2530 (previous 08/2021: 2990, 3320) * Found patient to be hypovolemic on exam, lung sounds clear, no peripheral edema-will continue to monitor * Chads vasc 2 score:7 * Last echo 04/2022 EF 60-65% RVSP 71 * repeat limited echo on 07/25 with EF 65-70% and decreased RVSP to 52 * Low-sodium diet, fluid restriction, daily weights Thyroid Nodules, acute, present on admission * Found on imaging * Chest CTA: Enlarged lobulated right thyroid lobe with numerous hypoattenuating nodules redemonstrated.? There is suggestion of increase in size of a nodule along the isthmus. * TSH 0.1, T4 normal Paroxsysmal Atrial fibrillation, with Atypical atrial flutter, chronic, present on admission * I personally reviewed EKG: Sinus rhythm at a rate of [address]/T-wave changes. * Continue Pradaxa, flecainide 100 mg b.i.d., metoprolol XL 25 mg b.i.d.- cardiology records do not document the use of carvedilol * Chads vasc 2 score:7 * Reviewed cardiology notes 06/06/2022 * Hx of Atypical flutter: 2:1 block * flecainide/metoprolol Tx Goal 3:1 block with vent rate 68. History of atrial arrhythmia, chronic, present on admission * Refractory to medical therapy Essential hypertension, suboptimally controlled * BP 155/68, repeat 126/61 * Metoprolol and flecainide Acute anemia, unknown cause * H and H -baseline * Monitor CBC daily History of TIA, chronic, present on admission * 2021 MARIOLA, chronic, present on admission * Untreated does not use CPAP Code status: Full code Surrogate decision maker: Bill & POA. DVT/VTE prophylaxis: Pradaxa and SCDs Disposition: ICU on HFNC. Quality VTE Deep Vein Thrombosis/Pulmonary Embolism Present on Admission: No
[2022-07-25] MEDS: ALBUTEROL/IPRATROPIUM 3 ML AMPUL INH ×2 (08:44→11:38)
[2022-07-25] MEDS: POTASSIUM CHLORIDE IN WATER 10 MEQ/100 ML PIGGYBACK 100 MEQ IV ×4 (09:03→13:55)
[2022-07-25] MEDS: OSELTAMIVIR 75 MG CAPSULE PO (09:04)
[2022-07-25] MEDS: DABIGATRAN 75 MG CAPSULE 150 MG PO (09:04)
[2022-07-25] MEDS: FLECAINIDE 100 MG TABLET PO (09:05)
[2022-07-25] MEDS: DOCUSATE 100 MG CAPSULE PO (09:05)
[2022-07-25] MEDS: METOPROLOL ER 25 MG TABLET PO (09:05)
[2022-07-25] MEDS: FUROSEMIDE 40 MG/4 ML VIAL IV ×2 (09:06→20:46)
--- NOTE | 2022-07-25 09:43 | P.TELICUCN_ITS ---
History of Present Illness Consult details IF CAMERA ACTIVATED, patient seen via real-time interactive audiovisual communication: Camera activated Chief complaint: Acute resp failure, CHF exac, FluA, mild sepsis Consent obtained for tele-scrap metal burner care: Yes Patient Location: ICU Provider location (State): Other participants/roles: , RN Narrative: 86 y.o. female with a history of HFrEF PAF & flutter on Pradaxa, HTN, history of TIA 2021, CHFpEF 60-65%, gerd, untreated MARIOLA , pul HTN, admitted with SOB for couple of days, found to be hypoxic in the low 80s with encephalopathy, CT yosef wed evidence of CHF exacerbation, ?tested positive for influenza A. Pt moved to ICU bec of HFNC requirement. Reviwed imaging CXR, CTA chest and CTH. Assessment: Acute hypoxic respiratory failure 2/2 CHF exacerbation and influenza A PNA Acute on chronic HFrEF Sepsis 2/2 influenza PNA Acute metabolic encephalopathy H/o of pul HTN H/o of TIA H/o of MARIOLA Plan: -? Continue HFNC, wean off for Sat goal of 92 -? Continue Tamiflu & ceftriaxone -?Increase Lasix dose to 40 mg bid and keep adjusting as needed to achieve ?net neg 1.5 L daily -? Continue Pradaxa, flecainide and metoprolol, keep normal K & Mag -? - Consider checking 2 D echo -? - fluid restriction to 700 ml// day -?Start Pepcid for GI ppx ( pt on full Ac) -? CCT 45 min PFS Medical History Acute exacerbation of chronic low back pain Age-related cognitive decline Anticoagulated Anxiety Cataract Cervical somatic dysfunction CHF (congestive heart failure) Chicken pox Chronic bilateral back pain Chronic headaches Chronic, continuous use of opioids Closed L2 vertebral fracture Colon polyps Cranial somatic dysfunction CTS (carpal tunnel syndrome) Depression Facet arthropathy, lumbar Fatigue GERD (gastroesophageal reflux disease) Hearing loss Lumbar region somatic dysfunction Lumbosacral spondylosis with radiculopathy Measles Mumps Normocytic anemia, not due to blood loss Obstructive sleep apnea Pelvic relaxation Pelvic somatic dysfunction PTSD (post-traumatic stress disorder) Sacral region somatic dysfunction Scoliosis of cervical region due to degenerative disease of spine in adult Segmental and somatic dysfunction of abdomen and other regions Segmental and somatic dysfunction of rib cage Sleep apnea T12 compression fracture Therapeutic opioid induced constipation Thoracic region somatic dysfunction TIA (transient ischemic attack) Upper extremity somatic dysfunction Surgical History Anesthesia History of carpal tunnel surgery of left wrist History of colonoscopy History of ear surgery (1981) History of ear surgery (1974) History of knee replacement (2008) History of knee replacement (2012) Hx of appendectomy Status post breast lumpectomy (1982) Status post cataract extraction of both eyes with insertion of intraocular lens Status post hysterectomy (1979) Family History Child Age: 61 Mental health problem Father Heart disease Stroke Myocardial infarction Grandmother Cancer Grandfather Pneumonia Grandmother No problems noted. Mother Brainstem hemorrhage Brain bleed Social History household members: spouse Smoking Status: Never smoker alcohol intake: current Current Medications Current Medications Medications: Home Medications dabigatran etexilate 150 mg capsule (Pradaxa) 150 mg PO BID #180 caps 07/02/18 [Rx Confirmed 07/25/22] flecainide 100 mg tablet 100 mg PO BID 08/14/18 [History Confirmed 07/25/22] paroxetine HCl 20 mg tablet 60 mg PO DAILY #270 tabs 01/10/22 [Rx Confirmed 07/25/22] amlodipine 10 mg tablet (Norvasc) 10 mg PO DAILY 90 days #90 tabs 02/01/22 [Rx Confirmed 07/25/22] furosemide 20 mg tablet (Lasix) 20 mg PO QDAY #90 tabs 02/01/22 [Rx Confirmed 07/25/22] carvedilol 25 mg tablet (Coreg) 12.5 mg PO BID 05/10/22 [History Confirmed 07/25/22] hydrocodone 10 mg-acetaminophen 325 mg tablet See Rx Instructions .Route .COMPLEX #120 tabs 07/19/22 [Rx Confirmed 07/25/22] digoxin 125 mcg (0.125 mg) tablet 125 mcg PO DAILY 07/25/22 [History Confirmed 07/25/22] metoprolol succinate 25 mg tablet,extended release 24 hr 25 mg PO BID 07/25/22 [History Confirmed 07/25/22] omeprazole 20 mg capsule,delayed release 20 mg PO DAILY 07/25/22 [History Confirmed 07/25/22] Visit Medications (administered) Generic Name Dose Route Start Last Admin Trade Name Freq PRN Reason Stop Dose Admin Acetaminophen 650 mg 07/24/22 20:17 07/25/22 04:14 Acetaminophen 325 Mg Tablet PO 650 mg Q4H PRN Administration Fever/Mild Pain (1-3) Albuterol/Ipratropium 3 ml 07/24/22 23:00 07/25/22 08:44 Albuterol/Ipratropium 3 Ml Ampul INH 3 ml [id number] TAINA Administration Dabigatran 150 mg 07/24/22 21:45 07/25/22 09:04 Dabigatran 75 Mg Capsule PO 150 mg BID TAINA Administration Docusate Sodium 100 mg 07/24/22 21:00 07/25/22 09:05 Docusate 100 Mg Capsule PO 100 mg BID TAINA Administration Flecainide Acetate 100 mg 07/24/22 21:30 07/25/22 09:05 Flecainide 100 Mg Tablet PO 100 mg BID TAINA Administration POTASSIUM CHLORIDE IN WATER 10 meq in 100 mls @ 100 mls/hr 07/25/22 08:30 07/25/22 09:03 Potassium Cl 10 Meq/100 Ml Nisha IV 07/25/22 12:29 100 mls/hr Q1H TAINA Administration Metoprolol Succinate 25 mg 07/24/22 21:45 07/25/22 09:05 Metoprolol Er 25 Mg Tablet PO 25 mg BID TAINA Administration Oseltamivir Phosphate 75 mg 07/25/22 09:00 07/25/22 09:04 Oseltamivir 75 Mg Capsule PO 07/30/22 08:59 75 mg BID TAINA Administration Sennosides 17.2 mg 07/24/22 21:00 07/25/22 01:08 Sennosides 8.6 Mg Tablet PO Not Given BEDTIME TAINA Exam Vital Signs (past 8 hours): - 07/25/22 04:14 07/25/22 04:00 07/25/22 08:00 Temperature 99.1 F 99.1 F 97.8 F Pulse Rate 78 76 Respiratory Rate 20 Blood Pressure 156/76 H 145/54 H Pulse Oximetry 94 90 L Oxygen Delivery Method Oxygen Flow Rate 15 30 Fraction of Inspired Oxygen 07/25/22 09:05 07/25/22 08:45 07/25/22 08:05 Temperature Pulse Rate 81 74 Respiratory Rate 16 Blood Pressure 143/62 H Pulse Oximetry 92 90 L Oxygen Delivery Method Heated High Flow Oxygen Flow Rate 30 Fraction of Inspired Oxygen 70 Fraction of Inspired Oxygen 70 SaO2/FiO2 Ratio 131 Oxygen Delivery Method Heated High Flow Oxygen Flow Rate 30 Objective Labs 07/25/22 04:40 07/25/22 04:40 Labs: Laboratory Results - last 24 hr 07/24/22 07/24/22 07/24/22 18:15 18:15 18:15 WBC 5.0 RBC 4.12 Hgb 10.8 L Hct 33.3 L MCV 80.8 MCH 26.3 MCHC 32.5 RDW 18.1 H Plt Count 241 Neut % (Auto) 74.6 Lymph % (Auto) 12.9 L [place] % (Auto) 12.0 Eos % (Auto) 0.0 L Baso % (Auto) 0.5 Neut # (Auto) 3800 Lymph # (Auto) 600 L [place] # (Auto) 600 Eos # (Auto) 0 Baso # (Auto) 0 PT 13.8 H INR 1.2 APTT ABG pH ABG pCO2 ABG pO2 ABG HCO3 ABG Total CO2 ABG O2 Saturation ABG Base Excess FiO2 Sodium 137 Potassium 3.6 Chloride 99 Carbon Dioxide 30 BUN 13 Creatinine 0.73 Estimated GFR > 60 BUN/Creatinine Ratio 17.8 Glucose 102 Hemoglobin A1c Lactate Calcium 8.7 Magnesium Total Bilirubin 0.4 AST 32 ALT 29 Alkaline Phosphatase 77 Troponin I 0.032 NT-Pro-B Natriuret Pep 2530 H Total Protein 7.2 Albumin 3.9 Globulin 3.3 Albumin/Globulin Ratio 1.2 Procalcitonin TSH Free T4 Cortisol AM Sample Urine Color Urine Appearance Urine pH Ur Specific [place] Urine Protein Urine Glucose (UA) Urine Ketones Urine Occult Blood Urine Nitrate Urine Bilirubin Urine Urobilinogen Ur Leukocyte Esterase Urine RBC Urine WBC Ur Squamous Epith Cells Ur Transition Epith Cell Urine Bacteria Ur Culture Indicated? Chlamy pneumoniae PCR Adenovirus (PCR) B. pertussis DNA (PCR) B.parapertussis DNA PCR Coronavirus OC43 (PCR) Coronavirus HKU1 (PCR) Coronavirus 229E (PCR) SARS-CoV-2 (PCR) Coronavirus NL63 (PCR) Human Metapneumovir PCR Influenza Type A (PCR) Influenza Type B (PCR) M. pneumoniae (PCR) Parainfluenza 1 (PCR) Parainfluenza 2 (PCR) Parainfluenza 3 (PCR) Parainfluenza 4 (PCR) RSV (PCR) Entero/Rhino (PCR) 07/24/22 07/24/22 07/24/22 18:15 18:15 18:15 WBC RBC Hgb Hct MCV MCH MCHC RDW Plt Count Neut % (Auto) Lymph % (Auto) [place] % (Auto) Eos % (Auto) Baso % (Auto) Neut # (Auto) Lymph # (Auto) [place] # (Auto) Eos # (Auto) Baso # (Auto) PT INR APTT 33 ABG pH ABG pCO2 ABG pO2 ABG HCO3 ABG Total CO2 ABG O2 Saturation ABG Base Excess FiO2 Sodium Potassium Chloride Carbon Dioxide BUN Creatinine Estimated GFR BUN/Creatinine Ratio Glucose Hemoglobin A1c Lactate 1.5 Calcium Magnesium Total Bilirubin AST ALT Alkaline Phosphatase Troponin I NT-Pro-B Natriuret Pep Total Protein Albumin Globulin Albumin/Globulin Ratio Procalcitonin TSH Free T4 Cortisol AM Sample Urine Color Urine Appearance Urine pH Ur Specific [place] Urine Protein Urine Glucose (UA) Urine Ketones Urine Occult Blood Urine Nitrate Urine Bilirubin Urine Urobilinogen Ur Leukocyte Esterase Urine RBC Urine WBC Ur Squamous Epith Cells Ur Transition Epith Cell Urine Bacteria Ur Culture Indicated? Chlamy pneumoniae PCR Not detected Adenovirus (PCR) Not detected B. pertussis DNA (PCR) Not detected B.parapertussis DNA PCR Not detected Coronavirus OC43 (PCR) Not detected Coronavirus HKU1 (PCR) Not detected Coronavirus 229E (PCR) Not detected SARS-CoV-2 (PCR) Not detected Coronavirus NL63 (PCR) Not detected Human Metapneumovir PCR Not detected Influenza Type A (PCR) Detected H Influenza Type B (PCR) Not detected M. pneumoniae (PCR) Not detected Parainfluenza 1 (PCR) Not detected Parainfluenza 2 (PCR) Not detected Parainfluenza 3 (PCR) Not detected Parainfluenza 4 (PCR) Not detected RSV (PCR) Not detected Entero/Rhino (PCR) Not detected 07/24/22 07/24/2223 18:15 18:25 20:00 WBC RBC Hgb Hct MCV MCH MCHC RDW Plt Count Neut % (Auto) Lymph % (Auto) [place] % (Auto) Eos % (Auto) Baso % (Auto) Neut # (Auto) Lymph # (Auto) [place] # (Auto) Eos # (Auto) Baso # (Auto) PT INR APTT ABG pH ABG pCO2 ABG pO2 ABG HCO3 ABG Total CO2 ABG O2 Saturation ABG Base Excess FiO2 Sodium Potassium Chloride Carbon Dioxide BUN Creatinine Estimated GFR BUN/Creatinine Ratio Glucose Hemoglobin A1c Lactate Calcium Magnesium 2.0 Total Bilirubin AST ALT Alkaline Phosphatase Troponin I NT-Pro-B Natriuret Pep Total Protein Albumin Globulin Albumin/Globulin Ratio Procalcitonin 0.07 TSH Free T4 Cortisol AM Sample Urine Color Yellow Urine Appearance Clear Urine pH 6.0 Ur Specific [place] 1.025 Urine Protein 1+ H Urine Glucose (UA) Negative Urine Ketones Trace H Urine Occult Blood Negative Urine Nitrate Negative Urine Bilirubin Negative Urine Urobilinogen 1.0 Ur Leukocyte Esterase Negative Urine RBC None seen Urine WBC 5-10/hpf H Ur Squamous Epith Cells 1-5 /hpf Ur Transition Epith Cell 1-5/hpf Urine Bacteria Occasional (0-1) Ur Culture Indicated? Specimen cultured Chlamy pneumoniae PCR Adenovirus (PCR) B. pertussis DNA (PCR) B.parapertussis DNA PCR Coronavirus OC43 (PCR) Coronavirus HKU1 (PCR) Coronavirus 229E (PCR) SARS-CoV-2 (PCR) Coronavirus NL63 (PCR) Human Metapneumovir PCR Influenza Type A (PCR) Influenza Type B (PCR) M. pneumoniae (PCR) Parainfluenza 1 (PCR) Parainfluenza 2 (PCR) Parainfluenza 3 (PCR) Parainfluenza 4 (PCR) RSV (PCR) Entero/Rhino (PCR) 07/24/22 07/25/22 07/25/22 22:44 00:29 00:29 WBC RBC Hgb Hct MCV MCH MCHC RDW Plt Count Neut % (Auto) Lymph % (Auto) [place] % (Auto) Eos % (Auto) Baso % (Auto) Neut # (Auto) Lymph # (Auto) [place] # (Auto) Eos # (Auto) Baso # (Auto) PT INR APTT ABG pH 7.36 ABG pCO2 49.0 H ABG pO2 60 L ABG HCO3 28 H ABG Total CO2 49 H ABG O2 Saturation 89 L ABG Base Excess 2.0 FiO2 36 Sodium Potassium Chloride Carbon Dioxide BUN Creatinine Estimated GFR BUN/Creatinine Ratio Glucose Hemoglobin A1c Cancelled Lactate Calcium Magnesium Total Bilirubin AST ALT Alkaline Phosphatase Troponin I 0.041 H NT-Pro-B Natriuret Pep Total Protein Albumin Globulin Albumin/Globulin Ratio Procalcitonin TSH Free T4 Cortisol AM Sample Urine Color Urine Appearance Urine pH Ur Specific [place] Urine Protein Urine Glucose (UA) Urine Ketones Urine Occult Blood Urine Nitrate Urine Bilirubin Urine Urobilinogen Ur Leukocyte Esterase Urine RBC Urine WBC Ur Squamous Epith Cells Ur Transition Epith Cell Urine Bacteria Ur Culture Indicated? Chlamy pneumoniae PCR Adenovirus (PCR) B. pertussis DNA (PCR) B.parapertussis DNA PCR Coronavirus OC43 (PCR) Coronavirus HKU1 (PCR) Coronavirus 229E (PCR) SARS-CoV-2 (PCR) Coronavirus NL63 (PCR) Human Metapneumovir PCR Influenza Type A (PCR) Influenza Type B (PCR) M. pneumoniae (PCR) Parainfluenza 1 (PCR) Parainfluenza 2 (PCR) Parainfluenza 3 (PCR) Parainfluenza 4 (PCR) RSV (PCR) Entero/Rhino (PCR) 07/25/22 07/25/22 07/25/22 04:40 04:40 04:40 WBC 5.5 RBC 4.13 Hgb 11.0 L Hct 33.3 L MCV 80.5 MCH 26.5 MCHC 32.9 RDW 18.0 H Plt Count 218 Neut % (Auto) 84.2 H Lymph % (Auto) 9.1 L [place] % (Auto) 6.2 Eos % (Auto) 0.0 L Baso % (Auto) 0.5 Neut # (Auto) 4600 Lymph # (Auto) 500 L [place] # (Auto) 300 Eos # (Auto) 0 Baso # (Auto) 0 PT INR APTT ABG pH ABG pCO2 ABG pO2 ABG HCO3 ABG Total CO2 ABG O2 Saturation ABG Base Excess FiO2 Sodium 135 L Potassium 3.4 Chloride 102 Carbon Dioxide 27 BUN 11 Creatinine 0.58 Estimated GFR > 60 BUN/Creatinine Ratio 19.0 Glucose 119 H Hemoglobin A1c Lactate Calcium 8.0 L Magnesium Total Bilirubin AST ALT Alkaline Phosphatase Troponin I 0.042 H NT-Pro-B Natriuret Pep 2390 H Total Protein Albumin Globulin Albumin/Globulin Ratio Procalcitonin TSH Free T4 Cortisol AM Sample Urine Color Urine Appearance Urine pH Ur Specific [place] Urine Protein Urine Glucose (UA) Urine Ketones Urine Occult Blood Urine Nitrate Urine Bilirubin Urine Urobilinogen Ur Leukocyte Esterase Urine RBC Urine WBC Ur Squamous Epith Cells Ur Transition Epith Cell Urine Bacteria Ur Culture Indicated? Chlamy pneumoniae PCR Adenovirus (PCR) B. pertussis DNA (PCR) B.parapertussis DNA PCR Coronavirus OC43 (PCR) Coronavirus HKU1 (PCR) Coronavirus 229E (PCR) SARS-CoV-2 (PCR) Coronavirus NL63 (PCR) Human Metapneumovir PCR Influenza Type A (PCR) Influenza Type B (PCR) M. pneumoniae (PCR) Parainfluenza 1 (PCR) Parainfluenza 2 (PCR) Parainfluenza 3 (PCR) Parainfluenza 4 (PCR) RSV (PCR) Entero/Rhino (PCR) 07/25/22 07/25/22 07/25/22 04:40 04:40 04:40 WBC RBC Hgb Hct MCV MCH MCHC RDW Plt Count Neut % (Auto) Lymph % (Auto) [place] % (Auto) Eos % (Auto) Baso % (Auto) Neut # (Auto) Lymph # (Auto) [place] # (Auto) Eos # (Auto) Baso # (Auto) PT INR APTT ABG pH ABG pCO2 ABG pO2 ABG HCO3 ABG Total CO2 ABG O2 Saturation ABG Base Excess FiO2 Sodium Potassium Chloride Carbon Dioxide BUN Creatinine Estimated GFR BUN/Creatinine Ratio Glucose Hemoglobin A1c Lactate 1.3 Calcium Magnesium Total Bilirubin AST ALT Alkaline Phosphatase Troponin I NT-Pro-B Natriuret Pep Total Protein Albumin Globulin Albumin/Globulin Ratio Procalcitonin TSH 0.10 L Free T4 1.44 Cortisol AM Sample 53.3 H Urine Color Urine Appearance Urine pH Ur Specific [place] Urine Protein Urine Glucose (UA) Urine Ketones Urine Occult Blood Urine Nitrate Urine Bilirubin Urine Urobilinogen Ur Leukocyte Esterase Urine RBC Urine WBC Ur Squamous Epith Cells Ur Transition Epith Cell Urine Bacteria Ur Culture Indicated? Chlamy pneumoniae PCR Adenovirus (PCR) B. pertussis DNA (PCR) B.parapertussis DNA PCR Coronavirus OC43 (PCR) Coronavirus HKU1 (PCR) Coronavirus 229E (PCR) SARS-CoV-2 (PCR) Coronavirus NL63 (PCR) Human Metapneumovir PCR Influenza Type A (PCR) Influenza Type B (PCR) M. pneumoniae (PCR) Parainfluenza 1 (PCR) Parainfluenza 2 (PCR) Parainfluenza 3 (PCR) Parainfluenza 4 (PCR) RSV (PCR) Entero/Rhino (PCR)
--- NOTE | 2022-07-25 10:25 | OT.IPNOTE ---
Per rounds, hospitalist states to hold pt for therapy evals at this time until pt's O2 level more appropriate. To check on pt tomorrow.
[2022-07-25] MEDS: FAMOTIDINE 20 MG TABLET PO (10:34)
[2022-07-25] MEDS: ONDANSETRON 4 MG/2 ML INJ IV (10:42)
--- NOTE | 2022-07-25 10:47 | PC.NURSE ---
Patient transferred to ICU bed 227 approximately 845am. Report received from Marta MCFADDEN. Patient on heated hi kortney NC at 70% 30L, saturating around 90-92%. Respiratory at bedside. Patient alert, forgetful, pleasantly confused. Bed alarm on, call light within reach.
--- NOTE | 2022-07-25 10:54 | SLP.IPNOTE ---
Ordr received. Per nursing, pt is eating andhas been safely tolerating PO intake. Per MD, ST order can be cancelled.
--- NOTE | 2022-07-25 11:45 | DI.ECHO.S_ITS ---
[facility]---------+ [facility] +---------+ : : [address] : : : : [id number] : : : : Phone: [phone]+ Echocardiogram Report + + :Name: JESSICA BULL Study Date: 07/25/2022 Height: 61 in : :[facility] ReadingLocation: Weight: 138 lb : : Gender: Female BSA: 1.6 m2 : :: 1935 Age: 86 yrs BP: 143/63 mmHg: :Reason For Study: ASSESS EJECTION FRACTIONA ND TRICUSPID : :REGURGITATION : :Ordering Physician: TAMIE, : :GIANNI Gusman Performed By: Nicky Anaya : :Referring: GIANNI WILLETT : + + Interpretation Summary Limited Echo: Normal left ventricular thickness, size, wall motion, and systolic function (EF 65-70%). There is mild tricuspid regurgitation. The right ventricular systolic pressure is estimated to be at least 52 mmHg based on an estimated right atrial pressure of 8 mm Hg. Compared to the Echo done 09/02/2021, systolic pulmonary artery pressure has decreased from 71mmHg to 52mmHg on this study. Procedure: Images were not obtained from all of the standard acoustic windows due to the limited scope of the study. The study quality was technically adequate. Comparison is made with the echocardiogram of 05/02/2022. The heart rate ranged between 71-86 bpm during the study. Left Ventricle: The left ventricle is normal in size and wall thickness. The ejection fraction is estimated to be 65-70%. Left ventricular systolic function appears normal without focal wall motion abnormalities. Right Ventricle: The right ventricle grossly appears normal in size with probable normal systolic function. Tricuspid Valve: The tricuspid valve is normal in structure and function. There is mild tricuspid regurgitation. The right ventricular systolic pressure is estimated to be at least 52 mmHg based on an estimated right atrial pressure of 8 mm Hg. Great Vessels: The IVC is dilated (diameter is greater than 2.1 cm) yet it collapses greater than 50% with a sniff. This suggests a right atrial pressure of 8 mm Hg. Pericardium/ Pleura There is no pericardial effusion. MMode/2D Measurements & Calculations LVIDd: 4.9 cm IVC diam: 2.1 cm LVIDs: 3.0 cm FS: 38.8 % EPSS: 0.40 cm IVSd: 0.95 cm LVPWd: 1.0 cm LV chang. diameter/BSA (cm/m^2): 3.0 LV sys. diameter/BSA (cm/m^2): 1.8 Doppler Measurements & Calculations TR max venkatesh: 331.9 cm/sec TR max P.1 mmHg Reading Physician:03:22 PM
--- NOTE | 2022-07-25 13:30 | PT-IP ANOTE ---
PT eval received and EMR reviewed. Per hospitalist during rounds meeting, pt on hold for PT today as pt is not needing to be on 30L/min high flow O2 and is not medically stable to do PT. will f/u.
--- NOTE | 2022-07-25 15:23 | CM.DANOTE ---
DCP: Brief Assessment Patient is a 86yo F here with the flu/overall weakness. Payer: [employer] and self pay PCP: Cooper Hernandez? CHANNEL CEMENTER reviewed EMR. From rounds, provider reported patient will likely be with us for a few days. From nursing staff, patient is slightly confused. Per rounds, provider denied therapy today due to medical status. CHANNEL CEMENTER entered room and introduced self and role. Patient was resting in bed at time of meeting. It was unclear if patient could not hear CHANNEL CEMENTER due to loud 02 device or if patient was confused throughout conversation. Patient reported being independent with her mobility and taking care of her ADLs. Patient reported she's going to go home and lay on the couch [place], and that she's good at following the rules. It was unclear what she meant by this statement. Patient lives at home with her spouse, Mateo ([phone]), and was unsure where he was at this time. CM team will follow up with spouse regarding patient d/c plan. Patient reports spouse could drive her home. Plan: plan at this time pending patient prognosis. Likely transport with . CM team will continue to follow closely. ANJEL Lehman Discharge Planning/Care Management CM Discharge Assessment Start: 07/25/22 15:21 Freq: Status: Active Protocol: Document 07/25/22 15:21 (Rec: 07/25/22 15:23 [id number]) Discharge Planning Assessment Assigned Silk Screen Repairer ANJEL Lehman DPOA/Assigned Designee Name Jeff Quevedo (spouse) Contact Information [phone] Advance Directives? No: Declines further information Advance Directives on File No History Provided By Patient,Medical Record Prior Living Arrangements House Household Members spouse Comment It was unclear at this time if patient drives at baseline. Independent with ADL's Yes Is patient alert and oriented? No: patient appeared confused Comment none determined at time of initial assessment Transportation Arrangement unclear at this time Whiteboard Updated in Patient Room with Yes name and ext. # of Silk Screen Repairer Review Status In Process Next Review Type Continued Stay Review
--- NOTE | 2022-07-25 20:14 | PM.EICU.INT ---
Teleintensivist Intervention Date/Time Was camera activated?: Yes Time Patient Seen: 20:14 Issue(s) Addressed Issue(s): Resp. Distress/Ventilator management Other:: Pt comfortable on HFNC 30L/70%,good response to Lasix
--- NOTE | 2022-07-25 21:00 | PC.NURSE ---
pt unable to take scheduled PO medications r/t not able to stay awake and follow commands. notified.
[2022-07-26] VITALS (7 sets, daily range): BP systolic 146–155; BP diastolic 64–70; PULSE 54–57; RESP 17–32; TEMP 36.3–36.4; O2SAT 96–100
[2022-07-26 03:15] LABS: x Labcorp Estim. Avg Glu (eAG) 126 mg/dL (.)
[2022-07-26 05:30] LABS: BUN Creatinine Ratio 21.7 (6-22); Blood Urea Nitrogen 15 mg/dL (7-17); Calcium 8.6 mg/dL (8.4-10.2); Carbon Dioxide 33 mmol/L (22-32); Chloride 98 mmol/L (98-107); Estimated Glomerular Filt Rate > 60 mL/min (>60); Glucose 95 mg/dL (80-110); HEMOLYSIS < 15 (0-50); Potassium 3.7 mmol/L (3.4-5.1); Sodium 135 mmol/L (137-145)
[2022-07-26] MEDS: ACETAMINOPHEN 325 MG TABLET 650 MG PO (05:32)
[2022-07-26] MEDS: DABIGATRAN 75 MG CAPSULE 150 MG PO (09:22)
[2022-07-26] MEDS: OSELTAMIVIR 75 MG CAPSULE PO (09:22)
[2022-07-26] MEDS: DOCUSATE 100 MG CAPSULE PO (09:22)
[2022-07-26] MEDS: FLECAINIDE 100 MG TABLET PO (09:22)
[2022-07-26] MEDS: FAMOTIDINE 20 MG TABLET PO (09:22)
[2022-07-26] MEDS: FUROSEMIDE 40 MG/4 ML VIAL IV (09:22)
[2022-07-26] MEDS: METOPROLOL ER 25 MG TABLET PO (09:22)
--- NOTE | 2022-07-26 09:32 | OT.IPNOTE ---
Per pt's nurse, best to check on the pt this PM for OT eval as pt still having O2 needs and not ready to be seen yet.
--- NOTE | 2022-07-26 09:39 | PT-IP ANOTE ---
Nursing requested PT/OT hold for the AM due to O2 needs. Will attempt this afternoon.
--- NOTE | 2022-07-26 12:09 | PT.IIE ---
Current Diagnoses Sepsis, unspecified organism (07/24/22) Surgical History (Last Reviewed 07/25/22 @ 03:10 by THERESA Howard-) Anesthesia History of carpal tunnel surgery of left wrist History of colonoscopy History of ear surgery (1981) History of ear surgery (1974) History of knee replacement (2008) History of knee replacement (2012) Hx of appendectomy Status post breast lumpectomy (1982) Status post cataract extraction of both eyes with insertion of intraocular lens Status post hysterectomy (1979) Medical History (Last Reviewed 07/25/22 @ 03:10 by THERESA Howard-) Acute exacerbation of chronic low back pain Age-related cognitive decline Anticoagulated Anxiety Cataract Cervical somatic dysfunction CHF (congestive heart failure) Chicken pox Chronic bilateral back pain Chronic headaches Chronic, continuous use of opioids Closed L2 vertebral fracture Colon polyps Cranial somatic dysfunction CTS (carpal tunnel syndrome) Depression Facet arthropathy, lumbar Fatigue GERD (gastroesophageal reflux disease) Hearing loss Lumbar region somatic dysfunction Lumbosacral spondylosis with radiculopathy Measles Mumps Normocytic anemia, not due to blood loss Obstructive sleep apnea Pelvic relaxation Pelvic somatic dysfunction PTSD (post-traumatic stress disorder) Sacral region somatic dysfunction Scoliosis of cervical region due to degenerative disease of spine in adult Segmental and somatic dysfunction of abdomen and other regions Segmental and somatic dysfunction of rib cage Sleep apnea T12 compression fracture Therapeutic opioid induced constipation Thoracic region somatic dysfunction TIA (transient ischemic attack) Upper extremity somatic dysfunction Physical Therapy Inpatient Evaluation/Re-Eval M1 PT/OT-IP Prior Functional Status Start: 07/26/22 11:57 Freq: NEEDED Status: Active Protocol: Document 07/26/22 11:57 ES (Rec: 07/26/22 12:09 [id number]) Medical Review Prior Functional Status Medical History Reviewed Yes Diet/Fluid Consistency Regular Communication Indep, [place] Mobility and Gait Indep with use of cane outdoors. Leans on shopping cart at the store due to back pain. Activities of Daily Living and IADL's Indep Prior Functional Level (Other details) does the driving. Social History Household Members spouse Living Arrangements House Number of Floors (Floors) Two Floors Number of Stairs To Enter/Railing? 3 LILY with single rail. Has a basement level with washer/ dryer, otherwise stays on carpentry specialist. Home Equipment Straight Cane Employment Status Retired M2 PT-IP Current Condition Start: 07/26/22 11:57 Freq: NEEDED Status: Active Protocol: Document 07/26/22 11:57 ES (Rec: 07/26/22 12:09 ES [id number]) Physical Therapy Current Condition Current Condition Evaluation Date 07/26/22 Treatment Diagnosis Flu A, acute respiratory failure, weakness Onset Date 07/24/22 M3 PT-IP Subjective Start: 07/26/22 11:57 Freq: NEEDED Status: Active Protocol: Document 07/26/22 11:57 ES (Rec: 07/26/22 12:09 ES [id number]) Subjective Physical Therapy Visit Type Type Initial Evaluation Visit Start Time 11:30 Visit Stop Time 11:49 Total Visit Minutes 19 Physical Therapy Visit Comments Patient Comments Patient alert, up in chair. Agreeable to work with PT. Reported she has a headache, Tylenol helped with the pain earlier today. Is anxious to see the doctor today to find out how she's doing. M4 PT-IP Mobility and Gait Start: 07/26/22 11:57 Freq: NEEDED Status: Active Protocol: Document 07/26/22 11:57 ES (Rec: 07/26/22 12:09 ES [id number]) PT-Transfer Assessment Sit to and From Stand Sit to and from Stand Standby Assistance,Use of Upper Extremities Equipment Transfer Assistive Device Gait Belt,Front Wheeled Walker Comments Mobility Comments Cues for hand placement on chair vs FWW for safety. Gait Assessment Gait Gait Assistance Required: Contact Guard Assist Distance (Feet) 40 Assistive Devices Assistive Device Gait Belt,Front Wheeled Walker Gait Deviations General Gait Pattern Decreased Stride Length, Decreased Feet Clearance, Narrow Based Gait Factors Limiting Gait Function Factors Limiting Gait Function Decreased Activity Tolerance, Decreased Strength,Poor Balance Comments Gait Comments Patient ambulated 2x20 ft with FWW in room. She c/o dizziness with first bout of ambulation, which improved on second bout. SPO2 was maintained 92-93% during activity, 94-95% at rest on room air. No c/o shortness of breath. She was unsteady with turning, demonstrating toe-in gait pattern. Stair Climbing Assessment Comments Stair Climbing Comments Has 3STE with single rail at home. PT-Balance Assessment Sitting Balance and Reactions Static Sitting Balance Ability Good Dynamic Sitting Balance Ability Good Standing Balance and Reactions Static Standing Balance Ability Fair Dynamic Standing Balance Ability Fair Device Used None Comments Other Balance Tests/Deviations/Treatment 4-stage balance test = 10/0/0/ : 0 M5 PT-IP Objective Assessments Start: 07/26/22 11:57 Freq: NEEDED Status: Active Protocol: Document 07/26/22 11:57 ES (Rec: 07/26/22 12:09 ES [id number]) Orientation Orientation/Cognition Level of Alertness Alert Language Function Ability Hard of Hearing Safety Awareness Understands Safety Issues Gross Range of Motion Lower Extremity ROM Assessment Within Functional Limits Strength Upper Extremity Strength Assessment Within Functional Limits Lower Extremity Strength Assessment Within Functional Limits M6 PT-IP Treatment Start: 07/26/22 11:57 Freq: NEEDED Status: Active Protocol: Document 07/26/22 11:57 ES (Rec: 07/26/22 12:09 ES [id number]) Physical Therapy Treatment Education Education Provided Safety M7 PT-IP Assessment and Plan Start: 07/26/22 11:57 Freq: NEEDED Status: Active Protocol: Document 07/26/22 11:57 ES (Rec: 07/26/22 12:09 ES [id number]) PT Summary Assessment and Plan Potential Rehabilitation Potential Excellent Status of Condition at Evaluation Evolving Summary Impairments Strength,Balance,Gait,Activity Tolerance Assessment Summary Patient is a 86 year old female who presents with general weakness and impaired balance contributing to difficulty with walking. She was able to ambulate around the room with FWW and CGA, though was unsteady and initially c/o dizziness which improved with second bout of ambulation. She was able to maintain SPO2 at or above 92% on room air with activity. Recommend she use FWW at this time due to balance impairment . She will benefit from further skilled therapy to increase strength, balance, and activity tolerance to be able to perform functional activity and mobility at independent level in order to go home safely. Goals Bed Mobility Goal Independent Transfer Goal Independent,Cane,Front Wheeled Walker Gait Goal Independent,Cane,Front Wheel Walker Gait Distance 100 ft Other Goals Patient will be able to ascend /descend 3 stairs with single rail and cane with supervision . Days to Meet Goals 5 Frequency of Treatment Frequency Of Treatment Once a Day Treatment Plan Physical Therapy Treatment Plan Bed Mobility Training,Transfer Training,Gait Training, Therapeutic Exercise,Balance Retraining,Discharge Planning, Neuromuscular Re-ed Precautions Other Precautions Fall risk. Monitor SPO2. Recommendations To Nursing Amount of Assist Needed 1 Person Assist Discharge Recommendations PT Discharge Recommendations Home with Assistance Equipment Needed for Home Before May need FWW Discharge Transportation Needs at Discharge Private Vehicle
--- NOTE | 2022-07-26 12:22 | P.TELICUPN_ITS ---
Subjective Subjective IF CAMERA ACTIVATED, patient seen via real-time interactive audiovisual communication: Camera activated Consent obtained for tele-tobacco prevention health educator care: Yes Patient Location: ICU Provider location (State): [place] Other participants/roles: Dr. Manjarrez and bedside nursing staff Interval history: no sam events overnight Current Medications Current Medications Medications: Home Medications dabigatran etexilate 150 mg capsule (Pradaxa) 150 mg PO BID #180 caps 07/02/18 [Rx Confirmed 07/25/22] flecainide 100 mg tablet 100 mg PO BID 08/14/18 [History Confirmed 07/25/22] paroxetine HCl 20 mg tablet 60 mg PO DAILY #270 tabs 01/10/22 [Rx Confirmed 07/25/22] amlodipine 10 mg tablet (Norvasc) 10 mg PO DAILY 90 days #90 tabs 02/01/22 [Rx Confirmed 07/25/22] furosemide 20 mg tablet (Lasix) 20 mg PO QDAY #90 tabs 02/01/22 [Rx Confirmed 07/25/22] carvedilol 25 mg tablet (Coreg) 12.5 mg PO BID 05/10/22 [History Confirmed 07/25/22] hydrocodone 10 mg-acetaminophen 325 mg tablet See Rx Instructions .Route .COMPLEX #120 tabs 07/19/22 [Rx Confirmed 07/25/22] digoxin 125 mcg (0.125 mg) tablet 125 mcg PO DAILY 07/25/22 [History Confirmed 07/25/22] metoprolol succinate 25 mg tablet,extended release 24 hr 25 mg PO BID 07/25/22 [History Confirmed 07/25/22] omeprazole 20 mg capsule,delayed release 20 mg PO DAILY 07/25/22 [History Confirmed 07/25/22] Visit Medications (administered) Generic Name Dose Route Start Last Admin Trade Name Freq PRN Reason Stop Dose Admin Acetaminophen 650 mg 07/24/22 20:17 07/26/22 05:32 Acetaminophen 325 Mg Tablet PO 650 mg Q4H PRN Administration Fever/Mild Pain (1-3) Dabigatran 150 mg 07/24/22 21:45 07/26/22 09:22 Dabigatran 75 Mg Capsule PO 150 mg BID TAINA Administration Docusate Sodium 100 mg 07/24/22 21:00 07/26/22 09:22 Docusate 100 Mg Capsule PO 100 mg BID TAINA Administration Flecainide Acetate 100 mg 07/24/22 21:30 07/26/22 09:22 Flecainide 100 Mg Tablet PO 100 mg BID TAINA Administration Furosemide 40 mg 07/25/22 09:45 07/26/22 09:22 Furosemide 40 Mg/4 Ml Vial IV 40 mg BID TAINA Administration Metoprolol Succinate 25 mg 07/24/22 21:45 07/26/22 09:22 Metoprolol Er 25 Mg Tablet PO 25 mg BID TAINA Administration Ondansetron HCl 4 mg 07/24/22 20:17 07/25/22 10:42 Ondansetron 4 Mg/2 Ml Inj IV 4 mg Q8HR PRN Administration Nausea And Vomiting Oseltamivir Phosphate 75 mg 07/25/22 09:00 07/26/22 09:22 Oseltamivir 75 Mg Capsule PO 07/30/22 08:59 75 mg BID TAINA Administration Sennosides 17.2 mg 07/24/22 21:00 07/25/22 21:00 Sennosides 8.6 Mg Tablet PO Not Given BEDTIME [facility] Objective Labs 07/25/22 04:40 07/26/22 04:30 Labs: Laboratory Results - last 24 hr 07/25/22 07/26/22 00:29 04:30 Sodium 135 L Potassium 3.7 Chloride 98 Carbon Dioxide 33 H BUN 15 Creatinine 0.69 Estimated GFR > 60 BUN/Creatinine Ratio 21.7 Glucose 95 Hgb A1c (Ref Lab) 6.0 H Estim Average Glucose 126 Calcium 8.6 Exam Vital Signs (past 8 hours): - 07/26/22 07:59 07/26/22 06:00 07/26/22 08:00 Temperature 97.3 F L Pulse Rate 55 L 57 L Respiratory Rate 24 17 Blood Pressure 151/68 H 155/70 H Pulse Oximetry 100 99 Oxygen Delivery Method Oxygen Flow Rate 07/26/22 08:00 07/26/22 10:00 07/26/22 10:54 Temperature Pulse Rate 57 L 55 L Respiratory Rate 32 H 25 H Blood Pressure Pulse Oximetry 99 97 96 Oxygen Delivery Method Oxygen Flow Rate 0 07/26/22 10:54 Temperature Pulse Rate Respiratory Rate Blood Pressure Pulse Oximetry Oxygen Delivery Method Room Air Oxygen Flow Rate Fraction of Inspired Oxygen 70 SaO2/FiO2 Ratio 130 Oxygen Delivery Method Room Air Oxygen Flow Rate 0 Quality TeleICU VTE Deep Vein Thrombosis/Pulmonary Embolism Present on Admission: No Assessment & Plan Assessment & Plan narrative: patient see. audio/visual connection established chart/labs/imaging reviewed 86 year old female with PMHx of afib/flutter, HTN, HLD, TIA, CHF admitted to icu with AMS acute resp failure hear failure influenza currently afebirle, HD stable comfortable suggest -neurochecs/seizure precatuions -avoid benozos -wean off of high flow, keep sat above 92% -abx/tamiflu -can hold diuretics today as pt appears contracted -optimize rate control -keep normotensive -monitior ins/outs -replace lytes prn -keep glucose 140-180s -gi/dvt ppx -please call eICU if condition changes total ccm time 45 mins
--- NOTE | 2022-07-26 12:24 | PM.DS.1 ---
History of Present Illness History of Present Illness Date Patient Seen: 07/26/22 Time Patient Seen: 12:10 Chief complaint: Acute resp failure, CHF exac, FluA, mild sepsis Narrative: Per admitting provider, Swathi Quevedo is an 86 y.o. female with a history of paroxysmal atrial fibrillation anticoagulated on Pradaxa & atrial fluter, HLD, HTN, history of TIA 2021, CHFpEF 60-65%, gerd, untreated obstructive sleep apnea who presented emergency department with complaint of increased weakness and shortness of breath. EMS reports they found the patient hypoxic with the oxygen saturations in the low 80s.? Patient is not on home oxygen at baseline.? In ED She denied any chest pain or shortness of breath, patient's was at bedside & provided some of the HPI.? He stated that for the past several days the patient has been weak at home.? He was unable to even sit her up in bed which is why he called EMS to bring her in today.? Patient denied headache, shortness of breath, sore throat, cough, abdominal pain, nausea vomiting or constipation or diarrhea.? No urinary symptoms.? Stating she just felt very weak and tired. Patient met SIRS criteria in ED. Nurses reported that when patient came to the floor patient was able to stand for transfer and was able to answer some questions but quickly fell back asleep. At the time of admit initial vitals temp 101.6?, BP 155/68, 69, 31, O2 saturation 93% on high-flow 3 L non-rebreather mask. Arriving the unit admit exam patient would physically respond to stimulus but was only able to get her to open her eyes once very briefly and give a answer yes to 1 question, she quickly fell back asleep and continued to only physically responsive to vigorous stimuli but would not open her eyes or verbally respond continued to snore and sleep. Unable to obtain HPI, ROS, medication reconciliation due to encephalopathy. Patient's vital signs were stable, temp 98?, 126/61, 65, 16, 93% on 3 L nasal cannula. Patient's initial laboratory findings were for the most part unremarkable CBC, CMP, liver panel. BNP 2530 (previous 08/2021: 2990, 3320), initial troponin-0.032, EKG NSR, rate 70, nonspecific ST and T-wave changes. Resp panel:positive influenza a, chest x-ray shows mild edema, urinalysis: Positive protein, ketones, WBCs-culture pending, Sofa score: 2, [place] Vasc score: 7- ordered Stat Head CT, ordered, ABGs: PH 7.358, pCO2 49, PO2 60, bicarb 27, TCO2 29, O2 sat 89%, BE 2. Patient admitted for acute hypoxic respiratory failure, mild sepsis with encephalopathy without septic shock due to influenza A. Discharge Providers Provider Date of admission: 07/24/22 19:52 Discharge Date: 07/26/22 Primary care physician: Cooper Hernandez DO Consults: 07/24/22 20:22 Consult to Occupational Therapy Evaluate & Treat Comment: Physician Instructions: Evaluate and treat Consult to Physical Therapy Evaluate & Treat Comment: Physician Instructions: Evaluate and Treat 07/24/22 23:29 Consult to Speech Therapy Evaluate & Treat Comment: swallow eval Physician Instructions: Evaluate and treat 07/25/22 08:35 Consult to Tele-pelletising extruder operator Routine Comment: Consulting Provider: [facility] [employer] 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 acute, present on admission Metabolic Encephalopathy/Altered level of consciousness, acute, present on admission, now resolved Myocardial injury, likely demand ischemia secondary to acute respiratory failure, sepsis, influenza a, acute, present on admission HFpEF, exacerbation, acute on chronic, present on admission Thyroid Nodules, acute, present on admission Paroxsysmal Atrial fibrillation, with Atypical atrial flutter,? chronic, present on admission Essential hypertension, suboptimally controlled Acute anemia, unknown cause History of TIA, chronic, present on admission MARIOLA, chronic, present on admission Hospital Course: This is an 86 year old female with PMH of paroxysmal atrial fibrillation, HTN, CHFpEF, TIA, and MARIOLA who was admitted with confusion and hypoxia, found to be due to influenza A. She initially required high flow nasal cannula. She was started on tamiflu with rapid improvement. Once she was able to wean off of high flow nasal cannula, she quickly improved to not requiring any supplemental oxygen therapies. Patient wished to discharge home once off of supplemental therapies. She had a mild troponin elevation which downtrended and is secondary to her presenting illness. She was prescribed an extended tamiflu course on discharge given the severity of her presentation, but also rapid improvement. No other medcation changes are recommended at the time of discharge. Time Spent with Patient Time spent: Greater than 30 minutes Exam Vital Signs (past 8 hours): - 07/26/22 07:59 07/26/22 06:00 07/26/22 08:00 Temperature 97.3 F L Pulse Rate 55 L 57 L Respiratory Rate 24 17 Blood Pressure 151/68 H 155/70 H Pulse Oximetry 100 99 Oxygen Delivery Method Oxygen Flow Rate 07/26/22 08:00 07/26/22 10:00 07/26/22 10:54 Temperature Pulse Rate 57 L 55 L Respiratory Rate 32 H 25 H Blood Pressure Pulse Oximetry 99 97 96 Oxygen Delivery Method Oxygen Flow Rate 0 07/26/22 10:54 Temperature Pulse Rate Respiratory Rate Blood Pressure Pulse Oximetry Oxygen Delivery Method Room Air Oxygen Flow Rate Fraction of Inspired Oxygen 70 SaO2/FiO2 Ratio 130 Oxygen Delivery Method Room Air Oxygen Flow Rate 0 Narrative Exam Narrative: General: Patient is an very pleasant elderly female on room air. Appears comfortable. Pulm: CTA b/l CV: RRR no m/r/g Abd: S NT ND Ext: no edema Objective Labs 07/25/22 04:40 07/26/22 04:30 Labs: Laboratory Results - last 24 hr 07/25/22 07/26/22 00:29 04:30 Sodium 135 L Potassium 3.7 Chloride 98 Carbon Dioxide 33 H BUN 15 Creatinine 0.69 Estimated GFR > 60 BUN/Creatinine Ratio 21.7 Glucose 95 Hgb A1c (Ref Lab) 6.0 H Estim Average Glucose 126 Calcium 8.6 PFSH Medical History Acute exacerbation of chronic low back pain Age-related cognitive decline Anticoagulated Anxiety Cataract Cervical somatic dysfunction CHF (congestive heart failure) Chicken pox Chronic bilateral back pain Chronic headaches Chronic, continuous use of opioids Closed L2 vertebral fracture Colon polyps Cranial somatic dysfunction CTS (carpal tunnel syndrome) Depression Facet arthropathy, lumbar Fatigue GERD (gastroesophageal reflux disease) Hearing loss Lumbar region somatic dysfunction Lumbosacral spondylosis with radiculopathy Measles Mumps Normocytic anemia, not due to blood loss Obstructive sleep apnea Pelvic relaxation Pelvic somatic dysfunction PTSD (post-traumatic stress disorder) Sacral region somatic dysfunction Scoliosis of cervical region due to degenerative disease of spine in adult Segmental and somatic dysfunction of abdomen and other regions Segmental and somatic dysfunction of rib cage Sleep apnea T12 compression fracture Therapeutic opioid induced constipation Thoracic region somatic dysfunction TIA (transient ischemic attack) Upper extremity somatic dysfunction Surgical History Anesthesia History of carpal tunnel surgery of left wrist History of colonoscopy History of ear surgery (1981) History of ear surgery (1974) History of knee replacement (2008) History of knee replacement (2012) Hx of appendectomy Status post breast lumpectomy (1982) Status post cataract extraction of both eyes with insertion of intraocular lens Status post hysterectomy (1979) Family History Child Age: 61 Mental health problem Father Heart disease Stroke Myocardial infarction Grandmother Cancer Grandfather Pneumonia Grandmother No problems noted. Mother Brainstem hemorrhage Brain bleed Social History household members: spouse Smoking Status: Never smoker alcohol intake: current Discharge Plan Discharge Plan Patient Disposition: Home Provider Discharge Comment: You were admitted to the hospital with low oxygen due to the flu. Please complete antiviral medications at home. No changes to your home medications are recommended. Discharge orders & Medications Prescriptions: New oseltamivir [Tamiflu] 75 mg Capsule 75 mg PO BID 10 Days Qty: 20 0RF Continued paroxetine HCl 20 mg tablet 60 mg PO DAILY Qty: 270 3RF amlodipine [Norvasc] 10 mg tablet 10 mg PO DAILY 90 Days Qty: 90 3RF furosemide [Lasix] 20 mg tablet 20 mg PO QDAY Qty: 90 3RF hydrocodone-acetaminophen 10-325 mg tablet See Rx Instructions .ROUTE .COMPLEX Qty: 120 0RF Rx Instructions: Take 1 tablet by mouth every 6-8 hours as needed for severe pain; flecainide 100 mg tablet 100 mg PO BID carvedilol [Coreg] 25 mg tablet 12.5 mg PO BID Rx Instructions: must administer with a meal/food Pradaxa 150 mg capsule 150 mg PO BID Qty: 180 3RF digoxin 125 mcg (0.125 mg) Tablet 125 mcg PO DAILY omeprazole 20 mg Capsule,Delayed Release(Dr/Ec) 20 mg PO DAILY metoprolol succinate 25 mg Tablet Extended Release 24 Hr 25 mg PO BID Follow up/Referrals: Cooper Hernandez, [Primary Care Provider] - Diet/Activity/Treatments Diet: Diet as Tolerated Activity: As tolerated Visit Report/Discharge Packet Instructions: DI for Influenza -- Adult, Oseltamivir Stand Alone Forms: Patient Portal/API, Stroke Signs & Symptoms Discharge Data Primary Care Provider: Cooper Hernandez Discharges patient from system. Discharge Date/Time: 07/26/22 14:30 Quality VTE Deep Vein Thrombosis/Pulmonary Embolism Present on Admission: No
[2022-07-26 12:49] LABS: Fractionated Inspired Oxygen 60
[2022-07-26 12:51] LABS: TCO2 ABG 29 mmol/L (23-27)
--- NOTE | 2022-07-26 13:24 | CM.DPC ---
DCP Continued: SHAKER WASHER reviewed EMR. From nursing staff, patient is off of 02 at this time and is waiting to d/c home this afternoon with . Nursing staff reports likely home with no needs from CM team at this time. SHAKER WASHER entered room and reintroduced self and role. Patient appeared alert but communication proved to be challenging due to patient being hard of hearing as evidenced by SHAKER WASHER having to repeat self multiple times. Patient was joined by , Mateo ([phone]) at bedside. Patient reports her will drive her home upon d/c. verbalized he can care for her needs at home. Patient reports she's feeling much better today. Not her baseline, but a vast improvement from yesterday. Patient seen by PT and cleared for home with spouse. Plan: patient will d/c home with spouse in POV. CM team will continue to follow closely with additional needs. ANJEL Lehman
--- NOTE | 2022-07-26 14:22 | OT.IP.EVAL ---
Current Diagnoses Sepsis, unspecified organism (07/24/22) Past Medical History (Last Reviewed 07/25/22 @ 03:10 by SAIMA Howard) Acute exacerbation of chronic low back pain Age-related cognitive decline Anticoagulated Anxiety Cataract Cervical somatic dysfunction CHF (congestive heart failure) Chicken pox Chronic bilateral back pain Chronic headaches Chronic, continuous use of opioids Closed L2 vertebral fracture Colon polyps Cranial somatic dysfunction CTS (carpal tunnel syndrome) Depression Facet arthropathy, lumbar Fatigue GERD (gastroesophageal reflux disease) Hearing loss Lumbar region somatic dysfunction Lumbosacral spondylosis with radiculopathy Measles Mumps Normocytic anemia, not due to blood loss Obstructive sleep apnea Pelvic relaxation Pelvic somatic dysfunction PTSD (post-traumatic stress disorder) Sacral region somatic dysfunction Scoliosis of cervical region due to degenerative disease of spine in adult Segmental and somatic dysfunction of abdomen and other regions Segmental and somatic dysfunction of rib cage Sleep apnea T12 compression fracture Therapeutic opioid induced constipation Thoracic region somatic dysfunction TIA (transient ischemic attack) Upper extremity somatic dysfunction Surgical History (Last Reviewed 07/25/22 @ 03:10 by THERESA Howard-) Anesthesia History of carpal tunnel surgery of left wrist History of colonoscopy History of ear surgery (1981) History of ear surgery (1974) History of knee replacement (2008) History of knee replacement (2012) Hx of appendectomy Status post breast lumpectomy (1982) Status post cataract extraction of both eyes with insertion of intraocular lens Status post hysterectomy (1979) Occupational Therapy Inpatient Evaluation/Re-Eval M1 PT/OT-IP Prior Functional Status Start: 07/26/22 14:26 Freq: NEEDED Status: Discharge Protocol: Document 07/26/22 13:50 [facility] (Rec: 07/26/22 14:44 [facility] [id number]) Medical Review Prior Functional Status Medical History Reviewed Yes Diet/Fluid Consistency Regular Communication Indep, [place] Mobility and Gait Indep with use of cane outdoors. Leans on shopping cart at the store due to back pain. Activities of Daily Living and IADL's Indep Prior Functional Level (Other details) does the driving. Social History Household Members spouse Living Arrangements House Number of Floors (Floors) Two Floors Number of Stairs To Enter/Railing? 3 LILY with single rail. 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 Home Equipment Straight Cane Employment Status Retired M2 OT-IP Current Condition Start: 07/26/22 14:26 Freq: Status: Discharge Protocol: Document 07/26/22 13:50 [facility] (Rec: 07/26/22 14:44 [facility] [id number]) Occupational Therapy Current Condition Current Condition Evaluation Date 07/26/22 Treatment Diagnosis Acute respiratory Failure, FLU A Diagnosis Onset Date 07/24/22 M3 OT- IP Subjective and Pain Start: 07/26/22 14:26 Freq: Status: Discharge Protocol: Document 07/26/22 13:50 [facility] (Rec: 07/26/22 14:44 [facility] [id number]) OT- Subjective Occupational Therapy Visit Type Type Initial Evaluation Visit Start Time 13:50 Visit Stop Time 14:22 Total Visit Minutes 32 Occupational Therapy Visit Comments Patient Comments Pt already dressed amd wanting to go home. Pt's in the room during OT eval. Patient/Caregiver Goals To go home. OT Pain Assessment Pain When Pain Assessed At Rest Pain Present Pain Present Denied Pain M4 OT- IP ADL's Start: 07/26/22 14:26 Freq: Status: Discharge Protocol: Document 07/26/22 13:50 [facility] (Rec: 07/26/22 14:44 [facility] [id number]) OT [id number] Comments OT Self-Feeding Comments Not at meal time. OT ADL-Grooming General Evaluation Grooming Ability Independent Areas Needing Assistance Retrieving/Set-up of Grooming Items OT ADL-Oral Care General Eval Oral Care Ability Independent Areas of Assistance Retrieving/Set-Up of Items OT ADL-Dressing General Eval Lower Body Dressing Ability Independent Comments OT Dressing Comments While seated pt able to independently jennifer/doff her socks. OT ADL-Toileting General Evaluation Toileting Ability Standby Assistance Comments OT Toileting Comments Distant SBA for toileting needs. Pt needing heavy use of grab bar to stand and states has a towel rack to use at home. Emphasized best to have a grab bar installed as the towel rack in not safe to use to be able to support her weight. OT ADL-Bathing Comments OT Bathing Comments Pt has tub/ shower on the main level and walk in shower downstairs. Suggested safer to get a tub bench and take off the glass doors and replace with curtain. Pt insistent that she would rather put up a grab bar and have a shower chair in the tub. Suggested pt have her there to assist for showering needs. M5 OT- IP IADL's Start: 07/26/22 14:26 Freq: Status: Discharge Protocol: Document 07/26/22 13:50 [facility] (Rec: 07/26/22 14:44 [facility] [id number]) OT-Instrumental Activities of Daily Living Home Safety Awareness Awareness of Need for Assistance at Home Decreased Awareness Home Safety Comments Pt states to assist with her needed. However he states is not always there and in and out of the house, but states can initially be there. M6 OT- IP Functional Cognition Start: 07/26/22 14:26 Freq: Status: Discharge Protocol: Document 07/26/22 13:50 [facility] (Rec: 07/26/22 14:44 [facility] [id number]) Cognitive Factors Limiting Selfcare Function Cognitive Ability Level of Alertness Alert Patient Orientation Name,Place Attention Span Ability Capable of Focused Attention, Capable of Sustained Attention Ability to Follow Commands Able to Follow One Step Commands with Increased Time, Able to Follow One Step Commands with Repetition Memory Description Short Term Impaired Safety Awareness Underestimates Need for Assistance Cognitive Comments Cognitive Assessment Comments Pt insistent on going home and is a bit impulsive. OT- Vision and Hearing OT- Hearing Assessment OT- Hearing Assessment Hearing Impaired OT- Vision Assessment Visual Acuity Glasses For Reading M7 OT- IP Mobility and Balance Start: 07/26/22 14:26 Freq: Status: Discharge Protocol: Document 07/26/22 13:50 [facility] (Rec: 07/26/22 14:44 [facility] [id number]) OT-Transfer Assessment Sit to and From Stand Sit to and from Stand Standby Assistance Transfers Transfer Ability Standby Assistance,Moderate Assistance Technique Transfer Destination Chair,Toilet Transfer Technique Stand Step Pivot Devices Transfer Assistive Devices Gait Belt,Straight Cane,Front Wheeled Walker Comments Mobility Comments Attempted to walk pt with SPC as prior pt using a SPC and having loss of balance and very unsteady on her feet a a high fall risk. Then tried the fww and pt much safer but needing cues not to hold the FWW and just roll it . Pt close SBA with FWW and cues to slow down and take her time. Pt on RA and reading from 88- 90% and pt states getting tired. OT- Balance Assessment Sitting Balance and Reactions Static Sitting Balance Ability Good Dynamic Sitting Balance Ability Fair Standing Balance and Reactions Static Standing Balance Ability Fair Dynamic Standing Balance Ability Poor M8 OT- IP Objective Assessments Start: 07/26/22 14:26 Freq: Status: Discharge Protocol: Document 07/26/22 13:50 [facility] (Rec: 07/26/22 14:44 [facility] [id number]) OT Gross Range of Motion Upper Extremity Range of Motion ROM Impairments grossly WFL for age OT Strength Comments Strength Comments WFl for age OT- Coordination Assessment Comments Coordination Comments Arthritic changes in hands and needing occasional set-up for needs. M9 OT- IP Assessment and Plan Start: 07/26/22 14:26 Freq: Status: Discharge Protocol: Document 07/26/22 13:50 [facility] (Rec: 07/26/22 14:44 [facility] [id number]) OT Summary Assessment and Plan Potential Rehabilitation Potential Good Analytic Complexity at Evaluation Moderate Summary OT Impairments Pain,Balance,Functional Cognition,Functional Mobility, Toileting,Bathing,Toilet Transfers,Shower Transfers, Activity Tolerance Progress Towards Goals Progressing Toward Goals Assessment Summary Pt MOD complexity and main barriers are steps, decreased activity tolerance, and balance. At this time pt best to use FWW and have her present to provide at least SBA and will need assist for showering . Suggested a tub bench or at least grab bar with shower chair inside the tub. Pt's asking if it was okay for pt to go to a birthday democrat Sunday. OT suggested best to stay home and rest as both are recovering from the flu and that pt is still very unsteady on her feet and a high fall risk. Also suggested pt ask her family to assist them at home especially for IADL needs at this time. Pt to go home with assist when medically stable. Pt states has fww and 4ww at home that she will use. Goals Dressing Goal Independent Bathing Goal Independent Toilet Transfer Goal Independent Shower Transfer Goal Independent Days to Meet Goals 3 Frequency of Treatment Frequency Of Treatment Once a Day Treatment Plan OT Treatment Plan ADL Training,Functional Mobility,Patient/Family Education,Discharge Planning Discharge Recommendations OT Discharge Recommendations Home with Assistance Home Equipment Needs shower chair vs tub bench, hand held shower spray, grab bar Transportation Needs at Discharge Private Vehicle
== END 2022-07-26 14:30 | disposition home or self-care (01) | DRG 871 ==
LOC: ED 19:51 → AC 19:52 → ICU 07-25 08:33
PROVIDERS: Admitting Provider Nurse Practitioner Family; Emergency Provider Emergency Medicine; PCP Family Medicine; Referring Provider Emergency Medicine; Visit Provider Nurse Practitioner Family
DX: A41.89 Other specified sepsis (principal); G93.41 Metabolic encephalopathy; J96.01 Acute respiratory failure with hypoxia; I50.33 Acute on chronic diastolic (congestive) heart failure; I5A Non-ischemic myocardial injury (non-traumatic); I48.92 Unspecified atrial flutter; R65.20 Severe sepsis without septic shock; J10.1 Influenza due to other identified influenza virus with other respiratory manifestations; E04.2 Nontoxic multinodular goiter; I48.0 Paroxysmal atrial fibrillation; I11.0 Hypertensive heart disease with heart failure; F32.A Depression, unspecified; F41.9 Anxiety disorder, unspecified; K21.9 Gastro-esophageal reflux disease without esophagitis; Z20.822 Contact with and (suspected) exposure to COVID-19; Z79.01 Long term (current) use of anticoagulants
CPT/HCPCS: 36415; 36600; 70450; 71045; 71275; 80048; 80053; 81001; 82533; 82805; 82962; 83036; 83605; 83735; 83880; 84145; 84439; 84443; 84484; 85025; 85610; 85730; 87040; 87086; 87633; 93005; 93307; 94640; 96365; 97162; 97166; 99285; A9270; J0696; J1940; J2405; Q9967

== ENCOUNTER 2022-08-10 13:00 | Observation (INO) | payer OTHER, SELFPAY ==
[2022-08-02 17:02] VITALS: BMI 28.3
[2022-08-10] VITALS (69 sets, daily range): BP systolic 147–192; BP diastolic 65–90; PULSE 25–55; RESP 10–38; TEMP 36.5–37.1; O2SAT 86–98; BMI 26.0; BMI 27.7
--- NOTE | 2022-08-10 13:11 | DI.RAD.S_ITS ---
PROCEDURE: XR CHEST 1V INDICATIONS: chest pain TECHNIQUE: One view of the chest was acquired. COMPARISON: [facility], CR, XR CHEST 1V, 07/24/2022, 18:11. FINDINGS: Surgical changes and devices: None. Lungs and pleura: Lungs are clear. No pleural effusions or pneumothorax. Mediastinum: Mediastinal contours appear normal. Heart size is enlarged. Bones and chest wall: No suspicious bony lesions. Overlying soft tissues appear unremarkable. IMPRESSION: No acute cardiopulmonary pathology. Dictated by: Clif Ambrose M.D. on 08/10/2022 at 13:35 Approved by: Clif Ambrose M.D. on 08/10/2022 at 13:36
--- NOTE | 2022-08-10 13:22 | ED_ITS ---
HPI - Weakness General Chief complaint: Arrhythmia/Palpitations Stated complaint: pulse rate 38 at home Time Seen by Provider: 08/10/22 13:10 History of Present Illness HPI Narrative: Patient is an 86-year-old female history of atrial fibrillation, congestive heart failure on Pradaxa was admitted July 24 through July 26 with congestive heart failure and influenza a, she is taking metoprolol, flecainide, digoxin for atrial fibrillation. She currently has a heart rate of 42 she re ports that it has been as low as 32 over the last 1 week. She says she is increasing weakness and severe fatigue. Her heart rate while admitted in the hospital was in the 50s. She has not passed out she did not lose consciousness she is not had fever. She denies any increasing shortness of breath Related Data Home Medications Medication Instructions Recorded Confirmed flecainide 100 mg tablet 100 mg PO BID 08/14/18 08/10/22 digoxin 125 mcg (0.125 mg) tablet 125 mcg PO DAILY 07/25/22 08/10/22 metoprolol succinate 25 mg 25 mg PO BID 07/25/22 08/10/22 tablet,extended release 24 hr omeprazole 20 mg capsule,delayed 20 mg PO DAILY 07/25/22 08/10/22 release Previous Rx's Medication Instructions Recorded dabigatran etexilate 150 mg 150 mg PO BID #180 caps 07/02/18 capsule (Pradaxa) paroxetine HCl 20 mg tablet 60 mg PO DAILY #270 tabs 01/10/22 amlodipine 10 mg tablet (Norvasc) 10 mg PO DAILY 90 days #90 tabs 02/01/22 furosemide 20 mg tablet (Lasix) 20 mg PO QDAY #90 tabs 02/01/22 butalbital 50 mg-acetaminophen 300 1 cap PO BID PRN Headache pain #10 08/01/22 mg-caffeine 40 mg-codeine 30 mg caps cap (Fioricet with Codeine) ondansetron 4 mg disintegrating 4 mg PO DAILY PRN nausea and 08/01/22 tablet vomiting #7 tabs Allergies Allergy/AdvReac Type Severity Reaction Status Date / Time No Known Drug Allergies Allergy Verified 08/10/22 13:25 Review of Systems Review of Systems ROS Unobtainable: All systems reviewed & are unremarkable except as noted in HPI and below Patient History Medical History Acute exacerbation of chronic low back pain Age-related cognitive decline Anticoagulated Anxiety Cataract Cervical somatic dysfunction CHF (congestive heart failure) Chicken pox Chronic bilateral back pain Chronic headaches Chronic, continuous use of opioids Closed L2 vertebral fracture Colon polyps Cranial somatic dysfunction CTS (carpal tunnel syndrome) Depression Facet arthropathy, lumbar Fatigue GERD (gastroesophageal reflux disease) Hearing loss History of falling Lumbar region somatic dysfunction Lumbosacral spondylosis with radiculopathy Measles Mumps Normocytic anemia, not due to blood loss Obstructive sleep apnea Pelvic relaxation Pelvic somatic dysfunction PTSD (post-traumatic stress disorder) Sacral region somatic dysfunction Scoliosis of cervical region due to degenerative disease of spine in adult Segmental and somatic dysfunction of abdomen and other regions Segmental and somatic dysfunction of rib cage Sleep apnea T12 compression fracture Therapeutic opioid induced constipation Thoracic region somatic dysfunction TIA (transient ischemic attack) Upper extremity somatic dysfunction Surgical History Anesthesia History of carpal tunnel surgery of left wrist History of colonoscopy History of ear surgery (1981) History of ear surgery (1974) History of knee replacement (2008) History of knee replacement (2012) Hx of appendectomy Status post breast lumpectomy (1982) Status post cataract extraction of both eyes with insertion of intraocular lens Status post hysterectomy (1979) Family History Child Age: 61 Mental health problem Father Heart disease Stroke Myocardial infarction Grandmother Cancer Grandfather Pneumonia Grandmother No problems noted. Mother Brainstem hemorrhage Brain bleed Social History household members: spouse Smoking Status: Never smoker alcohol intake: current Smoking Status: Never smoker alcohol intake frequency: a few times a month Substance Use Type: does not use Exam Initial Vital Signs Initial Vital Signs: Vital Signs Temperature 97.7 F 08/10/22 13:01 Pulse Rate 48 L 08/10/22 13:01 Respiratory Rate 15 08/10/22 13:01 Blood Pressure 192/85 H 08/10/22 13:01 Pulse Oximetry 94 08/10/22 13:01 Oxygen Delivery Method Room Air 08/10/22 13:01 GENERAL: Alert pleasant 86-year-old female and in no acute distress. HEENT: Head atraumatic,EOMI, pupils reactive, face symmetric, moist mucous membranes CARDIOVASCULAR: Regular rate and rhythm without murmurs, rubs or gallops. RESPIRATORY: Breath sounds equal bilaterally, no wheezes rales or rhonchi. ABDOMEN: Soft, nontender. Normoactive bowel sounds all 4 quadrants. No guarding or rebound. EXTREMITIES: Normal range of motion, no clubbing or edema. Neurovascularly intact NEUROLOGICAL: Alert and oriented x4.Normal gait and speech. Director Payment strength equal bilaterally SKIN: Warm, dry, no laceration, no petechiae, no rashes or lesions. Course Orders Ordered: ED Orders 08/10/22 13:10 BNP [NT-proBNP (BNP-Adult 18+)] Stat Complete Blood Count AUTO DIFF Stat Comprehensive Metabolic Panel Stat Digoxin Stat Lactate (Lactic Acid) Stat Lipase Stat Troponin & CK Cardiac Panel Stat 08/10/22 13:11 XR chest 1V Stat EKG-12 Lead Stat Acetaminophen (Acetaminophen 325 Mg Tablet) 650 mg PO Q6H PRN PRN Reason: Fever/Mild Pain (1-3) Amlodipine Besylate (Amlodipine 5 Mg Tablet) 10 mg PO DAILY [facility] Atropine Sulfate (Atropine 1 Mg/10 Ml Syringe) 0.5 mg IV PRN PRN PRN Reason: HR <40 with symptoms Dabigatran (Dabigatran 75 Mg Capsule) 150 mg PO BID [facility] Flecainide Acetate (Flecainide 100 Mg Tablet) 100 mg PO BID [facility] Furosemide (Furosemide 20 Mg Tablet) 20 mg PO DAILY [facility] Melatonin (Melatonin 3 Mg Tablet) 6 mg PO BEDTIME PRN PRN Reason: Insomnia Metoprolol Succinate (Metoprolol Er 25 Mg Tablet) 25 mg PO DAILY [facility] Naloxone HCl (Naloxone 0.4 Mg/Ml Vial) 0.2 mg IV Q2MIN PRN PRN Reason: Opiate Reversal Pantoprazole Sodium (Pantoprazole Dr 20 Mg Tablet) 20 mg PO 0600 [facility] Paroxetine HCl (Paroxetine 20 Mg Tablet) 60 mg PO DAILY [facility] Vital Signs Vital signs: Vital Signs - 8 hr 08/10/22 13:01 08/10/22 13:34 08/10/22 13:06 Temperature 97.7 F Pulse Rate 48 L 25 L 47 L Respiratory Rate 15 17 Blood Pressure 192/85 H Pulse Oximetry 94 Oxygen Delivery Method Room Air Oxygen Flow Rate 08/10/22 13:07 08/10/22 13:07 08/10/22 13:10 Temperature Pulse Rate 50 L 42 L Respiratory Rate 10 L 22 Blood Pressure 192/85 H Pulse Oximetry 97 97 Oxygen Delivery Method Oxygen Flow Rate 08/10/22 13:15 08/10/22 13:20 08/10/22 13:25 Temperature Pulse Rate 39 L 43 L 42 L Respiratory Rate 21 30 H 23 Blood Pressure Pulse Oximetry 97 96 96 Oxygen Delivery Method Oxygen Flow Rate 08/10/22 13:30 08/10/22 13:31 08/10/22 13:31 Temperature Pulse Rate 41 L 41 L Respiratory Rate 18 17 Blood Pressure 147/65 H Pulse Oximetry 96 95 Oxygen Delivery Method Oxygen Flow Rate 08/10/22 13:35 08/10/22 13:40 08/10/22 13:41 Temperature Pulse Rate 33 L 45 L 45 L Respiratory Rate 26 H 21 20 Blood Pressure Pulse Oximetry 95 95 95 Oxygen Delivery Method Oxygen Flow Rate 08/10/22 13:41 08/10/22 13:45 08/10/22 13:45 Temperature Pulse Rate 44 L Respiratory Rate 23 Blood Pressure 158/72 H 161/73 H Pulse Oximetry 94 Oxygen Delivery Method Oxygen Flow Rate 08/10/22 13:50 08/10/22 13:50 08/10/22 13:55 Temperature Pulse Rate 45 L Respiratory Rate 17 Blood Pressure 157/69 H 158/75 H Pulse Oximetry 92 Oxygen Delivery Method Room Air Oxygen Flow Rate 08/10/22 13:55 08/10/22 14:00 08/10/22 14:00 Temperature Pulse Rate 49 L 50 L Respiratory Rate 18 22 Blood Pressure 152/72 H Pulse Oximetry 96 95 Oxygen Delivery Method Nasal Cannula Nasal Cannula Oxygen Flow Rate 2 2 08/10/22 14:05 08/10/22 14:05 08/10/22 14:10 Temperature Pulse Rate 49 L Respiratory Rate 19 Blood Pressure 148/67 H 148/73 H Pulse Oximetry 96 Oxygen Delivery Method Oxygen Flow Rate 08/10/22 14:10 08/10/22 14:15 08/10/22 14:16 Temperature Pulse Rate 48 L 49 L 48 L Respiratory Rate 20 21 20 Blood Pressure Pulse Oximetry 96 96 96 Oxygen Delivery Method Nasal Cannula Nasal Cannula Nasal Cannula Oxygen Flow Rate 2 2 2 08/10/22 14:16 08/10/22 14:20 08/10/22 14:20 Temperature Pulse Rate 48 L Respiratory Rate 22 Blood Pressure 168/70 H 152/69 H Pulse Oximetry 96 Oxygen Delivery Method Nasal Cannula Oxygen Flow Rate 2 08/10/22 14:25 08/10/22 14:25 08/10/22 14:30 Temperature Pulse Rate 49 L Respiratory Rate 24 Blood Pressure 154/72 H 154/72 H Pulse Oximetry 94 Oxygen Delivery Method Oxygen Flow Rate 08/10/22 14:30 08/10/22 14:35 08/10/22 14:35 Temperature Pulse Rate 49 L 50 L Respiratory Rate 22 22 Blood Pressure 157/68 H Pulse Oximetry 93 92 Oxygen Delivery Method Oxygen Flow Rate 08/10/22 14:40 08/10/22 14:40 08/10/22 14:45 Temperature Pulse Rate 50 L Respiratory Rate 23 Blood Pressure 154/73 H 149/70 H Pulse Oximetry 92 Oxygen Delivery Method Oxygen Flow Rate 08/10/22 14:45 08/10/22 14:50 08/10/22 14:50 Temperature Pulse Rate 50 L 49 L Respiratory Rate 24 18 Blood Pressure 166/75 H Pulse Oximetry 92 94 Oxygen Delivery Method Nasal Cannula Oxygen Flow Rate 2 08/10/22 14:55 08/10/22 14:55 08/10/22 15:00 Temperature Pulse Rate 48 L Respiratory Rate 25 H Blood Pressure 160/74 H 157/65 H Pulse Oximetry 96 Oxygen Delivery Method Nasal Cannula Oxygen Flow Rate 2 08/10/22 15:00 08/10/22 15:05 08/10/22 15:05 Temperature Pulse Rate 48 L 47 L Respiratory Rate 21 23 Blood Pressure 157/72 H Pulse Oximetry 96 97 Oxygen Delivery Method Nasal Cannula Oxygen Flow Rate 2 [facility] Lab Data 08/10/22 13:10 08/10/22 13:10 Labs: Lab Results 08/10/22 08/10/22 08/10/22 Range/Units 13:10 13:10 13:10 WBC 7.0 (4.5-11.0) X10^3/uL RBC 4.09 (4.0-5.2) X10^6/uL Hgb 10.7 L (12.0-16.0) g/dL Hct 33.0 L (36-46) % MCV 80.8 (80-100) fL MCH 26.1 (26-34) PG MCHC 32.4 (30-36) % RDW 18.1 H (11.6-14.8) % Plt Count 445 H (150-400) X10^3/uL Neut % (Auto) 64.8 (50-75) % Lymph % (Auto) 19.7 L (25-40) % [place] % (Auto) 11.1 (3-14) % Eos % (Auto) 3.4 (2-4) % Baso % (Auto) 1.0 (0-2) % Neut # (Auto) 4600 (3052-5055) /uL Lymph # (Auto) 1400 (2570-6782) /uL [place] # (Auto) 800 (0-900) /uL Eos # (Auto) 200 (0-450) /uL Baso # (Auto) 100 (0-100) /uL Sodium 138 (137-145) mmol/L Potassium 4.0 (3.4-5.1) mmol/L Chloride 101 (98-107) mmol/L Carbon Dioxide 31 (22-32) mmol/L BUN 12 (7-17) mg/dL Creatinine 0.72 (0.52-1.04) mg/dL Estimated GFR > 60 (>60) mL/min BUN/Creatinine Ratio 16.7 (6-22) Glucose 93 (80-110) mg/dL Lactate 1.1 (0.7-2.1) mmol/L Calcium 9.1 (8.4-10.2) mg/dL Magnesium (1.6-2.3) mg/dL Total Bilirubin 0.3 (0.2-1.3) mg/dL AST 20 (14-36) IU/L ALT 20 (<35) IU/L Alkaline Phosphatase 74 (38-126) U/L Total Creatine Kinase 26 L (30-135) U/L CK-MB (CK-2) TNP CK-MB (CK-2) Rel Index TNP Troponin I 0.016 (0.01-0.034) ng/mL NT-Pro-B Natriuret Pep (<450) pg/mL Total Protein 7.1 (6.3-8.2) g/dL Albumin 3.9 (3.5-5.0) g/dL Globulin 3.2 (1.7-4.1) g/dL Albumin/Globulin Ratio 1.2 (1.0-2.8) Lipase 185 (23-300) U/L TSH (0.47-4.68) uIU/mL Digoxin (0.8-2.0) ng/mL 08/10/22 08/10/22 08/10/22 Range/Units 13:10 13:10 13:10 WBC (4.5-11.0) X10^3/uL RBC (4.0-5.2) X10^6/uL Hgb (12.0-16.0) g/dL Hct (36-46) % MCV (80-100) fL MCH (26-34) PG MCHC (30-36) % RDW (11.6-14.8) % Plt Count (150-400) X10^3/uL Neut % (Auto) (50-75) % Lymph % (Auto) (25-40) % [place] % (Auto) (3-14) % Eos % (Auto) (2-4) % Baso % (Auto) (0-2) % Neut # (Auto) (6731-9015) /uL Lymph # (Auto) (5016-1936) /uL [place] # (Auto) (0-900) /uL Eos # (Auto) (0-450) /uL Baso # (Auto) (0-100) /uL Sodium (137-145) mmol/L Potassium (3.4-5.1) mmol/L Chloride (98-107) mmol/L Carbon Dioxide (22-32) mmol/L BUN (7-17) mg/dL Creatinine (0.52-1.04) mg/dL Estimated GFR (>60) mL/min BUN/Creatinine Ratio (6-22) Glucose (80-110) mg/dL Lactate (0.7-2.1) mmol/L Calcium (8.4-10.2) mg/dL Magnesium 2.1 (1.6-2.3) mg/dL Total Bilirubin (0.2-1.3) mg/dL AST (14-36) IU/L ALT (<35) IU/L Alkaline Phosphatase (38-126) U/L Total Creatine Kinase (30-135) U/L CK-MB (CK-2) CK-MB (CK-2) Rel Index Troponin I (0.01-0.034) ng/mL NT-Pro-B Natriuret Pep 1170 H (<450) pg/mL Total Protein (6.3-8.2) g/dL Albumin (3.5-5.0) g/dL Globulin (1.7-4.1) g/dL Albumin/Globulin Ratio (1.0-2.8) Lipase (23-300) U/L TSH (0.47-4.68) uIU/mL Digoxin < 0.4 L (0.8-2.0) ng/mL 08/10/22 Range/Units 13:10 WBC (4.5-11.0) X10^3/uL RBC (4.0-5.2) X10^6/uL Hgb (12.0-16.0) g/dL Hct (36-46) % MCV (80-100) fL MCH (26-34) PG MCHC (30-36) % RDW (11.6-14.8) % Plt Count (150-400) X10^3/uL Neut % (Auto) (50-75) % Lymph % (Auto) (25-40) % [place] % (Auto) (3-14) % Eos % (Auto) (2-4) % Baso % (Auto) (0-2) % Neut # (Auto) (0698-1741) /uL Lymph # (Auto) (8876-5932) /uL [place] # (Auto) (0-900) /uL Eos # (Auto) (0-450) /uL Baso # (Auto) (0-100) /uL Sodium (137-145) mmol/L Potassium (3.4-5.1) mmol/L Chloride (98-107) mmol/L Carbon Dioxide (22-32) mmol/L BUN (7-17) mg/dL Creatinine (0.52-1.04) mg/dL Estimated GFR (>60) mL/min BUN/Creatinine Ratio (6-22) Glucose (80-110) mg/dL Lactate (0.7-2.1) mmol/L Calcium (8.4-10.2) mg/dL Magnesium (1.6-2.3) mg/dL Total Bilirubin (0.2-1.3) mg/dL AST (14-36) IU/L ALT (<35) IU/L Alkaline Phosphatase (38-126) U/L Total Creatine Kinase (30-135) U/L CK-MB (CK-2) CK-MB (CK-2) Rel Index Troponin I (0.01-0.034) ng/mL NT-Pro-B Natriuret Pep (<450) pg/mL Total Protein (6.3-8.2) g/dL Albumin (3.5-5.0) g/dL Globulin (1.7-4.1) g/dL Albumin/Globulin Ratio (1.0-2.8) Lipase (23-300) U/L TSH 0.59 D (0.47-4.68) uIU/mL Digoxin (0.8-2.0) ng/mL Imaging Data CT scan - head: Radiologist Impression: PROCEDURE:? CT HEAD/BRAIN WO CON ? INDICATIONS:? altered loc ? TECHNIQUE:? Noncontrast 4.5 mm thick angled axial sections acquired from the foramen magnum to the vertex, with coronal and sagittal reformats.? For radiation dose reduction, the following was used:? automated exposure control, adjustment of mA and/or kV according to patient size.? ? COMPARISON:? [facility], CT, HEAD WITHOUT CONTRAST, 05/22/2015, 13:18. ? FINDINGS:? Image quality:? There is mild motion artifact limiting evaluation.? ? CSF spaces:? Basal cisterns are patent.? No extra-axial fluid collections.? There is mild to moderate cerebral volume loss, with resultant ventricular and sulcal prominence.? ? Brain:? No definite intracranial hemorrhage, mass, or mass effect.? There are subcortical, periventricular and deep white matter hypodensities consistent with mild to moderate chronic small vessel ischemic changes.? The nolen-white matter junction appears preserved.? There is intracranial internal carotid artery atherosclerosis.? ? Skull and face:? Calvarium and visualized facial bones appear intact, without suspicious lesions.? ? Sinuses:? Visualized sinuses and mastoids are clear.? ? IMPRESSION:? ? 1.? No definite acute intracranial abnormality. ? 2. Mild to moderate cerebral volume loss and chronic white matter small vessel ischemic changes. ? ? Dictated by: Shaan Cabral M.D. on 07/25/2022 at 0 ECG Data Interpretation: Sinus bradycardia rate 42 MO interval 230 QRS [address] changes MDM Narrative Medical decision making narrative: Patient 86-year-old female with memory problems presenting today with not feeling well. Found to be sinus bradycardic initially around 38-42. However while in the ED she had an episode of 25 and was given atropine. This improved her heart rate into 49 and seem to be a bit more stable. It is unclear what medication she is taking neither she nor her know what she is taking. In the hospital she was only taking flecainide and metoprolol it is questionable if she is taking digoxin also the digoxin level was negative so unlikely she may also be on Coreg as well. Discussion with Dr. Kim on-call light out examiner recommended obviously holding medication and if needed cut metoprolol succinate in half. Taking only 25 in the morning and none at nighttime. Blood work has been reviewed. There is no significant clinical abnormalities. BNP is elevated at 1170 but this is improved from previously when she was admitted with congestive heart failure. Not having signs of congestive heart failure. She is no anemia leukocytosis or CHONG. She is otherwise at her baseline. Dr. Bush updated on patient's symptoms and test results accepts for observation Discharge Plan Departure Patient Disposition: Admitted as Observation Clinical Impression: Bradycardia Admit Date/Time: 08/10/22 15:08 Admit Provider: Joby Bush
[2022-08-10 13:23] LABS: Add Manual Diff / Slide Review NO; Basophils Absolute Auto 100 /uL (0-100); Eosinophils Absolute Auto 200 /uL (0-450); Eosinophils Percent Auto 3.4 % (2-4); Hemoglobin 10.7 g/dL (12.0-16.0); Lymphocytes Absolute Auto 1400 /uL (1100-4500); Lymphocytes Percent Auto 19.7 % (25-40); Mean Corpuscular HGB Conc 32.4 % (30-36); Mean Corpuscular Hemoglobin 26.1 PG (26-34); Mean Corpuscular Volume 80.8 fL (80-100); Monocytes Absolute Auto 800 /uL (0-900); Monocytes Percent Auto 11.1 % (3-14); Neutrophils Absolute Auto 4600 /uL (1500-7000); Neutrophils Percent Auto 64.8 % (50-75); Platelet Count 445 X10^3/uL (150-400); Red Blood Cell Count 4.09 X10^6/uL (4.0-5.2); Red Cell Distribution Width 18.1 % (11.6-14.8)
--- NOTE | 2022-08-10 13:34 | PC.NURSE ---
Pts HR decreased to 25,pt awake and alert during the event. Dr Sheikh made aware immidiately. Pt given 1mg IV atropine right AC. Pts HR increased to 43 and bp 161/73
[2022-08-10 13:37] LABS: Alanine Aminotransferase 20 IU/L (<35); Albumin 3.9 g/dL (3.5-5.0); Albumin Globulin Ratio 1.2 (1.0-2.8); Alkaline Phosphatase 74 U/L (38-126); Aspartate Aminotransferase 20 IU/L (14-36); BUN Creatinine Ratio 16.7 (6-22); Bilirubin Total 0.3 mg/dL (0.2-1.3); Blood Urea Nitrogen 12 mg/dL (7-17); Calcium 9.1 mg/dL (8.4-10.2); Carbon Dioxide 31 mmol/L (22-32); Chloride 101 mmol/L (98-107); Creatine Kinase 26 U/L (30-135); Estimated Glomerular Filt Rate > 60 mL/min (>60); Globulin 3.2 g/dL (1.7-4.1); Glucose 93 mg/dL (80-110); HEMOLYSIS < 15 (0-50); Lipase 185 U/L (23-300); Sodium 138 mmol/L (137-145); Total Protein 7.1 g/dL (6.3-8.2)
[2022-08-10 13:38] LABS: Lactate (Lactic Acid) 1.1 mmol/L (0.7-2.1)
[2022-08-10] MEDS: ATROPINE 1 MG/10 ML SYRINGE IV (13:47)
[2022-08-10 13:48] LABS: Troponin I 0.016 ng/mL (0.01-0.034)
--- NOTE | 2022-08-10 13:50 | PC.NURSE ---
Patient is resting in bed, heart rate 45 and oxygen saturation down to 91% on room air. Patient was placed on 2L NC and oxygen saturation increased to 96%.
[2022-08-10 14:04] LABS: NT-proBNP (BNP-Adult 18+) 1170 pg/mL (<450)
[2022-08-10 14:10] LABS: Digoxin < 0.4 ng/mL (0.8-2.0)
--- NOTE | 2022-08-10 16:07 | PM.HP.1 ---
History of Present Illness History of Present Illness Date Patient Seen: 08/10/22 Time Patient Seen: 17:40 Chief complaint: pulse rate 38 at home Narrative: Swathi Quevedo is an 86 y.o. 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 Found to have have a HR as low as 25 in the ED. Given doses of atropine with improvement to 40-50's. Patient has metoprolol, coreg, flecainide and digoxin on her home med list. Digoxin level low. She isn't sure if she is taking digoxin but says she is not taking coreg. She takes metoprolol and flecainide. Cardiology was spoken to who recommended stopping coreg and dixogin, continuing flecainide and lowering dose of metoprolol succinate. Rec observing for 24 hours. Patient denies CP, SOB, fevers, NV, abd pain or diarrhea. [facility] Medical History Acute exacerbation of chronic low back pain Age-related cognitive decline Anticoagulated Anxiety Cataract Cervical somatic dysfunction CHF (congestive heart failure) Chicken pox Chronic bilateral back pain Chronic headaches Chronic, continuous use of opioids Closed L2 vertebral fracture Colon polyps Cranial somatic dysfunction CTS (carpal tunnel syndrome) Depression Facet arthropathy, lumbar Fatigue GERD (gastroesophageal reflux disease) Hearing loss History of falling Lumbar region somatic dysfunction Lumbosacral spondylosis with radiculopathy Measles Mumps Normocytic anemia, not due to blood loss Obstructive sleep apnea Pelvic relaxation Pelvic somatic dysfunction PTSD (post-traumatic stress disorder) Sacral region somatic dysfunction Scoliosis of cervical region due to degenerative disease of spine in adult Segmental and somatic dysfunction of abdomen and other regions Segmental and somatic dysfunction of rib cage Sleep apnea T12 compression fracture Therapeutic opioid induced constipation Thoracic region somatic dysfunction TIA (transient ischemic attack) Upper extremity somatic dysfunction Surgical History Anesthesia History of carpal tunnel surgery of left wrist History of colonoscopy History of ear surgery (1981) History of ear surgery (1974) History of knee replacement (2008) History of knee replacement (2012) Hx of appendectomy Status post breast lumpectomy (1982) Status post cataract extraction of both eyes with insertion of intraocular lens Status post hysterectomy (1979) Family History Child Age: 61 Mental health problem Father Heart disease Stroke Myocardial infarction Grandmother Cancer Grandfather Pneumonia Grandmother No problems noted. Mother Brainstem hemorrhage Brain bleed Social History household members: spouse Smoking Status: Never smoker alcohol intake: current Meds Home Medications and Allergies Home Medications Medication Instructions Recorded Confirmed Type dabigatran etexilate 150 mg 150 mg PO BID #180 caps 07/02/18 08/10/22 Rx capsule (Pradaxa) flecainide 100 mg tablet 100 mg PO BID 08/14/18 08/10/22 History paroxetine HCl 20 mg tablet 60 mg PO DAILY #270 tabs 01/10/22 08/01/22 Rx amlodipine 10 mg tablet (Norvasc) 10 mg PO DAILY 90 days #90 tabs 02/01/22 08/10/22 Rx furosemide 20 mg tablet (Lasix) 20 mg PO QDAY #90 tabs 02/01/22 08/10/22 Rx carvedilol 25 mg tablet (Coreg) 12.5 mg PO BID 05/10/22 08/01/22 History digoxin 125 mcg (0.125 mg) tablet 125 mcg PO DAILY 07/25/22 08/10/22 History metoprolol succinate 25 mg 25 mg PO BID 07/25/22 08/10/22 History tablet,extended release 24 hr omeprazole 20 mg capsule,delayed 20 mg PO DAILY 07/25/22 08/10/22 History release butalbital 50 mg-acetaminophen 300 1 cap PO BID PRN Headache pain #10 08/01/22 08/10/22 Rx mg-caffeine 40 mg-codeine 30 mg caps cap (Fioricet with Codeine) ondansetron 4 mg disintegrating 4 mg PO DAILY PRN nausea and 08/01/22 08/10/22 Rx tablet vomiting #7 tabs Allergies Allergy/AdvReac Type Severity Reaction Status Date / Time No Known Drug Allergies Allergy Verified 08/10/22 13:25 Review of Systems Review of Systems Narrative: All other systems reviewed with the patient and are negative unless otherwise stated. Exam Vital Signs (past 8 hours): - 08/10/22 13:01 08/10/22 13:34 08/10/22 13:06 Temperature 97.7 F Pulse Rate 48 L 25 L 47 L Respiratory Rate 15 17 Blood Pressure 192/85 H Pulse Oximetry 94 Oxygen Delivery Method Room Air Oxygen Flow Rate 08/10/22 13:07 08/10/22 13:07 08/10/22 13:10 Temperature Pulse Rate 50 L 42 L Respiratory Rate 10 L 22 Blood Pressure 192/85 H Pulse Oximetry 97 97 Oxygen Delivery Method Oxygen Flow Rate 08/10/22 13:15 08/10/22 13:20 08/10/22 13:25 Temperature Pulse Rate 39 L 43 L 42 L Respiratory Rate 21 30 H 23 Blood Pressure Pulse Oximetry 97 96 96 Oxygen Delivery Method Oxygen Flow Rate 08/10/22 13:30 08/10/22 13:31 08/10/22 13:31 Temperature Pulse Rate 41 L 41 L Respiratory Rate 18 17 Blood Pressure 147/65 H Pulse Oximetry 96 95 Oxygen Delivery Method Oxygen Flow Rate 08/10/22 13:35 08/10/22 13:40 08/10/22 13:41 Temperature Pulse Rate 33 L 45 L 45 L Respiratory Rate 26 H 21 20 Blood Pressure Pulse Oximetry 95 95 95 Oxygen Delivery Method Oxygen Flow Rate 08/10/22 13:41 08/10/22 13:45 08/10/22 13:45 Temperature Pulse Rate 44 L Respiratory Rate 23 Blood Pressure 158/72 H 161/73 H Pulse Oximetry 94 Oxygen Delivery Method Oxygen Flow Rate 08/10/22 13:50 08/10/22 13:50 08/10/22 13:55 Temperature Pulse Rate 45 L Respiratory Rate 17 Blood Pressure 157/69 H 158/75 H Pulse Oximetry 92 Oxygen Delivery Method Room Air Oxygen Flow Rate 08/10/22 13:55 08/10/22 14:00 08/10/22 14:00 Temperature Pulse Rate 49 L 50 L Respiratory Rate 18 22 Blood Pressure 152/72 H Pulse Oximetry 96 95 Oxygen Delivery Method Nasal Cannula Nasal Cannula Oxygen Flow Rate 2 2 08/10/22 14:05 08/10/22 14:05 08/10/22 14:10 Temperature Pulse Rate 49 L Respiratory Rate 19 Blood Pressure 148/67 H 148/73 H Pulse Oximetry 96 Oxygen Delivery Method Oxygen Flow Rate 08/10/22 14:10 08/10/22 14:15 08/10/22 14:16 Temperature Pulse Rate 48 L 49 L 48 L Respiratory Rate 20 21 20 Blood Pressure Pulse Oximetry 96 96 96 Oxygen Delivery Method Nasal Cannula Nasal Cannula Nasal Cannula Oxygen Flow Rate 2 2 2 08/10/22 14:16 08/10/22 14:20 08/10/22 14:20 Temperature Pulse Rate 48 L Respiratory Rate 22 Blood Pressure 168/70 H 152/69 H Pulse Oximetry 96 Oxygen Delivery Method Nasal Cannula Oxygen Flow Rate 2 08/10/22 14:25 08/10/22 14:25 08/10/22 14:30 Temperature Pulse Rate 49 L Respiratory Rate 24 Blood Pressure 154/72 H 154/72 H Pulse Oximetry 94 Oxygen Delivery Method Oxygen Flow Rate 08/10/22 14:30 08/10/22 14:35 08/10/22 14:35 Temperature Pulse Rate 49 L 50 L Respiratory Rate 22 22 Blood Pressure 157/68 H Pulse Oximetry 93 92 Oxygen Delivery Method Oxygen Flow Rate 08/10/22 14:40 08/10/22 14:40 08/10/22 14:45 Temperature Pulse Rate 50 L Respiratory Rate 23 Blood Pressure 154/73 H 149/70 H Pulse Oximetry 92 Oxygen Delivery Method Oxygen Flow Rate 08/10/22 14:45 08/10/22 14:50 08/10/22 14:50 Temperature Pulse Rate 50 L 49 L Respiratory Rate 24 18 Blood Pressure 166/75 H Pulse Oximetry 92 94 Oxygen Delivery Method Nasal Cannula Oxygen Flow Rate 2 08/10/22 14:55 08/10/22 14:55 08/10/22 15:00 Temperature Pulse Rate 48 L Respiratory Rate 25 H Blood Pressure 160/74 H 157/65 H Pulse Oximetry 96 Oxygen Delivery Method Nasal Cannula Oxygen Flow Rate 2 08/10/22 15:00 08/10/22 15:05 08/10/22 15:05 Temperature Pulse Rate 48 L 47 L Respiratory Rate 21 23 Blood Pressure 157/72 H Pulse Oximetry 96 97 Oxygen Delivery Method Nasal Cannula Oxygen Flow Rate 2 08/10/22 15:10 08/10/22 15:10 Temperature Pulse Rate 46 L Respiratory Rate 19 Blood Pressure 152/66 H Pulse Oximetry 97 Oxygen Delivery Method Nasal Cannula Oxygen Flow Rate 2 Oxygen Delivery Method Nasal Cannula Oxygen Flow Rate 2 Narrative Exam Narrative: GEN: no acute distress HEENT: moist mucous membranes, PERRL NECK: trachea midline, no JVD CV: al, regular rhythm, no murmurs PULM: clear bilaterally ABD: soft, nontender, nondistended, no organomegaly EXT: warm and well perfused with no edema NEURO: awake, alert, oriented, no focal deficits Objective Labs 08/10/22 13:10 08/10/22 13:10 Labs: Laboratory Results - last 24 hr 08/10/22 08/10/22 08/10/22 13:10 13:10 13:10 WBC 7.0 RBC 4.09 Hgb 10.7 L Hct 33.0 L MCV 80.8 MCH 26.1 MCHC 32.4 RDW 18.1 H Plt Count 445 H Neut % (Auto) 64.8 Lymph % (Auto) 19.7 L [place] % (Auto) 11.1 Eos % (Auto) 3.4 Baso % (Auto) 1.0 Neut # (Auto) 4600 Lymph # (Auto) 1400 [place] # (Auto) 800 Eos # (Auto) 200 Baso # (Auto) 100 Sodium 138 Potassium 4.0 Chloride 101 Carbon Dioxide 31 BUN 12 Creatinine 0.72 Estimated GFR > 60 BUN/Creatinine Ratio 16.7 Glucose 93 Lactate 1.1 Calcium 9.1 Total Bilirubin 0.3 AST 20 ALT 20 Alkaline Phosphatase 74 Total Creatine Kinase 26 L CK-MB (CK-2) TNP CK-MB (CK-2) Rel Index TNP Troponin I 0.016 NT-Pro-B Natriuret Pep Total Protein 7.1 Albumin 3.9 Globulin 3.2 Albumin/Globulin Ratio 1.2 Lipase 185 Digoxin 08/10/22 08/10/22 13:10 13:10 WBC RBC Hgb Hct MCV MCH MCHC RDW Plt Count Neut % (Auto) Lymph % (Auto) [place] % (Auto) Eos % (Auto) Baso % (Auto) Neut # (Auto) Lymph # (Auto) [place] # (Auto) Eos # (Auto) Baso # (Auto) Sodium Potassium Chloride Carbon Dioxide BUN Creatinine Estimated GFR BUN/Creatinine Ratio Glucose Lactate Calcium Total Bilirubin AST ALT Alkaline Phosphatase Total Creatine Kinase CK-MB (CK-2) CK-MB (CK-2) Rel Index Troponin I NT-Pro-B Natriuret Pep 1170 H Total Protein Albumin Globulin Albumin/Globulin Ratio Lipase Digoxin < 0.4 L Assessment & Plan Assessment & Plan narrative: # sinus bradycardia -ECG with only 1st degree AV block, rate 42. Per patient was 30's at home and 25 recorded in ED. -per cards hold digoxin, lower metoprolol to 25mg daily, continue flecainide. Per patient she is not on coreg. -tele -atropine PRN # HFpEF, not in exaceration -last echo 04/2022 EF 60-65% -continue home po lasix # paroxsysmal atrial fibrillation, with atypical atrial flutter -continue Pradaxa, flecainide 100 mg b.i.d., metoprolol XL 25 mg once daily instead of BID -[id number] score:7 -followed by Dr. Pickett EP cardiology # HTN -continue amlodipine # history of TIA -not on aspirin -continue DOAC # MARIOLA -untreated does not use CPAP # GERD -continue PPI # depression -continue paxil Code status is full code. DVT prophylaxis with Lovenox. Proxy is Bill. I have reviewed home meds and used all available resources to reconcile the home meds. This patient will be admitted as observation and will require less than 2 midnights of hospital time to treat sinus bradycardia.
[2022-08-10 16:35] LABS: Magnesium 2.1 mg/dL (1.6-2.3)
[2022-08-10 17:07] LABS: TSH w/ Reflex to FT4 0.59 uIU/mL (0.47-4.68)
[2022-08-10 17:13] LABS: MRSA (Nasal) PCR Not Detected (Not Detect)
[2022-08-10] MEDS: ACETAMINOPHEN 325 MG TABLET 650 MG PO (19:48)
[2022-08-10] MEDS: DABIGATRAN 75 MG CAPSULE 150 MG PO (21:10)
[2022-08-10] MEDS: FLECAINIDE 100 MG TABLET PO (21:10)
[2022-08-10] MEDS: MELATONIN 3 MG TABLET 6 MG PO (21:10)
[2022-08-11 05:11] VITALS: BP 162/72; PULSE 52; RESP 22; TEMP 36.6; O2SAT 97
[2022-08-11 05:18] LABS: Add Manual Diff / Slide Review NO; Basophils Absolute Auto 100 /uL (0-100); Basophils Percent Auto 0.9 % (0-2); Eosinophils Absolute Auto 200 /uL (0-450); Eosinophils Percent Auto 3.4 % (2-4); Hematocrit 30.8 % (36-46); Lymphocytes Absolute Auto 1200 /uL (1100-4500); Lymphocytes Percent Auto 18.1 % (25-40); Mean Corpuscular HGB Conc 32.5 % (30-36); Mean Corpuscular Hemoglobin 26.3 PG (26-34); Mean Corpuscular Volume 80.8 fL (80-100); Monocytes Absolute Auto 600 /uL (0-900); Monocytes Percent Auto 9.4 % (3-14); Neutrophils Absolute Auto 4500 /uL (1500-7000); Neutrophils Percent Auto 68.2 % (50-75); Platelet Count 374 X10^3/uL (150-400); Red Blood Cell Count 3.81 X10^6/uL (4.0-5.2); Red Cell Distribution Width 17.5 % (11.6-14.8); White Blood Cell Count 6.5 X10^3/uL (4.5-11.0)
[2022-08-11 05:25] LABS: BUN Creatinine Ratio 19.7 (6-22); Blood Urea Nitrogen 12 mg/dL (7-17); Calcium 8.8 mg/dL (8.4-10.2); Carbon Dioxide 28 mmol/L (22-32); Chloride 105 mmol/L (98-107); Estimated Glomerular Filt Rate > 60 mL/min (>60); Glucose 95 mg/dL (80-110); HEMOLYSIS < 15 (0-50); Potassium 4.3 mmol/L (3.4-5.1); Sodium 138 mmol/L (137-145)
[2022-08-11] MEDS: PANTOPRAZOLE DR 20 MG TABLET PO (06:10)
[2022-08-11 08:00] VITALS: BP 170/70; PULSE 44; RESP 24; TEMP 37.2; O2SAT 97
--- NOTE | 2022-08-11 08:36 | P.DS_ITS ---
History of Present Illness History of Present Illness Date Patient Seen: 08/10/22 Time Patient Seen: 17:40 Chief complaint: pulse rate 38 at home Narrative: Swathi Quevedo is an 86 y.o. F with PMH of A-fib on pradaxa, HLD, HTN, TIA in 2015 and 2021, HFpEF 60-65%, GERD, untreated MARIOLA, and PTSD from [place] in [facility] who presents with progressive weakness, fatigue and bradycardia in 30's. Found to have have a HR as low as 25 in the ED. Given doses of atropine with improvement to 40-50's. Patient has metoprolol, coreg, flecainide and digoxin on her home med list. Digoxin level low. She isn't sure if she is taking digoxin but says she is not taking coreg. She takes metoprolol and flecainide. Cardiology was spoken to who recommended stopping coreg and dixogin, continuing flecainide and lowering dose of metoprolol succinate. Rec observing for 24 hours. Patient denies CP, SOB, fevers, NV, abd pain or diarrhea. Discharge Providers Provider Date of admission: 08/10/22 15:08 Discharge Date: 08/11/22 Primary care physician: GRETTA De Souza Consults: 08/10/22 16:06 Consult to [facility] - Industrial Organization Manager Routine Comment: home health to help clarify home meds 08/10/22 17:47 Consult to Physical Therapy Evaluate & Treat Comment: Physician Instructions: Evaluate and Treat 08/11/22 07:13 Consult to Occupational Therapy Evaluate & Treat Comment: Physician Instructions: Evaluate and treat Discharge provider: Joby Bush DO Summary Hospital Course Discharge Diagnosis: # sinus bradycardia -ECG with only 1st degree AV block, rate 42. Per patient was 30's at home and 25 recorded in ED. -per Dr. Pickett stop digoxin, lower metoprolol to 12.5mg nightly, continue flecainide. Per patient she is not on coreg and this was removed from her med list. -tele -atropine PRN # HFpEF, not in exaceration -last echo 04/2022 EF 60-65% -continue home po lasix # paroxsysmal atrial fibrillation, with atypical atrial flutter -continue Pradaxa, flecainide 100 mg b.i.d., metoprolol XL 25 mg once daily instead of BID -[id number] score:7 -followed by Dr. Pickett EP cardiology # HTN -continue amlodipine # history of TIA -not on aspirin -continue DOAC # MARIOLA -untreated does not use CPAP # GERD -continue PPI # depression -continue paxil Hospital Course: Admitted for 1 week of fatigue and bradycardia with HR in 30's at home and 25 in the ED. Given IV atropine with improvement to the 40-50's. Dr. Pickett her hospice liaison called who recommended stopping her digoxin, continuing flecainide and lowering metoprolol to 12.5mg nightly. She was observed overnight on tele and stayed in the 40's with no drop into 30's so was discharged home and will f/u with Dr. Pickett in clinic. Time Spent with Patient Time spent: Greater than 30 minutes Exam Vital Signs (past 8 hours): - 08/11/22 05:11 08/11/22 07:00 Temperature 97.8 F Pulse Rate 52 L Respiratory Rate 22 Blood Pressure 162/72 H Pulse Oximetry 97 Oxygen Delivery Method Room Air Oxygen Flow Rate 2 Oxygen Delivery Method Room Air Oxygen Flow Rate 2 Narrative Exam Narrative: GEN: no acute distress HEENT: moist mucous membranes, PERRL NECK: trachea midline, no JVD CV: al, regular rhythm, no murmurs PULM: clear bilaterally ABD: soft, nontender, nondistended, no organomegaly EXT: warm and well perfused with no edema NEURO: awake, alert, oriented, no focal deficits Objective Labs 08/11/22 05:01 08/11/22 05:01 Labs: Laboratory Results - last 24 hr 08/10/22 08/10/22 08/10/22 13:10 13:10 13:10 WBC 7.0 RBC 4.09 Hgb 10.7 L Hct 33.0 L MCV 80.8 MCH 26.1 MCHC 32.4 RDW 18.1 H Plt Count 445 H Neut % (Auto) 64.8 Lymph % (Auto) 19.7 L [place] % (Auto) 11.1 Eos % (Auto) 3.4 Baso % (Auto) 1.0 Neut # (Auto) 4600 Lymph # (Auto) 1400 [place] # (Auto) 800 Eos # (Auto) 200 Baso # (Auto) 100 Sodium 138 Potassium 4.0 Chloride 101 Carbon Dioxide 31 BUN 12 Creatinine 0.72 Estimated GFR > 60 BUN/Creatinine Ratio 16.7 Glucose 93 Lactate 1.1 Calcium 9.1 Magnesium Total Bilirubin 0.3 AST 20 ALT 20 Alkaline Phosphatase 74 Total Creatine Kinase 26 L CK-MB (CK-2) TNP CK-MB (CK-2) Rel Index TNP Troponin I 0.016 NT-Pro-B Natriuret Pep Total Protein 7.1 Albumin 3.9 Globulin 3.2 Albumin/Globulin Ratio 1.2 Lipase 185 TSH Nasal Screen MRSA (PCR) Digoxin 08/10/22 08/10/22 08/10/22 13:10 13:10 13:10 WBC RBC Hgb Hct MCV MCH MCHC RDW Plt Count Neut % (Auto) Lymph % (Auto) [place] % (Auto) Eos % (Auto) Baso % (Auto) Neut # (Auto) Lymph # (Auto) [place] # (Auto) Eos # (Auto) Baso # (Auto) Sodium Potassium Chloride Carbon Dioxide BUN Creatinine Estimated GFR BUN/Creatinine Ratio Glucose Lactate Calcium Magnesium 2.1 Total Bilirubin AST ALT Alkaline Phosphatase Total Creatine Kinase CK-MB (CK-2) CK-MB (CK-2) Rel Index Troponin I NT-Pro-B Natriuret Pep 1170 H Total Protein Albumin Globulin Albumin/Globulin Ratio Lipase TSH Nasal Screen MRSA (PCR) Digoxin < 0.4 L 08/10/22 08/10/22 08/11/22 13:10 15:50 05:01 WBC 6.5 RBC 3.81 L Hgb 10.0 L Hct 30.8 L MCV 80.8 MCH 26.3 MCHC 32.5 RDW 17.5 H Plt Count 374 Neut % (Auto) 68.2 Lymph % (Auto) 18.1 L [place] % (Auto) 9.4 Eos % (Auto) 3.4 Baso % (Auto) 0.9 Neut # (Auto) 4500 Lymph # (Auto) 1200 [place] # (Auto) 600 Eos # (Auto) 200 Baso # (Auto) 100 Sodium Potassium Chloride Carbon Dioxide BUN Creatinine Estimated GFR BUN/Creatinine Ratio Glucose Lactate Calcium Magnesium Total Bilirubin AST ALT Alkaline Phosphatase Total Creatine Kinase CK-MB (CK-2) CK-MB (CK-2) Rel Index Troponin I NT-Pro-B Natriuret Pep Total Protein Albumin Globulin Albumin/Globulin Ratio Lipase TSH 0.59 D Nasal Screen MRSA (PCR) Not detected Digoxin 08/11/22 05:01 WBC RBC Hgb Hct MCV MCH MCHC RDW Plt Count Neut % (Auto) Lymph % (Auto) [place] % (Auto) Eos % (Auto) Baso % (Auto) Neut # (Auto) Lymph # (Auto) [place] # (Auto) Eos # (Auto) Baso # (Auto) Sodium 138 Potassium 4.3 Chloride 105 Carbon Dioxide 28 BUN 12 Creatinine 0.61 Estimated GFR > 60 BUN/Creatinine Ratio 19.7 Glucose 95 Lactate Calcium 8.8 Magnesium Total Bilirubin AST ALT Alkaline Phosphatase Total Creatine Kinase CK-MB (CK-2) CK-MB (CK-2) Rel Index Troponin I NT-Pro-B Natriuret Pep Total Protein Albumin Globulin Albumin/Globulin Ratio Lipase TSH Nasal Screen MRSA (PCR) Digoxin PFSH Medical History Acute exacerbation of chronic low back pain Age-related cognitive decline Anticoagulated Anxiety Cataract Cervical somatic dysfunction CHF (congestive heart failure) Chicken pox Chronic bilateral back pain Chronic headaches Chronic, continuous use of opioids Closed L2 vertebral fracture Colon polyps Cranial somatic dysfunction CTS (carpal tunnel syndrome) Depression Facet arthropathy, lumbar Fatigue GERD (gastroesophageal reflux disease) Hearing loss History of falling Lumbar region somatic dysfunction Lumbosacral spondylosis with radiculopathy Measles Mumps Normocytic anemia, not due to blood loss Obstructive sleep apnea Pelvic relaxation Pelvic somatic dysfunction PTSD (post-traumatic stress disorder) Sacral region somatic dysfunction Scoliosis of cervical region due to degenerative disease of spine in adult Segmental and somatic dysfunction of abdomen and other regions Segmental and somatic dysfunction of rib cage Sleep apnea T12 compression fracture Therapeutic opioid induced constipation Thoracic region somatic dysfunction TIA (transient ischemic attack) Upper extremity somatic dysfunction Surgical History Anesthesia History of carpal tunnel surgery of left wrist History of colonoscopy History of ear surgery (1981) History of ear surgery (1974) History of knee replacement (2008) History of knee replacement (2012) Hx of appendectomy Status post breast lumpectomy (1982) Status post cataract extraction of both eyes with insertion of intraocular lens Status post hysterectomy (1979) Family History Child Age: 61 Mental health problem Father Heart disease Stroke Myocardial infarction Grandmother Cancer Grandfather Pneumonia Grandmother No problems noted. Mother Brainstem hemorrhage Brain bleed Social History household members: spouse Smoking Status: Never smoker alcohol intake: current Discharge Plan Discharge Plan Patient Disposition: Home Provider Discharge Comment: You were admitted for low heart rate. I spoke with Dr. Pickett and we changed some of your heart medication to prevent this from happening again. Please see Dr. Pickett in clinic soon. Discharge orders & Medications Prescriptions: Continued paroxetine HCl 20 mg tablet 60 mg PO DAILY Qty: 270 3RF amlodipine [Norvasc] 10 mg tablet 10 mg PO DAILY 90 Days Qty: 90 3RF furosemide [Lasix] 20 mg tablet 20 mg PO QDAY Qty: 90 3RF flecainide 100 mg tablet 100 mg PO BID Pradaxa 150 mg capsule 150 mg PO BID Qty: 180 3RF ondansetron 4 mg tablet,disintegrating 4 mg PO DAILY PRN (Reason: nausea and vomiting) Qty: 7 1RF [id number] [Fioricet with Codeine] [id number] mg capsule 1 cap PO BID PRN (Reason: Headache pain) Qty: 10 0RF Rx Instructions: Take 1 tab twice daily as needed for headache omeprazole 20 mg Capsule,Delayed Release(Dr/Ec) 20 mg PO DAILY Changed metoprolol succinate 25 mg Tablet Extended Release 24 Hr 12.5 mg PO BEDTIME Qty: 30 0RF Discontinued digoxin 125 mcg (0.125 mg) Tablet 125 mcg PO DAILY Follow up/Referrals: Akanksha Keane ARNP [Primary Care Provider] - Jeff Pickett MD [Physician] - 2 Weeks Visit Report/Discharge Packet Stand Alone Forms: Patient Portal/API, Stroke Signs & Symptoms Discharge Data Primary Care Provider: Akanksha Keane Attending Provider: Joby Bush Admit Date/Time: 08/10/22 15:08 Quality VTE Deep Vein Thrombosis/Pulmonary Embolism Present on Admission: No
[2022-08-11 09:03] VITALS: BP 170/70; PULSE 40
[2022-08-11] MEDS: ACETAMINOPHEN 325 MG TABLET 650 MG PO (09:13)
[2022-08-11] MEDS: AMLODIPINE 5 MG TABLET 10 MG PO (09:14)
[2022-08-11] MEDS: PARoxetine 20 MG TABLET 60 MG PO (09:14)
[2022-08-11] MEDS: FLECAINIDE 100 MG TABLET PO (09:14)
[2022-08-11] MEDS: DABIGATRAN 75 MG CAPSULE 150 MG PO (09:15)
[2022-08-11] MEDS: FUROSEMIDE 20 MG TABLET PO (09:15)
== END 2022-08-11 10:20 | disposition home or self-care (01) ==
LOC: ED 13:58 → AC 15:08 → ICU 15:27
PROVIDERS: Admitting Provider Student in an Organized Health Care Education/Training Program; Emergency Provider Emergency Medicine; PCP Nurse Practitioner; Referring Provider Emergency Medicine; Visit Provider Student in an Organized Health Care Education/Training Program
DX: R00.1 Bradycardia, unspecified (principal); I11.0 Hypertensive heart disease with heart failure; I50.32 Chronic diastolic (congestive) heart failure; I48.0 Paroxysmal atrial fibrillation; G47.33 Obstructive sleep apnea (adult) (pediatric); K21.9 Gastro-esophageal reflux disease without esophagitis; F32.A Depression, unspecified; Z86.73 Personal history of transient ischemic attack (TIA), and cerebral infarction without residual deficits
CPT/HCPCS: 36415; 71045; 80048; 80053; 80162; 82550; 83605; 83690; 83735; 83880; 84443; 84484; 85025; 87797; 93005; 93010; 96374; 99284; G0378; J0461

== ENCOUNTER → 2022-08-21 10:25 | Outpatient (CLI) | payer OTHER, SELFPAY ==
[2022-08-14 13:49] VITALS: BMI 27.7
[2022-08-21 11:12] LABS: Add Manual Diff / Slide Review NO; Basophils Absolute Auto 100 /uL (0-100); Eosinophils Absolute Auto 300 /uL (0-450); Eosinophils Percent Auto 5.5 % (2-4); Hemoglobin 11.1 g/dL (12.0-16.0); Lymphocytes Absolute Auto 1500 /uL (1100-4500); Lymphocytes Percent Auto 23.8 % (25-40); Mean Corpuscular HGB Conc 32.5 % (30-36); Mean Corpuscular Hemoglobin 26.8 PG (26-34); Mean Corpuscular Volume 82.4 fL (80-100); Monocytes Absolute Auto 500 /uL (0-900); Monocytes Percent Auto 8.1 % (3-14); Neutrophils Absolute Auto 3900 /uL (1500-7000); Neutrophils Percent Auto 61.6 % (50-75); Platelet Count 271 X10^3/uL (150-400); Red Blood Cell Count 4.13 X10^6/uL (4.0-5.2); White Blood Cell Count 6.3 X10^3/uL (4.5-11.0)
[2022-08-21 11:34] LABS: Alanine Aminotransferase 19 IU/L (<35); Albumin 3.8 g/dL (3.5-5.0); Albumin Globulin Ratio 1.3 (1.0-2.8); Alkaline Phosphatase 66 U/L (38-126); Aspartate Aminotransferase 27 IU/L (14-36); BUN Creatinine Ratio 22.4 (6-22); Bilirubin Total 0.2 mg/dL (0.2-1.3); Blood Urea Nitrogen 15 mg/dL (7-17); Calcium 9.1 mg/dL (8.4-10.2); Carbon Dioxide 28 mmol/L (22-32); Chloride 103 mmol/L (98-107); Estimated Glomerular Filt Rate > 60 mL/min (>60); Glucose 136 mg/dL (80-110); HEMOLYSIS < 15 (0-50); Iron 27 ug/dL (37-170); Potassium 3.7 mmol/L (3.4-5.1); Sodium 139 mmol/L (137-145); Total Protein 6.8 g/dL (6.3-8.2)
[2022-08-21 11:45] LABS: Percent Iron Saturation 7 % (15-50); Total Iron Binding Capacity 377 ug/dL (265-497); Transferrin 251 mg/dL (206-381)
[2022-08-21 20:08] LABS: Vitamin B12 330 pg/mL (239-931)
== END ==
PROVIDERS: PCP Nurse Practitioner; Referring Provider Nurse Practitioner; Visit Provider Nurse Practitioner
DX: D64.9 Anemia, unspecified (principal); R53.83 Other fatigue
CPT/HCPCS: 36415; 80053; 82607; 83540; 83550; 85025

== ENCOUNTER → 2022-12-05 09:41 | Outpatient (CLI) | payer OTHER, SELFPAY ==
[2022-09-05 17:21] VITALS: BMI 27.7
[2022-12-05 10:28] LABS: Add Manual Diff / Slide Review NO; Basophils Absolute Auto 0 /uL (0-100); Basophils Percent Auto 0.8 % (0-2); Eosinophils Absolute Auto 400 /uL (0-450); Eosinophils Percent Auto 7.7 % (2-4); Hematocrit 39.6 % (36-46); Hemoglobin 13.2 g/dL (12.0-16.0); Lymphocytes Absolute Auto 1400 /uL (1100-4500); Lymphocytes Percent Auto 25.9 % (25-40); Mean Corpuscular HGB Conc 33.3 % (30-36); Mean Corpuscular Hemoglobin 29.6 PG (26-34); Monocytes Absolute Auto 600 /uL (0-900); Monocytes Percent Auto 10.5 % (3-14); Neutrophils Absolute Auto 3100 /uL (1500-7000); Neutrophils Percent Auto 55.1 % (50-75); Platelet Count 294 X10^3/uL (150-400); Red Blood Cell Count 4.45 X10^6/uL (4.0-5.2); Red Cell Distribution Width 16.2 % (11.6-14.8); White Blood Cell Count 5.6 X10^3/uL (4.5-11.0)
[2022-12-05 10:41] LABS: Alanine Aminotransferase 25 IU/L (<35); Albumin 4.1 g/dL (3.5-5.0); Albumin Globulin Ratio 1.4 (1.0-2.8); Alkaline Phosphatase 71 U/L (38-126); Aspartate Aminotransferase 25 IU/L (14-36); BUN Creatinine Ratio 28.2 (6-22); Bilirubin Total 0.2 mg/dL (0.2-1.3); Blood Urea Nitrogen 24 mg/dL (7-17); Calcium 9.9 mg/dL (8.4-10.2); Carbon Dioxide 25 mmol/L (22-32); Chloride 104 mmol/L (98-107); Estimated Glomerular Filt Rate > 60 mL/min (>60); Glucose 114 mg/dL (80-110); HEMOLYSIS < 15 (0-50); Sodium 137 mmol/L (137-145); Total Protein 7.1 g/dL (6.3-8.2)
[2022-12-05 10:42] LABS: HEMOLYSIS < 15 (0-50); Iron 65 ug/dL (37-170)
[2022-12-05 10:58] LABS: Free T3, Triiodothyronine Free 3.77 pg/mL (2.77-5.27); Free T4, Direct Thyroxine 1.13 ng/dL (0.78-2.19)
[2022-12-05 10:59] LABS: Percent Iron Saturation 18 % (15-50); Total Iron Binding Capacity 360 ug/dL (265-497); Transferrin 296 mg/dL (206-381)
[2022-12-05 11:12] LABS: Thyroid Stimulating Hormone 0.832 uIU/mL (0.47-4.68)
[2022-12-05 11:30] LABS: Vitamin B12 364 pg/mL (239-931)
== END ==
PROVIDERS: PCP Nurse Practitioner; Referring Provider Nurse Practitioner; Visit Provider Nurse Practitioner
DX: D50.9 Iron deficiency anemia, unspecified (principal); I10 Essential (primary) hypertension; R53.1 Weakness; R00.1 Bradycardia, unspecified; F32.9 Major depressive disorder, single episode, unspecified; Z79.899 Other long term (current) drug therapy; K59.00 Constipation, unspecified; R53.83 Other fatigue
CPT/HCPCS: 36415; 80053; 82607; 83540; 83550; 84439; 84443; 84481; 85025

== ENCOUNTER → 2023-03-07 06:53 | Outpatient (CLI) | payer OTHER, SELFPAY ==
[2022-12-12 16:21] VITALS: BMI 27.7
[2023-03-07 08:17] LABS: Add Manual Diff / Slide Review NO; Basophils Absolute Auto 0 /uL (0-100); Basophils Percent Auto 0.8 % (0-2); Eosinophils Absolute Auto 400 /uL (0-450); Eosinophils Percent Auto 7.9 % (2-4); Hematocrit 40.1 % (36-46); Hemoglobin 13.4 g/dL (12.0-16.0); Lymphocytes Absolute Auto 1300 /uL (1100-4500); Lymphocytes Percent Auto 23.5 % (25-40); Mean Corpuscular HGB Conc 33.5 % (30-36); Mean Corpuscular Hemoglobin 31.2 PG (26-34); Mean Corpuscular Volume 93.2 fL (80-100); Monocytes Absolute Auto 500 /uL (0-900); Monocytes Percent Auto 9.1 % (3-14); Neutrophils Absolute Auto 3300 /uL (1500-7000); Neutrophils Percent Auto 58.7 % (50-75); Platelet Count 283 X10^3/uL (150-400); Red Cell Distribution Width 14.9 % (11.6-14.8); White Blood Cell Count 5.6 X10^3/uL (4.5-11.0)
[2023-03-07 08:33] LABS: HEMOLYSIS < 15 (0-50); Iron 77 ug/dL (37-170)
[2023-03-07 08:42] LABS: Alanine Aminotransferase 19 IU/L (<35); Albumin 4.1 g/dL (3.5-5.0); Albumin Globulin Ratio 1.3 (1.0-2.8); Alkaline Phosphatase 79 U/L (38-126); Aspartate Aminotransferase 23 IU/L (14-36); BUN Creatinine Ratio 23.6 (6-22); Bilirubin Total 0.5 mg/dL (0.2-1.3); Blood Urea Nitrogen 21 mg/dL (7-17); Calcium 10.1 mg/dL (8.4-10.2); Carbon Dioxide 29 mmol/L (22-32); Chloride 101 mmol/L (98-107); Cholesterol 173 mg/dL (140-199); Estimated Glomerular Filt Rate > 60 mL/min (>60); Globulin 3.2 g/dL (1.7-4.1); Glucose 96 mg/dL (80-110); HDL Cholesterol 32 mg/dL (40-60); HEMOLYSIS < 15 (0-50); LDL Cholesterol Calculated 104 mg/dL (<100); Potassium 4.3 mmol/L (3.4-5.1); Sodium 139 mmol/L (137-145); Total Protein 7.3 g/dL (6.3-8.2); Triglycerides 183 mg/dL (35-150)
[2023-03-07 08:45] LABS: Percent Iron Saturation 21 % (15-50); Total Iron Binding Capacity 362 ug/dL (265-497); Transferrin 302 mg/dL (206-381)
[2023-03-07 08:52] LABS: Free T3, Triiodothyronine Free 3.67 pg/mL (2.77-5.27); Free T4, Direct Thyroxine 1.25 ng/dL (0.78-2.19)
[2023-03-07 09:05] LABS: Thyroid Stimulating Hormone 0.562 uIU/mL (0.47-4.68)
== END ==
PROVIDERS: PCP Nurse Practitioner; Referring Provider Nurse Practitioner; Visit Provider Nurse Practitioner
DX: I48.91 Unspecified atrial fibrillation (principal); I10 Essential (primary) hypertension; F32.9 Major depressive disorder, single episode, unspecified; Z79.01 Long term (current) use of anticoagulants; Z79.899 Other long term (current) drug therapy; R53.1 Weakness
CPT/HCPCS: 36415; 80053; 80061; 83540; 83550; 84439; 84443; 84481; 85025

== ENCOUNTER → 2023-05-09 09:54 | Outpatient (CLI) | payer OTHER, SELFPAY ==
[2023-03-12 17:04] VITALS: BMI 27.7
--- NOTE | 2023-05-09 09:55 | DI.RAD.S_ITS ---
PROCEDURE: XR RIBS RT MIN 3V W CXR 1V INDICATIONS: sharp pain under right breast, fall 5 days ago TECHNIQUE: 2 views of the ribs were acquired, along with a single view chest. COMPARISON: None. FINDINGS: Surgical changes and devices: None. Bones and chest wall: Mild deformity involving right posterior lateral 6th and 7th ribs are seen concerning for age indeterminate nondisplaced rib fractures. No suspicious bony lesions. Overlying soft tissues appear unremarkable. Lungs and pleura: No pleural effusions or pneumothorax. Lungs appear clear. Mediastinum: Mediastinal contours appear normal. Heart size is normal. IMPRESSION: Age indeterminate right posterior lateral 6th and 7th rib nondisplaced fractures. No displaced rib fractures. No acute cardiopulmonary pathology. Dictated by: Clif Ambrose M.D. on 05/09/2023 at 12:17 Approved by: Clif Ambrose M.D. on 05/09/2023 at 12:19
== END ==
PROVIDERS: PCP Nurse Practitioner; Referring Provider Physician Assistant; Visit Provider Physician Assistant
DX: R07.81 Pleurodynia (principal); S22.41XA Multiple fractures of ribs, right side, initial encounter for closed fracture; W19.XXXA Unspecified fall, initial encounter
CPT/HCPCS: 71101

== ENCOUNTER → 2023-06-13 11:48 | Outpatient (CLI) | payer OTHER, SELFPAY ==
[2023-06-12 15:24] VITALS: BMI 27.7
--- NOTE | 2023-06-13 11:49 | DI.RAD.S_ITS ---
PROCEDURE: XR HIP W PEL IF DONE RT 2V INDICATIONS: right hip pain x1 month TECHNIQUE: AP pelvis with lateral view(s) of the right hip(s). COMPARISON: [facility], , [id number] W PEL IF PERFORMED, 03/05/2017, 10:08. FINDINGS: Bones: Normal mineralization. Normal bone alignment. Left hip arthroplasty components present. No acute or chronic fractures. Mild degenerative joint space loss in the right femoroacetabular joint. Soft tissues: The visualized bowel gas pattern is normal. No suspicious soft tissue calcifications. Moderate peripheral vascular calcification. IMPRESSION: No acute bone abnormality. Mild right hip degeneration. Dictated by: Michelle Rosario M.D. on 06/13/2023 at 15:43 Approved by: Michelle Rosario M.D. on 06/13/2023 at 15:44
[2023-06-13 12:35] LABS: Add Manual Diff / Slide Review NO; Basophils Absolute Auto 100 /uL (0-100); Basophils Percent Auto 1.2 % (0-2); Eosinophils Absolute Auto 300 /uL (0-450); Eosinophils Percent Auto 4.4 % (2-4); Hemoglobin 13.6 g/dL (12.0-16.0); Lymphocytes Absolute Auto 1300 /uL (1100-4500); Lymphocytes Percent Auto 21.5 % (25-40); Mean Corpuscular HGB Conc 33.2 % (30-36); Mean Corpuscular Hemoglobin 30.7 PG (26-34); Mean Corpuscular Volume 92.4 fL (80-100); Monocytes Absolute Auto 600 /uL (0-900); Monocytes Percent Auto 9.5 % (3-14); Neutrophils Absolute Auto 3900 /uL (1500-7000); Neutrophils Percent Auto 63.4 % (50-75); Platelet Count 257 X10^3/uL (150-400); Red Blood Cell Count 4.44 X10^6/uL (4.0-5.2); Red Cell Distribution Width 14.7 % (11.6-14.8); White Blood Cell Count 6.2 X10^3/uL (4.5-11.0)
[2023-06-13 13:21] LABS: Alanine Aminotransferase 19 IU/L (<35); Albumin 4.5 g/dL (3.5-5.0); Albumin Globulin Ratio 1.5 (1.0-2.8); Alkaline Phosphatase 71 U/L (38-126); Aspartate Aminotransferase 26 IU/L (14-36); BUN Creatinine Ratio 26.7 (6-22); Bilirubin Total 0.7 mg/dL (0.2-1.3); Blood Urea Nitrogen 20 mg/dL (7-17); Calcium 9.9 mg/dL (8.4-10.2); Carbon Dioxide 26 mmol/L (22-32); Chloride 107 mmol/L (98-107); Estimated Glomerular Filt Rate > 60 mL/min (>60); Glucose 107 mg/dL (80-110); Potassium 4.3 mmol/L (3.4-5.1); Sodium 141 mmol/L (137-145); Total Protein 7.5 g/dL (6.3-8.2)
[2023-06-13 13:22] LABS: HEMOLYSIS 53 (0-50)
[2023-06-13 14:03] LABS: Vitamin B12 408 pg/mL (239-931)
== END ==
PROVIDERS: PCP Nurse Practitioner; Referring Provider Nurse Practitioner; Visit Provider Nurse Practitioner
DX: M16.11 Unilateral primary osteoarthritis, right hip (principal); M25.551 Pain in right hip; I48.91 Unspecified atrial fibrillation; I10 Essential (primary) hypertension; R53.83 Other fatigue; Z79.01 Long term (current) use of anticoagulants; Z96.642 Presence of left artificial hip joint
CPT/HCPCS: 36415; 73501; 80053; 82607; 85025

== ENCOUNTER → 2023-06-19 15:09 | Outpatient (CLI) | payer OTHER, SELFPAY ==
[2023-06-12 15:24] VITALS: BMI 27.7
--- NOTE | 2023-06-19 15:11 | DI.MRI.S_ITS ---
PROCEDURE: MR THORACIC SPINE WO CON INDICATIONS: Worsening thoracic and lumbar pain TECHNIQUE: Noncontrast sagittal T1 spine echo and T2 fast spin echo, sagittal STIR, and T2 fast spin echo through the thoracic spine. COMPARISON: [facility], , MR THORACIC SPINE WO CON, 07/27/2021, 17:07. FINDINGS: Image quality: Excellent Mild levoscoliosis of the upper thoracic spine, centered at T5-6. Mild anterior compression deformity of T5, T6, and T7, without marrow edema, chronic, grossly unchanged from prior exam. There is mild focal kyphosis of the thoracic spine centered at T5-6. Marrow signal of the thoracic spine is unremarkable. No suspicious marrow replacing lesion. Multilevel mild disc bulge and disc desiccation. Cord signal of the thoracic cord is unremarkable. Right neural foraminal stenosis: Mild at T10-T11. Left neural foraminal stenosis: Moderate at T10-T11. Central canal stenosis: Mild at T5-6. Other soft tissue findings: Large complex right thyroid nodule, measuring approximately 3.8 cm, previously better appreciated on CT chest on 09/01/2021. Visualized thoracic aorta is unremarkable. IMPRESSION: 1. Multilevel degenerative changes of the thoracic spine, most pronounced at T10-T11, where there is mild right and moderate left neural foraminal stenosis, grossly unchanged from prior exam. 2. Mild levoscoliosis of the upper thoracic spine with focal kyphosis. Multilevel mild anterior compression deformity of the thoracic spine, chronic. 3. Large complex right thyroid nodule. Further evaluation with thyroid ultrasound can be considered if clinically indicated. Dictated by: Rashmi Conrad M.D. on 06/19/2023 at 16:36 Approved by: Rashmi Conrad M.D. on 06/19/2023 at 16:49
--- NOTE | 2023-06-19 15:11 | DI.MRI.S_ITS ---
PROCEDURE: MR LUMBAR SPINE WO CON INDICATIONS: Worsening thoracic and lumbar pain TECHNIQUE: Noncontrast sagittal T1 spin echo and T2 fast echo, sagittal STIR, and T2 fast spin echo through the lumbar spine. In cases with scoliosis, additional coronal T2 fast spin echo may be performed. COMPARISON: [facility], MR, MR LUMBAR SPINE WO CON, 12/25/2017, 6:41. FINDINGS: Image quality: Excellent. Alignment and Curvature: Mild dextroscoliosis of the lumbar spine, centered at L3-4. Grade 1 anterolisthesis of L4 on L5, and L5 on S1. Bone Marrow: Mild superior endplate fracture of L2 with minimal marrow edema, subacute, new from prior exam. Mild superior endplate fracture of L3 with mild marrow edema, slightly progressed from prior exam, subacute. Spinal Cord: Conus terminates at the level of L2, and is unremarkable. Axial levels: T11-T12: Unremarkable T12-L1: Unremarkable L1-L2: Disc bulge. Mild bilateral facet arthropathy. No stenosis L2-3: Disc bulge. Mild bilateral facet arthropathy. Mild central canal stenosis. No neural foraminal stenosis. L3-4: Disc bulge. Mild bilateral facet arthropathy. Mild central canal stenosis. No neural foraminal stenosis. L4-5: Disc bulge. Mild bilateral facet arthropathy. No central canal stenosis. Mild right neural foraminal stenosis. No left neural foraminal stenosis. L5-S1: Mild bilateral facet arthropathy. Mild right neural foraminal stenosis. No left neural foraminal stenosis. 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 Visualized sacrum is intact. No abdominal aortic aneurysm. 3.6 cm left renal mass about the lower pole, new from prior exam. IMPRESSION: 1. 3.6 cm renal mass in the interpolar left kidney, new from prior exam, raising concern for malignancy. Recommend further evaluation with CT abdomen pelvis with intravenous contrast. 2. Mild superior endplate fracture of L2, subacute, new from prior exam. 3. Subacute, mild superior endplate fracture of L3, slightly progressed from prior exam. 4. Multilevel degenerative changes of the lumbar spine, with multilevel mild central canal stenosis and neural foraminal stenosis, grossly unchanged from prior exam. Dictated by: Rashmi Conrad M.D. on 06/19/2023 at 16:50 Approved by: Rashmi Conrad M.D. on 06/19/2023 at 17:03
== END ==
PROVIDERS: PCP Nurse Practitioner; Referring Provider Nurse Practitioner; Visit Provider Nurse Practitioner
DX: M47.814 Spondylosis without myelopathy or radiculopathy, thoracic region (principal); M48.04 Spinal stenosis, thoracic region; M41.84 Other forms of scoliosis, thoracic region; E04.1 Nontoxic single thyroid nodule; N28.89 Other specified disorders of kidney and ureter; M84.48XA Pathological fracture, other site, initial encounter for fracture; M47.816 Spondylosis without myelopathy or radiculopathy, lumbar region
CPT/HCPCS: 72146; 72148

== ENCOUNTER → 2023-07-12 10:50 | Outpatient (CLI) | payer OTHER, SELFPAY ==
[2023-06-12 15:24] VITALS: BMI 27.7
--- NOTE | 2023-07-12 11:00 | DI.CT.S_ITS ---
PROCEDURE: CT ABDOMEN RENAL PROTOCOL INDICATIONS: Further eval TECHNIQUE: Optional 5 mm thick noncontrast images acquired from the diaphragm to the iliac crests. After the administration of intravenous contrast, 5 mm thick images again acquired from the diaphragm to the iliac crests in the arterial and urographic phases. 5 mm thick coronal and sagittal reformats were then acquired. For radiation dose reduction, the following was used: automated exposure control, adjustment of mA and/or kV according to patient size. COMPARISON: [facility], CT, CT ANGIO CHEST PE PROTOCOL, 07/24/2022, 22:12. [facility], MR, MR LUMBAR SPINE WO CON, 06/19/2023, 15:25. FINDINGS: Image quality: Diagnostic. Kidneys and Ureters: 3.8 x 3.7 x 3.4 cm enhancing left renal mass on the inferior pole. There is a clear fat plane between the mass in the adjacent bowel. The mass does not contact the ureter. No renal vein invasion. OTHER: Lower chest: Small hiatal hernia. Cardiomegaly. Liver: No solid mass. Simple hepatic cyst in segment 8. Gallbladder: No radiopaque gallstones or wall thickening. Biliary ducts: No biliary dilation. Pancreas: No ductal dilation. Spleen: Size is within normal limits. Adrenal Glands: No adrenal nodules. Stomach and Bowel: Normal colonic caliber, without significant wall thickening. Colonic diverticulosis without evidence of diverticulitis. Appendectomy. Peritoneum: No abnormal intraperitoneal fluid. No free air. Ventral Wall: No hernia. Abdominal Nodes: No retroperitoneal or mesenteric adenopathy by size criteria. Vessels: Aorta and inferior vena cava are normal in size. Bones: No aggressive osseous abnormality. IMPRESSION: Enhancing left renal mass concerning for renal cell carcinoma, measuring 3.8 x 3.7 x 3.4 cm. No invasion beyond the perirenal fascia. No retroperitoneal adenopathy. No venous invasion. Recommend urology referral. Dictated by: Paul Chu M.D. on 07/12/2023 at 13:19 Approved by: Paul Chu M.D. on 07/12/2023 at 13:30
--- NOTE | 2023-07-12 11:30 | DI.US.S_ITS ---
PROCEDURE: US THYROID INDICATIONS: Nodule found on previous imaging TECHNIQUE: Real-time scanning was performed of the thyroid gland, with image documentation. COMPARISON: None. FINDINGS: Thyroid: Right lobe measures 4.9 x 2.0 x 2.0 cm. Left lobe measures 3.6 x 1.4 x 1.5 cm. Isthmus is 0.4 cm thick. Echotexture is homogeneous. Nodule number: 1 Location: Right mid/lateral Size: 1.7 x 1.5 x 2.1 cm. Composition: Solid Echogenicity: Isoechoic Shape: wider than tall. Margins: Smooth Echogenic foci: None Total points: 3 ACR TI-RADS category: 3 Nodule number: 2 Location: Right inferior/lateral Size: 2.4 x 2.1 x 1.2 cm. Composition: Cystic Echogenicity: Anechoic Shape: wider than tall. Margins: Smooth Echogenic foci: None Total points: 0 ACR TI-RADS category: 1 IMPRESSION: Thyroid nodules as described above. Recommend 1 year follow-up ultrasound. ACR TI-RADS definitions and recommendations: TI-RADS 1 (benign): 0 points. FNA not needed. TI-RADS 2 (not suspicious): 2 points. FNA not needed. TI-RADS 3 (mildly suspicious): 3 points. * FNA if 2.5 cm or larger, follow up if 1.5 cm or larger (at 1, 3, and 5 years). TI-RADS 4 (moderately suspicious): 4-6 points. * FNA if 1.5 cm or larger, follow up if 1 cm or larger (at 1, 2, 3, and 5 years). TI-RADS 5 (highly suspicious): 7 points or more. * FNA if 1 cm or larger, follow up if 0.5 cm or larger (every year for 5 years). Dictated by: Dario Bermeo M.D. on 07/12/2023 at 14:33 Approved by: Dario Bermeo M.D. on 07/12/2023 at 14:36
== END ==
LOC: CT 10:50
PROVIDERS: PCP Nurse Practitioner; Referring Provider Nurse Practitioner; Visit Provider Nurse Practitioner
DX: E04.2 Nontoxic multinodular goiter (principal); N28.89 Other specified disorders of kidney and ureter; K44.9 Diaphragmatic hernia without obstruction or gangrene; I51.7 Cardiomegaly; K76.89 Other specified diseases of liver; K57.90 Diverticulosis of intestine, part unspecified, without perforation or abscess without bleeding; M54.50 Low back pain, unspecified; G89.29 Other chronic pain
CPT/HCPCS: 74170; 76536; Q9967

== ENCOUNTER → 2023-08-06 15:35 | Outpatient (CLI) | payer OTHER, SELFPAY ==
[2023-06-12 15:24] VITALS: BMI 27.7
== END ==
PROVIDERS: PCP Nurse Practitioner; Visit Provider Urology
DX: N28.89 Other specified disorders of kidney and ureter (principal)
CPT/HCPCS: 87086

== ENCOUNTER → 2023-09-20 07:46 | Outpatient (CLI) | payer OTHER, SELFPAY ==
[2023-06-12 15:24] VITALS: BMI 27.7
[2023-09-20 08:12] LABS: Add Manual Diff / Slide Review NO; Basophils Absolute Auto 100 /uL (0-100); Eosinophils Absolute Auto 400 /uL (0-450); Eosinophils Percent Auto 6.7 % (2-4); Hemoglobin 13.7 g/dL (12.0-16.0); Lymphocytes Absolute Auto 1200 /uL (1100-4500); Lymphocytes Percent Auto 20.3 % (25-40); Mean Corpuscular HGB Conc 33.3 % (30-36); Mean Corpuscular Hemoglobin 31.1 PG (26-34); Mean Corpuscular Volume 93.4 fL (80-100); Monocytes Absolute Auto 500 /uL (0-900); Monocytes Percent Auto 8.7 % (3-14); Neutrophils Absolute Auto 3800 /uL (1500-7000); Neutrophils Percent Auto 63.3 % (50-75); Platelet Count 285 X10^3/uL (150-400); Red Blood Cell Count 4.39 X10^6/uL (4.0-5.2); Red Cell Distribution Width 14.7 % (11.6-14.8)
[2023-09-20 14:44] LABS: Alanine Aminotransferase 18 IU/L (<35); Albumin 4.2 g/dL (3.5-5.0); Albumin Globulin Ratio 1.5 (1.0-2.8); Alkaline Phosphatase 76 U/L (38-126); Aspartate Aminotransferase 29 IU/L (14-36); BUN Creatinine Ratio 23.7 (6-22); Bilirubin Total 0.4 mg/dL (0.2-1.3); Blood Urea Nitrogen 22 mg/dL (7-17); Calcium 9.6 mg/dL (8.4-10.2); Carbon Dioxide 27 mmol/L (22-32); Chloride 105 mmol/L (98-107); Cholesterol 157 mg/dL (140-199); Estimated Glomerular Filt Rate > 60 mL/min (>60); Globulin 2.8 g/dL (1.7-4.1); Glucose 100 mg/dL (80-110); HDL Cholesterol 31 mg/dL (40-60); HEMOLYSIS 16 (0-50); LDL Cholesterol Calculated 102 mg/dL (<100); Potassium 4.2 mmol/L (3.4-5.1); Sodium 139 mmol/L (137-145); Triglycerides 121 mg/dL (35-150)
[2023-09-20 14:52] LABS: Free T3, Triiodothyronine Free 3.98 pg/mL (2.77-5.27); Free T4, Direct Thyroxine 1.35 ng/dL (0.78-2.19); HEMOLYSIS 23 (0-50)
[2023-09-20 15:06] LABS: Thyroid Stimulating Hormone 0.664 uIU/mL (0.47-4.68)
[2023-09-20 15:25] LABS: Vitamin B12 353 pg/mL (239-931)
[2023-09-20 17:21] LABS: Iron 69 ug/dL (37-170)
[2023-09-20 17:32] LABS: Percent Iron Saturation 19 % (15-50); Total Iron Binding Capacity 359 ug/dL (265-497); Transferrin 266 mg/dL (206-381)
== END ==
PROVIDERS: PCP Nurse Practitioner; Referring Provider Nurse Practitioner; Visit Provider Nurse Practitioner
DX: K59.00 Constipation, unspecified (principal); I10 Essential (primary) hypertension; F11.90 Opioid use, unspecified, uncomplicated; R53.82 Chronic fatigue, unspecified; Z79.01 Long term (current) use of anticoagulants; I48.21 Permanent atrial fibrillation; E78.5 Hyperlipidemia, unspecified
CPT/HCPCS: 36415; 80053; 80061; 82607; 83540; 83550; 84439; 84443; 84481; 85025

== ENCOUNTER → 2023-10-24 11:17 | Outpatient (CLI) | payer OTHER, SELFPAY ==
[2023-09-24 16:38] VITALS: BMI 27.7
[2023-10-24 14:04] LABS: Alanine Aminotransferase 20 IU/L (<35); Albumin 4.3 g/dL (3.5-5.0); Albumin Globulin Ratio 1.4 (1.0-2.8); Alkaline Phosphatase 85 U/L (38-126); Aspartate Aminotransferase 23 IU/L (14-36); Bilirubin Total 0.6 mg/dL (0.2-1.3); Bilirubin Unconjugated 0.3 mg/dL (0.0-1.1); Total Protein 7.3 g/dL (6.3-8.2)
[2023-10-24 14:07] LABS: HEMOLYSIS < 15 (0-50)
== END ==
PROVIDERS: PCP Nurse Practitioner
DX: N28.89 Other specified disorders of kidney and ureter (principal)
CPT/HCPCS: 36415; 80076

== ENCOUNTER → 2023-11-02 12:06 | Outpatient (CLI) | payer OTHER, SELFPAY ==
[2023-09-24 16:38] VITALS: BMI 27.7
[2023-11-02 14:16] LABS: BUN Creatinine Ratio 18.8 (6-22); Blood Urea Nitrogen 15 mg/dL (7-17); Calcium 9.8 mg/dL (8.4-10.2); Carbon Dioxide 23 mmol/L (22-32); Chloride 104 mmol/L (98-107); Estimated Glomerular Filt Rate > 60 mL/min (>60); Glucose 105 mg/dL (80-110); Sodium 137 mmol/L (137-145)
[2023-11-02 14:18] LABS: HEMOLYSIS 164 (0-50); Potassium 4.2 mmol/L (3.4-5.1)
== END ==
PROVIDERS: PCP Nurse Practitioner; Referring Provider Internal Medicine Cardiovascular Disease; Visit Provider Internal Medicine Cardiovascular Disease
DX: I48.0 Paroxysmal atrial fibrillation (principal)
CPT/HCPCS: 36415; 80048

== ENCOUNTER 2023-11-04 09:02 | Inpatient (IN) | payer OTHER, SELFPAY ==
[2023-09-24 16:38] VITALS: BMI 27.7
[2023-11-04] VITALS (65 sets, daily range): BP systolic 116–190; BP diastolic 58–87; PULSE 59–76; RESP 14–34; TEMP 36.8–37.3; O2SAT 79–97; BMI 26.4
--- NOTE | 2023-11-04 09:17 | ED_ITS ---
HPI - General Adult General Chief complaint: Shortness of Breath/Dyspnea Stated complaint: low oxygen Time Seen by Provider: 11/04/23 09:13 Source: patient and family Mode of arrival: Ambulatory Limitations: other (Hard of hearing) History of Present Illness HPI narrative: Patient is an 88-year-old female. Has a history of AFib/a flutter. Is on Pradaxa. Is also on flecainide and metoprolol. Has a diagnosis of CHF in her problem list however review of cardiac notes states she has a preserved ventricular function pulmonary hypertension. I had an echocardiogram little over 1 year ago which showed an ejection fraction of 60-65%. No history of COPD. No smoking history. Not on home oxygen. states that this morning she seems somewhat more confused than baseline. Unsure what her baseline confusion is. He took her oxygen saturations and noted that they were in the low 80s. Here in the ER patient is very hard of hearing but she did express that she was not having problems breathing. No chest pain. No abdominal pain. According to her she has been taking all of her medications as directed. Related Data Home Medications Medication Instructions Recorded Confirmed flecainide 100 mg tablet 100 mg PO BID 08/14/18 10/17/23 ferrous sulfate [Iron (ferrous 1 tab PO .QD 09/05/22 10/17/23 sulfate)] Previous Rx's Medication Instructions Recorded furosemide 20 mg tablet (Lasix) 20 mg PO QDAY #90 tabs 02/08/23 amlodipine 10 mg tablet 10 mg PO DAILY #90 tabs 03/19/23 clobetasol 0.05 % topical cream 1 applic topical QAM AND QPM #30 08/28/23 grams nystatin 100,000 unit/gram topical 1 applic topical BID #15 grams 08/28/23 powder paroxetine HCl 20 mg tablet 60 mg (3 x 20 mg) PO DAILY #270 09/05/23 tabs omeprazole 20 mg capsule,delayed 20 mg PO BID #60 caps 09/19/23 release promethazine 12.5 mg tablet 6.25 mg (1/2 x 12.5 mg) PO QID PRN 09/24/23 nausea #14 tabs metoprolol succinate 25 mg 25 mg PO BID #180 tabs 10/17/23 tablet,extended release 24 hr duloxetine 20 mg capsule,delayed 20 mg PO .QHS #14 caps 10/23/23 release duloxetine 20 mg capsule,delayed 20 mg PO BID #90 caps 10/23/23 release Disabled Parking Permit See Rx Instructions .Route 10/24/23 .COMPLEX #1 unit dabigatran etexilate 150 mg 150 mg PO BID #180 caps 10/24/23 capsule (Pradaxa) buprenorphine 10 mcg/hour weekly 1 patch transdermal Q7D #4 ea 11/02/23 transdermal patch (Butrans) buprenorphine 8 mg-naloxone 2 mg See Rx Instructions .Route 11/02/23 sublingual film (Suboxone) .COMPLEX #60 ea Allergies Allergy/AdvReac Type Severity Reaction Status Date / Time pregabalin AdvReac Intermediate sedation Verified 10/17/23 11:59 Review of Systems Review of Systems Narrative: Somewhat limited given her presumed history of cognitive impairment and hard of hearing ROS Unobtainable: All systems reviewed & are unremarkable except as noted in HPI and below Patient History Medical History Chronic back pain greater than 3 months duration History of hematuria Left renal mass Chronic back pain History of falling Acute exacerbation of chronic low back pain Normocytic anemia, not due to blood loss Therapeutic opioid induced constipation Obstructive sleep apnea CHF (congestive heart failure) Anticoagulated Chronic, continuous use of opioids Age-related cognitive decline Fatigue Upper extremity somatic dysfunction Segmental and somatic dysfunction of abdomen and other regions Sacral region somatic dysfunction Pelvic somatic dysfunction Lumbar region somatic dysfunction Thoracic region somatic dysfunction Segmental and somatic dysfunction of rib cage Cervical somatic dysfunction Cranial somatic dysfunction Chronic bilateral back pain Scoliosis of cervical region due to degenerative disease of spine in adult Closed L2 vertebral fracture T12 compression fracture Lumbosacral spondylosis with radiculopathy Facet arthropathy, lumbar Pelvic relaxation PTSD (post-traumatic stress disorder) Anxiety TIA (transient ischemic attack) Sleep apnea GERD (gastroesophageal reflux disease) Colon polyps CTS (carpal tunnel syndrome) Cataract Chicken pox Chronic headaches Depression Hearing loss Measles Mumps Surgical History History of colonoscopy Hx of appendectomy History of carpal tunnel surgery of left wrist Status post cataract extraction of both eyes with insertion of intraocular lens Anesthesia History of ear surgery (1974) History of ear surgery (1981) Status post breast lumpectomy (1982) Status post hysterectomy (1979) History of knee replacement (2012) History of knee replacement (2008) Family History Child Age: 62 Mental health problem Father Heart disease Stroke Myocardial infarction Grandmother Cancer Grandfather Pneumonia Grandmother No problems noted. Mother Brainstem hemorrhage Brain bleed Social History household members: spouse Smoking Status: Never smoker alcohol intake: current Smoking Status: Never smoker alcohol intake frequency: a few times a month Substance Use Type: does not use Exam Initial Vital Signs Initial Vital Signs: Vital Signs Pulse Rate 72 11/04/23 09:10 Pulse Oximetry 81 L 11/04/23 09:10 Oxygen Delivery Method Nasal Cannula 11/04/23 09:10 Const General: comfortable HENMT Head: normal to inspection and normocephalic Resp Effort & Inspection: no cough, no retractions and tachypneic Auscultation: clear to auscultation bilaterally Cardio Rate: regular rate Rhythm: regular rhythm GI Inspection: normal to inspection Skin General: no rashes or lesions noted Neuro General: patient alert, patient awake and moves all extremities Extrem General: No edema Course Orders Ordered: ED Orders 11/04/23 09:12 Respiratory Panel (Film Array) Stat 11/04/23 09:17 ABG [Arterial Blood Gas] STAT 11/04/23 09:18 EKG-12 Lead Stat RT Consult Eval and Treat Now 11/04/23 09:25 Complete Blood Count AUTO DIFF Stat Comprehensive Metabolic Panel Stat Lactate (Lactic Acid) Stat Lipase Stat Magnesium Stat NT-proBNP (BNP-Adult 18+) Stat PTT Partial Thromboplastin Terrance Stat Procalcitonin Stat Prothrombin Time INR Stat Troponin & CK Cardiac Panel Stat 11/04/23 09:35 Blood Culture Stat 11/04/23 10:13 CT angio chest PE protocol Stat 11/04/23 11:29 Troponin & CK Cardiac Panel Stat Acetaminophen (Acetaminophen 325 Mg Tablet) 650 mg PO Q6H PRN PRN Reason: Fever/Mild Pain (1-3) Naloxone HCl (Naloxone 0.4 Mg/Ml Vial) 0.2 mg IV Q2MIN PRN PRN Reason: Opiate Reversal Non-Formulary Medication (Buprenorphine) 10 mcg TOP WEEKLY TAINA Last Admin: 11/04/23 12:20 Dose: 10 mcg Documented By: RLS Oxycodone HCl (Oxycodone Ir 5 Mg Tablet) 5 mg PO Q4HR PRN PRN Reason: Pain, Moderate (4-6) Discontinued Medications Furosemide 60 mg/ Sodium (Chloride) 56 mls @ 112 mls/hr IV NOW ONE Stop: 11/04/23 10:04 Last Infusion: 11/04/23 11:16 Dose: Infused Documented By: Admin: 11/04/23 10:26 Dose: 112 mls/hr Documented By: ANKIT Vital Signs Vital signs: Vital Signs - 8 hr 11/04/23 09:10 11/04/23 09:11 11/04/23 09:11 Temperature Pulse Rate 72 72 Respiratory Rate Blood Pressure 152/75 H Pulse Oximetry 81 L 83 L Oxygen Delivery Method Nasal Cannula Non -Rebreather Oxygen Flow Rate 11/04/23 09:20 11/04/23 09:30 11/04/23 09:30 Temperature 99.1 F Pulse Rate 69 67 Respiratory Rate 20 24 Blood Pressure 152/75 H 121/62 Pulse Oximetry 79 L 96 Oxygen Delivery Method Room Air Heated High Flow Oxygen Flow Rate 45 11/04/23 09:36 11/04/23 09:45 11/04/23 09:45 Temperature Pulse Rate 69 68 Respiratory Rate 14 23 Blood Pressure 152/75 H 120/64 Pulse Oximetry 97 92 Oxygen Delivery Method Oxygen Flow Rate 11/04/23 10:00 11/04/23 10:04 11/04/23 10:04 Temperature Pulse Rate 66 67 Respiratory Rate 18 33 H Blood Pressure 131/70 Pulse Oximetry 94 87 L Oxygen Delivery Method Oxygen Flow Rate 11/04/23 10:12 11/04/23 10:12 11/04/23 10:15 Temperature Pulse Rate 68 Respiratory Rate 22 Blood Pressure 137/67 128/64 Pulse Oximetry 96 Oxygen Delivery Method Oxygen Flow Rate 11/04/23 10:15 11/04/23 10:30 11/04/23 10:30 Temperature Pulse Rate 67 67 Respiratory Rate 27 H 18 Blood Pressure 131/67 Pulse Oximetry 93 87 L Oxygen Delivery Method Oxygen Flow Rate 11/04/23 10:45 11/04/23 10:45 11/04/23 11:00 Temperature Pulse Rate 66 67 Respiratory Rate 28 H 17 Blood Pressure 133/69 Pulse Oximetry 90 L 87 L Oxygen Delivery Method Oxygen Flow Rate 11/04/23 11:00 11/04/23 11:15 11/04/23 11:15 Temperature Pulse Rate 69 Respiratory Rate 19 Blood Pressure 164/74 H 160/78 H Pulse Oximetry 95 Oxygen Delivery Method Oxygen Flow Rate 11/04/23 11:30 11/04/23 11:30 11/04/23 11:45 Temperature Pulse Rate 72 75 Respiratory Rate 22 22 Blood Pressure 163/75 H Pulse Oximetry 91 95 Oxygen Delivery Method Oxygen Flow Rate 11/04/23 11:45 11/04/23 12:00 11/04/23 12:01 Temperature Pulse Rate 69 72 Respiratory Rate 20 22 Blood Pressure 190/87 H 190/87 H Pulse Oximetry 94 93 Oxygen Delivery Method High Flow Nasal Cannula Oxygen Flow Rate 11/04/23 12:01 11/04/23 12:01 11/04/23 12:15 Temperature Pulse Rate 69 Respiratory Rate 22 Blood Pressure 127/60 125/62 Pulse Oximetry 92 Oxygen Delivery Method Oxygen Flow Rate 11/04/23 12:15 11/04/23 12:30 11/04/23 12:30 Temperature Pulse Rate 69 65 Respiratory Rate 26 H 16 Blood Pressure 118/61 Pulse Oximetry 96 90 L Oxygen Delivery Method Oxygen Flow Rate 11/04/23 12:45 11/04/23 12:45 11/04/23 13:00 Temperature Pulse Rate 68 Respiratory Rate 31 H Blood Pressure 125/62 155/70 H Pulse Oximetry 88 L Oxygen Delivery Method Oxygen Flow Rate 11/04/23 13:00 11/04/23 13:16 11/04/23 13:16 Temperature Pulse Rate 71 69 Respiratory Rate 20 24 Blood Pressure 132/63 Pulse Oximetry 84 L 93 Oxygen Delivery Method Oxygen Flow Rate Medical Decision Making Medical Records Medical records reviewed: Yes I reviewed the patient's medical records. Lab Data Lab results reviewed: Yes I reviewed the patient's lab results. 11/04/23 09:25 11/04/23 09:25 Labs: Lab Results 11/04/23 11/04/23 11/04/23 Range/Units 09:12 09:25 09:49 WBC 9.2 (4.5-11.0) X10^3/uL RBC 4.12 (4.0-5.2) X10^6/uL Hgb 13.2 (12.0-16.0) g/dL Hct 38.7 (36-46) % MCV 93.9 (80-100) fL MCH 31.9 (26-34) PG MCHC 33.9 (30-36) % RDW 15.0 H (11.6-14.8) % Plt Count 255 (150-400) X10^3/uL Neut % (Auto) 79.1 H (50-75) % Lymph % (Auto) 12.6 L (25-40) % [place] % (Auto) 7.4 (3-14) % Eos % (Auto) 0.3 L (2-4) % Baso % (Auto) 0.6 (0-2) % Neut # (Auto) 7300 H (5754-4377) /uL Lymph # (Auto) 1200 (5781-5587) /uL [place] # (Auto) 700 (0-900) /uL Eos # (Auto) 0 (0-450) /uL Baso # (Auto) 100 (0-100) /uL PT 15.3 H (9.4-12.5) SECONDS INR 1.3 (0.9-1.3) APTT 49 H (25.1-36.5) SECONDS ABG Sample Site Right radial ABG pH 7.43 (7.35-7.45) ABG pCO2 38.3 (35-45) mmHg ABG pO2 93 (80-100) mmHg ABG HCO3 26 (23-27) mmol/L ABG Total CO2 25 (23-27) mmol/L ABG O2 Saturation 98 (95-100) % ABG Base Excess 1.2 (-2-3) mmol/L Newton Test Positive O2 Delivery Device High flow tima cannul FiO2 % 45 % % Sodium 137 (137-145) mmol/L Potassium 3.9 (3.4-5.1) mmol/L Chloride 104 (98-107) mmol/L Carbon Dioxide 25 (22-32) mmol/L BUN 17 (7-17) mg/dL Creatinine 0.84 (0.52-1.04) mg/dL Estimated GFR > 60 (>60) mL/min BUN/Creatinine Ratio 20.2 (6-22) Glucose 118 H (80-110) mg/dL Lactate 0.9 (0.7-2.1) mmol/L Calcium 9.6 (8.4-10.2) mg/dL Magnesium 1.8 (1.6-2.3) mg/dL Total Bilirubin 0.9 (0.2-1.3) mg/dL AST 20 (14-36) IU/L ALT 18 (<35) IU/L Alkaline Phosphatase 82 (38-126) U/L Total Creatine Kinase 58 (30-135) U/L Troponin I 0.073 H (0.01-0.034) ng/mL NT-Pro-B Natriuret Pep 4720 H (<450) pg/mL Total Protein 7.4 (6.3-8.2) g/dL Albumin 4.1 (3.5-5.0) g/dL Globulin 3.3 (1.7-4.1) g/dL Albumin/Globulin Ratio 1.2 (1.0-2.8) Lipase 52 (23-300) U/L Procalcitonin 0.077 (<0.5) ng/mL Chlamy pneumoniae PCR Not detected (Not Detect) Adenovirus (PCR) Not detected (Not Detect) B. pertussis DNA (PCR) Not detected (Not Detect) B.parapertussis DNA PCR Not detected (Not Detecte) Coronavirus OC43 (PCR) Not detected (Not Detect) Coronavirus HKU1 (PCR) Not detected (Not Detect) Coronavirus 229E (PCR) Not detected (Not Detect) SARS-CoV-2 (PCR) Not detected (Not Detecte) Coronavirus NL63 (PCR) Not detected (Not Detect) Human Metapneumovir PCR Not detected (Not Detect) Influenza Type A (PCR) Not detected (Not Detect) Influenza Type B (PCR) Not detected (Not Detect) M. pneumoniae (PCR) Not detected (Not Detect) Parainfluenza 1 (PCR) Not detected (Not Detect) Parainfluenza 2 (PCR) Not detected (Not Detect) Parainfluenza 3 (PCR) Not detected (Not Detect) Parainfluenza 4 (PCR) Not detected (Not Detect) RSV (PCR) Not detected (Not Detect) Entero/Rhino (PCR) Not detected (Not Detect) 11/04/23 Range/Units 11:29 WBC (4.5-11.0) X10^3/uL RBC (4.0-5.2) X10^6/uL Hgb (12.0-16.0) g/dL Hct (36-46) % MCV (80-100) fL MCH (26-34) PG MCHC (30-36) % RDW (11.6-14.8) % Plt Count (150-400) X10^3/uL Neut % (Auto) (50-75) % Lymph % (Auto) (25-40) % [place] % (Auto) (3-14) % Eos % (Auto) (2-4) % Baso % (Auto) (0-2) % Neut # (Auto) (3987-8668) /uL Lymph # (Auto) (8749-4635) /uL [place] # (Auto) (0-900) /uL Eos # (Auto) (0-450) /uL Baso # (Auto) (0-100) /uL PT (9.4-12.5) SECONDS INR (0.9-1.3) APTT (25.1-36.5) SECONDS ABG Sample Site ABG pH (7.35-7.45) ABG pCO2 (35-45) mmHg ABG pO2 (80-100) mmHg ABG HCO3 (23-27) mmol/L ABG Total CO2 (23-27) mmol/L ABG O2 Saturation (95-100) % ABG Base Excess (-2-3) mmol/L Newton Test O2 Delivery Device FiO2 % % Sodium (137-145) mmol/L Potassium (3.4-5.1) mmol/L Chloride (98-107) mmol/L Carbon Dioxide (22-32) mmol/L BUN (7-17) mg/dL Creatinine (0.52-1.04) mg/dL Estimated GFR (>60) mL/min BUN/Creatinine Ratio (6-22) Glucose (80-110) mg/dL Lactate (0.7-2.1) mmol/L Calcium (8.4-10.2) mg/dL Magnesium (1.6-2.3) mg/dL Total Bilirubin (0.2-1.3) mg/dL AST (14-36) IU/L ALT (<35) IU/L Alkaline Phosphatase (38-126) U/L Total Creatine Kinase 57 (30-135) U/L Troponin I 0.073 H (0.01-0.034) ng/mL NT-Pro-B Natriuret Pep (<450) pg/mL Total Protein (6.3-8.2) g/dL Albumin (3.5-5.0) g/dL Globulin (1.7-4.1) g/dL Albumin/Globulin Ratio (1.0-2.8) Lipase (23-300) U/L Procalcitonin (<0.5) ng/mL Chlamy pneumoniae PCR (Not Detect) Adenovirus (PCR) (Not Detect) B. pertussis DNA (PCR) (Not Detect) B.parapertussis DNA PCR (Not Detecte) Coronavirus OC43 (PCR) (Not Detect) Coronavirus HKU1 (PCR) (Not Detect) Coronavirus 229E (PCR) (Not Detect) SARS-CoV-2 (PCR) (Not Detecte) Coronavirus NL63 (PCR) (Not Detect) Human Metapneumovir PCR (Not Detect) Influenza Type A (PCR) (Not Detect) Influenza Type B (PCR) (Not Detect) M. pneumoniae (PCR) (Not Detect) Parainfluenza 1 (PCR) (Not Detect) Parainfluenza 2 (PCR) (Not Detect) Parainfluenza 3 (PCR) (Not Detect) Parainfluenza 4 (PCR) (Not Detect) RSV (PCR) (Not Detect) Entero/Rhino (PCR) (Not Detect) Imaging Data CT scan - chest: Radiologist's Impression: PROCEDURE: CT ANGIO CHEST PE PROTOCOL INDICATIONS: Chest pain, shortness of breath, tachycardia TECHNIQUE: After the administration of intravenous contrast, 2 mm thick sections acquired from the pulmonary apices to the posterior costophrenic angles. 3-dimensional maximum intensity projection (MIP) coronal and sagittal reformats were then acquired through the thorax. For radiation dose reduction, the following was used: automated exposure control, adjustment of mA and/or kV according to patient size. COMPARISON: [facility], CT, CT ANGIO CHEST PE PROTOCOL, 07/24/2022, 22:12. FINDINGS: Image quality: Diagnostic. Pulmonary arteries: Pulmonary arteries are normal in size, and demonstrate no intraluminal filling defects to suggest central pulmonary embolism. Enlargement of the main pulmonary artery suggestive of pulmonary arterial hypertension. Lower Neck: No enlarged lymph nodes. Thyroid: Multiple large thyroid nodules extending off the inferior aspect of the right lobe into the mediastinum. Axillae: No enlarged lymph nodes. Chest Wall: Unremarkable. Bones: Unremarkable. Lungs and Pleura: Mild ground-glass opacities within the right lower lobe with interstitial prominence. Ground-glass opacities within the right greater than left upper lobes. Right greater than left small pleural effusions. No suspicious nodules. Heart: Heart size is enlarged. No pericardial effusion. Thoracic Vessels: No aortic aneurysm. Mediastinum and Lillie: Multiple mediastinal lymphadenopathy within the level 2, level 4, and subcarinal levels. Esophagus: No wall thickening. No hiatal hernia. Upper Abdomen: Visualized upper abdomen solid organs and bowel loops appear normal. IMPRESSION: 1. No pulmonary embolus. 2. Bilateral pleural effusions. 3. A few scattered ground-glass opacities which may reflect atypical infection in the correct clinical setting. Differential includes atelectasis and pulmonary edema. 4. Enlarged right thyroid lobe with multiple hypodense nodules. 5. Mediastinal lymphadenopathy is slightly larger than comparison. ECG Data Attestation: I personally reviewed and interpreted this ECG as follows: Interpretation: Sinus rhythm First-degree AV block SD interval 2 0 milliseconds Ventricular rate is 67 LVH Normal axis Nonspecific ST T wave changes MDM Narrative Medical decision making narrative: Patient arrived and did seem to be somewhat altered although unsure what her baseline status is. states that this is not normal for her. Was significantly hypoxic and tachypneic. She was placed on high flow. This improved her respiratory status tremendously. ABG was done on high-flow and it is relatively unremarkable. Patient is afebrile. Elevation in BNP. Troponins are elevated but unchanged with repeat. Nonspecific changes in the EKG. Review of her medical record shows she does have an ejection fraction preserved CHF. Review of a cardiac note also states she was pulmonary hypertension. She was given Lasix here in the ER. She did diurese but still requiring oxygen supplementation. With the high-flow she did seem to become more arousable and more interactive with conversations. She could not give specifics about how she ended up in the emergency department this morning. Discussed the case with Dr. Hirsch hospitalist on-call who will admit for further evaluation and treatment. Critical Care Time Critical Care Time Critical Care Time: Yes Total Critical Care Time: 45 Attestation: The high probability of a clinically significant, sudden or life threatening deterioration of the [respiratory] system(s) required my full and direct attention, intervention and personal management. The aggregate critical care time was [45] minutes. This time is in addition to time spent performing reported procedures but includes the following: [x] Data Review and interpretation [x] Patient assessment and monitoring of vital signs [x] Documentation [x] Medication orders and management Discharge Plan Departure Patient Disposition: Admitted As Inpatient Clinical Impression: CHF (congestive heart failure), Hypoxia Admit Date/Time: 11/04/23 13:20 Admit Provider: Newton Hirsch
[2023-11-04 09:33] LABS: Add Manual Diff / Slide Review NO; Basophils Absolute Auto 100 /uL (0-100); Basophils Percent Auto 0.6 % (0-2); Eosinophils Absolute Auto 0 /uL (0-450); Eosinophils Percent Auto 0.3 % (2-4); Hematocrit 38.7 % (36-46); Hemoglobin 13.2 g/dL (12.0-16.0); Lymphocytes Absolute Auto 1200 /uL (1100-4500); Lymphocytes Percent Auto 12.6 % (25-40); Mean Corpuscular HGB Conc 33.9 % (30-36); Mean Corpuscular Hemoglobin 31.9 PG (26-34); Mean Corpuscular Volume 93.9 fL (80-100); Monocytes Absolute Auto 700 /uL (0-900); Monocytes Percent Auto 7.4 % (3-14); Neutrophils Absolute Auto 7300 /uL (1500-7000); Neutrophils Percent Auto 79.1 % (50-75); Platelet Count 255 X10^3/uL (150-400); Red Blood Cell Count 4.12 X10^6/uL (4.0-5.2); White Blood Cell Count 9.2 X10^3/uL (4.5-11.0)
[2023-11-04 09:41] LABS: INR 1.3 (0.9-1.3); Prothrombin Time 15.3 SECONDS (9.4-12.5)
[2023-11-04 09:44] LABS: PTT Partial Thromboplastin Tim 49 SECONDS (25.1-36.5)
[2023-11-04 09:46] LABS: Lactate (Lactic Acid) 0.9 mmol/L (0.7-2.1)
[2023-11-04 09:47] LABS: Alanine Aminotransferase 18 IU/L (<35); Albumin 4.1 g/dL (3.5-5.0); Albumin Globulin Ratio 1.2 (1.0-2.8); Alkaline Phosphatase 82 U/L (38-126); Aspartate Aminotransferase 20 IU/L (14-36); BUN Creatinine Ratio 20.2 (6-22); Bilirubin Total 0.9 mg/dL (0.2-1.3); Blood Urea Nitrogen 17 mg/dL (7-17); Calcium 9.6 mg/dL (8.4-10.2); Carbon Dioxide 25 mmol/L (22-32); Chloride 104 mmol/L (98-107); Creatine Kinase 58 U/L (30-135); Estimated Glomerular Filt Rate > 60 mL/min (>60); Globulin 3.3 g/dL (1.7-4.1); Glucose 118 mg/dL (80-110); HEMOLYSIS < 15 (0-50); Lipase 52 U/L (23-300); Magnesium 1.8 mg/dL (1.6-2.3); Potassium 3.9 mmol/L (3.4-5.1); Sodium 137 mmol/L (137-145); Total Protein 7.4 g/dL (6.3-8.2)
--- NOTE | 2023-11-04 09:47 | EKG_ITS ---
[address] [address] Test Date: 2023-11-04 Pat Name: Swathi Dayton Department: [facility] Room: Gender: Female Records Associate: JAMIR : 1935 Requested By: Order Number: [id number] Reading MD: Newton Hirsch Measurements Intervals [place] Rate: 67 P: 87 ND: 210 QRS: 2 QRSD: 94 T: -75 QT: 424 QTc: 448 Interpretive Statements Sinus rhythm with 1st degree AV block Left ventricular hypertrophy with repolarization abnormality ( Giuliano product ) New [facility] Electronically Signed On 11-04-2023 16:07:01 PDT by Newton Hirsch
--- NOTE | 2023-11-04 09:48 | PC.NURSE ---
0936 started on high flow 45 percent . 45 liters by RT
[2023-11-04 09:52] LABS: Allen Test for ABG Passed? Positive; Base Excess ABG 1.2 mmol/L (-2-3); Blood Gas Collection Site Right Radial; Delivery System High Flow Nas Cannul; HCO3 ABG 26 mmol/L (23-27); Oxygen Saturation ABG 98 % (95-100); PCO2 ABG 38.3 mmHg (35-45); PO2 ABG 93 mmHg (80-100); TCO2 ABG 25 mmol/L (23-27); pH ABG 7.43 (7.35-7.45)
[2023-11-04 09:59] LABS: NT-proBNP (BNP-Adult 18+) 4720 pg/mL (<450); Troponin I 0.073 ng/mL (0.01-0.034)
[2023-11-04 10:03] LABS: Procalcitonin 0.077 ng/mL (<0.5)
[2023-11-04 10:13] LABS: Adenovirus Not Detected (Not Detect); B. parapertussis Not Detected (Not Detecte); Bordetella pertussis Not Detected (Not Detect); Chlamydophila pneumoniae Not Detected (Not Detect); Coronavirus 229E Not Detected (Not Detect); Coronavirus HKU1 Not Detected (Not Detect); Coronavirus NL 63 Not Detected (Not Detect); Coronavirus OC43 Not Detected (Not Detect); Human Metapneumovirus Not Detected (Not Detect); Human Rhinovirus/Enterovirus Not Detected (Not Detect); Influenza A Not Detected (Not Detect); Influenza B Not Detected (Not Detect); Mycoplasma pneumoniae Not Detected (Not Detect); Parainfluenza Virus 1 Not Detected (Not Detect); Parainfluenza Virus 2 Not Detected (Not Detect); Parainfluenza Virus 3 Not Detected (Not Detect); Parainfluenza Virus 4 Not Detected (Not Detect); Respiratory Syncytial Virus Not Detected (Not Detect); SARS- CoV-2 Not Detected (Not Detecte)
--- NOTE | 2023-11-04 10:13 | DI.CT.S_ITS ---
PROCEDURE: CT ANGIO CHEST PE PROTOCOL INDICATIONS: Chest pain, shortness of breath, tachycardia TECHNIQUE: After the administration of intravenous contrast, 2 mm thick sections acquired from the pulmonary apices to the posterior costophrenic angles. 3-dimensional maximum intensity projection (MIP) coronal and sagittal reformats were then acquired through the thorax. For radiation dose reduction, the following was used: automated exposure control, adjustment of mA and/or kV according to patient size. COMPARISON: [facility], CT, CT ANGIO CHEST PE PROTOCOL, 07/24/2022, 22:12. FINDINGS: Image quality: Diagnostic. Pulmonary arteries: Pulmonary arteries are normal in size, and demonstrate no intraluminal filling defects to suggest central pulmonary embolism. Enlargement of the main pulmonary artery suggestive of pulmonary arterial hypertension. Lower Neck: No enlarged lymph nodes. Thyroid: Multiple large thyroid nodules extending off the inferior aspect of the right lobe into the mediastinum. Axillae: No enlarged lymph nodes. Chest Wall: Unremarkable. Bones: Unremarkable. Lungs and Pleura: Mild ground-glass opacities within the right lower lobe with interstitial prominence. Ground-glass opacities within the right greater than left upper lobes. Right greater than left small pleural effusions. No suspicious nodules. Heart: Heart size is enlarged. No pericardial effusion. Thoracic Vessels: No aortic aneurysm. Mediastinum and Lillie: Multiple mediastinal lymphadenopathy within the level 2, level 4, and subcarinal levels. Esophagus: No wall thickening. No hiatal hernia. Upper Abdomen: Visualized upper abdomen solid organs and bowel loops appear normal. IMPRESSION: 1. No pulmonary embolus. 2. Bilateral pleural effusions. 3. A few scattered ground-glass opacities which may reflect atypical infection in the correct clinical setting. Differential includes atelectasis and pulmonary edema. 4. Enlarged right thyroid lobe with multiple hypodense nodules. 5. Mediastinal lymphadenopathy is slightly larger than comparison. Dictated by: Jaden Low M.D. on 11/04/2023 at 9:31 Approved by: Jaden Low M.D. on 11/04/2023 at 9:53
[2023-11-04] MEDS: FUROSEMIDE 60 MG in SODIUM CHLORIDE 0.9% 50 ML 112 MG IV (10:26)
--- NOTE | 2023-11-04 10:46 | PC.NURSE ---
purewick placed without incident. pt was able to lift her butt off bed without incident.
[2023-11-04 11:53] LABS: Creatine Kinase 57 U/L (30-135)
[2023-11-04 12:06] LABS: Troponin I 0.073 ng/mL (0.01-0.034)
[2023-11-04] MEDS: BUPRENORPHINE 10 MCG 10 EACH TOP (12:20)
--- NOTE | 2023-11-04 14:08 | PM.HP.1 ---
History of Present Illness History of Present Illness Date Patient Seen: 11/04/23 Chief complaint: low oxygen Narrative: From ED doctor: Patient is an 88-year-old female. Has a history of AFib/a flutter. Is on Pradaxa. Is also on flecainide and metoprolol. Has a diagnosis of CHF in her problem list however review of cardiac notes states she has a preserved ventricular function pulmonary hypertension. I had an echocardiogram little over 1 year ago which showed an ejection fraction of 60-65%. No history of COPD. No smoking history. Not on home oxygen. states that this morning she seems somewhat more confused than baseline. Unsure what her baseline confusion is. He took her oxygen saturations and noted that they were in the low 80s. Here in the ER patient is very hard of hearing but she did express that she was not having problems breathing. No chest pain. No abdominal pain. According to her she has been taking all of her medications as directed. Additional information: The patient is not really very talkative and history comes from the . He notes that she was normal yesterday but off this morning when he woke her up. She was more fatigued and spent an hour in the bathroom. She was slow to respond. She was not gasping for breath. He checked her with an oximeter which revealed SaO2 of 83%. He brought her to the hospital. Here she was found to be hypoxemic with stable vital signs and had pulmonary edema and pleural effusions on chest x-ray. He was unsure if she takes a daily water pill. She has a history of diastolic heart failure, last echo 1 year ago. She denies any chest pain. He was also no leg edema or report of leg edema. Notes that she manages her own medications. In terms of a POLST or resuscitation wishes he was unsure of what her wishes are, and she does not engage in conversation. ED course: she was placed on high-flow and diuresed. T-wave inversions are noted on ECG with LVH. This does appear to be somewhat different from her previous ECGs. She had a mildly elevated troponin which was stable over 2 interval measurements. [facility] Medical History Chronic back pain greater than 3 months duration History of hematuria Left renal mass Chronic back pain History of falling Acute exacerbation of chronic low back pain Normocytic anemia, not due to blood loss Therapeutic opioid induced constipation Obstructive sleep apnea CHF (congestive heart failure) Anticoagulated Chronic, continuous use of opioids Age-related cognitive decline Fatigue Upper extremity somatic dysfunction Segmental and somatic dysfunction of abdomen and other regions Sacral region somatic dysfunction Pelvic somatic dysfunction Lumbar region somatic dysfunction Thoracic region somatic dysfunction Segmental and somatic dysfunction of rib cage Cervical somatic dysfunction Cranial somatic dysfunction Chronic bilateral back pain Scoliosis of cervical region due to degenerative disease of spine in adult Closed L2 vertebral fracture T12 compression fracture Lumbosacral spondylosis with radiculopathy Facet arthropathy, lumbar Pelvic relaxation PTSD (post-traumatic stress disorder) Anxiety TIA (transient ischemic attack) Sleep apnea GERD (gastroesophageal reflux disease) Colon polyps CTS (carpal tunnel syndrome) Cataract Chicken pox Chronic headaches Depression Hearing loss Measles Mumps Surgical History History of colonoscopy Hx of appendectomy History of carpal tunnel surgery of left wrist Status post cataract extraction of both eyes with insertion of intraocular lens Anesthesia History of ear surgery (1974) History of ear surgery (1981) Status post breast lumpectomy (1982) Status post hysterectomy (1979) History of knee replacement (2012) History of knee replacement (2008) Family History Child Age: 62 Mental health problem Father Heart disease Stroke Myocardial infarction Grandmother Cancer Grandfather Pneumonia Grandmother No problems noted. Mother Brainstem hemorrhage Brain bleed Social History household members: spouse Smoking Status: Never smoker alcohol intake: current Meds Home Medications and Allergies Home Medications Medication Instructions Recorded Confirmed Type flecainide 100 mg tablet 100 mg PO BID 08/14/18 10/17/23 History ferrous sulfate [Iron (ferrous 1 tab PO .QD 09/05/22 10/17/23 History sulfate)] furosemide 20 mg tablet (Lasix) 20 mg PO QDAY #90 tabs 02/08/23 10/17/23 Rx amlodipine 10 mg tablet 10 mg PO DAILY #90 tabs 03/19/23 10/17/23 Rx clobetasol 0.05 % topical cream 1 applic topical QAM AND QPM #30 08/28/23 10/17/23 Rx grams nystatin 100,000 unit/gram topical 1 applic topical BID #15 grams 08/28/23 10/17/23 Rx powder paroxetine HCl 20 mg tablet 60 mg (3 x 20 mg) PO DAILY #270 09/05/23 10/17/23 Rx tabs omeprazole 20 mg capsule,delayed 20 mg PO BID #60 caps 09/19/23 10/17/23 Rx release promethazine 12.5 mg tablet 6.25 mg (1/2 x 12.5 mg) PO QID PRN 09/24/23 10/17/23 Rx nausea #14 tabs metoprolol succinate 25 mg 25 mg PO BID #180 tabs 10/17/23 10/17/23 Rx tablet,extended release 24 hr duloxetine 20 mg capsule,delayed 20 mg PO .QHS #14 caps 10/23/23 10/23/23 Rx release duloxetine 20 mg capsule,delayed 20 mg PO BID #90 caps 10/23/23 10/23/23 Rx release Disabled Parking Permit See Rx Instructions .Route 10/24/23 Rx .COMPLEX #1 unit dabigatran etexilate 150 mg 150 mg PO BID #180 caps 10/24/23 Rx capsule (Pradaxa) buprenorphine 10 mcg/hour weekly 1 patch transdermal Q7D #4 ea 11/02/23 Rx transdermal patch (Butrans) buprenorphine 8 mg-naloxone 2 mg See Rx Instructions .Route 11/02/23 Rx sublingual film (Suboxone) .COMPLEX #60 ea Allergies Allergy/AdvReac Type Severity Reaction Status Date / Time pregabalin AdvReac Intermediate sedation Verified 10/17/23 11:59 Review of Systems Review of Systems Narrative: ROS is limited, she was not very participatory in discussion and her provides 95% of the information. Exam Vital Signs (past 8 hours): - 11/04/23 09:10 11/04/23 09:11 11/04/23 09:11 Temperature Pulse Rate 72 72 Respiratory Rate Blood Pressure 152/75 H Pulse Oximetry 81 L 83 L Oxygen Delivery Method Nasal Cannula Non -Rebreather Oxygen Flow Rate 11/04/23 09:20 11/04/23 09:30 11/04/23 09:30 Temperature 99.1 F Pulse Rate 69 67 Respiratory Rate 20 24 Blood Pressure 152/75 H 121/62 Pulse Oximetry 79 L 96 Oxygen Delivery Method Room Air Heated High Flow Oxygen Flow Rate 45 11/04/23 09:36 11/04/23 09:45 11/04/23 09:45 Temperature Pulse Rate 69 68 Respiratory Rate 14 23 Blood Pressure 152/75 H 120/64 Pulse Oximetry 97 92 Oxygen Delivery Method Oxygen Flow Rate 11/04/23 10:00 11/04/23 10:04 11/04/23 10:04 Temperature Pulse Rate 66 67 Respiratory Rate 18 33 H Blood Pressure 131/70 Pulse Oximetry 94 87 L Oxygen Delivery Method Oxygen Flow Rate 11/04/23 10:12 11/04/23 10:12 11/04/23 10:15 Temperature Pulse Rate 68 Respiratory Rate 22 Blood Pressure 137/67 128/64 Pulse Oximetry 96 Oxygen Delivery Method Oxygen Flow Rate 11/04/23 10:15 11/04/23 10:30 11/04/23 10:30 Temperature Pulse Rate 67 67 Respiratory Rate 27 H 18 Blood Pressure 131/67 Pulse Oximetry 93 87 L Oxygen Delivery Method Oxygen Flow Rate 11/04/23 10:45 11/04/23 10:45 11/04/23 11:00 Temperature Pulse Rate 66 67 Respiratory Rate 28 H 17 Blood Pressure 133/69 Pulse Oximetry 90 L 87 L Oxygen Delivery Method Oxygen Flow Rate 11/04/23 11:00 11/04/23 11:15 11/04/23 11:15 Temperature Pulse Rate 69 Respiratory Rate 19 Blood Pressure 164/74 H 160/78 H Pulse Oximetry 95 Oxygen Delivery Method Oxygen Flow Rate 11/04/23 11:30 11/04/23 11:30 11/04/23 11:45 Temperature Pulse Rate 72 75 Respiratory Rate 22 22 Blood Pressure 163/75 H Pulse Oximetry 91 95 Oxygen Delivery Method Oxygen Flow Rate 11/04/23 11:45 11/04/23 12:00 11/04/23 12:01 Temperature Pulse Rate 69 72 Respiratory Rate 20 22 Blood Pressure 190/87 H 190/87 H Pulse Oximetry 94 93 Oxygen Delivery Method High Flow Nasal Cannula Oxygen Flow Rate 11/04/23 12:01 11/04/23 12:01 11/04/23 12:15 Temperature Pulse Rate 69 Respiratory Rate 22 Blood Pressure 127/60 125/62 Pulse Oximetry 92 Oxygen Delivery Method Oxygen Flow Rate 11/04/23 12:15 11/04/23 12:30 11/04/23 12:30 Temperature Pulse Rate 69 65 Respiratory Rate 26 H 16 Blood Pressure 118/61 Pulse Oximetry 96 90 L Oxygen Delivery Method Oxygen Flow Rate 11/04/23 12:45 11/04/23 12:45 11/04/23 13:00 Temperature Pulse Rate 68 Respiratory Rate 31 H Blood Pressure 125/62 155/70 H Pulse Oximetry 88 L Oxygen Delivery Method Oxygen Flow Rate 11/04/23 13:00 11/04/23 13:16 11/04/23 13:16 Temperature Pulse Rate 71 69 Respiratory Rate 20 24 Blood Pressure 132/63 Pulse Oximetry 84 L 93 Oxygen Delivery Method Oxygen Flow Rate 11/04/23 13:30 11/04/23 13:30 Temperature Pulse Rate 68 Respiratory Rate 17 Blood Pressure 136/70 Pulse Oximetry 89 L Oxygen Delivery Method Oxygen Flow Rate Oxygen Delivery Method High Flow Nasal Cannula Oxygen Flow Rate 45 Narrative Exam Narrative: NAD, alert and oriented, fluent speech, calm. Minimally interactive and closes her eyes during conversation. Comfortable on high-flow oxygen at 50% FiO2 50. Normocephalic skull, EOMI, anicteric sclera, symmetric pupils. Oropharynx unremarkable, no droop. Neck supple, midline trachea, no adenopathy. Lungs clear, normal rate and effort. Heart regular, no murmur gallop or rub. Abdomen is soft, non distended and non tender. Extremities are free of edema. Skin is free of rash or lesions. Joints are not swollen or deformed. Judgment appears to be abnormal. Objective ECG Impression: Sinus rhythm with 1st degree AV block Left ventricular hypertrophy with repolarization abnormality ( [place] product ) TWI V1-V6 Imaging CT scan - chest: Radiologist's impression: IMPRESSION: 1. No pulmonary embolus. 2. Bilateral pleural effusions. 3. A few scattered ground-glass opacities which may reflect atypical infection in the correct clinical setting. Differential includes atelectasis and pulmonary edema. 4. Enlarged right thyroid lobe with multiple hypodense nodules. 5. Mediastinal lymphadenopathy is slightly larger than comparison. Labs 11/04/23 09:25 11/04/23 09:25 Labs: Laboratory Results - last 24 hr 11/04/23 11/04/23 11/04/23 09:12 09:25 09:49 WBC 9.2 RBC 4.12 Hgb 13.2 Hct 38.7 MCV 93.9 MCH 31.9 MCHC 33.9 RDW 15.0 H Plt Count 255 Neut % (Auto) 79.1 H Lymph % (Auto) 12.6 L Green % (Auto) 7.4 Eos % (Auto) 0.3 L Baso % (Auto) 0.6 Neut # (Auto) 7300 H Lymph # (Auto) 1200 Green # (Auto) 700 Eos # (Auto) 0 Baso # (Auto) 100 PT 15.3 H INR 1.3 APTT 49 H ABG Sample Site Right radial ABG pH 7.43 ABG pCO2 38.3 ABG pO2 93 ABG HCO3 26 ABG Total CO2 25 ABG O2 Saturation 98 ABG Base Excess 1.2 Newton Test Positive O2 Delivery Device High flow tima cannul FiO2 % 45 % Sodium 137 Potassium 3.9 Chloride 104 Carbon Dioxide 25 BUN 17 Creatinine 0.84 Estimated GFR > 60 BUN/Creatinine Ratio 20.2 Glucose 118 H Lactate 0.9 Calcium 9.6 Magnesium 1.8 Total Bilirubin 0.9 AST 20 ALT 18 Alkaline Phosphatase 82 Total Creatine Kinase 58 Troponin I 0.073 H NT-Pro-B Natriuret Pep 4720 H Total Protein 7.4 Albumin 4.1 Globulin 3.3 Albumin/Globulin Ratio 1.2 Lipase 52 Procalcitonin 0.077 Chlamy pneumoniae PCR Not detected Adenovirus (PCR) Not detected B. pertussis DNA (PCR) Not detected B.parapertussis DNA PCR Not detected Coronavirus OC43 (PCR) Not detected Coronavirus HKU1 (PCR) Not detected Coronavirus 229E (PCR) Not detected SARS-CoV-2 (PCR) Not detected Coronavirus NL63 (PCR) Not detected Human Metapneumovir PCR Not detected Influenza Type A (PCR) Not detected Influenza Type B (PCR) Not detected M. pneumoniae (PCR) Not detected Parainfluenza 1 (PCR) Not detected Parainfluenza 2 (PCR) Not detected Parainfluenza 3 (PCR) Not detected Parainfluenza 4 (PCR) Not detected RSV (PCR) Not detected Entero/Rhino (PCR) Not detected 11/04/23 11:29 WBC RBC Hgb Hct MCV MCH MCHC RDW Plt Count Neut % (Auto) Lymph % (Auto) Green % (Auto) Eos % (Auto) Baso % (Auto) Neut # (Auto) Lymph # (Auto) Green # (Auto) Eos # (Auto) Baso # (Auto) PT INR APTT ABG Sample Site ABG pH ABG pCO2 ABG pO2 ABG HCO3 ABG Total CO2 ABG O2 Saturation ABG Base Excess Newton Test O2 Delivery Device FiO2 % Sodium Potassium Chloride Carbon Dioxide BUN Creatinine Estimated GFR BUN/Creatinine Ratio Glucose Lactate Calcium Magnesium Total Bilirubin AST ALT Alkaline Phosphatase Total Creatine Kinase 57 Troponin I 0.073 H NT-Pro-B Natriuret Pep Total Protein Albumin Globulin Albumin/Globulin Ratio Lipase Procalcitonin Chlamy pneumoniae PCR Adenovirus (PCR) B. pertussis DNA (PCR) B.parapertussis DNA PCR Coronavirus OC43 (PCR) Coronavirus HKU1 (PCR) Coronavirus 229E (PCR) SARS-CoV-2 (PCR) Coronavirus NL63 (PCR) Human Metapneumovir PCR Influenza Type A (PCR) Influenza Type B (PCR) M. pneumoniae (PCR) Parainfluenza 1 (PCR) Parainfluenza 2 (PCR) Parainfluenza 3 (PCR) Parainfluenza 4 (PCR) RSV (PCR) Entero/Rhino (PCR) Assessment & Plan Assessment & Plan narrative: 1. Acute hypoxic respiratory failure, present on admission and active. 2. Acute on chronic diastolic heart failure, present on admission and active. 3. Demand ischemia, present on admission and active. 4. Cognitive impairment, present on admission and active. 5. MARIOLA, present on admission and stable. 6. Chronic pain with the, present on admission and active. 7. Remote TIA, not present on admission are active. 8. Multiple compression fractures, present on admission and stable. Plan: -continue diuresis with Lasix IV 40 mg q.12 hours. He was -trend troponin. -support with high-flow, and wean O2 as able. -2D echo to re-evaluate status of LVEF. -monitor blood pressure, resume blood pressure medications. FULL resuscitation Proxy decision maker is Inpatient status, anticipate 2 midnights of hospital care. MANSI is 11/05. Time-Based Coding :: 35 min spent with patient and on the chart (including review of chart, obtaining history, exam, reviewing outside data, placing orders, documenting exam and treatment plan, and counseling patient) on 11/03. Quality MIPS - Admit I confirm the patient?s Advance Care Plan is present, Code status is documented, Surrogate decision maker is in patient?s record [If Yes, STOP here]: Yes [facility] - Meds 'Current medications' to include all prescriptions, [id number] products, herbals, cannabis/cannabidiol products, and vitamin/mineral/dietary (nutritional) supplements. I have utilized all available resources to obtain, update, or review the patient?s current medications. [If Yes, STOP here]: Yes
--- NOTE | 2023-11-04 16:18 | DI.ECHO.S_ITS ---
[facility]---------+ [facility] : : [address] : : [place] : : [id number] : : Phone: [phone] Echocardiogram Report + + :Name: JESSICA BULL Study Date: 11/05/2023 Height: 61 in : :[facility] ReadingLocation: Weight: 154 lb : : Gender: Female BSA: 1.7 m2 : :: 1935 Age: 88 yrs BP: 137/73 mmHg: :Reason For Study: CHF : :Ordering Physician: YOLIS, : :BILYL Vo Performed By: Nicky Anaya : :Referring: BILLY LAGOS : + + Interpretation Summary The left ventricle is normal in size. The left ventricular ejection fraction is normal. The ejection fraction is estimated to be 65-70%. Diastolic parameters suggest a restrictive filling pattern consistent with probable significantly elevated filling pressures. The right ventricle is normal size. The right ventricular systolic function is normal. The left atrium is severely dilated. There has been no significant change since the previous study. There is mild mitral regurgitation. Compared to the prior echo study, there has been no change in the severity of mitral regurgitation. The right ventricular systolic pressure is estimated to be at least 35 mmHg based on an estimated right atrial pressure of 3 mm Hg. Doppler profile across pulmonary valve suggest pulmonary hypertension. Mild atherosclerotic plaque(s) in the aortic arch. Procedure: A two-dimensional transthoracic echocardiogram with color flow and Doppler was performed. The study quality was technically adequate. Comparison is made with the echocardiogram of 07/25/2022. The patient was in sinus bradycardia with heart rates between 56-63 bpm during the exam. Left Ventricle: Proximal septal thickening is noted. The left ventricle is normal in size. There is no thrombus. The ejection fraction is estimated to be 65-70%. The left ventricular ejection fraction is normal. There has been no significant change since the previous exam. There are no focal wall motion abnormalities. Diastolic parameters suggest a restrictive filling pattern consistent with probable significantly elevated filling pressures. Right Ventricle: The right ventricle is normal size. The right ventricular systolic function is normal. Atria: The left atrium is severely dilated. There has been no significant change since the previous study. The right atrium is borderline dilated. There is no Doppler evidence for an interatrial shunt. Mitral Valve: There is mild to moderate mitral annular calcification. The mitral valve leaflets appear mildly thickened, but open well. Heavy posterior mitral annulus calcification. There is mild mitral regurgitation. Compared to the prior echo study, there has been no change in the severity of mitral regurgitation. Aortic Valve: The aortic valve is trileaflet. The aortic valve opens well. There is no aortic valve stenosis. No aortic regurgitation is present. Tricuspid Valve: The tricuspid valve is normal. There is trace tricuspid regurgitation. The right ventricular systolic pressure is estimated to be at least 35 mmHg based on an estimated right atrial pressure of 3 mm Hg. Pulmonic Valve: The pulmonic valve leaflets are thin and pliable; valve motion is normal. There is a trace or physiologic amount of pulmonic regurgitation. Doppler profile across pulmonary valve suggest pulmonary hypertension. Great Vessels: The aortic root is normal size. The dimensions of the ascending aorta are normal. Mild atherosclerotic plaque(s) in the aortic arch. The IVC is of normal diameter and collapses greater than 50% with a sniff. This suggests a low right atrial pressure of 3 mm Hg. Pericardium/ Pleura There is no pericardial effusion. There is no pleural effusion. MMode/2D Measurements & Calculations LVIDd: 4.8 cm LVOT diam: 2.0 cm LVIDs: 3.1 cm Ao root diam: 2.5 cm FS: 34.6 % asc Aorta Diam: 3.0 cm IVSd: 0.91 cm Ao Arch Diam (Prox Trans): 3.1 cm LVPWd: 0.93 cm LV chang. diameter/BSA (cm/m^2): 2.8 LV sys. diameter/BSA (cm/m^2): 1.9 LA A2 area: 30.8 cm2 RA long axis: 5.8 cm LA A4 area: 29.6 cm2 RA area: 19.6 cm2 LA length (vol): 6.7 cm RA vol: 56.5 ml LA vol: 115.8 ml RA : 33.4 ml/m2 LA vol index: 68.5 ml/m2 IVC diam: 1.0 cm RVD1 (basal): 3.5 cm TAPSE: 1.5 cm Doppler Measurements & Calculations Ao V2 max: 115.9 cm/sec LVOT Max Masood: 74.3 cm/sec Ao V2 mean: 82.1 cm/sec LV V1 max P.2 mmHg Ao max P.4 mmHg LV V1 VTI: 16.3 cm Ao mean P.0 mmHg LARISA(I,D): 1.9 cm2 Ao V2 VTI: 26.6 cm LARISA(V,D): 2.0 cm2 sev ratio: 0.62 LARISA indexed to BSA (cm^2/m^2): 1.1 MV E max masood: 82.7 cm/sec TR max masood: 281.9 cm/sec MV A max masood: 25.9 cm/sec TR max P.8 mmHg MV E/A: 3.2 PA V2 max: 80.4 cm/sec Med Peak E' Masood: 3.9 cm/sec PA V2 mean: 50.2 cm/sec E/E' med: 21.5 PA mean P.1 mmHg Lat Peak E' Masood: 6.6 cm/sec PA pr(Accel): 39.6 mmHg E/E' lat: 12.6 E/e' average: 17.0 MV dec time: 0.17 sec SV(LVOT): 50.0 ml Reading Physician:10:07 AM
[2023-11-04] MEDS: NITROGLYCERIN OINT 1 INCH/GM OINT...G. 0.5 INCH TOP (16:30)
[2023-11-04] MEDS: FUROSEMIDE 40 MG/4 ML VIAL IV (16:42)
[2023-11-04 17:13] LABS: Troponin I 0.053 ng/mL (0.01-0.034)
--- NOTE | 2023-11-04 18:02 | PC.NURSE ---
large amount of incontinent urine. [email or web address] switched out.
[2023-11-04] MEDS: DABIGATRAN 75 MG CAPSULE 150 MG PO (20:03)
[2023-11-04] MEDS: FLECAINIDE 100 MG TABLET PO (20:03)
[2023-11-05] VITALS (74 sets, daily range): BP systolic 110–188; BP diastolic 55–90; PULSE 56–130; RESP 10–30; TEMP 36–36.3; O2SAT 89–100; BMI 26.4
[2023-11-05] MEDS: FUROSEMIDE 40 MG/4 ML VIAL IV ×2 (00:11→11:58)
[2023-11-05 05:40] LABS: BUN Creatinine Ratio 20.7 (6-22); Blood Urea Nitrogen 17 mg/dL (7-17); Calcium 9.2 mg/dL (8.4-10.2); Carbon Dioxide 30 mmol/L (22-32); Chloride 100 mmol/L (98-107); Estimated Glomerular Filt Rate > 60 mL/min (>60); Glucose 105 mg/dL (80-110); HEMOLYSIS < 15 (0-50); Potassium 3.6 mmol/L (3.4-5.1); Sodium 136 mmol/L (137-145)
--- NOTE | 2023-11-05 05:44 | PC.NURSE ---
Due to pt having to stay on heated high flow, pt is bedbound. Pt is currently using a purwick with good urinary output with lasix. Pt has brief placed over purwick to keep her dry from any overflow. Pt is in hospital bed and return demonstration done on use of call light and buttons to adjust bed done.
--- NOTE | 2023-11-05 07:25 | P.PN_ITS ---
Subjective Subjective Interval history: Summary: Admitted with hypoxic respiratory failure, pulmonary edema, and presumed diastolic heart failure. On high-flow oxygen and diuresed overnight. Subjective: She feels better today. She was not short of breath and denies any chest pain. She did get some sleep last night. Exam Vital Signs (past 8 hours): - 11/04/23 23:30 11/04/23 23:30 11/04/23 23:30 Pulse Rate 60 Respiratory Rate 21 Blood Pressure 129/66 Pulse Oximetry 97 Oxygen Delivery Method Heated High Flow 11/04/23 23:45 11/04/23 23:45 11/05/23 00:00 Pulse Rate 59 L Respiratory Rate 22 Blood Pressure 127/64 126/64 Pulse Oximetry 96 Oxygen Delivery Method 11/05/23 00:00 11/05/23 00:15 11/05/23 00:15 Pulse Rate 58 L 60 Respiratory Rate 21 16 Blood Pressure 137/72 Pulse Oximetry 96 96 Oxygen Delivery Method Heated High Flow 11/05/23 00:30 11/05/23 00:31 11/05/23 00:31 Pulse Rate 73 77 Respiratory Rate 25 H 28 H Blood Pressure 188/90 H Pulse Oximetry 97 97 Oxygen Delivery Method 11/05/23 00:45 11/05/23 00:45 11/05/23 01:00 Pulse Rate 66 Respiratory Rate 24 Blood Pressure 141/68 H 138/68 Pulse Oximetry 94 Oxygen Delivery Method 11/05/23 01:00 11/05/23 01:15 11/05/23 01:15 Pulse Rate 68 63 Respiratory Rate 23 21 Blood Pressure 113/59 L Pulse Oximetry 95 93 Oxygen Delivery Method 11/05/23 01:30 11/05/23 01:30 11/05/23 01:45 Pulse Rate 61 Respiratory Rate 20 Blood Pressure 110/55 L 147/70 H Pulse Oximetry 94 Oxygen Delivery Method 11/05/23 01:45 11/05/23 02:00 11/05/23 02:00 Pulse Rate 68 62 Respiratory Rate 23 21 Blood Pressure 117/55 L Pulse Oximetry 93 93 Oxygen Delivery Method Heated High Flow 11/05/23 02:00 11/05/23 02:15 11/05/23 02:15 Pulse Rate 62 60 Respiratory Rate 21 20 Blood Pressure 117/55 L 116/59 L Pulse Oximetry 93 93 Oxygen Delivery Method 11/05/23 02:30 11/05/23 02:30 11/05/23 02:45 Pulse Rate 60 Respiratory Rate 19 Blood Pressure 114/59 L 117/61 Pulse Oximetry 94 Oxygen Delivery Method Heated High Flow 11/05/23 02:45 11/05/23 03:00 11/05/23 03:00 Pulse Rate 59 L 60 Respiratory Rate 20 22 Blood Pressure 125/68 Pulse Oximetry 92 93 Oxygen Delivery Method 11/05/23 03:15 11/05/23 03:15 11/05/23 03:30 Pulse Rate 58 L Respiratory Rate 20 Blood Pressure 127/63 148/70 H Pulse Oximetry 94 Oxygen Delivery Method 11/05/23 03:30 11/05/23 03:45 11/05/23 03:45 Pulse Rate 57 L 63 Respiratory Rate 15 14 Blood Pressure 168/77 H Pulse Oximetry 94 94 Oxygen Delivery Method 11/05/23 04:00 11/05/23 04:00 11/05/23 04:15 Pulse Rate 59 L Respiratory Rate 11 L Blood Pressure 124/64 131/67 Pulse Oximetry 93 Oxygen Delivery Method 11/05/23 04:15 11/05/23 04:30 11/05/23 04:30 Pulse Rate 59 L 59 L Respiratory Rate 10 L Blood Pressure 122/65 Pulse Oximetry 93 92 Oxygen Delivery Method 11/05/23 04:45 11/05/23 04:45 11/05/23 05:00 Pulse Rate 59 L Respiratory Rate 10 L Blood Pressure 129/67 147/75 H Pulse Oximetry 91 Oxygen Delivery Method Heated High Flow 11/05/23 05:00 11/05/23 05:15 11/05/23 05:15 Pulse Rate 60 60 Respiratory Rate 22 Blood Pressure 148/75 H Pulse Oximetry 93 92 Oxygen Delivery Method 11/05/23 05:30 11/05/23 05:30 11/05/23 05:31 Pulse Rate 59 L 59 L Respiratory Rate 18 10 L Blood Pressure 140/67 Pulse Oximetry 93 Oxygen Delivery Method Heated High Flow 11/05/23 05:45 11/05/23 05:45 11/05/23 06:00 Pulse Rate 59 L Respiratory Rate 19 Blood Pressure 131/60 133/64 Pulse Oximetry 94 Oxygen Delivery Method 11/05/23 06:00 11/05/23 06:16 Pulse Rate 60 60 Respiratory Rate 17 17 Blood Pressure 133/64 Pulse Oximetry 92 92 Oxygen Delivery Method Heated High Flow Oxygen Delivery Method Heated High Flow Oxygen Flow Rate 50 Narrative Exam Narrative: NAD, alert and oriented. Fluent speech. On high-flow oxygen. Lungs are clear, normal rate and effort. No basilar crackles. Heart is regular, no murmur gallop or rub. Abdomen is soft, non distended. Extremities are free of edema. Objective ECG Impression: Left ventricular hypertrophy with repolarization abnormality ( Giuliano product ) [facility] CT scan - chest: Radiologist's impression: CT scan - chest: Radiologist's impression: IMPRESSION: 1. No pulmonary embolus. 2. Bilateral pleural effusions. 3. A few scattered ground-glass opacities which may reflect atypical infection in the correct clinical setting. Differential includes atelectasis and pulmonary edema. 4. Enlarged right thyroid lobe with multiple hypodense nodules. 5. Mediastinal lymphadenopathy is slightly larger than comparison. Labs 11/04/23 09:25 11/05/23 05:07 Labs: Laboratory Results - last 24 hr 11/04/23 11/04/23 11/04/23 09:12 09:25 09:49 WBC 9.2 RBC 4.12 Hgb 13.2 Hct 38.7 MCV 93.9 MCH 31.9 MCHC 33.9 RDW 15.0 H Plt Count 255 Neut % (Auto) 79.1 H Lymph % (Auto) 12.6 L [place] % (Auto) 7.4 Eos % (Auto) 0.3 L Baso % (Auto) 0.6 Neut # (Auto) 7300 H Lymph # (Auto) 1200 [place] # (Auto) 700 Eos # (Auto) 0 Baso # (Auto) 100 PT 15.3 H INR 1.3 APTT 49 H ABG Sample Site Right radial ABG pH 7.43 ABG pCO2 38.3 ABG pO2 93 ABG HCO3 26 ABG Total CO2 25 ABG O2 Saturation 98 ABG Base Excess 1.2 Newton Test Positive O2 Delivery Device High flow tima cannul FiO2 % 45 % Sodium 137 Potassium 3.9 Chloride 104 Carbon Dioxide 25 BUN 17 Creatinine 0.84 Estimated GFR > 60 BUN/Creatinine Ratio 20.2 Glucose 118 H Lactate 0.9 Calcium 9.6 Magnesium 1.8 Total Bilirubin 0.9 AST 20 ALT 18 Alkaline Phosphatase 82 Total Creatine Kinase 58 Troponin I 0.073 H NT-Pro-B Natriuret Pep 4720 H Total Protein 7.4 Albumin 4.1 Globulin 3.3 Albumin/Globulin Ratio 1.2 Lipase 52 Procalcitonin 0.077 Chlamy pneumoniae PCR Not detected Adenovirus (PCR) Not detected B. pertussis DNA (PCR) Not detected B.parapertussis DNA PCR Not detected Coronavirus OC43 (PCR) Not detected Coronavirus HKU1 (PCR) Not detected Coronavirus 229E (PCR) Not detected SARS-CoV-2 (PCR) Not detected Coronavirus NL63 (PCR) Not detected Human Metapneumovir PCR Not detected Influenza Type A (PCR) Not detected Influenza Type B (PCR) Not detected M. pneumoniae (PCR) Not detected Parainfluenza 1 (PCR) Not detected Parainfluenza 2 (PCR) Not detected Parainfluenza 3 (PCR) Not detected Parainfluenza 4 (PCR) Not detected RSV (PCR) Not detected Entero/Rhino (PCR) Not detected 11/04/23 11/04/23 11/05/23 11:29 16:44 05:07 WBC RBC Hgb Hct MCV MCH MCHC RDW Plt Count Neut % (Auto) Lymph % (Auto) [place] % (Auto) Eos % (Auto) Baso % (Auto) Neut # (Auto) Lymph # (Auto) [place] # (Auto) Eos # (Auto) Baso # (Auto) PT INR APTT ABG Sample Site ABG pH ABG pCO2 ABG pO2 ABG HCO3 ABG Total CO2 ABG O2 Saturation ABG Base Excess Newton Test O2 Delivery Device FiO2 % Sodium 136 L Potassium 3.6 Chloride 100 Carbon Dioxide 30 BUN 17 Creatinine 0.82 Estimated GFR > 60 BUN/Creatinine Ratio 20.7 Glucose 105 Lactate Calcium 9.2 Magnesium Total Bilirubin AST ALT Alkaline Phosphatase Total Creatine Kinase 57 Troponin I 0.073 H 0.053 H NT-Pro-B Natriuret Pep Total Protein Albumin Globulin Albumin/Globulin Ratio Lipase Procalcitonin Chlamy pneumoniae PCR Adenovirus (PCR) B. pertussis DNA (PCR) B.parapertussis DNA PCR Coronavirus OC43 (PCR) Coronavirus HKU1 (PCR) Coronavirus 229E (PCR) SARS-CoV-2 (PCR) Coronavirus NL63 (PCR) Human Metapneumovir PCR Influenza Type A (PCR) Influenza Type B (PCR) M. pneumoniae (PCR) Parainfluenza 1 (PCR) Parainfluenza 2 (PCR) Parainfluenza 3 (PCR) Parainfluenza 4 (PCR) RSV (PCR) Entero/Rhino (PCR) PFS Medical History Chronic back pain greater than 3 months duration History of hematuria Left renal mass Chronic back pain History of falling Acute exacerbation of chronic low back pain Normocytic anemia, not due to blood loss Therapeutic opioid induced constipation Obstructive sleep apnea CHF (congestive heart failure) Anticoagulated Chronic, continuous use of opioids Age-related cognitive decline Fatigue Upper extremity somatic dysfunction Segmental and somatic dysfunction of abdomen and other regions Sacral region somatic dysfunction Pelvic somatic dysfunction Lumbar region somatic dysfunction Thoracic region somatic dysfunction Segmental and somatic dysfunction of rib cage Cervical somatic dysfunction Cranial somatic dysfunction Chronic bilateral back pain Scoliosis of cervical region due to degenerative disease of spine in adult Closed L2 vertebral fracture T12 compression fracture Lumbosacral spondylosis with radiculopathy Facet arthropathy, lumbar Pelvic relaxation PTSD (post-traumatic stress disorder) Anxiety TIA (transient ischemic attack) Sleep apnea GERD (gastroesophageal reflux disease) Colon polyps CTS (carpal tunnel syndrome) Cataract Chicken pox Chronic headaches Depression Hearing loss Measles Mumps Surgical History History of colonoscopy Hx of appendectomy History of carpal tunnel surgery of left wrist Status post cataract extraction of both eyes with insertion of intraocular lens Anesthesia History of ear surgery (1974) History of ear surgery (1981) Status post breast lumpectomy (1982) Status post hysterectomy (1979) History of knee replacement (2012) History of knee replacement (2008) Family History Child Age: 62 Mental health problem Father Heart disease Stroke Myocardial infarction Grandmother Cancer Grandfather Pneumonia Grandmother No problems noted. Mother Brainstem hemorrhage Brain bleed Social History household members: spouse Smoking Status: Never smoker alcohol intake: current Assessment & Plan Assessment & Plan narrative: 1. Acute hypoxic respiratory failure, present on admission and improving. 2. Acute on chronic diastolic heart failure, present on admission and improving. 3. Demand ischemia, present on admission and active. Troponin is down to 0.021, initial was 0.073, 2nd 0.053. 4. Cognitive impairment, present on admission and active. 5. MARIOLA, present on admission and stable. 6. Chronic pain with the, present on admission and active. 7. Remote TIA, not present on admission are active. 8. Multiple compression fractures, present on admission and stable. Plan: -continue diuresis with Lasix IV 40 mg q.12 hours. \ -try to wean off HF O2 -trend troponin. -2D echo to re-evaluate status of LVEF. -monitor blood pressure, resume blood pressure medications. Full code MANSI: 11/06. Inpatient status, she requires at least 2 midnights of hospital care for acute heart failure and hypoxic respiratory failure. Time-Based Coding :: [TOTAL MINUTES] spent with patient and on the chart (including review of chart, obtaining history, exam, reviewing outside data, placing orders, documenting exam and treatment plan, and counseling patient) on [DATE].
--- NOTE | 2023-11-05 08:16 | PC.NURSE ---
Addendum entered by Sydnee Wooten R.N. 11/05/23 19:12: 3 Patient switched from 6L O2 to HFNC 35% at 35L. Patient previously sating 86% now 93% Addendum entered by Sydnee Wooten R.N. 11/05/23 19:10: 0 Report given to nightsjarocho RN. Plan of care discussed. Addendum entered by Sydnee Wooten R.N. 11/05/23 18:27: 1600 Patient incontinent of urine. Patient changed and cleansed. Addendum entered by Sydnee Wooten R.N. 11/05/23 12:56: [address] orders for Cardizem IV. Addendum entered by Sydnee Wooten R.N. 11/05/23 12:54: 1254 MD aware patient HR increased. PO medications previously administered. Addendum entered by Sydnee Wooten R.N. 11/05/23 11:47: 1145 MD aware of patient change of HR. Orders placed. Awaiting acknowledgement from Pharmacy. Addendum entered by Sydnee Wooten R.N. 11/05/23 11:10: 1015 Patient notified RN of scheduled biopsy at [facility] on Sunday. Appointment changed per patient request. Scheduling to call patient. Patient aware. Original Note: 0810 Patient arrived to unit from ED via bed. Patient AAO x's 3. Able to FUENTES. Purwick placed. PIV noted to left hand and right arm. Chronic pain to back, pain patch noted to right upper back. Nitro patch noted to right upper arm. Mild abrasions noted to left leg. Patient denies numbness and tingling. Patient on HFNC. Breakfast set up, patient sitting high Chin's in bed. Call light within reach and bed in lowest position.
[2023-11-05 09:05] LABS: Troponin I 0.021 ng/mL (0.01-0.034)
[2023-11-05] MEDS: FLECAINIDE 100 MG TABLET PO ×2 (09:34→21:49)
[2023-11-05] MEDS: DABIGATRAN 75 MG CAPSULE 150 MG PO ×2 (09:34→21:49)
[2023-11-05 10:17] LABS: MRSA (Nasal) PCR NOT DETECTED (Not Detect)
[2023-11-05] MEDS: PARoxetine 20 MG TABLET 60 MG PO (11:57)
[2023-11-05] MEDS: METOPROLOL ER 25 MG TABLET PO (11:57)
[2023-11-05] MEDS: POTASSIUM CHLORIDE 20 MEQ TAB 40 MEQ PO (12:06)
[2023-11-05] MEDS: MAGNESIUM CHLORIDE 64 MG TABLET 128 MG PO (12:10)
[2023-11-05] MEDS: dilTIAZem 125 MG in SODIUM CHLORIDE 0.9% 100 ML IV (13:09)
[2023-11-05] MEDS: dilTIAZem 25 MG/5 ML SDV 10 MG IV (13:17)
[2023-11-05] MEDS: polyethylene glycoL 3350 17 GM POWD.PACK PO (14:17)
[2023-11-05] MEDS: SENNOSIDES 8.6 MG TABLET 17.2 MG PO (14:18)
[2023-11-05 16:17] LABS: Troponin I 0.017 ng/mL (0.01-0.034)
[2023-11-05] MEDS: ACETAMINOPHEN 325 MG TABLET 650 MG PO (21:49)
[2023-11-06] VITALS (35 sets, daily range): BP systolic 95–173; BP diastolic 64–94; PULSE 59–118; RESP 10–32; TEMP 35.7–36.9; O2SAT 92–98
[2023-11-06] MEDS: FUROSEMIDE 40 MG/4 ML VIAL IV (00:52)
[2023-11-06 04:40] LABS: Blood Urea Nitrogen 20 mg/dL (7-17); Calcium 9.2 mg/dL (8.4-10.2); Carbon Dioxide 31 mmol/L (22-32); Chloride 100 mmol/L (98-107); Estimated Glomerular Filt Rate > 60 mL/min (>60); Glucose 110 mg/dL (80-110); HEMOLYSIS < 15 (0-50); Potassium 3.8 mmol/L (3.4-5.1); Sodium 136 mmol/L (137-145)
[2023-11-06] MEDS: DABIGATRAN 75 MG CAPSULE 150 MG PO ×2 (08:32→20:14)
[2023-11-06] MEDS: SENNOSIDES 8.6 MG TABLET 17.2 MG PO (08:33)
[2023-11-06] MEDS: METOPROLOL ER 25 MG TABLET PO (08:33)
[2023-11-06] MEDS: polyethylene glycoL 3350 17 GM POWD.PACK PO (08:33)
[2023-11-06] MEDS: FLECAINIDE 100 MG TABLET PO ×2 (08:33→20:14)
[2023-11-06] MEDS: PARoxetine 20 MG TABLET 60 MG PO (08:33)
[2023-11-06] MEDS: SODIUM CHLORIDE 0.9% FLUSH 10 ML IV ×2 (08:37→20:15)
--- NOTE | 2023-11-06 09:01 | DI.RAD.S_ITS ---
PROCEDURE: XR CHEST 1V INDICATIONS: dyspnea TECHNIQUE: One view of the chest was acquired. COMPARISON: [facility], CT, CT ANGIO CHEST PE PROTOCOL, 11/04/2023, 9:59. [facility], CR, XR CHEST 1V, 08/10/2022, 13:15. [facility], CR, XR CHEST 1V, 07/24/2022, 18:11. [facility], CR, XR CHEST 1V, 09/01/2021, 16:59. FINDINGS: Surgical changes and devices: None. Lungs and pleura: Minimal perihilar opacification extending to the lung bases. Trace bilateral pleural effusions. No pneumothorax. Mediastinum: Mild right to left deviation of the upper thoracic trachea secondary to a thyroid goiter. Aortic arch calcifications. Borderline cardiomegaly with left atrial enlargement. Mediastinal contours otherwise appear normal. Bones and chest wall: No suspicious bony lesions. Overlying soft tissues appear unremarkable. IMPRESSION: Trace bilateral pleural effusions and associated passive atelectasis of the lower lobes, similar to the 11/04/2023 CT chest angiogram exam. Dictated by: Sandor Neumann M.D. on 11/06/2023 at 10:16 Approved by: Sandor Neumann M.D. on 11/06/2023 at 10:19
--- NOTE | 2023-11-06 09:01 | P.PN_ITS ---
Subjective Subjective Interval history: Summary: Admitted with hypoxic respiratory failure, pulmonary edema, and presumed diastolic heart failure. On high-flow oxygen and diuresed overnight. Subjective: She would to go back on high-flow, 35 in 35. She feels generally better. She would like to get out of bed and up to the chair and move around more today. She also wants to go home as soon as possible. No chest pain. Exam Vital Signs (past 8 hours): - 11/06/23 01:40 11/06/23 02:00 11/06/23 02:00 Temperature Pulse Rate 80 70 Respiratory Rate 20 18 Blood Pressure 124/77 Pulse Oximetry 95 95 Oxygen Delivery Method Oxygen Flow Rate 35 11/06/23 03:00 11/06/23 03:00 11/06/23 04:00 Temperature 96.3 F L Pulse Rate 68 Respiratory Rate 16 Blood Pressure 110/64 118/81 Pulse Oximetry 96 Oxygen Delivery Method Oxygen Flow Rate 35 35 11/06/23 04:00 11/06/23 04:53 11/06/23 05:00 Temperature Pulse Rate 59 L 69 Respiratory Rate 15 20 Blood Pressure 117/75 Pulse Oximetry 93 94 Oxygen Delivery Method Oxygen Flow Rate 35 11/06/23 05:00 11/06/23 05:00 11/06/23 06:00 Temperature Pulse Rate 63 Respiratory Rate 19 Blood Pressure 113/74 Pulse Oximetry 95 Oxygen Delivery Method Heated High Flow Oxygen Flow Rate 35 11/06/23 06:00 11/06/23 07:00 11/06/23 07:00 Temperature Pulse Rate 76 75 Respiratory Rate 12 14 Blood Pressure 120/80 Pulse Oximetry 95 96 Oxygen Delivery Method Oxygen Flow Rate 11/06/23 08:00 11/06/23 08:00 11/06/23 08:33 Temperature Pulse Rate 73 76 Respiratory Rate 19 Blood Pressure 123/77 123/77 Pulse Oximetry 95 Oxygen Delivery Method Oxygen Flow Rate Oxygen Delivery Method Heated High Flow Oxygen Flow Rate 35 Narrative Exam Narrative: NAD, alert and oriented. Fluent speech. Lungs are clear, normal rate and effort. Basilar rales. Heart is regular, no murmur gallop or rub. Abdomen is soft, non distended. Extremities are free of edema. Objective Imaging Echo: Radiologist's impression: The left ventricle is normal in size. The left ventricular ejection fraction is normal. The ejection fraction is estimated to be 65-70%. Diastolic parameters suggest a restrictive filling pattern consistent with probable significantly elevated filling pressures. The right ventricle is normal size. The right ventricular systolic function is normal. The left atrium is severely dilated. There has been no significant change since the previous study. There is mild mitral regurgitation. Compared to the prior echo study, there has been no change in the severity of mitral regurgitation. The right ventricular systolic pressure is estimated to be at least 35 mmHg based on an estimated right atrial pressure of 3 mm Hg. Doppler profile across pulmonary valve suggest pulmonary hypertension. Mild atherosclerotic plaque(s) in the aortic arch. Labs 11/04/23 09:25 11/06/23 04:06 Labs: Laboratory Results - last 24 hr 11/05/23 11/05/23 11/05/23 08:00 08:30 15:40 Sodium Potassium Chloride Carbon Dioxide BUN Creatinine Estimated GFR BUN/Creatinine Ratio Glucose Calcium Troponin I 0.021 0.017 Nasal Screen MRSA (PCR) Not detected 11/06/23 04:06 Sodium 136 L Potassium 3.8 Chloride 100 Carbon Dioxide 31 BUN 20 H Creatinine 0.74 Estimated GFR > 60 BUN/Creatinine Ratio 27.0 H Glucose 110 Calcium 9.2 Troponin I Nasal Screen MRSA (PCR) [facility] Medical History Chronic back pain greater than 3 months duration History of hematuria Left renal mass Chronic back pain History of falling Acute exacerbation of chronic low back pain Normocytic anemia, not due to blood loss Therapeutic opioid induced constipation Obstructive sleep apnea CHF (congestive heart failure) Anticoagulated Chronic, continuous use of opioids Age-related cognitive decline Fatigue Upper extremity somatic dysfunction Segmental and somatic dysfunction of abdomen and other regions Sacral region somatic dysfunction Pelvic somatic dysfunction Lumbar region somatic dysfunction Thoracic region somatic dysfunction Segmental and somatic dysfunction of rib cage Cervical somatic dysfunction Cranial somatic dysfunction Chronic bilateral back pain Scoliosis of cervical region due to degenerative disease of spine in adult Closed L2 vertebral fracture T12 compression fracture Lumbosacral spondylosis with radiculopathy Facet arthropathy, lumbar Pelvic relaxation PTSD (post-traumatic stress disorder) Anxiety TIA (transient ischemic attack) Sleep apnea GERD (gastroesophageal reflux disease) Colon polyps CTS (carpal tunnel syndrome) Cataract Chicken pox Chronic headaches Depression Hearing loss Measles Mumps Surgical History History of colonoscopy Hx of appendectomy History of carpal tunnel surgery of left wrist Status post cataract extraction of both eyes with insertion of intraocular lens Anesthesia History of ear surgery (1974) History of ear surgery (1981) Status post breast lumpectomy (1982) Status post hysterectomy (1979) History of knee replacement (2012) History of knee replacement (2008) Family History Child Age: 62 Mental health problem Father Heart disease Stroke Myocardial infarction Grandmother Cancer Grandfather Pneumonia Grandmother No problems noted. Mother Brainstem hemorrhage Brain bleed Social History household members: spouse Smoking Status: Never smoker alcohol intake: current Assessment & Plan Assessment & Plan narrative: 1. Acute hypoxic respiratory failure, present on admission and improving. 2. Acute on chronic diastolic heart failure, present on admission and improving. 3. Demand ischemia, present on admission and active. Troponin is down to 0.021, initial was 0.073, 2nd 0.053. 4. Cognitive impairment, present on admission and active. 5. MARIOLA, present on admission and stable. 6. Chronic pain with the, present on admission and active. 7. Remote TIA, not present on admission are active. 8. Multiple compression fractures, present on admission and stable. Plan: -continue diuresis, we will increase Lasix from 40-60 IV for better diuresis. -try to wean off HF O2, up to chair, physical therapy evaluation. -trend troponin. 0.073, 0.053, 0.021, 0.017 -2D echo to re-evaluate status of LVEF. This confirms diastolic dysfunction and normal EF without significant valvular disease other than mild mitral regurgitation. -monitor blood pressure, resume blood pressure medications. MANSI is November 06 if she improves to the point of coming off from oxygen. Time-Based Coding :: [TOTAL MINUTES] spent with patient and on the chart (including review of chart, obtaining history, exam, reviewing outside data, placing orders, documenting exam and treatment plan, and counseling patient) on [DATE]. Quality VTE Deep Vein Thrombosis/Pulmonary Embolism Present on Admission: No
[2023-11-06] MEDS: FUROSEMIDE 40 MG/4 ML VIAL 60 MG IV ×3 (09:37→23:54)
--- NOTE | 2023-11-06 11:19 | PC.NURSE ---
Addendum entered by Sydnee Wooten R.N. 11/06/23 19:17: 1918 Report given to john RN. Plan of care discussed. Patient resting in bed, eyes closed. Vital signs WNL. Addendum entered by Sydnee Wooten R.N. 11/06/23 18:10: 1810 Patient assisted to restroom and to bed. 1300 Patient assisted to restroom. Addendum entered by Sydnee Wooten R.N. 11/06/23 13:51: 1200 Patient in chair, set up for feeding. Original Note: 0730 Report received from john RN. Patient AAO x's 3. HFNC noted; 35L O2:35%, patient sating 94% Able to FUENTES. Call light within reach and bed in lowest position. 0830 Patient in high fowlers in bed, set up to eat breakfast. 1000 MD rounding at the bedside. Okay to stop cardizem IV drip. to place additional orders. 1030 Respiratory at the bedside. Patient weened to 3L NC, sating 93% 1045 Patient assisted to chair. at the bedside.
--- NOTE | 2023-11-06 14:31 | CM.DANOTE ---
DCP Assessment note pt is an 88yo F here with hypoxia and CHF, presenting with some acute confusion. PCP Was Akanksha Keane, was told her new provider would be Dr. Perry [facility] and self pay DISEASE INTERVENTION SPECIALIST reviewed EMR. Per hospitalist in morning rounds, pt likely here another day or two. PT pending Per RN, supportive partner at bedside. Pt not really confused, more like forgetful. Orientedx4. Eager to dc home. Per chart, on headed high flow. DISEASE INTERVENTION SPECIALIST met with pt in room. Accompanied by spouse at bedside. Pt indep at home, has walker/cane/sticks/wheelchair at home but normally does not use them. No home O2. no Hx of HH or SNF, not interested in either at this time. home to get home LULI. Reports after Akanksha keane left, Dr. Perry was assigned as her new doctor but has not seen her yet. Interested in this DISEASE INTERVENTION SPECIALIST assisting in coordinating a follow up appointment with her after dc. Deny other DCP/CM needs at this time. P: anticipate home with spouse when medically stable, maybe tomorrow. PT pending, will follow up with TCM team to assist in scheduling OP f/u appointment. ANJEL Lehman Discharge Planning/Care Management Advanced directive, confirm from FAMILY Start: 11/05/23 11:42 Freq: Q24H Status: Active Protocol: Document 11/05/23 11:42 NB (Rec: 11/05/23 11:52 NB [id number]) Advance Directive, confirm on record Time 11:52 Person contacted Patient to speak to Copy received No Document 11/06/23 11:42 NB (Rec: 11/06/23 13:16 NB [id number]) Advance Directive, confirm on record Time 11:52 Person contacted Patient to speak to Copy received No CM Discharge Assessment Start: 11/06/23 14:30 Freq: Status: Active Protocol: Document 11/06/23 14:30 SL (Rec: 11/06/23 14:31 SL [id number]) Discharge Planning Assessment Assigned [employer] Sales Consultant ANJEL Goldman DPOA/Assigned Designee Name Mateo spouse Contact Information [phone] Advance Directives? No: Declines further information Advance Directives on File No History Provided By Patient,Family Member,Medical Record Prior Living Arrangements House Household Members spouse Independent with ADL's Yes Is patient alert and oriented? Yes DME Already Rented / Owned Cane Comment none determined at time of initial assessment Discharge Plan Home Transportation Arrangement spouse Referrals Initiated None needed Whiteboard Updated in Patient Room with Yes name and ext. # of [employer] Sales Consultant Review Status In Process Please Provide Date Initial DC 11/06/23 Assessment Was Performed Next Review Type Continued Stay Review
--- NOTE | 2023-11-06 15:10 | PT.IIE ---
Current Diagnoses Acute on chronic diastolic (congestive) heart failure (11/04/23) Surgical History (Last Reviewed 11/04/23 @ 16:10 by Newton Hirsch MD) Anesthesia History of carpal tunnel surgery of left wrist History of colonoscopy History of ear surgery (1981) History of ear surgery (1974) History of knee replacement (2008) History of knee replacement (2012) Hx of appendectomy Status post breast lumpectomy (1982) Status post cataract extraction of both eyes with insertion of intraocular lens Status post hysterectomy (1979) Medical History (Last Reviewed 11/04/23 @ 16:10 by Newton Hirsch MD) Acute exacerbation of chronic low back pain Age-related cognitive decline Anticoagulated Anxiety Cataract Cervical somatic dysfunction CHF (congestive heart failure) Chicken pox Chronic back pain Chronic back pain greater than 3 months duration Chronic bilateral back pain Chronic headaches Chronic, continuous use of opioids Closed L2 vertebral fracture Colon polyps Cranial somatic dysfunction CTS (carpal tunnel syndrome) Depression Facet arthropathy, lumbar Fatigue GERD (gastroesophageal reflux disease) Hearing loss History of falling History of hematuria Left renal mass Lumbar region somatic dysfunction Lumbosacral spondylosis with radiculopathy Measles Mumps Normocytic anemia, not due to blood loss Obstructive sleep apnea Pelvic relaxation Pelvic somatic dysfunction PTSD (post-traumatic stress disorder) Sacral region somatic dysfunction Scoliosis of cervical region due to degenerative disease of spine in adult Segmental and somatic dysfunction of abdomen and other regions Segmental and somatic dysfunction of rib cage Sleep apnea T12 compression fracture Therapeutic opioid induced constipation Thoracic region somatic dysfunction TIA (transient ischemic attack) Upper extremity somatic dysfunction Physical Therapy Inpatient Evaluation/Re-Eval M1 PT/OT-IP Prior Functional Status Start: 11/06/23 16:30 Freq: NEEDED Status: Active Protocol: Document 11/06/23 15:10 AB (Rec: 11/06/23 16:44 AB [id number]) Medical Review Prior Functional Status Medical History Reviewed Yes Communication able to make needs known Mobility and Gait pt stated that she was modified independent with all mobilities and ambulation without AD but occasionally uses a SPC depending on how steady she feels; pt has h/o falls Social History Household Members spouse Living Arrangements House Number of Floors (Floors) Two Floors Number of Stairs To Enter/Railing? 3 steps R rail ascending to enter the house pt stated that she can stay on the main level of the house but laundry area is downstairs with 8 steps to descend without rail but has R side banisters and ledge (pt not sure) Home Environment Standard Height Toilet,Tub/ Shower Home Equipment Straight Cane M2 PT-IP Current Condition Start: 11/06/23 16:30 Freq: NEEDED Status: Active Protocol: Document 11/06/23 15:10 AB (Rec: 11/06/23 16:44 AB [id number]) Physical Therapy Current Condition Current Condition Evaluation Date 11/06/23 Treatment Diagnosis CHF; difficulty in walking Onset Date 11/04/23 M3 PT-IP Subjective Start: 11/06/23 16:30 Freq: NEEDED Status: Active Protocol: Document 11/06/23 15:10 AB (Rec: 11/06/23 16:44 AB [id number]) Subjective Physical Therapy Visit Type Type Initial Evaluation Visit Start Time 15:10 Visit Stop Time 15:55 Number of NURSE EDUCATOR Visits 0 Physical Therapy Visit Comments Patient Comments agreeable to do PT Therapy Pain Assessment Pain Present Pain Present Denied Pain M4 PT-IP Mobility and Gait Start: 11/06/23 16:30 Freq: NEEDED Status: Active Protocol: Document 11/06/23 15:10 AB (Rec: 11/06/23 16:44 AB [id number]) PT-Bed Mobility Assessment Supine to Sit Supine to Sit Standby Assistance Sit to Supine Sit to Supine Standby Assistance PT-Transfer Assessment Sit to and From Stand Sit to and from Stand Standby Assistance,1 Person Assistance,Use of Upper Extremities Equipment Transfer Assistive Device Gait Belt,Front Wheeled Walker Orthotic/Prosthetic Devices or Brace: No Transfers Transfer Destination Bed Transfer Technique ambulated Transfer Ability Level of Assist Standby Assistance,Contact Guard Assistance Comments Mobility Comments pt sitting on the chair. agreed to do PT. pt is COMANCHE. obtained PLOF and home set up from pt. O2 sat with 3L/min O2: 97%. completed sit to stand CGA and ambulated ~ 12 ft to EOB CGA using FWW. pt completed sit<>supine SBA. pt can be impulsive. pt completed sit to stand from EOB SBA and ambulated without AD back to chair CGA to min A and cues. presents with unsteady slow paced gait with guarding. pt sat on chair. O2 sat: 97% wtih 3L/min O2. after ambulation. pt rested. assessed ambulation using SPC . completed ambulation in room using SPC ~ 30 ft SBA to occasional CGA. pt sat back on chair. positioned pt on the chair. call light and table placed within reach. informed pt regarding use of SPC at all time upon d/c and pt understood. Gait Assessment Gait Gait Assistance Required: Standby Assistance,Contact Guard Assist,Minimum Assistance Distance (Feet) 30 Able to Maintain Weight Bearing Status Yes During Gait Assistive Devices Assistive Device None,Gait Belt,Straight Cane, Front Wheeled Walker Orthotic/Prosthetic Devices or Brace: No Gait Deviations General Gait Pattern Antalgic,Decreased Stride Length,Decreased Feet Clearance Factors Limiting Gait Function Factors Limiting Gait Function Decreased Activity Tolerance, Decreased Strength,Difficulty Following Directions,Poor Balance,Poor Safety Awareness PT-Balance Assessment Sitting Balance and Reactions Static Sitting Balance Ability Good Dynamic Sitting Balance Ability Good Standing Balance and Reactions Static Standing Balance Ability Fair Dynamic Standing Balance Ability Fair Device Used SPC M5 PT-IP Objective Assessments Start: 11/06/23 16:30 Freq: NEEDED Status: Active Protocol: Document 11/06/23 15:10 AB (Rec: 11/06/23 16:44 AB [id number]) Orientation Orientation/Cognition Level of Alertness Alert Orientation Name Language Function Ability Hard of Hearing Safety Awareness Decreased Safety Awareness Memory Description Short Term Impaired Gross Range of Motion Lower Extremity ROM Assessment Within Functional Limits Strength Lower Extremity Strength Hip 4-/5 Knee 4-/5 Coordination Assessment Gross Coordination Gross Coordination WNL Sensation Assessment Sensation Gross Sensation WNL Muscle Tone Muscle Tone WNL Yes M6 PT-IP Treatment Start: 11/06/23 16:30 Freq: NEEDED Status: Active Protocol: Document 11/06/23 15:10 AB (Rec: 11/06/23 16:44 AB [id number]) Physical Therapy Treatment Education Education Provided Safety M7 PT-IP Assessment and Plan Start: 11/06/23 16:30 Freq: NEEDED Status: Active Protocol: Document 11/06/23 15:10 AB (Rec: 11/06/23 16:44 AB [id number]) PT Summary Assessment and Plan Potential Rehabilitation Potential Good Status of Condition at Evaluation Evolving Summary Impairments Pain,ROM,Strength,Balance, Coordination,Sensation,Tone, Cognition,Bed Mobility, Transfers,Gait,Activity Tolerance Assessment Summary pt is an 88 y/o F who is admitted for CHF. pt requiring 3L/min O2 at this time and was able to maintain o2 sat at ~ 97% with activities. pt is impulsive and has decrease safety awareness. pt requiring SBA to CGA with mobility using FWW/ SPC. pt has been using a SPC occasionally at home. educated pt on safety and to use SPC at all time upon d/c and pt agreed. pt has her spouse to assist her at home. will continue to assess progress. pt will benefit from HHPT vs outpt PT. Goals Bed Mobility Goal Independent Transfer Goal Independent,Cane Gait Goal Independent,Cane Gait Distance 250 Other Goals improve ambulation without AD 250 ft mod I up/down 3 steps R rail ascending SBA Days to Meet Goals 5 Frequency of Treatment Frequency Of Treatment Once a Day Treatment Plan Physical Therapy Treatment Plan Bed Mobility Training,Transfer Training,Gait Training, Therapeutic Exercise,Balance Retraining,Discharge Planning, Hot or Cold Pack,Neuromuscular Re-ed,Coordination Retraining ,Manual Therapy Precautions Other Precautions O2 sat; falls Recommendations To Nursing Amount of Assist Needed 1 Person Assist Discharge Recommendations PT Discharge Recommendations Home with Assistance,Home Health,Outpatient PT Transportation Needs at Discharge Private Vehicle,Wheelchair/ Cabulance
[2023-11-06] MEDS: ACETAMINOPHEN 325 MG TABLET 650 MG PO (20:16)
[2023-11-07] VITALS (12 sets, daily range): BP systolic 114–133; BP diastolic 72–81; PULSE 79–101; RESP 16–23; TEMP 35.7–36.8; O2SAT 88–98
[2023-11-07 04:22] LABS: Add Manual Diff / Slide Review NO; Basophils Absolute Auto 100 /uL (0-100); Basophils Percent Auto 0.8 % (0-2); Eosinophils Absolute Auto 500 /uL (0-450); Hematocrit 42.1 % (36-46); Hemoglobin 14.4 g/dL (12.0-16.0); Lymphocytes Absolute Auto 1400 /uL (1100-4500); Lymphocytes Percent Auto 21.1 % (25-40); Mean Corpuscular HGB Conc 34.1 % (30-36); Mean Corpuscular Volume 93.8 fL (80-100); Monocytes Absolute Auto 700 /uL (0-900); Monocytes Percent Auto 10.7 % (3-14); Neutrophils Absolute Auto 3800 /uL (1500-7000); Neutrophils Percent Auto 59.4 % (50-75); Platelet Count 273 X10^3/uL (150-400); Red Blood Cell Count 4.49 X10^6/uL (4.0-5.2); Red Cell Distribution Width 14.4 % (11.6-14.8); White Blood Cell Count 6.4 X10^3/uL (4.5-11.0)
[2023-11-07 04:32] LABS: BUN Creatinine Ratio 34.2 (6-22); Blood Urea Nitrogen 26 mg/dL (7-17); Calcium 9.5 mg/dL (8.4-10.2); Carbon Dioxide 30 mmol/L (22-32); Chloride 97 mmol/L (98-107); Estimated Glomerular Filt Rate > 60 mL/min (>60); Glucose 117 mg/dL (80-110); HEMOLYSIS < 15 (0-50); Potassium 3.7 mmol/L (3.4-5.1); Sodium 134 mmol/L (137-145)
[2023-11-07] MEDS: polyethylene glycoL 3350 17 GM POWD.PACK PO (08:21)
[2023-11-07] MEDS: FLECAINIDE 100 MG TABLET PO (08:21)
[2023-11-07] MEDS: METOPROLOL ER 25 MG TABLET PO (08:21)
[2023-11-07] MEDS: PARoxetine 20 MG TABLET 60 MG PO (08:22)
[2023-11-07] MEDS: DABIGATRAN 75 MG CAPSULE 150 MG PO (08:22)
[2023-11-07] MEDS: SODIUM CHLORIDE 0.9% FLUSH 10 ML IV (08:22)
[2023-11-07] MEDS: SENNOSIDES 8.6 MG TABLET 17.2 MG PO (08:22)
--- NOTE | 2023-11-07 10:22 | P.DS_ITS ---
History of Present Illness History of Present Illness Chief complaint: low oxygen Narrative: From ED doctor: Patient is an 88-year-old female. Has a history of AFib/a flutter. Is on Pradaxa. Is also on flecainide and metoprolol. Has a diagnosis of CHF in her problem list however review of cardiac notes states she has a preserved ventricular function pulmonary hypertension. I had an echocardiogram little over 1 year ago which showed an ejection fraction of 60-65%. No history of COPD. No smoking history. Not on home oxygen. states that this morning she seems somewhat more confused than baseline. Unsure what her baseline confusion is. He took her oxygen saturations and noted that they were in the low 80s. Here in the ER patient is very hard of hearing but she did express that she was not having problems breathing. No chest pain. No abdominal pain. According to her she has been taking all of her medications as directed. Additional information: The patient is not really very talkative and history comes from the . He notes that she was normal yesterday but off this morning when he woke her up. She was more fatigued and spent an hour in the bathroom. She was slow to respond. She was not gasping for breath. He checked her with an oximeter which revealed SaO2 of 83%. He brought her to the hospital. Here she was found to be hypoxemic with stable vital signs and had pulmonary edema and pleural effusions on chest x-ray. He was unsure if she takes a daily water pill. She has a history of diastolic heart failure, last echo 1 year ago. She denies any chest pain. He was also no leg edema or report of leg edema. Notes that she manages her own medications. In terms of a POLST or resuscitation wishes he was unsure of what her wishes are, and she does not engage in conversation. ED course: she was placed on high-flow and diuresed. T-wave inversions are noted on ECG with LVH. This does appear to be somewhat different from her previous ECGs. She had a mildly elevated troponin which was stable over 2 interval measurements. Discharge Providers Provider Date of admission: 11/04/23 13:20 Discharge Date: 11/07/23 Primary care physician: GRETTA De Souza Consults: 11/06/23 09:01 Consult to Physical Therapy Evaluate & Treat Comment: Physician Instructions: Evaluate and Treat Discharge provider: Newton Hirsch MD Summary Hospital Course Discharge Diagnosis: 1. Acute hypoxic respiratory failure, present on admission and resolved. 2. Acute on chronic diastolic heart failure, present on admission and improved. 3. Demand ischemia, present on admission and active. Troponin is down to 0.021, initial was 0.073, 2nd 0.053. 4. Cognitive impairment, present on admission and active. Slums /30. 5. MARIOLA, present on admission and stable. 6. Chronic pain with the, present on admission and active. 7. Remote TIA, not present on admission are active. 8. Multiple compression fractures, present on admission and stable. Hospital Course: She was admitted with acute hypoxic respiratory failure and pulmonary edema and required high-flow oxygen initially. She was diuresed and did improve. She takes Lasix 20 mg orally daily at home on an ongoing basis. She had no chest pain and had low-level troponin elevations consistent with demand ischemia. On the day of discharge she was at her baseline, it was able to come off from oxygen completely. She was comfortable and eager to return home. We will increase her Lasix from 20-40 mg p.o. daily. She was close follow up as scheduled with her primary care provider. A low-salt diet is also recommended. Status at Discharge Cognitive/behavioral status at discharge: oriented Functional status at discharge: uses cane/walker Overall status at discharge: patient is back to baseline Time Spent with Patient Time spent: Greater than 30 minutes Exam Vital Signs (past 8 hours): - 11/07/23 03:00 11/07/23 03:50 11/07/23 03:50 Temperature Pulse Rate 87 79 Respiratory Rate 21 18 Blood Pressure 133/72 Pulse Oximetry 96 96 Oxygen Delivery Method Oxygen Flow Rate 11/07/23 04:00 11/07/23 04:00 11/07/23 04:00 Temperature 96.3 F L Pulse Rate 90 95 H Respiratory Rate 16 17 Blood Pressure 133/72 Pulse Oximetry 97 95 Oxygen Delivery Method Nasal Cannula Oxygen Flow Rate 3 11/07/23 05:00 11/07/23 06:00 11/07/23 07:00 Temperature Pulse Rate 82 91 H 93 H Respiratory Rate 19 23 19 Blood Pressure Pulse Oximetry 98 95 89 L Oxygen Delivery Method Oxygen Flow Rate 11/07/23 07:37 11/07/23 07:37 11/07/23 08:00 Temperature 97.1 F L Pulse Rate 87 89 Respiratory Rate 20 22 Blood Pressure 123/81 Pulse Oximetry 90 L 88 L Oxygen Delivery Method Oxygen Flow Rate 11/07/23 08:00 11/07/23 08:53 Temperature Pulse Rate Respiratory Rate Blood Pressure 124/77 Pulse Oximetry Oxygen Delivery Method Room Air Oxygen Flow Rate Oxygen Delivery Method Room Air Oxygen Flow Rate 3 Narrative Exam Narrative: NAD, alert and oriented. Fluent speech. Lungs are clear, normal rate and effort. Heart is regular, no murmur gallop or rub. Abdomen is soft, non distended. Extremities are free of edema. Objective ECG Impression: Left ventricular hypertrophy with repolarization abnormality ( Giuliano product ) [facility] Multiple studies:: Radiologist's impression: Chest x-ray: Trace bilateral pleural effusions and associated passive atelectasis of the lower lobes, similar to the 11/04/2023 CT chest angiogram exam. Echo: The left ventricle is normal in size. The left ventricular ejection fraction is normal. The ejection fraction is estimated to be 65-70%. Diastolic parameters suggest a restrictive filling pattern consistent with probable significantly elevated filling pressures. The right ventricle is normal size. The right ventricular systolic function is normal. The left atrium is severely dilated. There has been no significant change since the previous study. There is mild mitral regurgitation. Compared to the prior echo study, there has been no change in the severity of mitral regurgitation. The right ventricular systolic pressure is estimated to be at least 35 mmHg based on an estimated right atrial pressure of 3 mm Hg. Doppler profile across pulmonary valve suggest pulmonary hypertension. Chest CTA: 1. No pulmonary embolus. 2. Bilateral pleural effusions. 3. A few scattered ground-glass opacities which may reflect atypical infection in the correct clinical setting. Differential includes atelectasis and pulmonary edema. 4. Enlarged right thyroid lobe with multiple hypodense nodules. 5. Mediastinal lymphadenopathy is slightly larger than comparison. Labs 11/07/23 03:55 11/07/23 03:55 Labs: Laboratory Results - last 24 hr 11/07/23 03:55 WBC 6.4 RBC 4.49 Hgb 14.4 Hct 42.1 MCV 93.8 MCH 32.0 MCHC 34.1 RDW 14.4 Plt Count 273 Neut % (Auto) 59.4 Lymph % (Auto) 21.1 L [place] % (Auto) 10.7 Eos % (Auto) 8.0 H Baso % (Auto) 0.8 Neut # (Auto) 3800 Lymph # (Auto) 1400 [place] # (Auto) 700 Eos # (Auto) 500 H Baso # (Auto) 100 Sodium 134 L Potassium 3.7 Chloride 97 L Carbon Dioxide 30 BUN 26 H Creatinine 0.76 Estimated GFR > 60 BUN/Creatinine Ratio 34.2 H Glucose 117 H Calcium 9.5 PFSH Medical History Chronic back pain greater than 3 months duration History of hematuria Left renal mass Chronic back pain History of falling Acute exacerbation of chronic low back pain Normocytic anemia, not due to blood loss Therapeutic opioid induced constipation Obstructive sleep apnea CHF (congestive heart failure) Anticoagulated Chronic, continuous use of opioids Age-related cognitive decline Fatigue Upper extremity somatic dysfunction Segmental and somatic dysfunction of abdomen and other regions Sacral region somatic dysfunction Pelvic somatic dysfunction Lumbar region somatic dysfunction Thoracic region somatic dysfunction Segmental and somatic dysfunction of rib cage Cervical somatic dysfunction Cranial somatic dysfunction Chronic bilateral back pain Scoliosis of cervical region due to degenerative disease of spine in adult Closed L2 vertebral fracture T12 compression fracture Lumbosacral spondylosis with radiculopathy Facet arthropathy, lumbar Pelvic relaxation PTSD (post-traumatic stress disorder) Anxiety TIA (transient ischemic attack) Sleep apnea GERD (gastroesophageal reflux disease) Colon polyps CTS (carpal tunnel syndrome) Cataract Chicken pox Chronic headaches Depression Hearing loss Measles Mumps Surgical History History of colonoscopy Hx of appendectomy History of carpal tunnel surgery of left wrist Status post cataract extraction of both eyes with insertion of intraocular lens Anesthesia History of ear surgery (1974) History of ear surgery (1981) Status post breast lumpectomy (1982) Status post hysterectomy (1979) History of knee replacement (2012) History of knee replacement (2008) Family History Child Age: 62 Mental health problem Father Heart disease Stroke Myocardial infarction Grandmother Cancer Grandfather Pneumonia Grandmother No problems noted. Mother Brainstem hemorrhage Brain bleed Social History household members: spouse Smoking Status: Never smoker alcohol intake: current Discharge Assessment & Plan Assessment and Plan Assessment: 1. Acute hypoxic respiratory failure, present on admission and resolved. 2. Acute on chronic diastolic heart failure, present on admission and improved. 3. Demand ischemia, present on admission and active. Troponin is down to 0.021, initial was 0.073, 2nd 0.053. 4. Cognitive impairment, present on admission and active. Slums . Plan of Treatment: She will discharge home, her only change to medications will be Lasix going from 20 up to 40 mg p.o. daily. Close follow up with PCP. Warning signs of heart failure and salt restriction are advised. Discharge Plan Discharge Plan Patient Disposition: Home Provider Discharge Comment: Stable for discharge home with close PCP follow up. Discharge orders & Medications Prescriptions: New furosemide [Lasix] 40 mg tablet 40 mg PO DAILY Qty: 30 2RF Continued amlodipine 10 mg tablet 10 mg PO DAILY Qty: 90 3RF paroxetine HCl 20 mg tablet 60 mg PO DAILY Qty: 270 3RF Disabled Parking Permit See Rx Instructions .ROUTE .COMPLEX Qty: 1 0RF Rx Instructions: I find this patient to be medically disabled and qualify for disabled parking as indicated and signed on the accompanying disabled parking application for individuals. Pradaxa 150 mg capsule 150 mg PO BID Qty: 180 3RF buprenorphine [Butrans] 10 mcg/hour patch weekly 1 patch transdermal Q7D Qty: 4 0RF flecainide 100 mg tablet 100 mg PO BID clobetasol 0.05 % cream 1 applic topical QAM AND QPM Qty: 30 2RF Rx Instructions: Apply topically to rashy area between and under breasts nystatin 100,000 unit/gram powder 1 applic topical BID Qty: 15 3RF Rx Instructions: Apply twice daily to rashy area under breasts until resolved omeprazole 20 mg capsule,delayed release(DR/EC) 20 mg PO BID Qty: 60 1RF ferrous sulfate [Iron (ferrous sulfate)] 1 tab PO .QD metoprolol succinate 25 mg tablet extended release 24 hr 25 mg PO DAILY Medication counseling provided by Pharmacist: No Follow up/Referrals: Akanksha Keane ARNP [Primary Care Provider] - Discharge Health Status Multidrug resistant organism: No MDRO Diet/Activity/Treatments Diet: Low-sodium Activity: As tolerated Visit Report/Discharge Packet Instructions: DI for Heart Failure Stand Alone Forms: Patient Portal/API Discharge Data Primary Care Provider: Akanksha Keane VTE Deep Vein Thrombosis/Pulmonary Embolism Present on Admission: No
--- NOTE | 2023-11-07 10:40 | PT.IPTN ---
Current Diagnoses Acute on chronic diastolic (congestive) heart failure (11/04/23) Physical Therapy Treatment Note M2 PT-IP Current Condition Start: 11/06/23 16:30 Freq: NEEDED Status: Active Protocol: Document 11/06/23 15:10 AB (Rec: 11/06/23 16:44 AB [id number]) Physical Therapy Current Condition Current Condition Evaluation Date 11/06/23 Treatment Diagnosis CHF; difficulty in walking Onset Date 11/04/23 M3 PT-IP Subjective Start: 11/06/23 16:30 Freq: NEEDED Status: Active Protocol: Document 11/07/23 10:40 AB (Rec: 11/07/23 11:55 AB [id number]) Subjective Physical Therapy Visit Type Type Treatment Note Visit Start Time 10:40 Visit Stop Time 11:05 Number of FOIL SPINNER Visits 0 Physical Therapy Visit Comments Patient Comments agreeable to do PT M4 PT-IP Mobility and Gait Start: 11/06/23 16:30 Freq: NEEDED Status: Active Protocol: Document 11/07/23 10:40 AB (Rec: 11/07/23 11:55 AB [id number]) PT-Bed Mobility Assessment Supine to Sit Supine to Sit Standby Assistance PT-Transfer Assessment Sit to and From Stand Sit to and from Stand Standby Assistance,1 Person Assistance,Use of Upper Extremities Equipment Transfer Assistive Device Gait Belt,Front Wheeled Walker Orthotic/Prosthetic Devices or Brace: No Transfers Transfer Destination Chair Transfer Technique ambulated Transfer Ability Level of Assist Standby Assistance,Contact Guard Assistance Comments Mobility Comments pt supine in bed. pt stated that they just took supplemental O2 off. O2 sat at RA: 89-90%. cued to take deep breaths. agreed to do PT . completed supine to sit SBA. completed sit to stand SBA. pt ambulated using FWW ~ 100 ft SBA to CGA. pt presents with unsteady gait. pt sat on the chair. O2 sat: 90-93% at RA. informed pt regarding safety and use of an AD. pt agreed that he cannot find her SPC but has a FWW that she can use. informed pt to use FWW for steadiness and safety upon d/c and pt agreed. positioned pt on the chair. call light and table placed within reach. Gait Assessment Gait Gait Assistance Required: Standby Assistance,Contact Guard Assist Distance (Feet) 100 Able to Maintain Weight Bearing Status Yes During Gait Assistive Devices Assistive Device Gait Belt,Straight Cane Orthotic/Prosthetic Devices or Brace: No Gait Deviations General Gait Pattern Antalgic,Decreased Stride Length,Decreased Feet Clearance Factors Limiting Gait Function Factors Limiting Gait Function Decreased Activity Tolerance, Decreased Strength,Limited Range of Motion,Poor Balance, Poor Safety Awareness, Respiratory Distress M5 PT-IP Objective Assessments Start: 11/06/23 16:30 Freq: NEEDED Status: Active Protocol: Document 11/06/23 15:10 AB (Rec: 11/06/23 16:44 AB [id number]) Orientation Orientation/Cognition Level of Alertness Alert Orientation Name Language Function Ability Hard of Hearing Safety Awareness Decreased Safety Awareness Memory Description Short Term Impaired Gross Range of Motion Lower Extremity ROM Assessment Within Functional Limits Strength Lower Extremity Strength Hip 4-/5 Knee 4-/5 Coordination Assessment Gross Coordination Gross Coordination WNL Sensation Assessment Sensation Gross Sensation WNL Muscle Tone Muscle Tone WNL Yes M6 PT-IP Treatment Start: 11/06/23 16:30 Freq: NEEDED Status: Active Protocol: Document 11/07/23 10:40 AB (Rec: 11/07/23 11:55 AB [id number]) Physical Therapy Treatment Education Education Provided Safety M7 PT-IP Assessment and Plan Start: 11/06/23 16:30 Freq: NEEDED Status: Active Protocol: Document 11/07/23 10:40 AB (Rec: 11/07/23 11:55 AB [id number]) PT Summary Assessment and Plan Potential Rehabilitation Potential Good Summary Impairments Strength,Balance,Coordination, Cognition,Bed Mobility, Transfers,Gait,Activity Tolerance Progress Towards Goals Slow Progress due to Activity Tolerance Assessment Summary pt improving slowly with mobility and able to ambulat using SPC SBA to CGA. pt stated that she does not know where her SPC is but has a FWW . recoomending use of FWW/SPC for safety. pt agreed. pt has her spouse to assist her at home. pt will benefit from HHPT. Goals Bed Mobility Goal Independent Transfer Goal Independent,Cane Gait Goal Independent,Cane Gait Distance 250 Other Goals improve ambulation without AD 250 ft mod I up/down 3 steps R rail ascending SBA Days to Meet Goals 5 Frequency of Treatment Frequency Of Treatment Once a Day Treatment Plan Physical Therapy Treatment Plan Bed Mobility Training,Transfer Training,Gait Training, Therapeutic Exercise,Balance Retraining,Discharge Planning, Hot or Cold Pack,Neuromuscular Re-ed,Coordination Retraining ,Manual Therapy Precautions Other Precautions O2 sat; falls Recommendations To Nursing Amount of Assist Needed 1 Person Assist Discharge Recommendations PT Discharge Recommendations Home with Assistance,Home Health,Outpatient PT Transportation Needs at Discharge Private Vehicle
--- NOTE | 2023-11-07 12:04 | CM.DPNOTE ---
DCP NOte FACULTY DEAN reviewed EMR. Per hospitalist in morning rounds, dc today, hopeful for PCP follow up in next 4-6 days. Per RN, no home O2 needed at this time. Per PT, rec home with assistance vs HH. FACULTY DEAN messaged TCM team with updates about f/u appt with new PCP due to old PCP leaving. FACULTY DEAN met with pt and spouse in room. Pt and spouse continue to deny HH. Pt and spouse report they wish to leave sooner rather than later and do not wish to stick around for update on PCP appointment and that PCP office can call them about it. Pt and spouse deny other DCP Needs. P: home with spouse support today and close OP f/u recommended. TCM team to follow up for OP appt. CM team will continue to follow as needed ANJEL Lehman
== END 2023-11-07 11:55 | disposition home or self-care (01) | DRG 189 ==
LOC: ED 13:05 → AC 15:05 → ICU 11-05 08:35
PROVIDERS: Admitting Provider Hospitalist; Emergency Provider Emergency Medicine; PCP Nurse Practitioner; Referring Provider Emergency Medicine; Visit Provider Hospitalist
DX: J96.01 Acute respiratory failure with hypoxia (principal); I50.33 Acute on chronic diastolic (congestive) heart failure; I24.89 Other forms of acute ischemic heart disease; I48.0 Paroxysmal atrial fibrillation; G47.33 Obstructive sleep apnea (adult) (pediatric); G89.29 Other chronic pain; G31.84 Mild cognitive impairment of uncertain or unknown etiology; F32.A Depression, unspecified; K21.9 Gastro-esophageal reflux disease without esophagitis; D64.9 Anemia, unspecified; M48.56XD Collapsed vertebra, not elsewhere classified, lumbar region, subsequent encounter for fracture with routine healing; M48.54XD Collapsed vertebra, not elsewhere classified, thoracic region, subsequent encounter for fracture with routine healing; Z86.73 Personal history of transient ischemic attack (TIA), and cerebral infarction without residual deficits; Z79.01 Long term (current) use of anticoagulants
CPT/HCPCS: 36415; 36600; 71045; 71275; 80048; 80053; 82550; 82805; 83605; 83690; 83735; 83880; 84145; 84484; 85025; 85610; 85730; 87040; 87633; 87797; 93005; 93306; 94618; 94762; 96365; 97116; 97162; 97530; 99285; 99291; J1940; Q9967

== ENCOUNTER 2024-01-13 11:40 | Emergency (ER) | payer OTHER, SELFPAY ==
[2023-12-14 08:04] VITALS: BMI 26.4
[2024-01-13] VITALS (19 sets, daily range): BP systolic 131–167; BP diastolic 71–92; PULSE 79–111; RESP 15–25; TEMP 36.6–37.2; O2SAT 94–100
--- NOTE | 2024-01-13 11:41 | DI.CT.S_ITS ---
PROCEDURE: CT ANGIO HEAD AND NECK INDICATIONS: ? fall, Left weakness, on thinners TECHNIQUE: After the administration of intravenous contrast, 1 mm thick sections acquired from the aortic arch through the [place] of [place]. 3-dimensional ljgxfgj-ifxcjofpa-havpjtccaf (MIP) and/or volume rendering reformats were acquired of the central intracranial vasculature and neck separately. For radiation dose reduction, the following was used: automated exposure control, adjustment of mA and/or kV according to patient size. COMPARISON: [facility], CT, CT STROKE, 01/13/2024, 11:50. [facility], US, US THYROID, 07/12/2023, 11:42. FINDINGS: Image quality: Diagnostic. BRAIN: CSF spaces: Ventricles are normal in size and shape. Basal cisterns are patent. No extra-axial fluid collections. Brain: No significant abnormality of the brain can be seen. Skull and face: Calvarium and facial bones appear intact, without suspicious lesions. Orbits appear normal. Sinuses: Sinuses and mastoids are clear. 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 origin of the left posterior cerebral artery. Otherwise, no aneurysm, dissection, or occlusion in the anterior circulation. Posterior circulation: Visualized portions of the vertebral arteries demonstrate normal caliber, and join to form a normal appearing basilar artery. Flow within the posterior cerebral arteries is normal and symmetric. No aneurysms are seen. NECK CT ANGIOGRAPHY: Carotid system: There is a 2 vessel aortic arch comprised of a common origin of the right brachiocephalic and left common carotid artery, followed by the left subclavian artery. Mild calcified atherosclerosis at the origins of the common carotid bulbs. The origins of the common carotid arteries appear patent. The common carotid arteries demonstrate normal caliber and courses. The bifurcation regions are both widely patent. The internal carotid arteries demonstrate normal calibers and courses. Posterior circulation: The origins of the vertebral arteries both appear widely patent. The more superior extracranial portions of both vertebral arteries also demonstrate normal courses and calibers. They join to form a normal appearing basilar artery. Soft tissues: Multiple foci of subcutaneous emphysema are present in the left subpectoral and left anterior chest wall (4/342). Upper lobe-predominant bronchiolectasis. Ingested debris present within a mildly thickened esophagus (4/300). Partially identified mediastinal adenopathy, including a 1.4 cm short axis right lower paratracheal node (4/306). Multinodular goiter with substernal and retrosternal extension (4/244-282). Dilated main pulmonary arterial trunk, which measures 3.4 cm in transverse diameter (4/317). Bones: No suspicious bony lesions. Visualized cervical spine appears normally aligned. IMPRESSION: 1. 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 2. Subcutaneous emphysema, likely related to the recent left nephrectomy. 3. Multinodular goiter; please see the 07/12/2023 thyroid ultrasound report for further details. 4. Esophageal findings, which may predispose the patient to aspiration. These findings were communicated via telephone to the ordering provider, Dr Alvarado, by Sandor Neumann MD on 01/13/2024 at 12:17 p.m.. Any quantitative measurements of stenosis were performed using NASCET criteria. Dictated by: Sandor Neumann M.D. on 01/13/2024 at 12:05 Approved by: Sandor Neumann M.D. on 01/13/2024 at 12:23
--- NOTE | 2024-01-13 11:41 | EKG_ITS ---
[place] [id number] [address] [place] [id number] Test Date: 2024-01-13 Pat Name: Swathi Thermal Department: [facility] Room: Gender: Female [employer]: : 1935 Requested By: Order Number: [id number] Reading MD: Abhinav Manjarrez Measurements Intervals [place] Rate: 86 P: NM: QRS: 2 QRSD: 86 T: 226 QT: 396 QTc: 473 Interpretive Statements Atrial flutter with variable AV block Left ventricular hypertrophy with repolarization abnormality ( [place] product ) Electronically Signed On 01-13-2024 13:32:38 PST by Abhinav Manjarrez
--- NOTE | 2024-01-13 11:41 | DI.CT.S_ITS ---
PROCEDURE: CT STROKE INDICATIONS: ? fall, Left weakness, on thinners TECHNIQUE: Noncontrast 4.5 mm thick angled axial sections acquired from the foramen magnum to the vertex, with coronal reformats. For radiation dose reduction, the following was used: automated exposure control, adjustment of mA and/or kV according to patient size. COMPARISON: [facility], CT, CT HEAD/BRAIN WO CON, 07/24/2022, 23:12. FINDINGS: Image quality: This examination is limited by involuntary motion artifact. Mild streak artifact can be seen through the skull base. CSF spaces: Basal cisterns are patent. No extra-axial fluid collections. The ventricles are symmetric in size and shape. Brain: No intracranial bleeds or masses. There is cerebral volume loss for age, with resultant ventricular and sulcal prominence. There are periventricular and deep white matter chronic small vessel ischemic changes. There is intracranial internal carotid artery atherosclerosis. Skull and face: Calvarium and visualized facial bones appear intact, without suspicious lesions. Sinuses: Visualized sinuses and mastoids are clear. IMPRESSION: No acute intracranial hemorrhage is seen. No acute intracranial process is seen. Note: Case discussed by telephone with Dr. Alvarado at 11:54 a.m. [place] time on January 13, 2024. This study fulfills neurological imaging criteria for inclusion or exclusion of acute stroke therapies based on available published neurological guidelines. Dictated by: Dennys Kingsley M.D. on 01/13/2024 at 10:52 Approved by: Dennys Kingsley M.D. on 01/13/2024 at 10:54
[2024-01-13 11:50] LABS: Add Manual Diff / Slide Review NO; Basophils Absolute Auto 0 /uL (0-100); Basophils Percent Auto 0.4 % (0-2); Eosinophils Absolute Auto 400 /uL (0-450); Hematocrit 41.3 % (36-46); Hemoglobin 13.8 g/dL (12.0-16.0); Lymphocytes Absolute Auto 1700 /uL (1100-4500); Lymphocytes Percent Auto 21.4 % (25-40); Mean Corpuscular HGB Conc 33.3 % (30-36); Mean Corpuscular Hemoglobin 31.1 PG (26-34); Mean Corpuscular Volume 93.5 fL (80-100); Monocytes Absolute Auto 700 /uL (0-900); Monocytes Percent Auto 8.6 % (3-14); Neutrophils Absolute Auto 5200 /uL (1500-7000); Neutrophils Percent Auto 64.6 % (50-75); Platelet Count 360 X10^3/uL (150-400); Red Blood Cell Count 4.42 X10^6/uL (4.0-5.2)
--- NOTE | 2024-01-13 11:57 | ED.NEUROSD ---
HPI - Neuro Symptoms/Deficit General Chief Complaint: Neuro Symptoms/Deficit Stated Complaint: Code Stroke Time Seen by Provider: 01/13/24 11:43 Source: patient, EMS, RN notes reviewed and old records reviewed Mode of arrival: EMS Limitations: no limitations History of Present Illness HPI Narrative: 88-year-old female history of atrial fib atrial flutter on Pradaxa, flecainide and metoprolol history of CHF with nephrectomy 1 week prior for cancer. Patient reported last known normal around 1000 this morning. Family states there was a phone call, she had told him she was walking in the bathroom did not want to talk to them and then afterwards heard her calling from the bathroom very quietly and found to be weak with difficulty with speech initially answered some questions for EMS but had decreasing ability to speak in transport. Patient is not following commands well but can squeeze my hand and move her right upper extremity. She was anticoagulated on Pradaxa. Did have recent renal procedure so may have stopped her medications EMS noted she looked to be in atrial flutter during transport. Glucose was 130s in the field. Related Data Home Medications Medication Instructions Recorded Confirmed flecainide 100 mg tablet 100 mg PO BID 08/14/18 12/13/23 metoprolol succinate 25 mg 25 mg PO DAILY 11/05/23 12/13/23 tablet,extended release 24 hr duloxetine 20 mg capsule,delayed 20 mg PO BID 11/09/23 12/13/23 release Previous Rx's Medication Instructions Recorded amlodipine 10 mg tablet 10 mg PO DAILY #90 tabs 03/19/23 Disabled Parking Permit See Rx Instructions .Route 10/24/23 .COMPLEX #1 unit dabigatran etexilate 150 mg 150 mg PO BID #180 caps 10/24/23 capsule (Pradaxa) furosemide 40 mg tablet (Lasix) 40 mg PO DAILY #30 tabs 11/07/23 cephalexin 500 mg capsule 500 mg PO TID #21 caps 11/30/23 naloxone 4 mg/actuation nasal 4 mg intranasal Q2M #2 ea 11/30/23 spray (Narcan) hydrocodone 10 mg-acetaminophen 1 tab PO BID PRN pain #120 tabs 12/06/23 325 mg tablet docusate sodium 100 mg capsule 100 mg PO BID PRN for constipation 12/10/23 #30 caps escitalopram oxalate 5 mg tablet 5 mg PO DAILY #30 tabs 12/13/23 omeprazole 20 mg capsule,delayed 20 mg PO BID #60 caps 12/21/23 release Disabled Parking #1 ea 12/24/23 Allergies Allergy/AdvReac Type Severity Reaction Status Date / Time pregabalin AdvReac Intermediate sedation Verified 12/13/23 14:47 Review of Systems Review of Systems ROS Unobtainable: Unobtainable due to mental status/LOC Patient History Medical History Chronic back pain greater than 3 months duration History of hematuria Left renal mass Chronic back pain History of falling Acute exacerbation of chronic low back pain Normocytic anemia, not due to blood loss Therapeutic opioid induced constipation Obstructive sleep apnea CHF (congestive heart failure) Anticoagulated Chronic, continuous use of opioids Age-related cognitive decline Fatigue Upper extremity somatic dysfunction Segmental and somatic dysfunction of abdomen and other regions Sacral region somatic dysfunction Pelvic somatic dysfunction Lumbar region somatic dysfunction Thoracic region somatic dysfunction Segmental and somatic dysfunction of rib cage Cervical somatic dysfunction Cranial somatic dysfunction Chronic bilateral back pain Scoliosis of cervical region due to degenerative disease of spine in adult Closed L2 vertebral fracture T12 compression fracture Lumbosacral spondylosis with radiculopathy Facet arthropathy, lumbar Pelvic relaxation PTSD (post-traumatic stress disorder) Anxiety TIA (transient ischemic attack) Sleep apnea GERD (gastroesophageal reflux disease) Colon polyps CTS (carpal tunnel syndrome) Cataract Chicken pox Chronic headaches Depression Hearing loss Measles Mumps Surgical History History of colonoscopy Hx of appendectomy History of carpal tunnel surgery of left wrist Status post cataract extraction of both eyes with insertion of intraocular lens Anesthesia History of ear surgery (1974) History of ear surgery (1981) Status post breast lumpectomy (1982) Status post hysterectomy (1979) History of knee replacement (2012) History of knee replacement (2008) Family History Child Age: 62 Mental health problem Father Heart disease Stroke Myocardial infarction Grandmother Cancer Grandfather Pneumonia Grandmother No problems noted. Mother Brainstem hemorrhage Brain bleed Social History household members: spouse Smoking Status: Never smoker alcohol intake: current Smoking Status: Never smoker alcohol intake frequency: holidays/special occasions only Substance Use Type: does not use Exam Narrative Exam Narrative: GEN: Elderly female, alert, not following commands while, patient appears to be in moderate to severe distress. HEENT: Atraumatic, pupils are equal round reactive to light, patient gaze deviated right, nares are clear, TMs are clear with no fluid, there is no conjunctival pallor. Throat is clear without any exudates, erythema, tonsillar enlargement or uvular deviation, positive for facial droop HEART: Regular rate and rhythm without murmur, clicks, rubs. LUNGS:Lungs clear to auscultation, no wheezes, rales, crackles, chest moves symmetrically ABD:bowel sounds normal, soft, non-tender, no guarding, rebound, rigidity, no masses noted, no hepatosplenomegaly, patient healing incision on left lower abdomen there is some hematoma surrounding the area that is nontender to touch :No CVA tenderness MSCL: Non-tender, no muscle atrophy, muscles strength 5/5 upper and lower extremities. NEURO:CN 2-12 intact, sensation normal. Patient has and range of motion of her right upper extremity she has some movement of her right lower extremity unable to perform an NIH secondary to patient not following commands she has no movement of her left arm and flexed her but has not moved her left leg. Patient was aphasic. Initial Vital Signs Initial Vital Signs: Vital Signs Temperature 98.9 F 01/13/24 11:48 Pulse Rate 111 H 01/13/24 11:48 Respiratory Rate 20 01/13/24 11:48 Blood Pressure 131/84 01/13/24 11:48 Pulse Oximetry 97 01/13/24 11:48 Oxygen Delivery Method Nasal Cannula 01/13/24 11:48 Oxygen Flow Rate 2 01/13/24 11:48 Scores NIH Stroke Scale Level of Conciousness: Not alert, but arousable by minor stim to obey, answer or respond Ask month/age: Answers neither question correctly, aphasic, stuporous, coma Open/close eyes, close hand: Performs one task correctly Best gaze horizontal: Forced deviation or total gaze paresis not overcome Left arm drift: No movement Right arm drift: No drift for full 10 sec Left leg drift: No effort against gravity Limb ataxia: Present in two limbs (unable to obtain) Best language: No aphasia, normal Dysarthria: Severe, unintelligible Extinction or inattention: Profound carmelita-inattention. Does not recognize own hand, one side Course Orders Ordered: ED Orders 01/13/24 11:30 Complete Blood Count AUTO DIFF Stat Comprehensive Metabolic Panel Stat Ethanol (ETOH) Stat PTT Partial Thromboplastin Terrance Stat Prothrombin Time INR Stat Troponin & CK Cardiac Panel Stat 01/13/24 11:[address] angio head and neck Stat EKG-12 Lead Stat 01/13/24 13:02 Urinalysis and Microscopic Stat Urine Drug Screen, Rapid Stat Discontinued Medications Aspirin (Aspirin 300 Mg Supp) 300 mg VT NOW ONE Stop: 01/13/24 12:32 Last Admin: 01/13/24 12:47 Dose: 300 mg Documented By: CHIRAG Ondansetron HCl (Ondansetron 4 Mg/2 Ml Inj) 4 mg IV NOW ONE Stop: 01/13/24 12:42 Last Admin: 01/13/24 13:08 Dose: 4 mg Documented By: ANALIA Vital Signs Vital signs: Vital Signs - 8 hr 01/13/24 11:48 01/13/24 11:52 01/13/24 11:55 Temperature 98.9 F Pulse Rate 111 H 89 80 Respiratory Rate 20 22 24 Blood Pressure 131/84 Pulse Oximetry 97 100 99 Oxygen Delivery Method Nasal Cannula Oxygen Flow Rate 2 01/13/24 11:55 01/13/24 12:00 01/13/24 12:00 Temperature Pulse Rate 89 Respiratory Rate Blood Pressure 131/84 160/74 H Pulse Oximetry 96 Oxygen Delivery Method Room Air Oxygen Flow Rate 01/13/24 12:12 01/13/24 12:12 01/13/24 12:15 Temperature Pulse Rate 86 92 H Respiratory Rate 20 24 Blood Pressure 141/77 H Pulse Oximetry 95 96 Oxygen Delivery Method Room Air Oxygen Flow Rate 01/13/24 12:16 01/13/24 12:16 01/13/24 12:20 Temperature Pulse Rate 87 94 H Respiratory Rate 25 H 23 Blood Pressure 149/88 H Pulse Oximetry 96 94 Oxygen Delivery Method Room Air Oxygen Flow Rate 01/13/24 12:25 01/13/24 12:30 01/13/24 12:30 Temperature Pulse Rate 89 93 H Respiratory Rate 15 23 Blood Pressure 167/86 H Pulse Oximetry 97 97 Oxygen Delivery Method Room Air Oxygen Flow Rate 01/13/24 12:35 12/01/24 12:40 01/13/24 12:45 Temperature Pulse Rate 79 88 Respiratory Rate 22 23 Blood Pressure 159/71 H Pulse Oximetry 97 96 Oxygen Delivery Method Room Air Oxygen Flow Rate 01/13/24 12:45 01/13/24 12:50 01/13/24 12:55 Temperature Pulse Rate 86 94 H 86 Respiratory Rate 23 21 23 Blood Pressure Pulse Oximetry 96 95 94 Oxygen Delivery Method Oxygen Flow Rate 01/13/24 13:00 01/13/24 13:00 01/13/24 13:05 Temperature Pulse Rate 95 H 80 Respiratory Rate 21 22 Blood Pressure 152/92 H Pulse Oximetry 94 96 Oxygen Delivery Method Room Air Oxygen Flow Rate 01/13/24 13:10 01/13/24 13:12 Temperature 97.9 F Pulse Rate 89 Respiratory Rate 23 Blood Pressure Pulse Oximetry 96 Oxygen Delivery Method Room Air Oxygen Flow Rate MDM - Neuro Symptoms/Deficit Lab Data 01/13/24 11:30 01/13/24 11:30 Labs: Lab Results 01/13/24 01/13/24 01/13/24 Range/Units 11:30 13:02 13:02 WBC 8.0 (4.5-11.0) X10^3/uL RBC 4.42 (4.0-5.2) X10^6/uL Hgb 13.8 (12.0-16.0) g/dL Hct 41.3 (36-46) % MCV 93.5 (80-100) fL MCH 31.1 (26-34) PG MCHC 33.3 (30-36) % RDW 14.0 (11.6-14.8) % Plt Count 360 (150-400) X10^3/uL Neut % (Auto) 64.6 (50-75) % Lymph % (Auto) 21.4 L (25-40) % [place] % (Auto) 8.6 (3-14) % Eos % (Auto) 5.0 H (2-4) % Baso % (Auto) 0.4 (0-2) % Neut # (Auto) 5200 (4011-9015) /uL Lymph # (Auto) 1700 (5859-7325) /uL [place] # (Auto) 700 (0-900) /uL Eos # (Auto) 400 (0-450) /uL Baso # (Auto) 0 (0-100) /uL PT 12.3 (9.4-12.5) SECONDS INR 1.1 (0.9-1.3) APTT 45 H (25.1-36.5) SECONDS Sodium 138 (137-145) mmol/L Potassium 4.0 (3.4-5.1) mmol/L Chloride 101 (98-107) mmol/L Carbon Dioxide 30 (22-32) mmol/L BUN 30 H (7-17) mg/dL Creatinine 1.45 H (0.52-1.04) mg/dL Estimated GFR 35 L (>60) mL/min BUN/Creatinine Ratio 20.7 (6-22) Glucose 125 H (80-110) mg/dL Calcium 9.8 (8.4-10.2) mg/dL Total Bilirubin 0.5 (0.2-1.3) mg/dL AST 27 (14-36) IU/L ALT 23 (<35) IU/L Alkaline Phosphatase 76 (38-126) U/L Total Creatine Kinase 35 (30-135) U/L Troponin I < 0.012 (0.01-0.034) ng/mL Total Protein 7.8 (6.3-8.2) g/dL Albumin 4.2 (3.5-5.0) g/dL Globulin 3.6 (1.7-4.1) g/dL Albumin/Globulin Ratio 1.2 (1.0-2.8) Urine Color Yellow Urine Appearance Clear Urine pH 7.5 Normal (4.5-8.0) Ur Specific [place] <=1.005 (1.000-1.035) Urine Protein Negative (Negative) Urine Glucose (UA) Negative (Negative) g/dL Urine Ketones Negative (NEGATIVE) Urine Occult Blood Negative (Negative) Urine Nitrate Negative (Negative) Urine Bilirubin Negative (NEGATIVE) Urine Urobilinogen 0.2 (0.2) E.U./dL Ur Leukocyte Esterase Negative (NEGATIVE) Urine RBC 0-1/hpf (0-5/HPF) Urine WBC 0-1/hpf (0-5/HPF) Ur Squamous Epith Cells 1-5 /hpf (0-5/HPF) Urine Bacteria None seen (None) Ur Culture Indicated? Cult not indicated Vol Urine Centrifuged 6 U Opiates 300ng/mL cut Positive H (Negative) Ur Oxycodone Screen Negative (Negative) Urine Methadone Screen Negative (Negative) Ur Barbiturates Screen Negative (Negative) U Tricyclic Antidepress Negative (Negative) Ur Phencyclidine Scrn Negative (Negative) Ur Amphetamines Screen Negative (Negative) U Methamphetamines Scrn Negative (Negative) Ur MDMA Scrn (Ecstasy) Negative (Negative) U Benzodiazepines Scrn Negative (Negative) Urine Cocaine Screen Negative (Negative) U Marijuana (THC) Screen Negative (Negative) Urine Specific [place] Normal (Normal) Ethyl Alcohol < 10 ( - 10) mg/dL Ur Creatinine Normal (Normal) Point of Care Testing Glucose POC [address] scan - head: Radiologist's Impression: Swathi Quevedo??88??F??1935 ? Allergy/Adv: pregabalin Close Head/Neck CTA 01/13/[address] (Signed) Dennys Kingsley - 01/13/24 Chest X-Ray (Signed) Sandor Neumann - 11/06/23 Echocardiogram Ultrasound (Signed) Damian Gavin - 11/04/23 Telemetry Strips 11/04/23 Chest CTA (Signed) Jaden Low - 11/04/23 Thyroid Ultrasound (Signed) Dario Bermeo - 07/12/[address] (Signed) Paul Chu - 07/12/23 Thoracic Spine MRI (Signed) Rashmi Conrad - 06/19/23 Lumbar Spine MRI (Signed) Rashmi Conrad - 06/19/23 Hip X-Ray (Signed) Michelle Rosario - 06/13/23 Ribs X-Ray (Signed) Clif Ambrose - 05/09/23 Telemetry Strips 08/10/22 Chest X-Ray (Signed) Clif Ambrose - 08/10/[address] (Signed) Shaan Cabral - 07/24/22 Chest CTA (Signed) Shaan Cabral - 07/24/22 Telemetry Strips 07/24/22 Telemetry Strips 07/24/22 Chest X-Ray (Signed) Dayana Santos - 07/24/22 Shoulder X-Ray (Signed) Perez,Trevon - 06/01/22 Humerus X-Ray (Signed) Perez,Trevon - 06/01/22 Elbow X-Ray (Signed) Perez,Trevon - 06/01/22 Elbow X-Ray (Signed) Houston Daley - 05/20/22 Lumbar Spine X-Ray (Signed) Clif Ambrose - 04/25/22 Radiology Report (Cancelled) DomHeavenly álvarezbubba - 09/26/21 Myocardial Perfusion Scan Nuc Med (Signed) LeslyeHeavenlybubba - 09/26/21 Echocardiogram Ultrasound (Signed) Madelaine Brooks - 09/02/21 Chest CTA (Signed) Clif Ambrose - 09/01/21 Chest X-Ray (Signed) Dennys Kingsley - 09/01/21 Chest X-Ray (Signed) Adebayo Evans - 08/17/21 Thoracic Spine MRI (Signed) Adebayo Evans - 07/27/[address] (Signed) Flavio Parra - 11/15/19 Facet Joint Injection X-Ray (Signed) Aj Peres - 07/29/19 Facet Joint Injection X-Ray (Signed) Aj Peres - 03/20/19 Echocardiogram Ultrasound (Signed) Pj Jain - 05/22/18 Lumbar Spine MRI (Signed) Terrell Barger - 12/25/17 Chest CTA (Signed) Terrell Barger - 10/03/17 Echocardiogram Ultrasound (Signed) Robert Rodriguez - 10/03/17 Pelvis X-Ray (Signed) Clif Ambrose - 10/01/17 Hip MRI (Signed) Jonah Hurd - 08/16/17 [place] [address] CT Scan Report Signed Patient: Swathi Quevedo MR#: [id number] : 1935 Acct:[id number] Age/Sex: 88 / F Date of Service: 01/13/24 Loc: ED Accession Number: [id number] Procedure: CT Stroke Ordering Provider: Maria Alvarado D.O. PROCEDURE: CT STROKE INDICATIONS: ? fall, Left weakness, on thinners TECHNIQUE: Noncontrast 4.5 mm thick angled axial sections acquired from the foramen magnum to the vertex, with coronal reformats. For radiation dose reduction, the following was used: automated exposure control, adjustment of mA and/or kV according to patient size. COMPARISON: [facility], CT, CT HEAD/BRAIN WO CON, 07/24/2022, 23:12. FINDINGS: Image quality: This examination is limited by involuntary motion artifact. Mild streak artifact can be seen through the skull base. CSF spaces: Basal cisterns are patent. No extra-axial fluid collections. The ventricles are symmetric in size and shape. Brain: No intracranial bleeds or masses. There is cerebral volume loss for age, with resultant ventricular and sulcal prominence. There are periventricular and deep white matter chronic small vessel ischemic changes. There is intracranial internal carotid artery atherosclerosis. Skull and face: Calvarium and visualized facial bones appear intact, without suspicious lesions. Sinuses: Visualized sinuses and mastoids are clear. IMPRESSION: No acute intracranial hemorrhage is seen. No acute intracranial process is seen. Note: Case discussed by telephone with Dr. Alvarado at 11:54 a.m. [place] time on January 13, 2024. This study fulfills neurological imaging criteria for inclusion or exclusion of acute stroke therapies based on available published neurological guidelines. Dictated by: Dennys Kingsley M.D. on 01/13/2024 at 10:52 Approved by: Dennys Kingsley M.D. on 01/13/2024 at 10:54 ECG Data Attestation: I personally reviewed and interpreted this ECG as follows: Prior ECG tracings: available for review Interpretation: atrial flutter with a variable AV block rate 86, QRS 86 QTC of [address] elevation does have some depression lateral leads but appears similar to prior from 11/04/2023. Treatment and disposition Code Status and discussions:: Discussed with and at bedside patient is do not intubate but discussed if would be allowed for short periods of time MDM Narrative Medical decision making narrative: 88-year-old female with suspected stroke patient has left-sided weakness, right deviated gaze, she was not following commands well so unable to obtain a full NIH. She is anticoagulated on Pradaxa. She is 1 week status post nephrectomy at [facility] in [place]. She is not candidate for tpa. Patient is potential Code IR. Patient's atrial flutter but rate controlled in the 80s, maximum blood pressure so far has been 160 systolic trending in the 130s over 70s range. Labs show white count 8 hemoglobin of 13 platelets of 360. INR is 1.1 PTT is 45. Sodium is 138 potassium is 4 chloride 101 CO2 is 30 BUN 30 with a creatinine 1.45 somewhat expected status post nephrectomy glucose of 125 LFTs are negative troponins less than 0.012, ETOH is negative Non-con head CT shows no acute change, results called to myself by radiology. Head and neck angio, results called to myself patient does have thrombus in M1 M2 segment the right with little collateral flow they do note some air in the chest wall but no pneumothorax. Multinodular esophageal findings patient was upper lobe predominant bronchiectasis with the just debris within mildly thickened esophagus. Results called to myself by radiology. Chest x-ra, trace bilateral pleural effusions associated with passive atelectasis of lower lobes. EKG atrial flutter with a variable AV block rate 86, QRS 86 QTC of [address] elevation does have some depression lateral leads but appears similar to prior from 11/04/2023. Weather check for airlift. 1207 Dr. Cuevas, Telestroke with consulted: She reviewed patient's imaging appreciates thrombus is talking to IR but likely plan for transfer for code IR. Reviewed patient is on Pradaxa 75 mg currently has a week post nephrectomy so is not tPA candidate. 1227: Call back accepts for transfer if unsure or did not take patient's Pradaxa can give aspirin 300 mg rectally if she did take it today would hold aspirin. 1228: Airlift activated. 1222: Spoke with family they are agreeable for transfer discussing if patient requires intubation she was currently maintaining her airway but it has decreasing mentation may require intubation for airway protection. Discussed with patient and family they are open to intubation if required. They are unsure if she took her Pradaxa today. Patient received aspirin 300 mg per rectum as well as Zofran IV. On recheck just prior to transfer. Patient alert, opens eyes, will squeeze hand but not following commands. Has been maintaining airway. On RA, vitals state nasal cannula in place on synopsis but patient was on room air in his on room air throughout her vitals when trended outwards. Stroke Core Measures Contraindications for TPA in CVA: Arterial Puncture(Noncompressible) within 1 Week (nephrectomy 1 week) Critical Care Time Critical Care Time Critical Care Time: Yes Total Critical Care Time: 45 Attestation: The high probability of a clinically significant, sudden or life threatening deterioration of the neurologic system(s) required my full and direct attention, intervention and personal management. The aggregate critical care time was [--] minutes. This time is in addition to time spent performing reported procedures but includes the following: [x] Data Review and interpretation [x] Patient assessment and monitoring of vital signs [x] Documentation [x] Medication orders and management Discharge Plan Departure Patient Disposition: [facility] Clinical Impression: CVA (cerebral vascular accident) Prescriptions: No Action duloxetine 20 mg capsule,delayed release(DR/EC) 20 mg PO BID naloxone [Narcan] 4 mg/actuation spray,non-aerosol 4 mg intranasal Q2M Qty: 2 0RF Rx Instructions: spray 1 dose into ONE nostril; alternate nostrils w each dose until help arrives cephalexin 500 mg capsule 500 mg PO TID Qty: 21 0RF hydrocodone-acetaminophen 10-325 mg tablet 1 tab PO BID PRN (Reason: pain) Qty: 120 0RF escitalopram oxalate 5 mg tablet 5 mg PO DAILY Qty: 30 3RF amlodipine 10 mg tablet 10 mg PO DAILY Qty: 90 3RF Disabled Parking Permit See Rx Instructions .ROUTE .COMPLEX Qty: 1 0RF Rx Instructions: I find this patient to be medically disabled and qualify for disabled parking as indicated and signed on the accompanying disabled parking application for individuals. Pradaxa 150 mg capsule 150 mg PO BID Qty: 180 3RF docusate sodium 100 mg capsule 100 mg PO BID PRN (Reason: for constipation) Qty: 30 3RF omeprazole 20 mg capsule,delayed release(DR/EC) 20 mg PO BID Qty: 60 1RF (DME) Disabled Parking See Rx Instructions .ROUTE .MEDSUPPLY Qty: 1 0RF Rx Instructions: I find this patient to be medically disabled and qualified for DISABLED PARKING as indicated, and signed, on the ACCOMPANYING DISABLED PARKING APPLICATION for Individuals. flecainide 100 mg tablet 100 mg PO BID metoprolol succinate 25 mg tablet extended release 24 hr 25 mg PO DAILY furosemide [Lasix] 40 mg tablet 40 mg PO DAILY Qty: 30 2RF Referrals: Shena Perry MD [Primary Care Provider] -
[2024-01-13 11:58] LABS: INR 1.1 (0.9-1.3); Prothrombin Time 12.3 SECONDS (9.4-12.5)
[2024-01-13 12:00] LABS: PTT Partial Thromboplastin Tim 45 SECONDS (25.1-36.5)
--- NOTE | 2024-01-13 12:00 | PC.NURSE ---
For NIH assessment I am unable accurately to test patient in visual tatum, sensory on arms/face/legs, dysarthria, and extinction or innatention due to pt unable to participate or follow commands. Pt is only able to attempt to open her eyes and slight strength in franchise consultant on right hand.
[2024-01-13 12:02] LABS: Alanine Aminotransferase 23 IU/L (<35); Albumin 4.2 g/dL (3.5-5.0); Albumin Globulin Ratio 1.2 (1.0-2.8); Alkaline Phosphatase 76 U/L (38-126); Aspartate Aminotransferase 27 IU/L (14-36); BUN Creatinine Ratio 20.7 (6-22); Bilirubin Total 0.5 mg/dL (0.2-1.3); Blood Urea Nitrogen 30 mg/dL (7-17); Calcium 9.8 mg/dL (8.4-10.2); Carbon Dioxide 30 mmol/L (22-32); Chloride 101 mmol/L (98-107); Creatine Kinase 35 U/L (30-135); Estimated Glomerular Filt Rate 35 mL/min (>60); Ethanol (ETOH) < 10 mg/dL; Globulin 3.6 g/dL (1.7-4.1); Glucose 125 mg/dL (80-110); HEMOLYSIS < 15 (0-50); Sodium 138 mmol/L (137-145); Total Protein 7.8 g/dL (6.3-8.2)
[2024-01-13 12:14] LABS: Troponin I < 0.012 ng/mL (0.01-0.034)
--- NOTE | 2024-01-13 12:30 | PC.NURSE ---
Mandy MCFADDEN assisted pt's family members to sign up for [employer] insurance coverage at bedside. Family educated on process of transfer. Questions answered.
[2024-01-13] MEDS: ASPIRIN 300 MG SUPP PR (12:47)
--- NOTE | 2024-01-13 13:00 | PC.NURSE ---
For NIH assessment I am unable accurately to test patient in visual tatum, sensory on arms/face/legs, dysarthria, and extinction or innatention due to pt unable to participate or follow commands. Pt is only able to attempt to open her eyes and slight strength in manager harbor on right hand. Pupils equal. She does not respond to questions. Pt's daughter and spouse Bill at bedside state pt is okay with CPR compressions and temporary ventilation, but not okay with termite inspector ventilation.
[2024-01-13] MEDS: ONDANSETRON 4 MG/2 ML INJ IV (13:08)
[2024-01-13 13:11] LABS: Ur Creatinine Normal (Normal); Ur Specific Gravity Normal (Normal)
[2024-01-13 13:12] LABS: Urine Amphetamines Negative (Negative); Urine Barbiturates Negative (Negative); Urine Benzodiazepines Negative (Negative); Urine Cocaine Negative (Negative); Urine MDMA Negative (Negative); Urine Methadone Negative (Negative); Urine Methamphetamines Negative (Negative); Urine Opiates Positive (Negative); Urine Oxycodone Negative (Negative); Urine Phencyclidine Negative (Negative); Urine THC Negative (Negative); Urine Tricyclic Antidepressant Negative (Negative); Urine pH Normal (Normal)
[2024-01-13 13:29] LABS: Appearance Urine UA CLEAR; Bilirubin Urine UA NEGATIVE (NEGATIVE); Color Urine UA YELLOW; Glucose Urine UA NEGATIVE (Negative); Ketones Urine UA NEGATIVE (NEGATIVE); Leukocyte Esterase Urine UA NEGATIVE (NEGATIVE); Nitrite Urine UA NEGATIVE (Negative); Occult Blood Urine UA NEGATIVE (Negative); Protein Urine UA NEGATIVE (Negative); Specific Gravity Urine UA <=1.005 (1.000-1.035); Urobilinogen Urine UA 0.2 E.U./dL (0.2)
[2024-01-13 13:40] LABS: Bacteria Urine None Seen; Culture Indicated Urine Cult Not Indicated; RBC Urine 0-1/HPF (0-5/HPF); Squamous Epithelial Cell Urine 1-5 /HPF (0-5/HPF); Urine Volume 6; WBC Urine 0-1/HPF (0-5/HPF); pH Urine UA 7.5 (4.5-8.0)
== END 2024-01-13 13:30 | disposition short-term general hospital (02) ==
PROVIDERS: Emergency Provider Emergency Medicine; PCP Student in an Organized Health Care Education/Training Program
DX: I63.9 Cerebral infarction, unspecified (principal); R29.810 Facial weakness; Z79.01 Long term (current) use of anticoagulants
CPT/HCPCS: 36415; 70450; 70496; 70498; 80053; 80305; 80320; 81001; 82550; 82962; 84484; 85025; 85610; 85730; 93005; 96374; 99285; 99291; 99292; J2405; Q9967

== ENCOUNTER 2024-02-11 08:02 | Emergency (ER) | payer OTHER, SELFPAY ==
[2024-02-07 16:25] VITALS: BMI 26.4
[2024-02-11] VITALS (8 sets, daily range): BP systolic 122–194; BP diastolic 64–118; PULSE 75–98; RESP 15–23; O2SAT 94–99; BMI 27.3
--- NOTE | 2024-02-11 08:03 | DI.CT.S_ITS ---
PROCEDURE: CT ANGIO HEAD AND NECK INDICATIONS: difficulty speaking on pradaxa hx LVO TECHNIQUE: After the administration of intravenous contrast, 1 mm thick sections acquired from the aortic arch through the [place]. 3-dimensional dlgfbtn-rpgwvskda-uugrgrelgr (MIP) and/or volume rendering reformats were acquired of the central intracranial vasculature and neck separately. For radiation dose reduction, the following was used: automated exposure control, adjustment of mA and/or kV according to patient size. COMPARISON: [facility], US, US THYROID, 07/12/2023, 11:42. [facility], CT, CT ANGIO CHEST PE PROTOCOL, 11/04/2023, 9:59. [facility], CT, CT STROKE, 02/11/2024, 8:00. [facility], CT, CT ANGIO HEAD AND NECK, 01/13/2024, 11:50. FINDINGS: Image quality: Diagnostic. BRAIN: CSF spaces: Ventricles are normal in size and shape. Basal cisterns are patent. No extra-axial fluid collections. Brain: Age-related volume loss, small vessel ischemic change. Subacute aavn-cl-whwhrjwq right frontal infarct without hemorrhagic transformation. Cytotoxic edema is present. Skull and face: Calvarium and facial bones appear intact, without suspicious lesions. Orbits appear normal. Sinuses: Sinuses and mastoids are clear. HEAD CT ANGIOGRAPHY: Anterior circulation: Intracranial internal carotid arteries are normal in size and flow. The flow within the paired anterior cerebral arteries is normal and symmetric. The M1 segments of the middle cerebral arteries and M2 segments are patent. This represents interval reconstitution of the previous acute right M1/M2 segment occlusion. There is a small branch vessel middle cerebral artery occlusion serving the area of infarcted right frontal brain. This is seen 1 paging through images 79 through 90 of series 8. The anterior communicating artery is seen. No aneurysms are seen. Posterior circulation: Right V4 segment mild distal vertebral artery stenotic disease. Distal left vertebral artery is widely patent. They join to form a normal appearing basilar artery. Flow within the posterior cerebral arteries is normal and symmetric. No aneurysms are seen. NECK CT ANGIOGRAPHY: Carotid system: The great vessels demonstrate a bovine arch anatomy as they arise from the aortic arch. The origins of the common carotid arteries appear patent. The common carotid arteries demonstrate normal caliber and courses. The bifurcation regions are both widely patent. Mild bilateral less than 50% proximal internal carotid artery stenosis. Posterior circulation: The origins of the vertebral arteries both appear widely patent. There is mild right vertebral artery V4 segment stenotic disease. The left vertebral artery is widely patent.. They join to form a normal appearing basilar artery. Soft tissues: Substernal goiter. Shotty mediastinal adenopathy. Bones: No suspicious bony lesions. Visualized cervical spine appears normally aligned. IMPRESSION: 1. There is a subacute kcqy-jc-rtwmclyb sized right MCA distribution infarct with occlusion of a small MCA branch vessel feeding that region of brain. There is no hemorrhagic transformation. 2. Interval recanalization of a distal M1/M2 segment right middle cerebral artery occlusion which was present on the study of 29 days ago. 3. Mild distal right vertebral artery stenotic disease. 4. No significant abnormality is seen within the arteries of the neck. 5. Substernal goiter. Any quantitative measurements of stenosis were performed using NASCET criteria. Dictated by: Adebayo Evans M.D. on 02/11/2024 at 8:23 Approved by: Adebayo Evans M.D. on 02/11/2024 at 8:32
--- NOTE | 2024-02-11 08:03 | DI.CT.S_ITS ---
PROCEDURE: CT STROKE INDICATIONS: difficulty speaking gait on pradaxa TECHNIQUE: Noncontrast 4.5 mm thick angled axial sections acquired from the foramen magnum to the vertex, with coronal reformats. For radiation dose reduction, the following was used: automated exposure control, adjustment of mA and/or kV according to patient size. COMPARISON: [facility], CT, CT STROKE, 01/13/2024, 11:50. FINDINGS: Image quality: Diagnostic. CSF spaces: Basal cisterns are patent. No extra-axial fluid collections. The ventricles are symmetric in size and shape. Brain: Subacute snxp-mf-mdyjqczo sized right frontal infarct with cytotoxic edema extending from the periventricular right frontal deep white matter to the cortex. Reference current image 52 of series 3. There also appears to be evolution of a right basal ganglia lacunar infarction since the previous study. There is cerebral volume loss for age, with resultant ventricular and sulcal prominence. There are periventricular and deep white matter chronic small vessel ischemic changes. 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 There is intracranial internal carotid artery atherosclerosis. Skull and face: Calvarium and visualized facial bones appear intact, without suspicious lesions. Sinuses: Visualized sinuses and mastoids are clear. IMPRESSION: 1. Subacute xfem-kk-apltdhch sized right frontal infarct with cytotoxic edema without hemorrhagic transformation. 2. 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 3. Age-related volume loss and small vessel ischemic change. Comment: Findings were discussed with Dr. Sheikh on 02/11/2024 at 0814 hours This study fulfills neurological imaging criteria for inclusion or exclusion of acute stroke therapies based on available published neurological guidelines. Dictated by: Adebayo Evans M.D. on 02/11/2024 at 8:13 Approved by: Adebayo Evans M.D. on 02/11/2024 at 8:18
[2024-02-11 08:16] LABS: Add Manual Diff / Slide Review NO; Basophils Absolute Auto 0 /uL (0-100); Basophils Percent Auto 0.7 % (0-2); Eosinophils Absolute Auto 200 /uL (0-450); Eosinophils Percent Auto 2.6 % (2-4); Hematocrit 40.8 % (36-46); Hemoglobin 13.4 g/dL (12.0-16.0); Lymphocytes Absolute Auto 1000 /uL (1100-4500); Lymphocytes Percent Auto 14.7 % (25-40); Mean Corpuscular HGB Conc 32.9 % (30-36); Mean Corpuscular Hemoglobin 31.3 PG (26-34); Mean Corpuscular Volume 95.1 fL (80-100); Monocytes Absolute Auto 500 /uL (0-900); Monocytes Percent Auto 6.5 % (3-14); Neutrophils Absolute Auto 5200 /uL (1500-7000); Neutrophils Percent Auto 75.5 % (50-75); Platelet Count 234 X10^3/uL (150-400); Red Blood Cell Count 4.29 X10^6/uL (4.0-5.2); Red Cell Distribution Width 14.9 % (11.6-14.8)
[2024-02-11 08:21] LABS: INR 1.3 (0.9-1.3); Prothrombin Time 14.5 SECONDS (9.4-12.5)
--- NOTE | 2024-02-11 08:23 | ED_ITS ---
HPI - Neuro Symptoms/Deficit General Chief Complaint: Neuro Symptoms/Deficit Stated Complaint: Code Stroke Time Seen by Provider: 02/11/24 08:03 History of Present Illness HPI Narrative: Patient 88-year-old female with recent history of left MCA stroke, atrial fibrillation on flecainide and Pradaxa presenting today again as acute stroke. Last known well difficult to determine. Sounds like she had a large vessel occlusion earlier this month with an initial NIH of 20 2 she was sent to [facility] where she had thrombectomy with complete recanalization sent to rehab and she was discharged 1 week ago. states that they have been practicing walking with a walker in the house she has been doing okay this morning he noticed some differences. She got up to use the restroom but was not able to get her night gown up all the way she had some difficulty with a walker he could tell that she was unsteady on her feet. She did not have any sort of dysphagia or facial droop she was alert and oriented. She also has a history of renal cell carcinoma status post nephrectomy On Anticoagulants: Yes Related Data Home Medications Medication Instructions Recorded Confirmed duloxetine 20 mg capsule,delayed 20 mg PO BID 11/09/23 02/07/24 release Previous Rx's Medication Instructions Recorded amlodipine 10 mg tablet 10 mg PO DAILY #90 tabs 03/19/23 furosemide 40 mg tablet (Lasix) 40 mg PO DAILY #30 tabs 11/07/23 naloxone 4 mg/actuation nasal 4 mg intranasal Q2M #2 ea 11/30/23 spray (Narcan) hydrocodone 10 mg-acetaminophen 1 tab PO BID PRN pain #120 tabs 12/06/23 325 mg tablet docusate sodium 100 mg capsule 100 mg PO BID PRN for constipation 12/10/23 #30 caps omeprazole 20 mg capsule,delayed 20 mg PO BID #60 caps 12/21/23 release Disabled Parking #1 ea 12/24/23 atorvastatin 40 mg tablet 40 mg PO BEDTIME #90 tabs 02/07/24 dabigatran etexilate 150 mg 150 mg PO BID #180 caps 02/07/24 capsule (Pradaxa) flecainide 50 mg tablet 50 mg PO Q12H #180 tabs 02/07/24 metoprolol succinate 25 mg 25 mg PO DAILY #90 tabs 02/07/24 tablet,extended release 24 hr Allergies Allergy/AdvReac Type Severity Reaction Status Date / Time pregabalin AdvReac Intermediate sedation Verified 02/07/24 16:03 Review of Systems Hematologic/Lymphatic On Anticoagulants: Yes Patient History Medical History Chronic back pain greater than 3 months duration History of hematuria Left renal mass Chronic back pain History of falling Acute exacerbation of chronic low back pain Normocytic anemia, not due to blood loss Therapeutic opioid induced constipation Obstructive sleep apnea CHF (congestive heart failure) Anticoagulated Chronic, continuous use of opioids Age-related cognitive decline Fatigue Upper extremity somatic dysfunction Segmental and somatic dysfunction of abdomen and other regions Sacral region somatic dysfunction Pelvic somatic dysfunction Lumbar region somatic dysfunction Thoracic region somatic dysfunction Segmental and somatic dysfunction of rib cage Cervical somatic dysfunction Cranial somatic dysfunction Chronic bilateral back pain Scoliosis of cervical region due to degenerative disease of spine in adult Closed L2 vertebral fracture T12 compression fracture Lumbosacral spondylosis with radiculopathy Facet arthropathy, lumbar Pelvic relaxation PTSD (post-traumatic stress disorder) Anxiety TIA (transient ischemic attack) Sleep apnea GERD (gastroesophageal reflux disease) Colon polyps CTS (carpal tunnel syndrome) Cataract Chicken pox Chronic headaches Depression Hearing loss Measles Mumps Surgical History History of colonoscopy Hx of appendectomy History of carpal tunnel surgery of left wrist Status post cataract extraction of both eyes with insertion of intraocular lens Anesthesia History of ear surgery (1974) History of ear surgery (1981) Status post breast lumpectomy (1982) Status post hysterectomy (1979) History of knee replacement (2012) History of knee replacement (2008) Family History Child Age: 62 Mental health problem Father Heart disease Stroke Myocardial infarction Grandmother Cancer Grandfather Pneumonia Grandmother No problems noted. Mother Brainstem hemorrhage Brain bleed Social History household members: spouse Smoking Status: Never smoker alcohol intake: current Smoking Status: Never smoker alcohol intake frequency: holidays/special occasions only Exam Initial Vital Signs Initial Vital Signs: Vital Signs Pulse Rate 92 H 02/11/24 08:10 Blood Pressure 122/64 02/11/24 08:10 Pulse Oximetry 96 02/11/24 08:10 GENERAL: Weak 88-year-old female and in no acute distress. HEENT: Head atraumatic,EOMI, pupils reactive, face symmetric, moist mucous membranes CARDIOVASCULAR: Regular rate and rhythm without murmurs, rubs or gallops. RESPIRATORY: Breath sounds equal bilaterally, no wheezes rales or rhonchi. ABDOMEN: Soft, nontender. Normoactive bowel sounds all 4 quadrants. No guarding or rebound. EXTREMITIES: Normal range of motion, no clubbing or edema. Neurovascularly intact NEUROLOGICAL: Alert and oriented x4.Normal gait and speech. Cranial nerves II through XII grossly intact. Good blkalk-bp-qmjy, good htcm-sy-bqst, upper strength equal bilaterally, left leg drifts to gurney but right leg is weak as well no dysarthria or aphasia, sensation in tact to soft touch bilaterally, no visual changes, no facial droop SKIN: Warm, dry, no laceration, no petechiae, no rashes or lesions. Scores NIH Stroke Scale Level of Conciousness: Alert, keenly responsive Ask month/age: Answers both questions correctly. Open/close eyes, close hand: Performs both tasks correctly Best gaze horizontal: Normal Visual tatum: No visual loss Facial palsy: Normal symetrical movement Left arm drift: No drift for full 10 sec Right arm drift: No drift for full 10 sec Left leg drift: Drifts down, not to bed Right leg drift: No drift for full 5 sec Limb ataxia: Absent Sensory on face/arms/legs: Normal, no sensory loss Best language: No aphasia, normal Dysarthria: Normal Extinction or inattention: No abnormality Total NIH Stroke scale score: 1 Course Orders Ordered: ED Orders 02/11/24 08:00 Complete Blood Count AUTO DIFF Stat Comprehensive Metabolic Panel Stat Ethanol (ETOH) Stat PTT Partial Thromboplastin Terrance Stat Prothrombin Time INR Stat Troponin & CK Cardiac Panel Stat 02/11/24 08:[address] angio head and neck Stat 02/11/24 08:04 Urinalysis and Microscopic Stat Urine Drug Screen, Rapid Stat EKG-12 Lead Stat 02/11/24 08:48 Covid-19 + FLU A/B + RSV - PCR Stat Vital Signs Vital signs: Vital Signs - 8 hr 02/11/24 08:10 02/11/24 08:13 12/30/24 08:13 Pulse Rate 92 H 75 Respiratory Rate Blood Pressure 122/64 174/90 H Pulse Oximetry 96 95 02/11/24 08:27 02/11/24 08:27 02/11/24 08:30 Pulse Rate 98 H 89 Respiratory Rate 20 15 Blood Pressure 192/100 H Pulse Oximetry 94 95 02/11/24 08:30 02/11/24 09:00 02/11/24 09:00 Pulse Rate 87 Respiratory Rate 23 Blood Pressure 162/98 H 177/79 H Pulse Oximetry 95 02/11/24 09:32 02/11/24 09:33 02/11/24 09:33 Pulse Rate 84 92 H Respiratory Rate 22 15 Blood Pressure 177/101 H Pulse Oximetry 97 99 02/11/24 10:00 02/11/24 10:00 Pulse Rate 88 Respiratory Rate 20 Blood Pressure 194/118 H Pulse Oximetry 98 MDM - Neuro Symptoms/Deficit Lab Data 02/11/24 08:00 02/11/24 08:00 Labs: Lab Results 02/11/24 02/11/24 02/11/24 Range/Units 08:00 08:46 08:48 WBC 7.0 (4.5-11.0) X10^3/uL RBC 4.29 (4.0-5.2) X10^6/uL Hgb 13.4 (12.0-16.0) g/dL Hct 40.8 (36-46) % MCV 95.1 (80-100) fL MCH 31.3 (26-34) PG MCHC 32.9 (30-36) % RDW 14.9 H (11.6-14.8) % Plt Count 234 (150-400) X10^3/uL Neut % (Auto) 75.5 H (50-75) % Lymph % (Auto) 14.7 L (25-40) % [place] % (Auto) 6.5 (3-14) % Eos % (Auto) 2.6 (2-4) % Baso % (Auto) 0.7 (0-2) % Neut # (Auto) 5200 (0002-8027) /uL Lymph # (Auto) 1000 L (9887-8463) /uL [place] # (Auto) 500 (0-900) /uL Eos # (Auto) 200 (0-450) /uL Baso # (Auto) 0 (0-100) /uL PT 14.5 H (9.4-12.5) SECONDS INR 1.3 (0.9-1.3) APTT 57 H (25.1-36.5) SECONDS Sodium 142 (137-145) mmol/L Potassium 3.9 (3.4-5.1) mmol/L Chloride 109 H (98-107) mmol/L Carbon Dioxide 25 (22-32) mmol/L BUN 20 H (7-17) mg/dL Creatinine 1.28 H (0.52-1.04) mg/dL Estimated GFR 41 L (>60) mL/min BUN/Creatinine Ratio 15.6 (6-22) Glucose 102 (80-110) mg/dL Calcium 10.2 (8.4-10.2) mg/dL Total Bilirubin 0.6 (0.2-1.3) mg/dL AST 41 H (14-36) IU/L ALT 26 (<35) IU/L Alkaline Phosphatase 74 (38-126) U/L Total Creatine Kinase 43 (30-135) U/L Troponin I 0.012 (0.01-0.034) ng/mL Total Protein 7.6 (6.3-8.2) g/dL Albumin 4.3 (3.5-5.0) g/dL Globulin 3.3 (1.7-4.1) g/dL Albumin/Globulin Ratio 1.3 (1.0-2.8) Ethyl Alcohol < 10 ( - 10) mg/dL SARS-CoV-2 (PCR) Cancelled Negative Influenza A (RT-PCR) Flu a negative (NEGATIVE) Influenza B (RT-PCR) Flu b negative (NEGATIVE) RSV (PCR) Negative (Negative) Imaging Data CT scan - head: Radiologist's Impression: PROCEDURE: CT STROKE INDICATIONS: difficulty speaking gait on pradaxa TECHNIQUE: Noncontrast 4.5 mm thick angled axial sections acquired from the foramen magnum to the vertex, with coronal reformats. For radiation dose reduction, the following was used: automated exposure control, adjustment of mA and/or kV according to patient size. COMPARISON: [facility], CT, CT STROKE, 01/13/2024, 11:50. FINDINGS: Image quality: Diagnostic. CSF spaces: Basal cisterns are patent. No extra-axial fluid collections. The ventricles are symmetric in size and shape. Brain: Subacute bpeo-cc-dygcipvt sized right frontal infarct with cytotoxic edema extending from the periventricular right frontal deep white matter to the cortex. Reference current image 52 of series 3. There also appears to be evolution of a right basal ganglia lacunar infarction since the previous study. There is cerebral volume loss for age, with resultant ventricular and sulcal prominence. There are periventricular and deep white matter chronic small vessel ischemic changes. 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 There is intracranial internal carotid artery atherosclerosis. Skull and face: Calvarium and visualized facial bones appear intact, without suspicious lesions. Sinuses: Visualized sinuses and mastoids are clear. IMPRESSION: 1. Subacute ktac-fb-hhovutcr sized right frontal infarct with cytotoxic edema without hemorrhagic transformation. 2. 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 3. Age-related volume loss and small vessel ischemic change. Comment: Findings were discussed with Dr. Sheikh on 02/11/2024 at 0814 hours This study fulfills neurological imaging criteria for inclusion or exclusion of acute stroke therapies based on available published neurological guidelines. Dictated by: Adebayo Evans M.D. on 02/11/2024 at 8:13 CTA - brain/neck: Radiologist's Impression: PROCEDURE: CT ANGIO HEAD AND NECK INDICATIONS: difficulty speaking on pradaxa hx LVO TECHNIQUE: After the administration of intravenous contrast, 1 mm thick sections acquired from the aortic arch through the [place]. 3-dimensional plkmqiw-opaxydxzc-stgapotchk (MIP) and/or volume rendering reformats were acquired of the central intracranial vasculature and neck separately. For radiation dose reduction, the following was used: automated exposure control, adjustment of mA and/or kV according to patient size. COMPARISON: [facility], US, US THYROID, 07/12/2023, 11:42. [facility], CT, CT ANGIO CHEST PE PROTOCOL, 11/04/2023, 9:59. [facility], CT, CT STROKE, 02/11/2024, 8:00. [facility], CT, CT ANGIO HEAD AND NECK, 01/13/2024, 11:50. FINDINGS: Image quality: Diagnostic. BRAIN: CSF spaces: Ventricles are normal in size and shape. Basal cisterns are patent. No extra-axial fluid collections. Brain: Age-related volume loss, small vessel ischemic change. Subacute gejs-gt-aynxrdjf right frontal infarct without hemorrhagic transformation. Cytotoxic edema is present. Skull and face: Calvarium and facial bones appear intact, without suspicious lesions. Orbits appear normal. Sinuses: Sinuses and mastoids are clear. HEAD CT ANGIOGRAPHY: Anterior circulation: Intracranial internal carotid arteries are normal in size and flow. The flow within the paired anterior cerebral arteries is normal and symmetric. The M1 segments of the middle cerebral arteries and M2 segments are patent. This represents interval reconstitution of the previous acute right M1/M2 segment occlusion. There is a small branch vessel middle cerebral artery occlusion serving the area of infarcted right frontal brain. This is seen 1 paging through images 79 through 90 of series 8. The anterior communicating artery is seen. No aneurysms are seen. Posterior circulation: Right V4 segment mild distal vertebral artery stenotic disease. Distal left vertebral artery is widely patent. They join to form a normal appearing basilar artery. Flow within the posterior cerebral arteries is normal and symmetric. No aneurysms are seen. NECK CT ANGIOGRAPHY: Carotid system: The great vessels demonstrate a bovine arch anatomy as they arise from the aortic arch. The origins of the common carotid arteries appear patent. The common carotid arteries demonstrate normal caliber and courses. The bifurcation regions are both widely patent. Mild bilateral less than 50% proximal internal carotid artery stenosis. Posterior circulation: The origins of the vertebral arteries both appear widely patent. There is mild right vertebral artery V4 segment stenotic disease. The left vertebral artery is widely patent.. They join to form a normal appearing basilar artery. Soft tissues: Substernal goiter. Shotty mediastinal adenopathy. Bones: No suspicious bony lesions. Visualized cervical spine appears normally aligned. IMPRESSION: 1. There is a subacute zwah-pz-ebgiatzl sized right MCA distribution infarct with occlusion of a small MCA branch vessel feeding that region of brain. There is no hemorrhagic transformation. 2. Interval recanalization of a distal M1/M2 segment right middle cerebral artery occlusion which was present on the study of 29 days ago. 3. Mild distal right vertebral artery stenotic disease. 4. No significant abnormality is seen within the arteries of the neck. 5. Substernal goiter. Any quantitative measurements of stenosis were performed using NASCET criteria. Dictated by: Adebayo Evans M.D. on 02/11/2024 at 8:23 Approved by: Adebayo Evans M.D. on 02/11/2024 at 8:32 ECG Data Attestation: I personally reviewed and interpreted this ECG as follows: Prior ECG tracings: available for review Interpretation: Atrial flutter rate 82 ST depression and T-wave inversion noted in precordial leads V4 V5 and V6 similar to previous EKGs although slightly more pronounced MDM Narrative Medical decision making narrative: MDM CC: Ataxia Complicating co-morbidities: Recent large vessel occlusion right MCA with thrombectomy, atrial fibrillation currently on Pradaxa Medical records reviewed: Records from hospitalization at [facility] Differential considered: Infection intracranial bleed new CVA, seizure Exam documented above, pertinent findings include: Patient does seem weak but she is awake and alert can follow commands her left leg is slightly weaker than her right leg community liaison strength is equal Lab Test results independently reviewed as above. Pertinent findings: No leukocytosis WBC is 7 No CHONG creatinine is stable at 1.28 Electrolytes within normal limit chloride slightly elevated 109 Bilirubin 0.6 AST 41 ALT 26 alk-phos 74 Troponin negative Independently reviewed EKG as above Atrial flutter with some ST depression and T-wave inversions similar to previous EKGs Imaging studies independently reviewed: Consultations: 829 Dr. Barger, updated symptoms test results were reviewed imaging and return call 0900 at this time expected evolution of CVA no acute CVA documented at discharge strength 3/5 in all extremities. Would consider Keppra there was concern for seizure also strongly recommended looking for infection and other etiologies Treatments: None Re-evaluations: Patient ambulated well with walker. Attempted urine but it was quite contaminated. Both patient and has been really want to go home. She has no leukocytosis or there infectious symptoms Discussion: 88-year-old female who had a recent large vessel occlusion stroke presenting today with some weakness and difficulty walking. On exam she does have some left leg weakness greater than right leg. Discussion with Neurology who reviewed imaging from today. They state that this is consistent with evolution of recent CVA. Respiratory panel is negative no other etiology for infection or cause of worsening weakness. Attempted to get a urinalysis but may got contaminated not successful. getting quite inpatient. At this time patient ambulated with a walker she did well. Difficult to say what patient's new baseline is. I do not suspect seizure it does not suddenly she would any sort of shaking or syncopal episode. Discussion with it sounds like they have home health and PT set up he reports that somebody even came to the house on Sunday. He would like patient's med list back however whenever received it was able to print 1 off from [employer]. At this time unclear what caused her balance issue, no new stroke. No change in medication. Does not meet admission criteria today Discharge Plan Departure Patient Disposition: Home Clinical Impression: CVA (cerebral vascular accident), Weakness Instructions: DI for Stroke-Ischemic Activity Restrictions/Additional Instructions: *You have been diagnosed with weakness *What to do: At this time no new stroke. I think her body is still adjusting to her recent stroke. Blood work and CT scan appear stable continue with home health *Continue to take medications as directed *Follow up with your primary care provider in 2-3 days or call [phone] *Return to ER if you should have increasing weakness confusion difficulty ambulating [or] any new, worsening or concerning symptoms Prescriptions: No Action duloxetine 20 mg capsule,delayed release(DR/EC) 20 mg PO BID naloxone [Narcan] 4 mg/actuation spray,non-aerosol 4 mg intranasal Q2M Qty: 2 0RF Rx Instructions: spray 1 dose into ONE nostril; alternate nostrils w each dose until help arrives hydrocodone-acetaminophen 10-325 mg tablet 1 tab PO BID PRN (Reason: pain) Qty: 120 0RF Pradaxa 150 mg capsule 150 mg PO BID Qty: 180 3RF flecainide 50 mg tablet 50 mg PO Q12H Qty: 180 3RF metoprolol succinate 25 mg tablet extended release 24 hr 25 mg PO DAILY Qty: 90 3RF atorvastatin 40 mg tablet 40 mg PO BEDTIME Qty: 90 3RF amlodipine 10 mg tablet 10 mg PO DAILY Qty: 90 3RF docusate sodium 100 mg capsule 100 mg PO BID PRN (Reason: for constipation) Qty: 30 3RF omeprazole 20 mg capsule,delayed release(DR/EC) 20 mg PO BID Qty: 60 1RF (DME) Disabled Parking See Rx Instructions .ROUTE .MEDSUPPLY Qty: 1 0RF Rx Instructions: I find this patient to be medically disabled and qualified for DISABLED PARKING as indicated, and signed, on the ACCOMPANYING DISABLED PARKING APPLICATION for Individuals. furosemide [Lasix] 40 mg tablet 40 mg PO DAILY Qty: 30 2RF Referrals: Shena Perry MD [Primary Care Provider] - Stand Alone Forms: Patient Portal/API/Survey
[2024-02-11 08:24] LABS: PTT Partial Thromboplastin Tim 57 SECONDS (25.1-36.5)
--- NOTE | 2024-02-11 08:25 | EKG_ITS ---
[address] [address] Test Date: 2024-02-11 Pat Name: Swathi [place] Department: [facility] Room: Gender: Female Manager Mechanical Maintenance: LIDIA : [id number] Requested By: Order Number: [id number] Reading MD: Newton Hirsch Measurements Intervals [place] Rate: 82 P: 105 MI: QRS: 4 QRSD: 82 T: 208 QT: 400 QTc: 467 Interpretive Statements Atrial flutter with variable AV block Left ventricular hypertrophy with repolarization abnormality ( R in aVL , Giuliano product ) Electronically Signed On 02-14-2024 9:39:06 PST by Newton Hirsch
[2024-02-11 08:27] LABS: Alanine Aminotransferase 26 IU/L (<35); Albumin 4.3 g/dL (3.5-5.0); Albumin Globulin Ratio 1.3 (1.0-2.8); Alkaline Phosphatase 74 U/L (38-126); Aspartate Aminotransferase 41 IU/L (14-36); BUN Creatinine Ratio 15.6 (6-22); Bilirubin Total 0.6 mg/dL (0.2-1.3); Blood Urea Nitrogen 20 mg/dL (7-17); Calcium 10.2 mg/dL (8.4-10.2); Carbon Dioxide 25 mmol/L (22-32); Chloride 109 mmol/L (98-107); Creatine Kinase 43 U/L (30-135); Estimated Glomerular Filt Rate 41 mL/min (>60); Ethanol (ETOH) < 10 mg/dL; Globulin 3.3 g/dL (1.7-4.1); Glucose 102 mg/dL (80-110); HEMOLYSIS 22 (0-50); Potassium 3.9 mmol/L (3.4-5.1); Sodium 142 mmol/L (137-145); Total Protein 7.6 g/dL (6.3-8.2)
[2024-02-11 08:38] LABS: Troponin I 0.012 ng/mL (0.01-0.034)
[2024-02-11 09:31] LABS: Influenza A - CEPHEID Flu A NEGATIVE (NEGATIVE); Influenza B - CEPHEID Flu B NEGATIVE (NEGATIVE); Respiratory Syncytial Virus Negative (Negative)
[2024-02-11 09:32] LABS: COVID-19 CEPHEID 4-PLEX PCR Negative (Negative)
--- NOTE | 2024-02-11 12:25 | PC.NURSE ---
Pt's adamant that we were given med list and states that he is refusing to leave until he gets his 's med list. Med list not in chart and EMS that brought pt in to ED was called. EMS reported that they were not given a med list when they arrived to scene of call. 's anger continued to escalate and began insulting ED staff by using vulgar language and profanities. Dr Sheikh spoke with and explained that we did not have pt's med list and instructed him to call [facility] for another copy and also printed off a copy of med pt's most recent med list from [employer]. refused printed medication list from and continued to escalate and refused to sign discharge paperwork. Discussed at length that pt was discharged, they needed to vacate department and that the medication list was not in our possession at this time. Also explained that security would be called to escort them to their vehicle if they refused to leave. drove car up to ED entrance and pt assisted into vehicle by COUNTER WEIGHER.
== END 2024-02-11 12:38 | disposition home or self-care (01) ==
PROVIDERS: Emergency Provider Emergency Medicine; PCP Student in an Organized Health Care Education/Training Program
DX: I63.9 Cerebral infarction, unspecified (principal); R29.701 NIHSS score 1; R53.1 Weakness; I48.91 Unspecified atrial fibrillation; Z86.73 Personal history of transient ischemic attack (TIA), and cerebral infarction without residual deficits; Z79.01 Long term (current) use of anticoagulants; Z98.890 Other specified postprocedural states
CPT/HCPCS: 0241U; 36415; 70450; 70496; 70498; 80053; 80320; 82550; 84484; 85025; 85610; 85730; 93005; 99284; 99285; Q9967